=== PATIENT | female | born 1940 | race African-American/Black ===

== ENCOUNTER 2017-12-29 02:50 | Emergency (ER) | payer MEDICAID ==
[2017-12-29 03:14] LABS: ADD MAN DIFF? NO
[2017-12-29 03:17] LABS: BASO # 0.1 x10^3/uL (0.0-0.2); BASO % 1 % (0-3); EOS # 0.2 x10^3/uL (0.0-0.7); EOS % 3 % (0-3); HEMATOCRIT 36.6 % (36.0-47.0); HEMOGLOBIN 12.6 g/dL (12.0-15.5); LYMPH # 3.9 x10^3/uL (1.0-4.8); LYMPH % 44 % (24-48); MEAN CORPUSCULAR HEMOGLOBIN 33 pg (25-35); MEAN CORPUSCULAR HGB CONC 34 g/dL (31-37); MEAN CORPUSCULAR VOLUME 96 fL (79-100); MONO # 0.5 x10^3/uL (0.0-1.1); MONO % 5 % (0-9); NEUT # 4.1 x10^3uL (1.8-7.7); NEUT % 46 % (31-73); PLATELET COUNT 256 x10^3/uL (140-400); RED BLOOD COUNT 3.83 x10^6/uL (3.50-5.40); RED CELL DISTRIBUTION WIDTH 13.3 % (11.5-14.5); WHITE BLOOD COUNT 8.8 x10^3/uL (4.0-11.0)
[2017-12-29] MEDS: NITROGLYCERIN SUBLINGUAL 0.4 MG BOTTLE OF 25. SL (03:26)
[2017-12-29] MEDS: fentaNYL PF VIAL 100 MCG/2 ML VIAL IV ×2 (03:26→04:45)
[2017-12-29 03:31] LABS: ANION GAP 13 (6-14); BLOOD UREA NITROGEN 16 mg/dL (7-20); BUN/CREATININE RATIO 15 (6-20); CALCIUM 9.5 mg/dL (8.5-10.1); CARBON DIOXIDE 20 mmol/L (21-32); CHLORIDE 107 mmol/L (98-107); CREATININE 1.1 mg/dL (0.6-1.0); GFR 47.9; GLUCOSE 116 mg/dL (70-99); POTASSIUM 3.7 mmol/L (3.5-5.1); SODIUM 140 mmol/L (136-145)
[2017-12-29 03:36] LABS: ALBUMIN 3.7 g/dL (3.4-5.0); ALBUMIN/GLOBULIN RATIO 0.8 (1.0-1.7); ALK PHOS 116 U/L (46-116); ALT (SGPT) 42 U/L (14-59); AST (SGOT) 39 U/L (15-37); TOTAL BILIRUBIN 0.6 mg/dL (0.2-1.0); TOTAL PROTEIN 8.1 g/dL (6.4-8.2)
[2017-12-29 03:39] LABS: TROPONINI < 0.017 ng/mL (0.000-0.055)
[2017-12-29 03:42] LABS: NT-PRO BNP 383 pg/mL (0-449)
== END 2017-12-29 05:35 | disposition home or self-care (01) ==
LOC: ER 02:50
DX: R07.89 Other chest pain (principal); J44.9 Chronic obstructive pulmonary disease, unspecified; E78.00 Pure hypercholesterolemia, unspecified; I10 Essential (primary) hypertension; Z88.1 Allergy status to other antibiotic agents; Z88.5 Allergy status to narcotic agent
CPT/HCPCS: 36415; 71045; 80053; 83880; 84484; 85025; 93005; 96374; 96376; 99285-25; J3010

== ENCOUNTER 2018-06-17 19:25 | Emergency (ER) | payer MEDICARE ==
[~2018-06-17] VITALS: Ht 154.9 cm; Wt 64.4 kg
[~2018-06-17 19:25] MED LIST: HYDR-3164 PO; LEVO88TA2 PO; LIDO700A39 TD; LISI-130 PO; METO-239 PO; MUPI15CR TP; OXYC1TAB7 PO; PANT20TA2 PO; Pantoprazole PO
[2018-06-17 19:40] VITALS: BP 168/67
[2018-06-17] MEDS ORDERED: TRAM50TA PO (20:28)
[2018-06-17] MEDS: HYDROcodone/APAP 5/325MG 1 TAB TABLET PO ONE (20:30)
--- NOTE | 2018-06-17 21:16 | PHYS DOC ---
Past Medical History Past Medical History: COPD, High Cholesterol, Hypertension, Hepatitis, Other Additional Past Medical Histor: HEP C Past Surgical History: Hysterectomy Alcohol Use: Occasionally Drug Use: Marijuana Adult General Chief Complaint Chief Complaint: ABDOMINAL PAIN HPI HPI Patient is a 78 year old female with recent colostomy 2 months ago who presents with chronic abdominal pain around colostomy site. Patient states symptoms are unchanged, but her reason for presenting to the emergency department 2 days that she ran out of her ostomy bags, pain medication and some skin breakdown around her ostomy bag which she attributes to the cause of her pain. Patient denies vomiting, lightheadedness, change of ostomy bag output. Patient appointment with her general surgeon tomorrow but could not wait due her immediate needs and lack of supplies. [] Review of Systems Review of Systems ROS as per HPI [] All other systems were reviewed and found to be within normal limits, except as documented in this note. Current Medications Current Medications Current Medications Medications (Trade) Dose Ordered Sig/Saroj Start Time Stop Time Status Last Admin Dose Admin Acetaminophen/ Hydrocodone Bitart (Lortab 5/325) 1 tab 1X ONCE 06/17/18 20:30 06/17/18 20:31 DC 06/17/18 20:30 1 TAB Allergies Allergies Allergies Coded Allergies Type Severity Reaction Last Updated Verified ceftriaxone Allergy Intermediate SKIN RASH, HAS TOLERATED ZOSYN 06/07/18 Yes morphine Allergy Intermediate 05/20/18 Yes Physical Exam Physical Exam Constitutional: Well developed, well nourished, no acute distress, non-toxic appearance. [] HENT: Normocephalic, atraumatic, bilateral external ears normal, oropharynx moist, no oral exudates, nose normal. [] Eyes: PERRLA, EOMI, conjunctiva normal, no discharge. [] Neck: Normal range of motion, no tenderness, supple, no stridor. [] Cardiovascular:Heart rate regular rhythm, no murmur [] Lungs & Thorax: Bilateral breath sounds clear to auscultation [] Abdomen: Bowel sounds normal, soft, no tenderness, minimal superficial skin breakdown around ostomy site. No tenderness. [] Skin: Warm, dry. [] Back: No tenderness. [] Extremities: No tenderness. [] Neurologic: Alert and oriented X 3, normal motor function, normal sensory function, no focal deficits noted. [] Psychologic: Affect normal, judgement normal, mood normal. [] Current Patient Data Vital Signs Vital Signs Date Time Temp Pulse Resp B/P (MAP) Pulse Ox O2 Delivery O2 Flow Rate FiO2 06/17/18 20:30 15 100 06/17/18 19:40 98.2 81 168/67 (100) Room Air 98.2 EKG EKG [] Radiology/Procedures Radiology/Procedures [] Course & Med Decision Making Course & Med Decision Making Pertinent Labs and Imaging studies reviewed. (See chart for details) [Patient's pain addressed. Ostomy bag changed patient given supplies until she can follow-up with her general surgeon tomorrow. Will defer further evaluation and management to patient's provider.] Dragon Disclaimer Dragon Disclaimer This electronic medical record was generated, in whole or in part, using a voice recognition dictation system. Departure Departure Impression: Primary Impression: Chronic abdominal pain Additional Impression: Skin breakdown Disposition: HOME, SELF-CARE Condition: GOOD Patient Instructions: Abdominal Pain (Nonspecific) Additional Instructions: Please follow-up with Dr. Britt tomorrow as scheduled for evaluation of iliostomy site and chronic abdominal pain. Take temp tramadol as directed. Scripts Tramadol Hcl (TRAMADOL HCL) 50 Mg Tablet 50 MG PO Q6H PRN for PAIN for 3 Days, #15 TAB 0 Refills Prov: OSMIN YANCEY DO 06/17/18 Problem Qualifiers OSMIN YANCEY DO Jun 17, 2018 21:16
== END 2018-06-17 21:25 | disposition home or self-care (01) ==
LOC: ER 19:25
DX: T85.848A Pain due to other internal prosthetic devices, implants and grafts, initial encounter (principal); G89.28 Other chronic postprocedural pain; E78.00 Pure hypercholesterolemia, unspecified; I10 Essential (primary) hypertension; J44.9 Chronic obstructive pulmonary disease, unspecified; Z90.710 Acquired absence of both cervix and uterus; Z88.1 Allergy status to other antibiotic agents; Z88.5 Allergy status to narcotic agent; Y82.8 Other medical devices associated with adverse incidents; Y92.89 Other specified places as the place of occurrence of the external cause
CPT/HCPCS: 99283

== ENCOUNTER 2018-09-09 04:51 | Inpatient (IN) | payer MEDICARE ==
[~2018-09-09] VITALS: Ht 154.9 cm; Wt 61.3 kg
[~2018-09-09 04:51] MED LIST changes: +ASPI-612 PO; +LISI10TA2 PO; +TIZA4TAB PO; +TRAM50TA PO
[2018-09-09] MEDS ORDERED: ASPIRIN 325 MG TABLET PO ONE (05:30)
[2018-09-09] MEDS ORDERED: fentaNYL PF VIAL 100 MCG/2 ML VIAL IV ONE ×2 (05:30→07:00)
[2018-09-09] MEDS ORDERED: FAMOTIDINE 20 MG/2 ML VIAL IVP ONE (05:30)
[2018-09-09] MEDS ORDERED: ONDANSETRON PF 4 MG/2 ML VIAL. IV ONE (05:30)
--- NOTE | 2018-09-09 05:58 | PHYS DOC ---
Past Medical History Past Medical History: COPD, High Cholesterol, Hypertension, Hepatitis, Other Additional Past Medical Histor: HEP C (MICHELLE ESPINOZA DO) Past Surgical History: Hysterectomy, Other Additional Past Surgical Histo: colostomy (MICHELLE ESPINOZA DO) Alcohol Use: Occasionally Drug Use: None (MICHELLE ESPINOZA DO) Adult General Chief Complaint Chief Complaint: BREAST PAIN/INJURY HPI HPI 78-year-old female presents via EMS with report of bilateral breast pain and tenderness. Patient reports started yesterday. Reports some associated nausea and dizziness. Denies known trauma. Denies rash. Denies fever or chills. Denies leg swelling or calf tenderness. Per [facility] patient was recently admitted 2 weeks ago for similar which was thought to be secondary to muscular skeletal chest pain and associated pneumonia. Patient does report some dry cough. Denies leg swelling or calf tenderness. (MICHELLE ESPINOZA DO) Review of Systems Review of Systems Constitutional: Denies fever or chills [] Eyes: Denies change in visual acuity, redness, or eye pain [] HENT: Denies nasal congestion or sore throat [] Respiratory: Reports cough; denies shortness of breath [] Cardiovascular: Reports breast pain; denies palpitations GI: Denies abdominal pain; reports nausea : Denies dysuria or hematuria [] Musculoskeletal: Denies back pain or joint pain [] Integument: Denies rash or skin lesions [] Neurologic: Denies headache, focal weakness or sensory changes; reports dizziness Complete systems were reviewed and found to be within normal limits, except as documented in this note. (MICHELLE ESPINOZA DO) Current Medications Current Medications Current Medications Medications (Trade) Dose Ordered Sig/Saroj Start Time Stop Time Status Last Admin Dose Admin Albuterol Sulfate (Ventolin Neb Soln) 10 mg 1X ONCE 09/09/18 07:00 09/09/18 07:01 DC 09/09/18 07:00 10 MG Aspirin ([place] Aspirin) 325 mg 1X ONCE 09/09/18 05:30 09/09/18 05:31 DC 09/09/18 06:13 325 MG Calcium Gluconate (Calcium Gluconate) 1,000 mg 1X ONCE 09/09/18 07:00 09/09/18 07:01 DC Dextrose (Dextrose 50%-Water Syringe) 25 gm 1X ONCE 09/09/18 07:00 09/09/18 07:01 DC Famotidine (Pepcid Vial) 20 mg 1X ONCE 09/09/18 05:30 09/09/18 05:31 DC 09/09/18 06:12 20 MG Fentanyl Citrate (Fentanyl 2ml Vial) 25 mcg 1X ONCE 09/09/18 07:00 09/09/18 07:01 DC Insulin Human Regular (HumuLIN R VIAL) 10 unit 1X ONCE 09/09/18 07:00 09/09/18 07:01 DC Ondansetron HCl (Zofran) 4 mg 1X ONCE 09/09/18 05:30 09/09/18 05:31 DC 09/09/18 06:12 4 MG Sodium Polystyrene Sulfonate (Kayexalate) 30 gm 1X ONCE 09/09/18 07:00 09/09/18 07:01 DC Sodium Bicarbonate (Sodium Bicarb Adult 8.4% Syr) 50 meq 1X ONCE 09/09/18 07:00 09/09/18 07:01 DC Sodium Chloride 1,000 ml @ 1,000 mls/hr 1X ONCE 09/09/18 07:00 09/09/18 07:59 (URI MATTHEWS MD) Allergies Allergies Allergies Coded Allergies Type Severity Reaction Last Updated Verified ceftriaxone Allergy Intermediate SKIN RASH, HAS TOLERATED ZOSYN 06/07/18 Yes morphine Allergy Intermediate 08/25/18 Yes (URI MATTHEWS MD) Physical Exam Physical Exam Constitutional: Well developed, well nourished, no acute distress, non-toxic appearance. [] HENT: Normocephalic, atraumatic, oropharynx moist Eyes: Conjunctiva normal, no discharge. [] Neck: Normal range of motion, no tenderness, supple Cardiovascular: Heart rate regular rhythm, no murmur [] Lungs & Thorax: Bilateral breath sounds clear to auscultation [] Abdomen: Soft, no tenderness Skin: Warm, dry, no erythema, no rash, small dry areas noted to right breast below nipple Extremities: No tenderness, ROM intact, no edema. [] Neurologic: Alert and oriented X 3, normal motor function, normal sensory function, no focal deficits noted. [] Psychologic: Affect normal, judgement normal, mood normal. [] (ESPINOZA,MICHELLE Luciano DO) Current Patient Data Vital Signs Vital Signs Date Time Temp Pulse Resp B/P (MAP) Pulse Ox O2 Delivery O2 Flow Rate FiO2 09/09/18 06:27 103 148/82 (104) 96 Room Air 09/09/18 04:53 97.7 18 97.7 (URI MATTHEWS MD) Lab Values Laboratory Tests Test 09/09/18 06:00 09/09/18 06:35 White Blood Count 14.5 x10^3/uL (4.0-11.0) H Red Blood Count 4.28 x10^6/uL (3.50-5.40) Hemoglobin 12.6 g/dL (12.0-15.5) Hematocrit 39.9 % (36.0-47.0) Mean Corpuscular Volume 93 fL (79-100) Mean Corpuscular Hemoglobin 30 pg (25-35) Mean Corpuscular Hemoglobin Concent 32 g/dL (31-37) Red Cell Distribution Width 14.8 % (11.5-14.5) H Platelet Count 740 x10^3/uL (140-400) H Neutrophils (%) (Auto) 71 % (31-73) Lymphocytes (%) (Auto) 23 % (24-48) L Monocytes (%) (Auto) 4 % (0-9) Eosinophils (%) (Auto) 1 % (0-3) Basophils (%) (Auto) 1 % (0-3) Neutrophils # (Auto) 10.3 x10^3uL (1.8-7.7) H Lymphocytes # (Auto) 3.3 x10^3/uL (1.0-4.8) Monocytes # (Auto) 0.6 x10^3/uL (0.0-1.1) Eosinophils # (Auto) 0.1 x10^3/uL (0.0-0.7) Basophils # (Auto) 0.2 x10^3/uL (0.0-0.2) Prothrombin Time 14.1 SEC (11.7-14.0) H Prothrombin Time INR 1.1 (0.8-1.1) PTT 35 SEC (24-38) Sodium Level 137 mmol/L (136-145) Potassium Level 7.3 mmol/L (3.5-5.1) *H Chloride Level 102 mmol/L (98-107) Carbon Dioxide Level 15 mmol/L (21-32) L Anion Gap 20 (6-14) H Blood Urea Nitrogen 49 mg/dL (7-20) H Creatinine 5.4 mg/dL (0.6-1.0) H Estimated GFR (Cockcroft-Gault) 9.2 BUN/Creatinine Ratio 9 (6-20) Glucose Level 103 mg/dL (70-99) H Lactic Acid Level 1.3 mmol/L (0.4-2.0) Calcium Level 10.0 mg/dL (8.5-10.1) Magnesium Level 1.9 mg/dL (1.8-2.4) Total Bilirubin 0.6 mg/dL (0.2-1.0) Aspartate Amino Transferase (AST) 18 U/L (15-37) Alanine Aminotransferase (ALT) 18 U/L (14-59) Alkaline Phosphatase 155 U/L (46-116) H Creatine Kinase 28 U/L (26-192) Creatine Kinase MB (Mass) 1.1 ng/mL (0.0-3.6) Creatine Kinase MB Relative Index % (0-4) Troponin I Quantitative < 0.017 ng/mL (0.000-0.055) PF-Dws-R-Type Natriuretic Peptide 1327 pg/mL (0-449) H Total Protein 9.7 g/dL (6.4-8.2) H Albumin 4.3 g/dL (3.4-5.0) Albumin/Globulin Ratio 0.8 (1.0-1.7) L Lipase 599 U/L (73-393) H Urine Collection Type U cath Urine Color Irena Urine Clarity Clear Urine pH 5.0 Urine Specific [place] 1.020 Urine Protein 30 mg/dL (NEG-TRACE) Urine Glucose (UA) Negative mg/dL (NEG) Urine Ketones (Stick) Trace mg/dL (NEG) Urine Blood Negative (NEG) Urine Nitrite Negative (NEG) Urine Bilirubin Moderate (NEG) Urine Urobilinogen Dipstick 0.2 mg/dL (0.2 mg/dL) Urine Leukocyte Esterase Trace (NEG) Urine RBC 0 /HPF (0-2) Urine WBC 1-4 /HPF (0-4) Urine Bacteria Few /HPF (0-FEW) Laboratory Tests 09/09/18 06:00 Laboratory Tests 09/09/18 06:00 (URI MATTHEWS MD) EKG EKG @0524 Sinus tachycardia at 105bpm, NO ST elevation. (MICHELLE ESPINOZA DO) Radiology/Procedures Radiology/Procedures [] (MICHELLE ESPINOZA DO) Course & Med Decision Making Course & Med Decision Making Elderly patient presents via EMS with report of bilateral "breast pain" which has been ongoing for last day. Reports associated dizziness and nausea. Pain addressed. IVF hydration given. Labs pending. EKG stable. CXR pending. Patient with history of recent admission 2 weeks ago for similar which was similar to today's discomfort. Patient was thought to possibly have pneumonia and musculoskeletal chest pain. Sign out given to Dr. Matthews for further evaluation and final disposition. Discussed current findings and plan with patient, who acknowledges understanding and agreement. (MICHELLE ESPINOZA DO) Course & Med Decision Making @0705: Patient care transferred to [place] at 0600. Patient complaining of bilateral breast pain since yesterday. Patient had stable vital signs with resolving tachycardia. She has ileostomy in place. Labs showed potassium of 7.3 and creatinine of 5.4. In her recent admission her creatinine was 1.1. Patient had history of acute renal failure previously. EKG did not show abnormal RI or QRS intervals. Treatment for hyperkalemia was started with IV fluids, D50 and insulin, Kayexalate, bicarbonate and calcium. On-call hospitalist Dr. Campoverde accepted admission at 0503. (URI MATTHEWS MD) Dragon Disclaimer Dragon Disclaimer This electronic medical record was generated, in whole or in part, using a voice recognition dictation system. (MICHELLE ESPINOZA DO) Departure Departure Impression: Primary Impression: ARF (acute renal failure) Additional Impressions: Hyperkalemia Elevated lipase Acute chest wall pain Ileostomy in place Disposition: ADMITTED INPATIENT (at 0 655) Admitting Physician: Other ( accepted admission at 0703) (URI MATTHEWS MD) Condition: GUARDED Referrals: VINCE BLAIR DO (PCP) Critical Care Time Critical care time was 40 minutes exclusive of procedures. (URI MATTHEWS MD) Problem Qualifiers Primary Impression: ARF (acute renal failure) Acute renal failure type: unspecified Qualified Codes: N17.9 - Acute kidney failure, unspecified MICHELLE ESPINOZA DO Sep 09, 2018 05:58 URI MATTHEWS MD Sep 09, 2018 07:01
--- NOTE | 2018-09-09 06:05 | EKG ---
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
[2018-09-09 06:15] LABS: BASO # 0.2 x10^3/uL (0.0-0.2); BASO % 1 % (0-3); EOS # 0.1 x10^3/uL (0.0-0.7); EOS % 1 % (0-3); HEMATOCRIT 39.9 % (36.0-47.0); HEMOGLOBIN 12.6 g/dL (12.0-15.5); LYMPH # 3.3 x10^3/uL (1.0-4.8); LYMPH % 23 % (24-48); MEAN CORPUSCULAR HEMOGLOBIN 30 pg (25-35); MEAN CORPUSCULAR HGB CONC 32 g/dL (31-37); MEAN CORPUSCULAR VOLUME 93 fL (79-100); MONO # 0.6 x10^3/uL (0.0-1.1); MONO % 4 % (0-9); NEUT # 10.3 x10^3uL (1.8-7.7); NEUT % 71 % (31-73); PLATELET COUNT 740 x10^3/uL (140-400); RED BLOOD COUNT 4.28 x10^6/uL (3.50-5.40); RED CELL DISTRIBUTION WIDTH 14.8 % (11.5-14.5); WHITE BLOOD COUNT 14.5 x10^3/uL (4.0-11.0)
[2018-09-09 06:25] LABS: PROTHROMBIN TIME PATIENT 14.1 SEC (11.7-14.0)
--- NOTE | 2018-09-09 06:30 | RAD ---
Single view chest dated 09/09/2018. Comparison made to 08/26/2018. CLINICAL INDICATION: Chest pain. FINDINGS: Single upright view of the chest shows normal heart and mediastinal contours. Lungs are clear without focal consolidation. Vascular interstitium within normal limits. No pleural effusion or pneumothorax. IMPRESSION: No acute radiographic abnormality. Electronically signed by: Fito Villarreal MD (09/09/2018 6:27 AM) [id number]
[2018-09-09 06:34] LABS: ALBUMIN 4.3 g/dL (3.4-5.0); ALBUMIN/GLOBULIN RATIO 0.8 (1.0-1.7); CREATININE 5.4 mg/dL (0.6-1.0); GFR 9.2; MAGNESIUM 1.9 mg/dL (1.8-2.4); TOTAL BILIRUBIN 0.6 mg/dL (0.2-1.0); TOTAL PROTEIN 9.7 g/dL (6.4-8.2)
[2018-09-09 06:39] LABS: POTASSIUM 7.3 mmol/L (3.5-5.1)
[2018-09-09 06:42] LABS: CREATINE KINASE 28 U/L (26-192)
[2018-09-09 06:49] LABS: BILIRUBIN,URINE MODERATE (NEG); CLARITY,URINE CLEAR; COLOR,URINE AMBER; NITRITE,URINE NEGATIVE (NEG); PROTEIN,URINE 30 mg/dL (NEG-TRACE); UROBILINOGEN,URINE 0.2 mg/dL (0.2 mg/dL)
[2018-09-09 06:56] LABS: BACTERIA,URINE FEW /HPF (0-FEW); RBC,URINE 0 /HPF (0-2)
[2018-09-09] MEDS ORDERED: CALCIUM GLUCONATE 1,000 MG/10 ML VIAL. IVP ONE (07:00)
[2018-09-09] MEDS ORDERED: ALBUTEROL SULFATE 2.5 MG/3 ML NEBU. CONT NEB ONE (07:00)
[2018-09-09] MEDS ORDERED: SODIUM BICARB ADULT 8.4% 50 MEQ/50 ML DISP.SYRIN. IV ONE (07:00)
[2018-09-09] MEDS ORDERED: IV NORMAL SALINE 500ML BAG 500 ML IV ONE (07:00)
[2018-09-09] MEDS ORDERED: DEXTROSE 50% 25 GM / 50ML DISP.SYRIN. IV ONE (07:00)
[2018-09-09] MEDS ORDERED: SODIUM POLYSTYRENE SULFONATE 15 GM/60 ML ORAL.SUSP. PO ONE (07:00)
[2018-09-09] MEDS ORDERED: INSULIN REGULAR 100 UNIT/ML 3ML VIAL. IV ONE (07:00)
[2018-09-09] MEDS ORDERED: IV NORMAL SALINE 1000ML BAG 1,000 ML IV ONE (07:00)
--- NOTE | 2018-09-09 07:27 | PDOC1 ---
History and Physical Date of Admission Date of Admission DATE: 09/09/18 TIME: 07:25 Identification/Chief Complaint Chief Complaint Chest pain Source Source: Chart review, Patient History of Present Illness History of Present Illness Ms. Ng is a 78yo F w/ PMHx ?cirrhosis/Hep C, cecal volvulus s/p colostomy, hypothyroidism who p/w right-sided breast pain and is now having left-sided breast pain as well. Pain began last night and is constant, squeezing, only relieved by IV opioids in ED. Now has moved to include her left side as well. Has associated mild shortness of breath, palpation of her chest wall worsens the pain. She has also noted to be slightly tachycardic. She has intermittent pleuritic discomfort. She has not had any definite exertional chest pain. She does have chronic back pain, and now has associated abdominal pain, weakness, nausea, or vomiting. Denies numbness,. There are no alleviating or exacerbating factors to her symptoms. Has been having loose stool per ostomy since last night as well as decreased urine output and decreased appetite for the past 2 weeks. She had labs Cr. 5.4, BUN 65, K 7.3, platelets 454 05/20 s/p diverting ileostomy. Past Medical History Cardiovascular: HTN, Hyperlipidemia Pulmonary: COPD CENTRAL NERVOUS SYSTEM: Other GI: Other Heme/Onc: No pertinent hx Hepatobiliary: Hep A/B/C Psych: Anxiety Musculoskeletal: Osteoarthritis Infectious disease: No pertinent hx Renal/: Chronic renal insuff Endocrine: Hypothyroidism Past Surgical History Past Surgical History: Hysterectomy, Colectomy Family History Family History: Hypertension Social History ALCOHOL: occassional Drugs: Marijuana Current Problem List Problem List Problems Medical Problems: (1) Acute chest wall pain Status: Acute (2) Elevated lipase Status: Acute (3) Ileostomy in place Status: Acute Current Medications Current Medications Current Medications Aspirin ([place] Aspirin) 325 mg 1X ONCE PO Last administered on 09/09/18at 06:13 ; Start 09/09/18 at 05:30; Stop 09/09/18 at 05:31; Status DC Fentanyl Citrate (Fentanyl 2ml Vial) 25 mcg 1X ONCE IV Last administered on 09/09/18at 06:12; Start 09/09/18 at 05:30; Stop 09/09/18 at 05:31; Status DC Ondansetron HCl (Zofran) 4 mg 1X ONCE IV Last administered on 09/09/18at 06:12; Start 09/09/18 at 05:30; Stop 09/09/18 at 05:31; Status DC Famotidine (Pepcid Vial) 20 mg 1X ONCE IVP Last administered on 09/09/18at 06:12 ; Start 09/09/18 at 05:30; Stop 09/09/18 at 05:31; Status DC Sodium Chloride 500 ml @ 500 mls/hr 1X ONCE IV Last administered on 09/09/18at 06:28; Start 09/09/18 at 07:00; Stop 09/09/18 at 07:59 Albuterol Sulfate (Ventolin Neb Soln) 10 mg 1X ONCE CONT NEB Last administered on 09/09/18at 07:00; Start 09/09/18 at 07:00; Stop 09/09/18 at 07:01; Status DC Dextrose (Dextrose 50%-Water Syringe) 25 gm 1X ONCE IV Last administered on 09/09/18at 07:06; Start 09/09/18 at 07:00; Stop 09/09/18 at 07:01; Status DC Insulin Human Regular (HumuLIN R VIAL) 10 unit 1X ONCE IV Last administered on 09/09/18at 07:12; Start 09/09/18 at 07:00; Stop 09/09/18 at 07:01; Status DC Sodium Bicarbonate (Sodium Bicarb Adult 8.4% Syr) 50 meq 1X ONCE IV Last administered on 09/09/18at 07:06; Start 09/09/18 at 07:00; Stop 09/09/18 at 07:01; Status DC Calcium Gluconate (Calcium Gluconate) 1,000 mg 1X ONCE IVP Last administered on 09/09/18at 07:05; Start 09/09/18 at 07:00; Stop 09/09/18 at 07:01; Status DC Sodium Polystyrene Sulfonate (Kayexalate) 30 gm 1X ONCE PO ; Start 09/09/18 at 07:00; Stop 09/09/18 at 07:01; Status DC Sodium Chloride 1,000 ml @ 1,000 mls/hr 1X ONCE IV ; Start 09/09/18 at 07:00; Stop 09/09/18 at 07:59 Fentanyl Citrate (Fentanyl 2ml Vial) 25 mcg 1X ONCE IV Last administered on 09/09/18at 07:06; Start 09/09/18 at 07:00; Stop 09/09/18 at 07:01; Status DC Sodium Chloride 1,000 ml @ 150 mls/hr Q6H40M IV ; Start 09/09/18 at 07:11; Stop 09/10/18 at 07:10 Active Scripts Active Aspirin Ec (Aspirin) 81 Mg Tablet. 81 Mg PO DAILYWBKFT 30 Days Lisinopril 10 Mg Tablet 10 Mg PO BID 30 Days Tizanidine Hcl 4 Mg Tablet 4 Mg PO PRN Q8HRS PRN 10 Days Rayne 5-325 Tablet (Acetaminophen/Hydrocodone Bitart) 1 Each Tablet 1 Tab PO PRN Q6HRS 3 Days Lidocaine 1 Each Adh..patch 1 Patch TD DAILY MDD 1 Synthroid (Levothyroxine Sodium) 88 Mcg Tablet 88 Mcg PO DAILY06 MDD 1 Metoprolol Succinate ( Xl ) (Metoprolol Succinate) 25 Mg Tab.er.24h 25 Mg PO DAILY MDD 1 Reported Protonix (Pantoprazole Sodium) 20 Mg Tablet. 40 Mg PO DAILY Allergies Allergies: Coded Allergies: ceftriaxone (Verified Allergy, Intermediate, SKIN RASH, HAS TOLERATED ZOSYN, 06/07/18) morphine (Verified Allergy, Intermediate, 08/25/18) TOLERATES LORTAB AND DILAUDID ROS General: YES: Fatigue, Malaise, Appetite; No: Chills, Night Sweats, Other PSYCHOLOGICAL ROS: No: Anxiety, Behavioral Disorder, Concentration difficultie , Decreased libido, Depression, Disorientation, Hallucinations, Hostility, Irritablity, Memory difficulties, Mood Swings, Obsessive thoughts, Physical abuse, Sexual abuse, Sleep disturbances, Suicidal ideation, Other Eyes: No Blurry vision, No Decreased vision, No Double vision, No Dry eyes, No Excessive tearing, No Eye Pain, No Itchy Eyes, No Loss of vision, No Photophobia , No Scotomata, No Uses contacts, No Uses glasses, No Other HEENT: No: Heacaches, Visual Changes, Hearing change, Nasal congestion, Nasal discharge, Oral lesions, Sinus pain, Sore Throat, Epistaxis, Sneezing, Snoring, Tinnitus, Vertigo, Vocal changes, Other ALLERGY AND IMMUNOLOGY: No: Hives, Insect Bite Sensitivity, Itchy/Watery Eyes, Nasal Congestion, Post Nasal Drip, Seasonal Allergies, Other Hematological and Lymphatic: No: Bleeding Problems, Blood Clots, Blood Transfusions, Brusing, Night Sweats, Pallor, Swollen Lymph Nodes, Other ENDOCRINE: No: Breast Changes, Galactorrhea, Hair Pattern Changes, Hot Flashes , Malaise/lethargy, Mood Swings, Palpitations, Polydipsia/polyuria, Skin Changes , Temperature Intolerance, Unexpected Weight Changes, Other Breast: No New/Changing Breast Lumps, No Nipple changes, No Nipple discharge, No Other Respiratory: YES: Shortness of breath, Tachypnea; No: Cough, Hemoptysis, Orthopnea, Pleuritic Pain, SOB with excertion, Sputum Changes, Stridor, Wheezing, Other Cardiovascular: yes Chest Pain; No Palpitations, No Orthopnea, No Paroxysmal Noc. Dyspnea, No Edema, No Lt Headedness, No Other Gastrointestinal: Yes Nausea, Yes Abdominal Pain; No Vomiting, No Diarrhea, No Constipation, No Melena, No Hematochezia, No Other Genitourinary: No Dysuria, No Frequency, No Incontinence, No Hematuria, No Retention, No Discharge, No Urgency, No Pain, No Flank Pain, No Other, No , No , No , No , No , No , No Musculoskeletal: No Gait Disturbance, No Joint Pain, No Joint Stiffness, No Joint Swelling, No Muscle Pain, No Muscular Weakness, No Pain In:, No Swelling In:, No Other Neurological: No Behavorial Changes, No Bowel/Bladder ControlChng, No Confusion , No Dizziness, No Gait Disturbance, No Headaches, No Impaired Coord/balance, No Memory Loss, No Numbness/Tingling, No Seizures, No Speech Problems, No Tremors, No Visual Changes, No Weakness, No Other Skin: No Dry Skin, No Eczema, No Hair Changes, No Lumps, No Mole Changes, No Mottling, No Nail Changes, No Pruritus, No Rash, No Skin Lesion Changes, No Other, No Acne Physical Exam General: Alert, Oriented X3, Cooperative, mild distress HEENT: Atraumatic, PERRLA, EOMI, Mucous membr. moist/pink Lungs: Clear to auscultation, Normal air movement Heart: S1S2, RRR, no gallops, no murmurs Abdomen: Normal bowel sounds, Soft, Other (LLQ ostomy clean dry. Diffusely tender) Extremities: No clubbing, No cyanosis, No edema, Normal pulses, No tenderness/ swelling Skin: No rashes, No breakdown, No significant lesion Neuro: Normal speech, Strength at 5/5 X4 ext, Normal tone, Sensation intact, Cranial nerves 3-12 NL, Reflexes 2+ Psych/Mental Status: Mental status NL, Mood NL Vitals Vitals Vital Signs Date Time Temp Pulse Resp B/P (MAP) Pulse Ox O2 Delivery O2 Flow Rate FiO2 09/09/18 07:03 98 Room Air 09/09/18 06:27 103 148/82 (104) 09/09/18 04:53 97.7 18 97.7 Labs Labs Laboratory Tests Test 09/09/18 06:00 09/09/18 06:35 White Blood Count 14.5 x10^3/uL (4.0-11.0) Red Blood Count 4.28 x10^6/uL (3.50-5.40) Hemoglobin 12.6 g/dL (12.0-15.5) Hematocrit 39.9 % (36.0-47.0) Mean Corpuscular Volume 93 fL (79-100) Mean Corpuscular Hemoglobin 30 pg (25-35) Mean Corpuscular Hemoglobin Concent 32 g/dL (31-37) Red Cell Distribution Width 14.8 % (11.5-14.5) Platelet Count 740 x10^3/uL (140-400) Neutrophils (%) (Auto) 71 % (31-73) Lymphocytes (%) (Auto) 23 % (24-48) Monocytes (%) (Auto) 4 % (0-9) Eosinophils (%) (Auto) 1 % (0-3) Basophils (%) (Auto) 1 % (0-3) Neutrophils # (Auto) 10.3 x10^3uL (1.8-7.7) Lymphocytes # (Auto) 3.3 x10^3/uL (1.0-4.8) Monocytes # (Auto) 0.6 x10^3/uL (0.0-1.1) Eosinophils # (Auto) 0.1 x10^3/uL (0.0-0.7) Basophils # (Auto) 0.2 x10^3/uL (0.0-0.2) Prothrombin Time 14.1 SEC (11.7-14.0) Prothromb Time International Ratio 1.1 (0.8-1.1) Activated Partial Thromboplast Time 35 SEC (24-38) Sodium Level 137 mmol/L (136-145) Potassium Level 7.3 mmol/L (3.5-5.1) Chloride Level 102 mmol/L (98-107) Carbon Dioxide Level 15 mmol/L (21-32) Anion Gap 20 (6-14) Blood Urea Nitrogen 49 mg/dL (7-20) Creatinine 5.4 mg/dL (0.6-1.0) Estimated GFR (Cockcroft-Gault) 9.2 BUN/Creatinine Ratio 9 (6-20) Glucose Level 103 mg/dL (70-99) Lactic Acid Level 1.3 mmol/L (0.4-2.0) Calcium Level 10.0 mg/dL (8.5-10.1) Magnesium Level 1.9 mg/dL (1.8-2.4) Total Bilirubin 0.6 mg/dL (0.2-1.0) Aspartate Amino Transf (AST/SGOT) 18 U/L (15-37) Alanine Aminotransferase (ALT/SGPT) 18 U/L (14-59) Alkaline Phosphatase 155 U/L (46-116) Creatine Kinase 28 U/L (26-192) Creatine Kinase MB (Mass) 1.1 ng/mL (0.0-3.6) Creatine Kinase MB Relative Index % (0-4) Troponin I Quantitative < 0.017 ng/mL (0.000-0.055) SE-Ssi-Q-Type Natriuretic Peptide 1327 pg/mL (0-449) Total Protein 9.7 g/dL (6.4-8.2) Albumin 4.3 g/dL (3.4-5.0) Albumin/Globulin Ratio 0.8 (1.0-1.7) Lipase 599 U/L (73-393) Urine Collection Type U cath Urine Color Irena Urine Clarity Clear Urine pH 5.0 Urine Specific Rush 1.020 Urine Protein 30 mg/dL (NEG-TRACE) Urine Glucose (UA) Negative mg/dL (NEG) Urine Ketones (Stick) Trace mg/dL (NEG) Urine Blood Negative (NEG) Urine Nitrite Negative (NEG) Urine Bilirubin Moderate (NEG) Urine Urobilinogen Dipstick 0.2 mg/dL (0.2 mg/dL) Urine Leukocyte Esterase Trace (NEG) Urine RBC 0 /HPF (0-2) Urine WBC 1-4 /HPF (0-4) Urine Bacteria Few /HPF (0-FEW) Laboratory Tests Test 09/09/18 06:00 09/09/18 06:35 White Blood Count 14.5 x10^3/uL (4.0-11.0) Red Blood Count 4.28 x10^6/uL (3.50-5.40) Hemoglobin 12.6 g/dL (12.0-15.5) Hematocrit 39.9 % (36.0-47.0) Mean Corpuscular Volume 93 fL (79-100) Mean Corpuscular Hemoglobin 30 pg (25-35) Mean Corpuscular Hemoglobin Concent 32 g/dL (31-37) Red Cell Distribution Width 14.8 % (11.5-14.5) Platelet Count 740 x10^3/uL (140-400) Neutrophils (%) (Auto) 71 % (31-73) Lymphocytes (%) (Auto) 23 % (24-48) Monocytes (%) (Auto) 4 % (0-9) Eosinophils (%) (Auto) 1 % (0-3) Basophils (%) (Auto) 1 % (0-3) Neutrophils # (Auto) 10.3 x10^3uL (1.8-7.7) Lymphocytes # (Auto) 3.3 x10^3/uL (1.0-4.8) Monocytes # (Auto) 0.6 x10^3/uL (0.0-1.1) Eosinophils # (Auto) 0.1 x10^3/uL (0.0-0.7) Basophils # (Auto) 0.2 x10^3/uL (0.0-0.2) Prothrombin Time 14.1 SEC (11.7-14.0) Prothromb Time International Ratio 1.1 (0.8-1.1) Activated Partial Thromboplast Time 35 SEC (24-38) Sodium Level 137 mmol/L (136-145) Potassium Level 7.3 mmol/L (3.5-5.1) Chloride Level 102 mmol/L (98-107) Carbon Dioxide Level 15 mmol/L (21-32) Anion Gap 20 (6-14) Blood Urea Nitrogen 49 mg/dL (7-20) Creatinine 5.4 mg/dL (0.6-1.0) Estimated GFR (Cockcroft-Gault) 9.2 BUN/Creatinine Ratio 9 (6-20) Glucose Level 103 mg/dL (70-99) Lactic Acid Level 1.3 mmol/L (0.4-2.0) Calcium Level 10.0 mg/dL (8.5-10.1) Magnesium Level 1.9 mg/dL (1.8-2.4) Total Bilirubin 0.6 mg/dL (0.2-1.0) Aspartate Amino Transf (AST/SGOT) 18 U/L (15-37) Alanine Aminotransferase (ALT/SGPT) 18 U/L (14-59) Alkaline Phosphatase 155 U/L (46-116) Creatine Kinase 28 U/L (26-192) Creatine Kinase MB (Mass) 1.1 ng/mL (0.0-3.6) Creatine Kinase MB Relative Index % (0-4) Troponin I Quantitative < 0.017 ng/mL (0.000-0.055) CO-Evu-J-Type Natriuretic Peptide 1327 pg/mL (0-449) Total Protein 9.7 g/dL (6.4-8.2) Albumin 4.3 g/dL (3.4-5.0) Albumin/Globulin Ratio 0.8 (1.0-1.7) Lipase 599 U/L (73-393) Urine Collection Type U cath Urine Color Irena Urine Clarity Clear Urine pH 5.0 Urine Specific Rush 1.020 Urine Protein 30 mg/dL (NEG-TRACE) Urine Glucose (UA) Negative mg/dL (NEG) Urine Ketones (Stick) Trace mg/dL (NEG) Urine Blood Negative (NEG) Urine Nitrite Negative (NEG) Urine Bilirubin Moderate (NEG) Urine Urobilinogen Dipstick 0.2 mg/dL (0.2 mg/dL) Urine Leukocyte Esterase Trace (NEG) Urine RBC 0 /HPF (0-2) Urine WBC 1-4 /HPF (0-4) Urine Bacteria Few /HPF (0-FEW) Images Images CXR - No acute radiographic abnormality. VTE Prophylaxis Ordered VTE Prophylaxis Devices: Yes VTE Pharmacological Prophylaxi: Yes Assessment/Plan Assessment/Plan A/P: Right and left chest wall pain - will trend troponins, seen by cardiology for this 2 weeks ago. Most probably pleuritic in nature as it is worsened with deep breath Leukocytosis - uncertain source if there is an infection Anemia of chronic disease - stable Hepatitis C; outpatient GI f/u Tobacco abuse - discussed/encouraged cessation Hyperkalemia - given albuterol, insulin + dextrose, kayexelate. TIGRE - will consult nephrology, likely this is vasomotor, has not been taking PO well. IVF Hypertension - will manage meds, hold nephrotoxic meds Hypothyroidism - Synthroid Diarrhea - loose bowels. Will monitor, check stool culture, c. diff S/p colectomy with ileostomy - recovered fairly well, has been at home Metabolic acidosis - with gap, likely this is 2/2 TIGRE with an RTA. Will give IVF , bicarbonate Aortic atherosclerosis - noted on CT scan, likely has vascular disease elsewhere as well CAD; CT chest last week notable for coronary calcifications. FEN - Renal diet PPX - Heparin FULL CODE Inpatient for Chest Pain and new TIGRE, will be inpatient at least 2 midnights. SHENA HERNANDEZ MD Sep 09, 2018 07:27
[2018-09-09] MEDS ORDERED: IV NORMAL SALINE 1000ML BAG 1,000 ML IV SCH (08:54)
[2018-09-09 09:00] VITALS: BP 80/82
[2018-09-09] MEDS ORDERED: BISACODYL 10 MG SUPP.RECT. PR PRN (09:00)
[2018-09-09] MEDS: HYDROmorphone 2 MG/ML VIAL IV PRN ×2 (09:20→13:25)
[2018-09-09] MEDS: LIDOCAINE (700MG/PATCH) PATCH. TD SCH (09:25)
[2018-09-09] MEDS: LEVOTHYROXINE 88 MCG TABLET PO SCH (09:25)
[2018-09-09] MEDS: PANTOPRAZOLE 40 MG TABLET.DR. PO SCH (09:26)
[2018-09-09] MEDS: tiZANidine 4 MG TABLET. PO PRN (09:27)
[2018-09-09] MEDS: HEPARIN for SUB-Q USE 5,000 UNIT/ML VIAL. SQ SCH ×2 (09:31→20:49)
[2018-09-09] MEDS: IV NORMAL SALINE 1000ML BAG 1,000 ML IV SCH ×2 (09:33→13:51)
[2018-09-09] MEDS: METOPROLOL SUCC 24HR ER 25 MG TAB.ER.24H. PO SCH (10:00)
[2018-09-09] MEDS: DOCUSATE SODIUM 100 MG CAPSULE. PO SCH ×2 (10:00→20:49)
[2018-09-09] MEDS: ASPIRIN ENTERIC COATED 81 MG TABLET.DR. PO SCH (10:00)
--- NOTE | 2018-09-09 10:30 | PDOC2 ---
CONSULT Date of Consult Date of Consult DATE: 09/09/18 TIME: 10:12 History of Present Illness Reason for Visit: Pt is a 78yo F w/ PMHx ?cirrhosis/Hep C, cecal volvulus s/p colostomy, hypothyroidism who p/w right-sided breast pain and is now having left-sided breast pain as well. Pain began last night and is constant, squeezing, only relieved by IV opioids in ED. Now has moved to include her left side as well. Has associated mild shortness of breath, palpation of her chest wall worsens the pain. She has also noted to be slightly tachycardic. She has intermittent pleuritic discomfort. She has not had any definite exertional chest pain. She does have chronic back pain, and now has associated abdominal pain, weakness, nausea, or vomiting. Denies numbness,. There are no alleviating or exacerbating factors to her symptoms. Has been having loose stool per ostomy since last night as well as decreased urine output and decreased appetite for the past 2 weeks. She denies any F/C. She takes Advil prn Denies any PO Potassium She had labs Cr. 5.4, BUN 65, K 7.3, platelets 454 05/20 s/p diverting ileostomy. Past Medical History Cardiovascular: HTN, Hyperlipidemia Pulmonary: COPD CENTRAL NERVOUS SYSTEM: Other GI: Other Heme/Onc: No pertinent hx Hepatobiliary: Hep A/B/C Psych: Anxiety Musculoskeletal: Osteoarthritis Infectious disease: No pertinent hx Renal/: Chronic renal insuff Endocrine: Hypothyroidism Past Surgical History Past Surgical History: Hysterectomy, Colectomy Family History Family History: Hypertension Social History ALCOHOL: occassional Drugs: Marijuana Lives: Alone Current Problem List Problem List Problems Medical Problems: (1) Acute chest wall pain Status: Acute (2) Elevated lipase Status: Acute (3) Ileostomy in place Status: Acute Current Medications Current Medications Current Medications Aspirin ([place] Aspirin) 325 mg 1X ONCE PO Last administered on 09/09/18at 06:13 ; Start 09/09/18 at 05:30; Stop 09/09/18 at 05:31; Status DC Fentanyl Citrate (Fentanyl 2ml Vial) 25 mcg 1X ONCE IV Last administered on 09/09/18at 06:12; Start 09/09/18 at 05:30; Stop 09/09/18 at 05:31; Status DC Ondansetron HCl (Zofran) 4 mg 1X ONCE IV Last administered on 09/09/18 06:12; Start 09/09/18 at 05:30; Stop 09/09/18 at 05:31; Status DC Famotidine (Pepcid Vial) 20 mg 1X ONCE IVP Last administered on 09/09/18at 06:12 ; Start 09/09/18 at 05:30; Stop 09/09/18 at 05:31; Status DC Sodium Chloride 500 ml @ 500 mls/hr 1X ONCE IV Last administered on 09/09/18at 06:28; Start 09/09/18 at 07:00; Stop 09/09/18 at 07:59; Status DC Albuterol Sulfate (Ventolin Neb Soln) 10 mg 1X ONCE CONT NEB Last administered on 09/09/18at 07:00; Start 09/09/18 at 07:00; Stop 09/09/18 at 07:01; Status DC Dextrose (Dextrose 50%-Water Syringe) 25 gm 1X ONCE IV Last administered on 09/09/18at 07:06; Start 09/09/18 at 07:00; Stop 09/09/18 at 07:01; Status DC Insulin Human Regular (HumuLIN R VIAL) 10 unit 1X ONCE IV Last administered on 09/09/18at 07:12; Start 09/09/18 at 07:00; Stop 09/09/18 at 07:01; Status DC Sodium Bicarbonate (Sodium Bicarb Adult 8.4% Syr) 50 meq 1X ONCE IV Last administered on 09/09/18at 07:06; Start 09/09/18 at 07:00; Stop 09/09/18 at 07:01; Status DC Calcium Gluconate (Calcium Gluconate) 1,000 mg 1X ONCE IVP Last administered on 09/09/18at 07:05; Start 09/09/18 at 07:00; Stop 09/09/18 at 07:01; Status DC Sodium Polystyrene Sulfonate (Kayexalate) 30 gm 1X ONCE PO Last administered on 09/09/18at 08:14; Start 09/09/18 at 07:00; Stop 09/09/18 at 07:01; Status DC Sodium Chloride 1,000 ml @ 1,000 mls/hr 1X ONCE IV Last administered on at 08:14; Start 09/09/18 at 07:00; Stop 09/09/18 at 07:59; Status DC Fentanyl Citrate (Fentanyl 2ml Vial) 25 mcg 1X ONCE IV Last administered on 09/09/18at 07:06; Start 09/09/18 at 07:00; Stop 09/09/18 at 07:01; Status DC Sodium Chloride 1,000 ml @ 150 mls/hr Q6H40M IV Last administered on 09/09/18 09:33; Start 09/09/18 at 07:11; Stop 09/10/18 at 07:10 Aspirin (Ecotrin) 81 mg DAILYWBKFT PO ; Start 09/09/18 at 10:00 Acetaminophen/ Hydrocodone Bitart (Lortab 5/325) 1 tab PRN Q6HRS PRN PO PAIN; Start 09/09/18 at 09:00 Levothyroxine Sodium (Synthroid) 88 mcg DAILY06 PO Last administered on 09:25; Start 09/09/18 at 10:00 Metoprolol Succinate (Toprol Xl) 25 mg DAILY PO ; Start 09/09/18 at 10:00 Lidocaine (Lidoderm) 1 patch DAILY TD Last administered on 09/09/18 09:25; Start 09/09/18 at 10:00 Pantoprazole Sodium (Protonix) 40 mg DAILYAC PO Last administered on 09/09/18 09:26; Start 09/09/18 at 10:00 Tizanidine HCl (Zanaflex) 4 mg PRN Q8HRS PRN PO MUSCLE SPASMS Last administered on 09/09/18 09:27; Start 09/09/18 at 09:15 Sodium Chloride 1,000 ml @ 100 mls/hr Q10H IV Last administered on 09/09/18 09 :33; Start 09/09/18 at 08:54; Stop 09/09/18 at 18:53 Ondansetron HCl (Zofran) 4 mg PRN Q6HRS PRN IV NAUSEA/VOMITING; Start 09/09/18 at 09:00 Hydromorphone HCl (Dilaudid) 0.5 mg PRN Q3HRS PRN IV PAIN Last administered on 09/09/18at 09:20; Start 09/09/18 at 09:00 Acetaminophen (Tylenol) 650 mg PRN Q6HRS PRN PO Headaches, Temp > 101.5F; Start 09/09/18 at 09:00 Docusate Sodium (Colace) 100 mg BID PO ; Start 09/09/18 at 10:00 Bisacodyl (Dulcolax Supp) 10 mg PRN DAILY PRN NM CONSTIPATION; Start 09/09/18 at 09:00 Heparin Sodium (Porcine) (Heparin Sodium) 5,000 unit Q12HR SQ Last administered on 09/09/18at 09:31; Start 09/09/18 at 10:00 Nicotine (Nicoderm Cq 21mg) 1 patch DAILY TD ; Start 09/09/18 at 11:00 Active Scripts Active Aspirin Ec (Aspirin) 81 Mg Tablet. 81 Mg PO DAILYWBKFT 30 Days Lisinopril 10 Mg Tablet 10 Mg PO BID 30 Days Tizanidine Hcl 4 Mg Tablet 4 Mg PO PRN Q8HRS PRN 10 Days [place] 5-325 Tablet (Acetaminophen/Hydrocodone Bitart) 1 Each Tablet 1 Tab PO PRN Q6HRS 3 Days Lidocaine 1 Each Adh..patch 1 Patch TD DAILY MDD 1 Synthroid (Levothyroxine Sodium) 88 Mcg Tablet 88 Mcg PO DAILY06 MDD 1 Metoprolol Succinate ( Xl ) (Metoprolol Succinate) 25 Mg Tab.er.24h 25 Mg PO DAILY MDD 1 Reported Protonix (Pantoprazole Sodium) 20 Mg Tablet. 40 Mg PO DAILY Allergies Allergies: Coded Allergies: ceftriaxone (Verified Allergy, Intermediate, SKIN RASH, HAS TOLERATED ZOSYN, 06/07/18) morphine (Verified Allergy, Intermediate, 08/25/18) TOLERATES LORTAB AND DILAUDID ROS Review of System As per HPI Physical Exam Physical Exam General: NAD HEENT: OM dryish Neck Supple Lungs: CTA, Non labored Heart: S1S2, RRR, no gallops, no murmurs Abdomen: Normal bowel sounds, Soft, ostomy + Extremities: No edema, Skin: No rashes, Neuro: Grossly Normal No Lewis Vital Signs Vital Signs Date Time Temp Pulse Resp B/P (MAP) Pulse Ox O2 Delivery O2 Flow Rate FiO2 09/09/18 09:20 18 Room Air 09/09/18 09:00 97.8 71 80/82 (81) 96 97.8 Assessment & Plan TIGRE on CKD- rule out Obstructive etiology Strict I/O Renal US, repeat BMP Continue IVF If No improvement in renal function and persistent Hyperkalemia- may need HD Dw Pt , she is agreeable Hyperkalemia- Temporizing measures in ED No EKG changes reported Repeat BMP CKD stage 3- TIGRE in DeC with Cr peaked at 6 Recovered to Cr 1.3-1.5 Bilat chest wall pain Hypertension Diarrhea - S/p colectomy with ileostomy Hepatic lesion Dw Pt and Dr. Campoverde Labs Labs Laboratory Tests Test 09/09/18 06:00 09/09/18 06:35 White Blood Count 14.5 x10^3/uL (4.0-11.0) Red Blood Count 4.28 x10^6/uL (3.50-5.40) Hemoglobin 12.6 g/dL (12.0-15.5) Hematocrit 39.9 % (36.0-47.0) Mean Corpuscular Volume 93 fL (79-100) Mean Corpuscular Hemoglobin 30 pg (25-35) Mean Corpuscular Hemoglobin Concent 32 g/dL (31-37) Red Cell Distribution Width 14.8 % (11.5-14.5) Platelet Count 740 x10^3/uL (140-400) Neutrophils (%) (Auto) 71 % (31-73) Lymphocytes (%) (Auto) 23 % (24-48) Monocytes (%) (Auto) 4 % (0-9) Eosinophils (%) (Auto) 1 % (0-3) Basophils (%) (Auto) 1 % (0-3) Neutrophils # (Auto) 10.3 x10^3uL (1.8-7.7) Lymphocytes # (Auto) 3.3 x10^3/uL (1.0-4.8) Monocytes # (Auto) 0.6 x10^3/uL (0.0-1.1) Eosinophils # (Auto) 0.1 x10^3/uL (0.0-0.7) Basophils # (Auto) 0.2 x10^3/uL (0.0-0.2) Prothrombin Time 14.1 SEC (11.7-14.0) Prothromb Time International Ratio 1.1 (0.8-1.1) Activated Partial Thromboplast Time 35 SEC (24-38) Sodium Level 137 mmol/L (136-145) Potassium Level 7.3 mmol/L (3.5-5.1) Chloride Level 102 mmol/L (98-107) Carbon Dioxide Level 15 mmol/L (21-32) Anion Gap 20 (6-14) Blood Urea Nitrogen 49 mg/dL (7-20) Creatinine 5.4 mg/dL (0.6-1.0) Estimated GFR (Cockcroft-Gault) 9.2 BUN/Creatinine Ratio 9 (6-20) Glucose Level 103 mg/dL (70-99) Lactic Acid Level 1.3 mmol/L (0.4-2.0) Calcium Level 10.0 mg/dL (8.5-10.1) Magnesium Level 1.9 mg/dL (1.8-2.4) Total Bilirubin 0.6 mg/dL (0.2-1.0) Aspartate Amino Transf (AST/SGOT) 18 U/L (15-37) Alanine Aminotransferase (ALT/SGPT) 18 U/L (14-59) Alkaline Phosphatase 155 U/L (46-116) Creatine Kinase 28 U/L (26-192) Creatine Kinase MB (Mass) 1.1 ng/mL (0.0-3.6) Creatine Kinase MB Relative Index % (0-4) Troponin I Quantitative < 0.017 ng/mL (0.000-0.055) HK-Mmb-Z-Type Natriuretic Peptide 1327 pg/mL (0-449) Total Protein 9.7 g/dL (6.4-8.2) Albumin 4.3 g/dL (3.4-5.0) Albumin/Globulin Ratio 0.8 (1.0-1.7) Lipase 599 U/L (73-393) Urine Collection Type U cath Urine Color Irena Urine Clarity Clear Urine pH 5.0 Urine Specific [place] 1.020 Urine Protein 30 mg/dL (NEG-TRACE) Urine Glucose (UA) Negative mg/dL (NEG) Urine Ketones (Stick) Trace mg/dL (NEG) Urine Blood Negative (NEG) Urine Nitrite Negative (NEG) Urine Bilirubin Moderate (NEG) Urine Urobilinogen Dipstick 0.2 mg/dL (0.2 mg/dL) Urine Leukocyte Esterase Trace (NEG) Urine RBC 0 /HPF (0-2) Urine WBC 1-4 /HPF (0-4) Urine Bacteria Few /HPF (0-FEW) Laboratory Tests Test 09/09/18 06:00 09/09/18 06:35 White Blood Count 14.5 x10^3/uL (4.0-11.0) Red Blood Count 4.28 x10^6/uL (3.50-5.40) Hemoglobin 12.6 g/dL (12.0-15.5) Hematocrit 39.9 % (36.0-47.0) Mean Corpuscular Volume 93 fL (79-100) Mean Corpuscular Hemoglobin 30 pg (25-35) Mean Corpuscular Hemoglobin Concent 32 g/dL (31-37) Red Cell Distribution Width 14.8 % (11.5-14.5) Platelet Count 740 x10^3/uL (140-400) Neutrophils (%) (Auto) 71 % (31-73) Lymphocytes (%) (Auto) 23 % (24-48) Monocytes (%) (Auto) 4 % (0-9) Eosinophils (%) (Auto) 1 % (0-3) Basophils (%) (Auto) 1 % (0-3) Neutrophils # (Auto) 10.3 x10^3uL (1.8-7.7) Lymphocytes # (Auto) 3.3 x10^3/uL (1.0-4.8) Monocytes # (Auto) 0.6 x10^3/uL (0.0-1.1) Eosinophils # (Auto) 0.1 x10^3/uL (0.0-0.7) Basophils # (Auto) 0.2 x10^3/uL (0.0-0.2) Prothrombin Time 14.1 SEC (11.7-14.0) Prothromb Time International Ratio 1.1 (0.8-1.1) Activated Partial Thromboplast Time 35 SEC (24-38) Sodium Level 137 mmol/L (136-145) Potassium Level 7.3 mmol/L (3.5-5.1) Chloride Level 102 mmol/L (98-107) Carbon Dioxide Level 15 mmol/L (21-32) Anion Gap 20 (6-14) Blood Urea Nitrogen 49 mg/dL (7-20) Creatinine 5.4 mg/dL (0.6-1.0) Estimated GFR (Cockcroft-Gault) 9.2 BUN/Creatinine Ratio 9 (6-20) Glucose Level 103 mg/dL (70-99) Lactic Acid Level 1.3 mmol/L (0.4-2.0) Calcium Level 10.0 mg/dL (8.5-10.1) Magnesium Level 1.9 mg/dL (1.8-2.4) Total Bilirubin 0.6 mg/dL (0.2-1.0) Aspartate Amino Transf (AST/SGOT) 18 U/L (15-37) Alanine Aminotransferase (ALT/SGPT) 18 U/L (14-59) Alkaline Phosphatase 155 U/L (46-116) Creatine Kinase 28 U/L (26-192) Creatine Kinase MB (Mass) 1.1 ng/mL (0.0-3.6) Creatine Kinase MB Relative Index % (0-4) Troponin I Quantitative < 0.017 ng/mL (0.000-0.055) YM-Seu-H-Type Natriuretic Peptide 1327 pg/mL (0-449) Total Protein 9.7 g/dL (6.4-8.2) Albumin 4.3 g/dL (3.4-5.0) Albumin/Globulin Ratio 0.8 (1.0-1.7) Lipase 599 U/L (73-393) Urine Collection Type U cath Urine Color Irena Urine Clarity Clear Urine pH 5.0 Urine Specific [place] 1.020 Urine Protein 30 mg/dL (NEG-TRACE) Urine Glucose (UA) Negative mg/dL (NEG) Urine Ketones (Stick) Trace mg/dL (NEG) Urine Blood Negative (NEG) Urine Nitrite Negative (NEG) Urine Bilirubin Moderate (NEG) Urine Urobilinogen Dipstick 0.2 mg/dL (0.2 mg/dL) Urine Leukocyte Esterase Trace (NEG) Urine RBC 0 /HPF (0-2) Urine WBC 1-4 /HPF (0-4) Urine Bacteria Few /HPF (0-FEW) Review All relevant outside records, renal labs, imaging studies, telemetry/EKG's were reviewed. SHERRY ALAN MD Sep 09, 2018 10:30
[2018-09-09 11:05] VITALS: BP 126/61
[2018-09-09] MEDS: NICOTINE 21MG PATCH. TD SCH (11:22)
--- NOTE | 2018-09-09 11:51 | PDOC ---
Subjective: Subjective: Please see GI consult from 08/14/18 and following progress notes through 08/22/18. Back to ER w/ "breast pain" again that started yesterday while she was sitting. Worse with movement. Decreased appetite for a day or so before. No vomiting. Ostomy output has been stable - usually empties bag 5 times daily ( watery). Ostomy output improved last admission w/ Imodium - she didn't continue this at home. Stool studies negative at that time. Objective: Vital Signs: Vital Signs Date Time Temp Pulse Resp B/P (MAP) Pulse Ox O2 Delivery O2 Flow Rate FiO2 09/09/18 11:05 97.4 100 16 126/61 (82) 96 Room Air 97.4 Labs: Laboratory Tests Test 09/09/18 06:00 09/09/18 06:35 White Blood Count 14.5 x10^3/uL Red Blood Count 4.28 x10^6/uL Hemoglobin 12.6 g/dL Hematocrit 39.9 % Mean Corpuscular Volume 93 fL Mean Corpuscular Hemoglobin 30 pg Mean Corpuscular Hemoglobin Concent 32 g/dL Red Cell Distribution Width 14.8 % Platelet Count 740 x10^3/uL Neutrophils (%) (Auto) 71 % Lymphocytes (%) (Auto) 23 % Monocytes (%) (Auto) 4 % Eosinophils (%) (Auto) 1 % Basophils (%) (Auto) 1 % Neutrophils # (Auto) 10.3 x10^3uL Lymphocytes # (Auto) 3.3 x10^3/uL Monocytes # (Auto) 0.6 x10^3/uL Eosinophils # (Auto) 0.1 x10^3/uL Basophils # (Auto) 0.2 x10^3/uL Prothrombin Time 14.1 SEC Prothromb Time International Ratio 1.1 Activated Partial Thromboplast Time 35 SEC Sodium Level 137 mmol/L Potassium Level 7.3 mmol/L Chloride Level 102 mmol/L Carbon Dioxide Level 15 mmol/L Anion Gap 20 Blood Urea Nitrogen 49 mg/dL Creatinine 5.4 mg/dL Estimated GFR (Cockcroft-Gault) 9.2 BUN/Creatinine Ratio 9 Glucose Level 103 mg/dL Lactic Acid Level 1.3 mmol/L Calcium Level 10.0 mg/dL Magnesium Level 1.9 mg/dL Total Bilirubin 0.6 mg/dL Aspartate Amino Transf (AST/SGOT) 18 U/L Alanine Aminotransferase (ALT/SGPT) 18 U/L Alkaline Phosphatase 155 U/L Creatine Kinase 28 U/L Creatine Kinase MB (Mass) 1.1 ng/mL Creatine Kinase MB Relative Index % Troponin I Quantitative < 0.017 ng/mL OM-Jnz-L-Type Natriuretic Peptide 1327 pg/mL Total Protein 9.7 g/dL Albumin 4.3 g/dL Albumin/Globulin Ratio 0.8 Lipase 599 U/L Urine Collection Type U cath Urine Color Irena Urine Clarity Clear Urine pH 5.0 Urine Specific [place] 1.020 Urine Protein 30 mg/dL Urine Glucose (UA) Negative mg/dL Urine Ketones (Stick) Trace mg/dL Urine Blood Negative Urine Nitrite Negative Urine Bilirubin Moderate Urine Urobilinogen Dipstick 0.2 mg/dL Urine Leukocyte Esterase Trace Urine RBC 0 /HPF Urine WBC 1-4 /HPF Urine Bacteria Few /HPF Imaging: CXR IMPRESSION: No acute radiographic abnormality. 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 Resume Imodium. Will review additional recs w/ Dr. Monk. SHREE SAAVEDRA Sep 09, 2018 11:51
[2018-09-09 13:00] LABS: CALCIUM 9.7 mg/dL (8.5-10.1); CREATININE 5.2 mg/dL (0.6-1.0); GFR 9.6; POTASSIUM 4.8 mmol/L (3.5-5.1)
[2018-09-09] MEDS: LOPERAMIDE 2 MG CAPSULE PO PRN (13:24)
[2018-09-09] MEDS: ONDANSETRON PF 4 MG/2 ML VIAL. IV PRN (13:24)
[2018-09-09] MEDS: HYDROcodone/APAP 5/325MG 1 TAB TABLET PO PRN (13:28)
[2018-09-09 15:10] VITALS: BP 108/63
--- NOTE | 2018-09-09 16:26 | RAD ---
CLINICAL HISTORY: TIGRE/HYPERKALEMIA COMPARISON: CT 08/25/2018 TECHNIQUE: Ultrasound examination of the bilateral kidneys and urinary bladder was performed. FINDINGS: The right kidney measures 10.3 cm in bipolar length. The renal cortex is normal in thickness. Renal echogenicity is normal. There is no evidence for hydronephrosis, shadowing renal calculus. Right renal cystic lesion measures 1.4 cm. The left kidney measures 10.4 cm in bipolar length. The renal cortex is normal in thickness. Renal echogenicity is normal. There is no evidence for hydronephrosis, shadowing renal calculus. Left renal cysts, the largest of which measures 1.7 cm. Images of the partially filled urinary bladder are unremarkable. Post void residual measures 80 mL. IMPRESSION: 1. Renal cystic lesions bilaterally. 2. Grossly normal renal cortical echogenicity. 3. No hydronephrosis. 4. Postvoid bladder volume residual: 80 mL Electronically signed by: Vel Vergara MD (09/09/2018 4:23 PM) [facility]
[2018-09-09] MEDS: HYDROmorphone 2 MG/ML VIAL IVP PRN ×2 (16:49→20:48)
--- NOTE | 2018-09-09 17:05 | NUR ---
The patient, CESAR SANTOS I, 78 y/o, F admitted by SHENA HERNANDEZ MD, was given written information regarding hospital policies, unit procedures and contact persons. Valuables were checked and logged. Oriented to unit and schedules. C/O "breast and nipple pain".
[2018-09-09 19:00] VITALS: BP 139/62
[2018-09-09 23:00] VITALS: BP 111/55
[2018-09-10] MEDS: HYDROmorphone 2 MG/ML VIAL IVP PRN ×2 (00:56→05:43)
[2018-09-10 03:00] VITALS: BP 130/57
[2018-09-10] MEDS: LEVOTHYROXINE 88 MCG TABLET PO SCH (05:42)
[2018-09-10 06:16] LABS: BASO # 0.1 x10^3/uL (0.0-0.2); BASO % 1 % (0-3); EOS # 0.1 x10^3/uL (0.0-0.7); EOS % 1 % (0-3); HEMATOCRIT 35.5 % (36.0-47.0); HEMOGLOBIN 11.1 g/dL (12.0-15.5); LYMPH # 1.9 x10^3/uL (1.0-4.8); LYMPH % 11 % (24-48); MEAN CORPUSCULAR HEMOGLOBIN 30 pg (25-35); MEAN CORPUSCULAR HGB CONC 31 g/dL (31-37); MEAN CORPUSCULAR VOLUME 95 fL (79-100); MONO # 0.8 x10^3/uL (0.0-1.1); MONO % 5 % (0-9); NEUT # 14.3 x10^3uL (1.8-7.7); NEUT % 83 % (31-73); PLATELET COUNT 511 x10^3/uL (140-400); RED BLOOD COUNT 3.73 x10^6/uL (3.50-5.40); WHITE BLOOD COUNT 17.2 x10^3/uL (4.0-11.0)
[2018-09-10 06:41] LABS: ALBUMIN 3.4 g/dL (3.4-5.0); ALBUMIN/GLOBULIN RATIO 0.8 (1.0-1.7); CREATININE 5.8 mg/dL (0.6-1.0); GFR 8.5; PHOSPHORUS 7.2 mg/dL (2.6-4.7); TOTAL BILIRUBIN 0.6 mg/dL (0.2-1.0); TOTAL PROTEIN 7.8 g/dL (6.4-8.2)
[2018-09-10 07:00] VITALS: BP 180/70
[2018-09-10] MEDS: HYDROcodone/APAP 5/325MG 1 TAB TABLET PO PRN ×3 (07:29→20:43)
--- NOTE | 2018-09-10 07:45 | NUR ---
Nursing note: Pt c/o breast pain 10/10, sharp stabbing sensation in the breast tissue bilaterally. breasts are tender to light touch. Skin discoloration is present bilaterally at 6 o'clock. Will discuss with provider. Family contacted per pt request. Will continue to monitor.
[2018-09-10] MEDS: HEPARIN for SUB-Q USE 5,000 UNIT/ML VIAL. SQ SCH ×2 (09:00→20:44)
[2018-09-10] MEDS: DOCUSATE SODIUM 100 MG CAPSULE. PO SCH (09:00)
[2018-09-10] MEDS: NICOTINE 21MG PATCH. TD SCH (09:43)
[2018-09-10] MEDS: METOPROLOL SUCC 24HR ER 25 MG TAB.ER.24H. PO SCH (09:44)
[2018-09-10] MEDS: LIDOCAINE (700MG/PATCH) PATCH. TD SCH (09:44)
[2018-09-10] MEDS: LOPERAMIDE 2 MG CAPSULE PO PRN ×2 (09:44→14:12)
[2018-09-10] MEDS: PANTOPRAZOLE 40 MG TABLET.DR. PO SCH (09:44)
[2018-09-10] MEDS: ASPIRIN ENTERIC COATED 81 MG TABLET.DR. PO SCH (09:45)
[2018-09-10] MEDS: tiZANidine 4 MG TABLET. PO PRN (09:45)
--- NOTE | 2018-09-10 10:09 | NUR ---
SS following for discharge planning. SS reviewed pt chart. Pt is from home and is currently on room air. No discharge needs noted at this time. SS will continue to follow for pending discharge needs.
--- NOTE | 2018-09-10 11:08 | PDOC ---
Subjective: Subjective: Says ostomy output not better. Breast pain ongoing. Eating some. Objective: Objective: Per RN - ongoing watery ostomy output but less. To get temp HD cath today. Vital Signs: Vital Signs Date Time Temp Pulse Resp B/P (MAP) Pulse Ox O2 Delivery O2 Flow Rate FiO2 09/10/18 09:44 101 180/70 09/10/18 08:29 18 Nasal Cannula 2.0 09/10/18 07:29 96 09/10/18 07:00 98.1 98.1 Labs: Laboratory Tests Test 09/09/18 12:30 09/09/18 17:50 09/10/18 05:30 Sodium Level 139 mmol/L 143 mmol/L Potassium Level 4.8 mmol/L 6.0 mmol/L Chloride Level 105 mmol/L 108 mmol/L Carbon Dioxide Level 14 mmol/L 16 mmol/L Anion Gap 20 19 Blood Urea Nitrogen 50 mg/dL 49 mg/dL Creatinine 5.2 mg/dL 5.8 mg/dL Estimated GFR (Cockcroft-Gault) 9.6 8.5 Glucose Level 112 mg/dL 110 mg/dL Calcium Level 9.7 mg/dL 9.0 mg/dL Troponin I Quantitative < 0.017 ng/mL < 0.017 ng/mL White Blood Count 17.2 x10^3/uL Red Blood Count 3.73 x10^6/uL Hemoglobin 11.1 g/dL Hematocrit 35.5 % Mean Corpuscular Volume 95 fL Mean Corpuscular Hemoglobin 30 pg Mean Corpuscular Hemoglobin Concent 31 g/dL Red Cell Distribution Width 15.0 % Platelet Count 511 x10^3/uL Neutrophils (%) (Auto) 83 % Lymphocytes (%) (Auto) 11 % Monocytes (%) (Auto) 5 % Eosinophils (%) (Auto) 1 % Basophils (%) (Auto) 1 % Neutrophils # (Auto) 14.3 x10^3uL Lymphocytes # (Auto) 1.9 x10^3/uL Monocytes # (Auto) 0.8 x10^3/uL Eosinophils # (Auto) 0.1 x10^3/uL Basophils # (Auto) 0.1 x10^3/uL Platelet Estimate Pending BUN/Creatinine Ratio 8 Phosphorus Level 7.2 mg/dL Total Bilirubin 0.6 mg/dL Aspartate Amino Transf (AST/SGOT) 17 U/L Alanine Aminotransferase (ALT/SGPT) 15 U/L Alkaline Phosphatase 129 U/L Total Protein 7.8 g/dL Albumin 3.4 g/dL Albumin/Globulin Ratio 0.8 BLOOD CULTURE Preliminary NO GROWTH AFTER 1 DAY Imaging: Renal US IMPRESSION: 1. Renal cystic lesions bilaterally. 2. Grossly normal renal cortical echogenicity. 3. No hydronephrosis. 4. Postvoid bladder volume residual: 80 mL PE: GEN: NAD LUNGS: CTAB HEART: RRR ABD: RLQ ostomy, abd non-tender and soft NEURO/PSYCH: A & O 3, depressed A/P: TIGRE, HTN Dyspepsia - on PPI, recent EGD Increased ostomy output -- ?slightly better with Imodium. Consider adding Lomotil - will review w/ Dr. Monk. Will remove Dulcolax and Colace from med list as precaution. SHREE SAAVEDRA Sep 10, 2018 11:08
[2018-09-10 11:28] LABS: % BANDS 1 % (0-9); % LYMPHS 19 % (24-48); % MONOS 5 % (0-10); % SEGS 75 % (35-66)
[2018-09-10 11:29] LABS: PLT ESTIMATE INCREASED (ADEQUATE)
[2018-09-10 11:30] LABS: ANISOCYTOSIS SLIGHT
[2018-09-10 12:00] VITALS: BP 119/57
[2018-09-10] MEDS: SUCRALFATE 1 GM TABLET. PO SCH ×2 (12:01→16:30)
[2018-09-10] MEDS ORDERED: DIPHENOXYLATE/ATROPINE TABLET. PO PRN (12:30)
[2018-09-10] MEDS ORDERED: LIDOCAINE WITH 8.4% SOD BICARB 3 ML DISP.SYRIN. INJ ONE (14:30)
[2018-09-10 15:00] VITALS: BP 120/60
--- NOTE | 2018-09-10 15:37 | RAD ---
Procedure: Ultrasound and fluoroscopically guided placement of right internal jugular temporary dialysis catheter09/10/2018 3:33 PM Clinical Indication: Acute renal failure Discussion: The risks and benefits of the procedure were discussed the patient and/or their territory service representative. Informed consent was obtained. A timeout procedure was performed. All elements of maximal sterile barrier technique including the use of a cap, mask, sterile gown, sterile gloves, large sterile sheet, appropriate hand hygiene, and 2% chlorhexidine for cutaneous antisepsis (or acceptable alternative antiseptic per current guidelines) were followed for this procedure. The patient was prepped and draped in the usual sterile fashion. Ultrasound interrogation of the right neck revealed patency and compressibility of the right internal jugular vein. A 21-gauge micropuncture was then used to gain access to this vein under ultrasound guidance. A hard copy ultrasound image was recorded. A guidewire was advanced centrally. 5 Amharic sheath was placed. Over a wire following dilatation, a dual-lumen temporary dialysis catheter was advanced centrally. Catheter was found to flush and aspirate normally. Fluoroscopic evaluation demonstrates tip at the cavoatrial junction. Catheter secured in place and a sterile dressing was applied. No immediate complications were identified. Impression: Successful ultrasound and fluoroscopically guided placement of right internal temporary dialysis catheter
--- NOTE | 2018-09-10 15:58 | PDOC ---
SUBJECTIVE ROS C/o pain below her breast- Bilat, reports decrease uop, none since yesterday morning as per pt OBJECTIVE Vital Signs Vital Signs Date Time Temp Pulse Resp B/P (MAP) Pulse Ox O2 Delivery O2 Flow Rate FiO2 09/10/18 15:12 18 97 Nasal Cannula 2.0 09/10/18 15:00 97.9 100 120/60 (80) 97.9 I & 0 Intake and Output 09/10/18 06:59 Intake Total 660 ml Balance 660 ml Intake Oral 660 ml PHYSICAL EXAM Physical Exam General: NAD HEENT: OM dryish Neck Supple Lungs: CTA, Non labored Heart: S1S2, RRR, no gallops, no murmurs Abdomen: Normal bowel sounds, Soft, ostomy + Extremities: No edema, Skin: No rashes, pigmentation under the breast Neuro: Grossly Normal No Lewis DIAGNOSIS/ASSESSMENT Assessment & Plan TIGRE on CKD- Renal US no e/o Obstructive etiology , decreased UOP No improvement in renal function and persistent Hyperkalemia initiated HD, seen on HD tolerating well Continue as Ordered , 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 Odell COMMENT/RELEVANT DATA Meds Current Medications Medications (Trade) Dose Ordered Sig/Saroj Start Time Stop Time Status Last Admin Dose Admin Acetaminophen (Tylenol) 650 mg PRN Q6HRS PRN 09/09/18 09:00 Acetaminophen/ Hydrocodone Bitart (Lortab 5/325) 1 tab PRN Q6HRS PRN 09/09/18 09:00 09/10/18 14:12 1 TAB Albuterol Sulfate (Ventolin Neb Soln) 10 mg 1X ONCE 09/09/18 07:00 09/09/18 07:01 DC 09/09/18 07:00 10 MG Aspirin (Chilango Aspirin) 325 mg 1X ONCE 09/09/18 05:30 09/09/18 05:31 DC 09/09/18 06:13 325 MG Aspirin (Ecotrin) 81 mg DAILYWBKFT 09/09/18 10:00 09/10/18 09:45 81 MG Bisacodyl (Dulcolax Supp) 10 mg PRN DAILY PRN 09/09/18 09:00 09/10/18 11:05 DC Calcium Gluconate (Calcium Gluconate) 1,000 mg 1X ONCE 09/09/18 07:00 09/09/18 07:01 DC 09/09/18 07:05 1,000 MG Dextrose (Dextrose 50%-Water Syringe) 25 gm 1X ONCE 09/09/18 07:00 09/09/18 07:01 DC 09/09/18 07:06 25 GM Diphenoxylate HCl/ Atropine (Lomotil) 1 tab PRN BID PRN 09/10/18 12:30 Docusate Sodium (Colace) 100 mg BID 09/09/18 10:00 09/10/18 11:05 DC Famotidine (Pepcid Vial) 20 mg 1X ONCE 09/09/18 05:30 09/09/18 05:31 DC 09/09/18 06:12 20 MG Fentanyl Citrate (Fentanyl 2ml Vial) 25 mcg 1X ONCE 09/09/18 07:00 09/09/18 07:01 DC 09/09/18 07:06 25 MCG Heparin Sodium (Porcine) (Heparin Sodium) 5,000 unit Q12HR 09/09/18 10:00 09/09/18 09:31 5,000 UNIT Hydromorphone HCl (Dilaudid) 1 mg PRN Q4HRS PRN 09/09/18 14:30 09/10/18 07:51 DC 09/10/18 05:43 1 MG Insulin Human Regular (HumuLIN R VIAL) 10 unit 1X ONCE 09/09/18 07:00 09/09/18 07:01 DC 09/09/18 07:12 10 UNIT Levothyroxine Sodium (Synthroid) 88 mcg DAILY06 09/09/18 10:00 09/10/18 05:42 88 MCG Lidocaine (Lidoderm) 1 patch DAILY 09/09/18 10:00 09/10/18 09:44 1 PATCH Lidocaine/Sodium Bicarbonate (Buffered Lidocaine 1%) 3 ml 1X ONCE 09/10/18 14:30 09/10/18 14:31 DC 09/10/18 14:58 4 ML Loperamide HCl (Imodium) 2 mg PRN QID PRN 09/09/18 12:00 09/10/18 14:12 2 MG Metoprolol Succinate (Toprol Xl) 25 mg DAILY 09/09/18 10:00 09/10/18 09:44 25 MG Nicotine (Nicoderm Cq 21mg) 1 patch DAILY 09/09/18 11:00 09/10/18 09:43 1 PATCH Ondansetron HCl (Zofran) 4 mg PRN Q6HRS PRN 09/09/18 09:00 09/09/18 13:24 4 MG Pantoprazole Sodium (Protonix) 40 mg DAILYAC 09/09/18 10:00 09/10/18 09:44 40 MG Sodium Polystyrene Sulfonate (Kayexalate) 30 gm 1X ONCE 09/09/18 07:00 09/09/18 07:01 DC 09/09/18 08:14 30 GM Sodium Bicarbonate (Sodium Bicarb Adult 8.4% Syr) 50 meq 1X ONCE 09/09/18 07:00 09/09/18 07:01 DC 09/09/18 07:06 50 MEQ Sodium Chloride 1,000 ml @ 100 mls/hr Q10H 09/09/18 08:54 09/09/18 18:53 DC 09/09/18 09:33 100 MLS/HR Sucralfate (Carafate) 1 gm TIDAC 09/10/18 11:30 09/10/18 12:01 1 GM Tizanidine HCl (Zanaflex) 4 mg PRN Q8HRS PRN 09/09/18 09:15 09/10/18 09:45 4 MG Lab Laboratory Tests Test 09/09/18 17:50 09/10/18 05:30 Troponin I Quantitative < 0.017 ng/mL (0.000-0.055) < 0.017 ng/mL (0.000-0.055) White Blood Count 17.2 x10^3/uL (4.0-11.0) Red Blood Count 3.73 x10^6/uL (3.50-5.40) Hemoglobin 11.1 g/dL (12.0-15.5) Hematocrit 35.5 % (36.0-47.0) Mean Corpuscular Volume 95 fL (79-100) Mean Corpuscular Hemoglobin 30 pg (25-35) Mean Corpuscular Hemoglobin Concent 31 g/dL (31-37) Red Cell Distribution Width 15.0 % (11.5-14.5) Platelet Count 511 x10^3/uL (140-400) Neutrophils (%) (Auto) 83 % (31-73) Lymphocytes (%) (Auto) 11 % (24-48) Monocytes (%) (Auto) 5 % (0-9) Eosinophils (%) (Auto) 1 % (0-3) Basophils (%) (Auto) 1 % (0-3) Neutrophils # (Auto) 14.3 x10^3uL (1.8-7.7) Lymphocytes # (Auto) 1.9 x10^3/uL (1.0-4.8) Monocytes # (Auto) 0.8 x10^3/uL (0.0-1.1) Eosinophils # (Auto) 0.1 x10^3/uL (0.0-0.7) Basophils # (Auto) 0.1 x10^3/uL (0.0-0.2) Segmented Neutrophils % 75 % (35-66) Band Neutrophils % 1 % (0-9) Lymphocytes % 19 % (24-48) Monocytes % 5 % (0-10) Platelet Estimate Increased (ADEQUATE) Large Platelets Few Anisocytosis Slight Sodium Level 143 mmol/L (136-145) Potassium Level 6.0 mmol/L (3.5-5.1) Chloride Level 108 mmol/L (98-107) Carbon Dioxide Level 16 mmol/L (21-32) Anion Gap 19 (6-14) Blood Urea Nitrogen 49 mg/dL (7-20) Creatinine 5.8 mg/dL (0.6-1.0) Estimated GFR (Cockcroft-Gault) 8.5 BUN/Creatinine Ratio 8 (6-20) Glucose Level 110 mg/dL (70-99) Calcium Level 9.0 mg/dL (8.5-10.1) Phosphorus Level 7.2 mg/dL (2.6-4.7) Total Bilirubin 0.6 mg/dL (0.2-1.0) Aspartate Amino Transf (AST/SGOT) 17 U/L (15-37) Alanine Aminotransferase (ALT/SGPT) 15 U/L (14-59) Alkaline Phosphatase 129 U/L (46-116) Total Protein 7.8 g/dL (6.4-8.2) Albumin 3.4 g/dL (3.4-5.0) Albumin/Globulin Ratio 0.8 (1.0-1.7) Hepatitis B Surface Antigen Nonreactive (Nonreactive) Results All relevant outside records, renal labs, imaging studies, telemetry/EKG's were reviewed. Other Renal US The right kidney measures 10.3 cm in bipolar length. The renal cortex is normal in thickness. Renal echogenicity is normal. There is no evidence for hydronephrosis, shadowing renal calculus. Right renal cystic lesion measures 1.4 cm. The left kidney measures 10.4 cm in bipolar length. The renal cortex is normal in thickness. Renal echogenicity is normal. There is no evidence for hydronephrosis, shadowing renal calculus. Left renal cysts, the largest of which measures 1.7 cm. Images of the partially filled urinary bladder are unremarkable. Post void residual measures 80 mL. IMPRESSION: 1. Renal cystic lesions bilaterally. 2. Grossly normal renal cortical echogenicity. 3. No hydronephrosis. 4. Postvoid bladder volume residual: 80 mL SHERRY ALAN MD Sep 10, 2018 15:58
--- NOTE | 2018-09-10 17:02 | PDOC ---
PROGRESS NOTES Chief Complaint Chief Complaint Right and left chest wall pain - will trend troponins, seen by cardiology for this 2 weeks ago. Most probably pleuritic in nature as it is worsened with deep breath pain is reproducible which is reassuring. Leukocytosis - uncertain source if there is an infection Anemia of chronic disease - stable Hepatitis C; outpatient GI f/u Tobacco abuse - discussed/encouraged cessation Hyperkalemia - given albuterol, insulin + dextrose, kayexelate. TIGRE - will start dialysis as per publicity consultant. Hypertension - will manage meds, hold nephrotoxic meds Hypothyroidism - Synthroid Diarrhea - loose bowels. Will monitor, check stool culture, c. diff S/p colectomy with ileostomy - recovered fairly well, has been at home Metabolic acidosis - with gap, likely due to renal dysfunction Aortic atherosclerosis - noted on CT scan, likely has vascular disease elsewhere as well CAD; CT chest last week notable for coronary calcifications.\ Plan: HD temp catheter to be placedn and dialysis will bes started later in the day. symptomatic relief of symptoms. furhter recommendations based on clinical course. History of Present Illness History of Present Illness Patient with nausea and not feeling well overall patient is tearful during my encounter, she is compalinig of pain around her breast, with nursing staff examination of the breasts was unremarkable. no nippleretractions no evidence of peau d'orange or nipple discharge was evident, discussed with nephrology publicity consultant at bedside Vitals Vitals Vital Signs Date Time Temp Pulse Resp B/P (MAP) Pulse Ox O2 Delivery O2 Flow Rate FiO2 09/10/18 15:12 18 97 Nasal Cannula 2.0 09/10/18 15:00 97.9 100 120/60 (80) 97.9 Physical Exam General: Alert, Oriented X3, Cooperative, mild distress Lungs: Clear, Other Abdomen: Normal bowel sounds, Soft, Other (LLQ ostomy clean dry. Diffusely tender) Extremities: No clubbing, No cyanosis, No edema, Normal pulses, No tenderness/ swelling Skin: No rashes, No breakdown, No significant lesion Labs LABS Laboratory Tests Test 09/09/18 17:50 09/10/18 05:30 Troponin I Quantitative < 0.017 ng/mL (0.000-0.055) < 0.017 ng/mL (0.000-0.055) White Blood Count 17.2 x10^3/uL (4.0-11.0) Red Blood Count 3.73 x10^6/uL (3.50-5.40) Hemoglobin 11.1 g/dL (12.0-15.5) Hematocrit 35.5 % (36.0-47.0) Mean Corpuscular Volume 95 fL (79-100) Mean Corpuscular Hemoglobin 30 pg (25-35) Mean Corpuscular Hemoglobin Concent 31 g/dL (31-37) Red Cell Distribution Width 15.0 % (11.5-14.5) Platelet Count 511 x10^3/uL (140-400) Neutrophils (%) (Auto) 83 % (31-73) Lymphocytes (%) (Auto) 11 % (24-48) Monocytes (%) (Auto) 5 % (0-9) Eosinophils (%) (Auto) 1 % (0-3) Basophils (%) (Auto) 1 % (0-3) Neutrophils # (Auto) 14.3 x10^3uL (1.8-7.7) Lymphocytes # (Auto) 1.9 x10^3/uL (1.0-4.8) Monocytes # (Auto) 0.8 x10^3/uL (0.0-1.1) Eosinophils # (Auto) 0.1 x10^3/uL (0.0-0.7) Basophils # (Auto) 0.1 x10^3/uL (0.0-0.2) Segmented Neutrophils % 75 % (35-66) Band Neutrophils % 1 % (0-9) Lymphocytes % 19 % (24-48) Monocytes % 5 % (0-10) Platelet Estimate Increased (ADEQUATE) Large Platelets Few Anisocytosis Slight Sodium Level 143 mmol/L (136-145) Potassium Level 6.0 mmol/L (3.5-5.1) Chloride Level 108 mmol/L (98-107) Carbon Dioxide Level 16 mmol/L (21-32) Anion Gap 19 (6-14) Blood Urea Nitrogen 49 mg/dL (7-20) Creatinine 5.8 mg/dL (0.6-1.0) Estimated GFR (Cockcroft-Gault) 8.5 BUN/Creatinine Ratio 8 (6-20) Glucose Level 110 mg/dL (70-99) Calcium Level 9.0 mg/dL (8.5-10.1) Phosphorus Level 7.2 mg/dL (2.6-4.7) Total Bilirubin 0.6 mg/dL (0.2-1.0) Aspartate Amino Transf (AST/SGOT) 17 U/L (15-37) Alanine Aminotransferase (ALT/SGPT) 15 U/L (14-59) Alkaline Phosphatase 129 U/L (46-116) Total Protein 7.8 g/dL (6.4-8.2) Albumin 3.4 g/dL (3.4-5.0) Albumin/Globulin Ratio 0.8 (1.0-1.7) Hepatitis B Surface Antigen Nonreactive (Nonreactive) Assessment and Plan Assessmemt and Plan Problems Medical Problems: (1) Acute chest wall pain Status: Acute (2) Elevated lipase Status: Acute (3) Ileostomy in place Status: Acute Comment Review of Relevant I have reviewed the following items consuelo (where applicable) has been applied. Labs Laboratory Tests Test 09/09/18 06:00 09/09/18 06:35 09/09/18 12:30 09/09/18 17:50 White Blood Count 14.5 x10^3/uL (4.0-11.0) Red Blood Count 4.28 x10^6/uL (3.50-5.40) Hemoglobin 12.6 g/dL (12.0-15.5) Hematocrit 39.9 % (36.0-47.0) Mean Corpuscular Volume 93 fL (79-100) Mean Corpuscular Hemoglobin 30 pg (25-35) Mean Corpuscular Hemoglobin Concent 32 g/dL (31-37) Red Cell Distribution Width 14.8 % (11.5-14.5) Platelet Count 740 x10^3/uL (140-400) Neutrophils (%) (Auto) 71 % (31-73) Lymphocytes (%) (Auto) 23 % (24-48) Monocytes (%) (Auto) 4 % (0-9) Eosinophils (%) (Auto) 1 % (0-3) Basophils (%) (Auto) 1 % (0-3) Neutrophils # (Auto) 10.3 x10^3uL (1.8-7.7) Lymphocytes # (Auto) 3.3 x10^3/uL (1.0-4.8) Monocytes # (Auto) 0.6 x10^3/uL (0.0-1.1) Eosinophils # (Auto) 0.1 x10^3/uL (0.0-0.7) Basophils # (Auto) 0.2 x10^3/uL (0.0-0.2) Prothrombin Time 14.1 SEC (11.7-14.0) Prothromb Time International Ratio 1.1 (0.8-1.1) Activated Partial Thromboplast Time 35 SEC (24-38) Sodium Level 137 mmol/L (136-145) 139 mmol/L (136-145) Potassium Level 7.3 mmol/L (3.5-5.1) 4.8 mmol/L (3.5-5.1) Chloride Level 102 mmol/L (98-107) 105 mmol/L (98-107) Carbon Dioxide Level 15 mmol/L (21-32) 14 mmol/L (21-32) Anion Gap 20 (6-14) 20 (6-14) Blood Urea Nitrogen 49 mg/dL (7-20) 50 mg/dL (7-20) Creatinine 5.4 mg/dL (0.6-1.0) 5.2 mg/dL (0.6-1.0) Estimated GFR (Cockcroft-Gault) 9.2 9.6 BUN/Creatinine Ratio 9 (6-20) Glucose Level 103 mg/dL (70-99) 112 mg/dL (70-99) Lactic Acid Level 1.3 mmol/L (0.4-2.0) Calcium Level 10.0 mg/dL (8.5-10.1) 9.7 mg/dL (8.5-10.1) Magnesium Level 1.9 mg/dL (1.8-2.4) Total Bilirubin 0.6 mg/dL (0.2-1.0) Aspartate Amino Transf (AST/SGOT) 18 U/L (15-37) Alanine Aminotransferase (ALT/SGPT) 18 U/L (14-59) Alkaline Phosphatase 155 U/L (46-116) Creatine Kinase 28 U/L (26-192) Creatine Kinase MB (Mass) 1.1 ng/mL (0.0-3.6) Creatine Kinase MB Relative Index % (0-4) Troponin I Quantitative < 0.017 ng/mL (0.000-0.055) < 0.017 ng/mL (0.000-0.055) NM-Qrj-X-Type Natriuretic Peptide 1327 pg/mL (0-449) Total Protein 9.7 g/dL (6.4-8.2) Albumin 4.3 g/dL (3.4-5.0) Albumin/Globulin Ratio 0.8 (1.0-1.7) Lipase 599 U/L (73-393) Urine Collection Type U cath Urine Color Irena Urine Clarity Clear Urine pH 5.0 Urine Specific [place] 1.020 Urine Protein 30 mg/dL (NEG-TRACE) Urine Glucose (UA) Negative mg/dL (NEG) Urine Ketones (Stick) Trace mg/dL (NEG) Urine Blood Negative (NEG) Urine Nitrite Negative (NEG) Urine Bilirubin Moderate (NEG) Urine Urobilinogen Dipstick 0.2 mg/dL (0.2 mg/dL) Urine Leukocyte Esterase Trace (NEG) Urine RBC 0 /HPF (0-2) Urine WBC 1-4 /HPF (0-4) Urine Bacteria Few /HPF (0-FEW) Test 09/10/18 05:30 White Blood Count 17.2 x10^3/uL (4.0-11.0) Red Blood Count 3.73 x10^6/uL (3.50-5.40) Hemoglobin 11.1 g/dL (12.0-15.5) Hematocrit 35.5 % (36.0-47.0) Mean Corpuscular Volume 95 fL (79-100) Mean Corpuscular Hemoglobin 30 pg (25-35) Mean Corpuscular Hemoglobin Concent 31 g/dL (31-37) Red Cell Distribution Width 15.0 % (11.5-14.5) Platelet Count 511 x10^3/uL (140-400) Neutrophils (%) (Auto) 83 % (31-73) Lymphocytes (%) (Auto) 11 % (24-48) Monocytes (%) (Auto) 5 % (0-9) Eosinophils (%) (Auto) 1 % (0-3) Basophils (%) (Auto) 1 % (0-3) Neutrophils # (Auto) 14.3 x10^3uL (1.8-7.7) Lymphocytes # (Auto) 1.9 x10^3/uL (1.0-4.8) Monocytes # (Auto) 0.8 x10^3/uL (0.0-1.1) Eosinophils # (Auto) 0.1 x10^3/uL (0.0-0.7) Basophils # (Auto) 0.1 x10^3/uL (0.0-0.2) Segmented Neutrophils % 75 % (35-66) Band Neutrophils % 1 % (0-9) Lymphocytes % 19 % (24-48) Monocytes % 5 % (0-10) Platelet Estimate Increased (ADEQUATE) Large Platelets Few Anisocytosis Slight Sodium Level 143 mmol/L (136-145) Potassium Level 6.0 mmol/L (3.5-5.1) Chloride Level 108 mmol/L (98-107) Carbon Dioxide Level 16 mmol/L (21-32) Anion Gap 19 (6-14) Blood Urea Nitrogen 49 mg/dL (7-20) Creatinine 5.8 mg/dL (0.6-1.0) Estimated GFR (Cockcroft-Gault) 8.5 BUN/Creatinine Ratio 8 (6-20) Glucose Level 110 mg/dL (70-99) Calcium Level 9.0 mg/dL (8.5-10.1) Phosphorus Level 7.2 mg/dL (2.6-4.7) Total Bilirubin 0.6 mg/dL (0.2-1.0) Aspartate Amino Transf (AST/SGOT) 17 U/L (15-37) Alanine Aminotransferase (ALT/SGPT) 15 U/L (14-59) Alkaline Phosphatase 129 U/L (46-116) Troponin I Quantitative < 0.017 ng/mL (0.000-0.055) Total Protein 7.8 g/dL (6.4-8.2) Albumin 3.4 g/dL (3.4-5.0) Albumin/Globulin Ratio 0.8 (1.0-1.7) Hepatitis B Surface Antigen Nonreactive (Nonreactive) Laboratory Tests Test 09/09/18 17:50 09/10/18 05:30 Troponin I Quantitative < 0.017 ng/mL (0.000-0.055) < 0.017 ng/mL (0.000-0.055) White Blood Count 17.2 x10^3/uL (4.0-11.0) Red Blood Count 3.73 x10^6/uL (3.50-5.40) Hemoglobin 11.1 g/dL (12.0-15.5) Hematocrit 35.5 % (36.0-47.0) Mean Corpuscular Volume 95 fL (79-100) Mean Corpuscular Hemoglobin 30 pg (25-35) Mean Corpuscular Hemoglobin Concent 31 g/dL (31-37) Red Cell Distribution Width 15.0 % (11.5-14.5) Platelet Count 511 x10^3/uL (140-400) Neutrophils (%) (Auto) 83 % (31-73) Lymphocytes (%) (Auto) 11 % (24-48) Monocytes (%) (Auto) 5 % (0-9) Eosinophils (%) (Auto) 1 % (0-3) Basophils (%) (Auto) 1 % (0-3) Neutrophils # (Auto) 14.3 x10^3uL (1.8-7.7) Lymphocytes # (Auto) 1.9 x10^3/uL (1.0-4.8) Monocytes # (Auto) 0.8 x10^3/uL (0.0-1.1) Eosinophils # (Auto) 0.1 x10^3/uL (0.0-0.7) Basophils # (Auto) 0.1 x10^3/uL (0.0-0.2) Segmented Neutrophils % 75 % (35-66) Band Neutrophils % 1 % (0-9) Lymphocytes % 19 % (24-48) Monocytes % 5 % (0-10) Platelet Estimate Increased (ADEQUATE) Large Platelets Few Anisocytosis Slight Sodium Level 143 mmol/L (136-145) Potassium Level 6.0 mmol/L (3.5-5.1) Chloride Level 108 mmol/L (98-107) Carbon Dioxide Level 16 mmol/L (21-32) Anion Gap 19 (6-14) Blood Urea Nitrogen 49 mg/dL (7-20) Creatinine 5.8 mg/dL (0.6-1.0) Estimated GFR (Cockcroft-Gault) 8.5 BUN/Creatinine Ratio 8 (6-20) Glucose Level 110 mg/dL (70-99) Calcium Level 9.0 mg/dL (8.5-10.1) Phosphorus Level 7.2 mg/dL (2.6-4.7) Total Bilirubin 0.6 mg/dL (0.2-1.0) Aspartate Amino Transf (AST/SGOT) 17 U/L (15-37) Alanine Aminotransferase (ALT/SGPT) 15 U/L (14-59) Alkaline Phosphatase 129 U/L (46-116) Total Protein 7.8 g/dL (6.4-8.2) Albumin 3.4 g/dL (3.4-5.0) Albumin/Globulin Ratio 0.8 (1.0-1.7) Hepatitis B Surface Antigen Nonreactive (Nonreactive) Microbiology 09/09/18 Blood Culture - Preliminary, Resulted NO GROWTH AFTER 1 DAY Medications Current Medications Aspirin (Chilango Aspirin) 325 mg 1X ONCE PO Last administered on 09/09/18at 06:13 ; Start 09/09/18 at 05:30; Stop 09/09/18 at 05:31; Status DC Fentanyl Citrate (Fentanyl 2ml Vial) 25 mcg 1X ONCE IV Last administered on 09/09/18at 06:12; Start 09/09/18 at 05:30; Stop 09/09/18 at 05:31; Status DC Ondansetron HCl (Zofran) 4 mg 1X ONCE IV Last administered on 09/09/18at 06:12; Start 09/09/18 at 05:30; Stop 09/09/18 at 05:31; Status DC Famotidine (Pepcid Vial) 20 mg 1X ONCE IVP Last administered on 09/09/18at 06:12 ; Start 09/09/18 at 05:30; Stop 09/09/18 at 05:31; Status DC Sodium Chloride 500 ml @ 500 mls/hr 1X ONCE IV Last administered on 09/09/18at 06:28; Start 09/09/18 at 07:00; Stop 09/09/18 at 07:59; Status DC Albuterol Sulfate (Ventolin Neb Soln) 10 mg 1X ONCE CONT NEB Last administered on 09/09/18at 07:00; Start 09/09/18 at 07:00; Stop 09/09/18 at 07:01; Status DC Dextrose (Dextrose 50%-Water Syringe) 25 gm 1X ONCE IV Last administered on 07:06; Start 09/09/18 at 07:00; Stop 09/09/18 at 07:01; Status DC Insulin Human Regular (HumuLIN R VIAL) 10 unit 1X ONCE IV Last administered on 09/09/18 07:12; Start 09/09/18 at 07:00; Stop 09/09/18 at 07:01; Status DC Sodium Bicarbonate (Sodium Bicarb Adult 8.4% Syr) 50 meq 1X ONCE IV Last administered on 09/09/18 07:06; Start 09/09/18 at 07:00; Stop 09/09/18 at 07:01; Status DC Calcium Gluconate (Calcium Gluconate) 1,000 mg 1X ONCE IVP Last administered on 09/09/18 07:05; Start 09/09/18 at 07:00; Stop 09/09/18 at 07:01; Status DC Sodium Polystyrene Sulfonate (Kayexalate) 30 gm 1X ONCE PO Last administered on 09/09/18 08:14; Start 09/09/18 at 07:00; Stop 09/09/18 at 07:01; Status DC Sodium Chloride 1,000 ml @ 1,000 mls/hr 1X ONCE IV Last administered on 08:14; Start 09/09/18 at 07:00; Stop 09/09/18 at 07:59; Status DC Fentanyl Citrate (Fentanyl 2ml Vial) 25 mcg 1X ONCE IV Last administered on 07:06; Start 09/09/18 at 07:00; Stop 09/09/18 at 07:01; Status DC Sodium Chloride 1,000 ml @ 150 mls/hr Q6H40M IV Last administered on 09/09/18 09:33; Start 09/09/18 at 07:11; Stop 09/09/18 at 16:21; Status DC Aspirin (Ecotrin) 81 mg DAILYWBKFT PO Last administered on 09/10/18 09:45; Start 09/09/18 at 10:00 Acetaminophen/ Hydrocodone Bitart (Lortab 5/325) 1 tab PRN Q6HRS PRN PO PAIN Last administered on 09/10/18 14:12; Start 09/09/18 at 09:00 Levothyroxine Sodium (Synthroid) 88 mcg DAILY06 PO Last administered on 05:42; Start 09/09/18 at 10:00 Metoprolol Succinate (Toprol Xl) 25 mg DAILY PO Last administered on 09/10/18 09:44; Start 09/09/18 at 10:00 Lidocaine (Lidoderm) 1 patch DAILY TD Last administered on 09/10/18 09:44; Start 09/09/18 at 10:00 Pantoprazole Sodium (Protonix) 40 mg DAILYAC PO Last administered on 09/10/18 09:44; Start 09/09/18 at 10:00 Tizanidine HCl (Zanaflex) 4 mg PRN Q8HRS PRN PO MUSCLE SPASMS Last administered on 09/10/18 09:45; Start 09/09/18 at 09:15 Sodium Chloride 1,000 ml @ 100 mls/hr Q10H IV Last administered on 09/09/18 09 :33; Start 09/09/18 at 08:54; Stop 09/09/18 at 18:53; Status DC Ondansetron HCl (Zofran) 4 mg PRN Q6HRS PRN IV NAUSEA/VOMITING Last administered on 09/09/18 13:24; Start 09/09/18 at 09:00 Hydromorphone HCl (Dilaudid) 0.5 mg PRN Q3HRS PRN IV PAIN Last administered on 09/09/18 13:25; Start 09/09/18 at 09:00; Stop 09/09/18 at 16:23; Status DC Acetaminophen (Tylenol) 650 mg PRN Q6HRS PRN PO Headaches, Temp > 101.5F; Start 09/09/18 at 09:00 Docusate Sodium (Colace) 100 mg BID PO ; Start 09/09/18 at 10:00; Stop 09/10/18 at 11:05; Status DC Bisacodyl (Dulcolax Supp) 10 mg PRN DAILY PRN DE CONSTIPATION; Start 09/09/18 at 09:00; Stop 09/10/18 at 11:05; Status DC Heparin Sodium (Porcine) (Heparin Sodium) 5,000 unit Q12HR SQ Last administered on 09/09/18 09:31; Start 09/09/18 at 10:00 Nicotine (Nicoderm Cq 21mg) 1 patch DAILY TD Last administered on 09/10/18 09: 43; Start 09/09/18 at 11:00 Loperamide HCl (Imodium) 2 mg PRN QID PRN PO DIARRHEA Last administered on 14:12; Start 09/09/18 at 12:00 Hydromorphone HCl (Dilaudid) 1 mg PRN Q4HRS PRN IVP PAIN Last administered on 05:43; Start 09/09/18 at 14:30; Stop 09/10/18 at 07:51; Status DC Sucralfate (Carafate) 1 gm TIDAC PO Last administered on 09/10/18 12:01; Start 09/10/18 at 11:30 Diphenoxylate HCl/ Atropine (Lomotil) 1 tab PRN BID PRN PO DIARRHEA 2ND CHOICE ; Start 09/10/18 at 12:30 Lidocaine/Sodium Bicarbonate (Buffered Lidocaine 1%) 3 ml 1X ONCE INJ Last administered on 09/10/18at 14:58; Start 09/10/18 at 14:30; Stop 09/10/18 at 14:31; Status DC Active Scripts Active Aspirin Ec (Aspirin) 81 Mg Tablet. 81 Mg PO DAILYWBKFT 30 Days Lisinopril 10 Mg Tablet 10 Mg PO BID 30 Days Tizanidine Hcl 4 Mg Tablet 4 Mg PO PRN Q8HRS PRN 10 Days [place] 5-325 Tablet (Acetaminophen/Hydrocodone Bitart) 1 Each Tablet 1 Tab PO PRN Q6HRS 3 Days Lidocaine 1 Each Adh..patch 1 Patch TD DAILY MDD 1 Synthroid (Levothyroxine Sodium) 88 Mcg Tablet 88 Mcg PO DAILY06 MDD 1 Metoprolol Succinate ( Xl ) (Metoprolol Succinate) 25 Mg Tab.er.24h 25 Mg PO DAILY MDD 1 Reported Protonix (Pantoprazole Sodium) 20 Mg Tablet. 40 Mg PO DAILY Vitals/I & O Vital Sign - Last 24 Hours 09/09/18 09/09/18 09/09/18 09/09/18 17:19 19:00 19:58 20:48 Temp 97.9 97.9 Pulse 102 Resp 18 16 B/P (MAP) 139/62 (87) Pulse Ox 98 94 O2 Delivery Room Air Room Air Room Air 09/09/18 09/10/18 09/10/18 09/10/18 23:00 00:56 03:00 05:43 Temp 97.9 97.6 97.9 97.6 Pulse 90 97 Resp 16 16 B/P (MAP) 111/55 (73) 130/57 (81) Pulse Ox 100 100 98 98 O2 Delivery Room Air Room Air Room Air Room Air 09/10/18 09/10/18 09/10/18 09/10/18 06:13 07:00 07:29 08:00 Temp 98.1 98.1 Pulse 101 Resp 18 22 B/P (MAP) 180/70 (106) Pulse Ox 98 97 96 O2 Delivery Room Air Room Air Room Air Nasal Cannula O2 Flow Rate 2.0 09/10/18 09/10/18 09/10/18 09/10/18 09:44 12:00 14:12 15:00 Temp 97.9 97.9 97.9 97.9 Pulse 101 102 100 Resp 18 18 18 B/P (MAP) 180/70 119/57 (77) 120/60 (80) Pulse Ox 97 97 97 O2 Delivery Nasal Cannula Nasal Cannula Room Air O2 Flow Rate 2.0 2.0 09/10/18 15:12 Resp 18 Pulse Ox 97 O2 Delivery Nasal Cannula O2 Flow Rate 2.0 Intake and Output 09/09/18 09/09/18 09/10/18 15:00 23:00 07:00 Intake Total 180 ml 300 ml 180 ml Balance 180 ml 300 ml 180 ml ORION MULLIGAN MD Sep 10, 2018 17:02
[2018-09-10 19:00] VITALS: BP 111/55
[2018-09-10 22:42] VITALS: BP 122/68
[2018-09-11] VITALS (24 sets, daily range): BP systolic 50–220; BP diastolic 31–98
[2018-09-11 04:17] LABS: BASO % 0 % (0-3); EOS # 0.1 x10^3/uL (0.0-0.7); EOS % 1 % (0-3); HEMATOCRIT 32.9 % (36.0-47.0); HEMOGLOBIN 10.6 g/dL (12.0-15.5); LYMPH # 2.8 x10^3/uL (1.0-4.8); LYMPH % 21 % (24-48); MEAN CORPUSCULAR HEMOGLOBIN 29 pg (25-35); MEAN CORPUSCULAR HGB CONC 32 g/dL (31-37); MEAN CORPUSCULAR VOLUME 92 fL (79-100); MONO # 0.9 x10^3/uL (0.0-1.1); MONO % 7 % (0-9); NEUT # 9.8 x10^3uL (1.8-7.7); NEUT % 72 % (31-73); PLATELET COUNT 427 x10^3/uL (140-400); RED BLOOD COUNT 3.59 x10^6/uL (3.50-5.40); RED CELL DISTRIBUTION WIDTH 15.1 % (11.5-14.5); WHITE BLOOD COUNT 13.7 x10^3/uL (4.0-11.0)
[2018-09-11 04:29] LABS: ALBUMIN 3.1 g/dL (3.4-5.0); ALBUMIN/GLOBULIN RATIO 0.6 (1.0-1.7); CALCIUM 8.9 mg/dL (8.5-10.1); CREATININE 4.1 mg/dL (0.6-1.0); GFR 12.7; PHOSPHORUS 4.9 mg/dL (2.6-4.7); POTASSIUM 3.7 mmol/L (3.5-5.1); TOTAL BILIRUBIN 0.7 mg/dL (0.2-1.0); TOTAL PROTEIN 8.1 g/dL (6.4-8.2)
[2018-09-11] MEDS: LEVOTHYROXINE 88 MCG TABLET PO SCH (05:34)
[2018-09-11] MEDS: HYDROcodone/APAP 5/325MG 1 TAB TABLET PO PRN ×2 (05:34→12:06)
[2018-09-11] MEDS ORDERED: IV NORMAL SALINE 1000ML BAG 1,000 ML IV PRN ×2 (07:05)
[2018-09-11] MEDS ORDERED: DIALYSIS PATIENT. MC PRN ×2 (07:15)
[2018-09-11] MEDS: HEPARIN for SUB-Q USE 5,000 UNIT/ML VIAL. SQ SCH ×2 (09:00→21:22)
[2018-09-11] MEDS: NICOTINE 21MG PATCH. TD SCH (11:59)
[2018-09-11] MEDS: LIDOCAINE (700MG/PATCH) PATCH. TD SCH (12:00)
--- NOTE | 2018-09-11 12:00 | PDOC ---
Subjective: Subjective: "Pouring out of me." Breast pain. Not hungry. Went to HD. Objective: Objective: Reviewed w/ RN - two incidents yesterday w/ leakage around ostomy. Has not received Lomotil. Got Imodium yesterday but not today. Vital Signs: Vital Signs Date Time Temp Pulse Resp B/P (MAP) Pulse Ox O2 Delivery O2 Flow Rate FiO2 09/11/18 11:00 97.8 76 16 119/98 (105) 100 Nasal Cannula 2.0 97.8 Labs: Laboratory Tests Test 09/11/18 03:15 White Blood Count 13.7 x10^3/uL Red Blood Count 3.59 x10^6/uL Hemoglobin 10.6 g/dL Hematocrit 32.9 % Mean Corpuscular Volume 92 fL Mean Corpuscular Hemoglobin 29 pg Mean Corpuscular Hemoglobin Concent 32 g/dL Red Cell Distribution Width 15.1 % Platelet Count 427 x10^3/uL Neutrophils (%) (Auto) 72 % Lymphocytes (%) (Auto) 21 % Monocytes (%) (Auto) 7 % Eosinophils (%) (Auto) 1 % Basophils (%) (Auto) 0 % Neutrophils # (Auto) 9.8 x10^3uL Lymphocytes # (Auto) 2.8 x10^3/uL Monocytes # (Auto) 0.9 x10^3/uL Eosinophils # (Auto) 0.1 x10^3/uL Basophils # (Auto) 0.0 x10^3/uL Sodium Level 141 mmol/L Potassium Level 3.7 mmol/L Chloride Level 99 mmol/L Carbon Dioxide Level 30 mmol/L Anion Gap 12 Blood Urea Nitrogen 18 mg/dL Creatinine 4.1 mg/dL Estimated GFR (Cockcroft-Gault) 12.7 BUN/Creatinine Ratio 4 Glucose Level 91 mg/dL Calcium Level 8.9 mg/dL Phosphorus Level 4.9 mg/dL Total Bilirubin 0.7 mg/dL Aspartate Amino Transf (AST/SGOT) 36 U/L Alanine Aminotransferase (ALT/SGPT) 21 U/L Alkaline Phosphatase 130 U/L Total Protein 8.1 g/dL Albumin 3.1 g/dL Albumin/Globulin Ratio 0.6 PE: GEN: NAD LUNGS: CTAB HEART: RRR ABD: RLQ ostomy w/ watery stool NEURO/PSYCH: A & O 3, depressed A/P: TIGRE/CKD - on HD now Anorexia/dyspepsia Increased ostomy output -- D/w RN - please try Lomotil as ordered yesterday. SHREE SAAVEDRA Sep 11, 2018 12:00
[2018-09-11] MEDS: tiZANidine 4 MG TABLET. PO PRN (12:01)
[2018-09-11] MEDS: SUCRALFATE 1 GM TABLET. PO SCH ×3 (12:01→16:50)
[2018-09-11] MEDS: PANTOPRAZOLE 40 MG TABLET.DR. PO SCH (12:01)
[2018-09-11] MEDS: ASPIRIN ENTERIC COATED 81 MG TABLET.DR. PO SCH (12:02)
[2018-09-11] MEDS: METOPROLOL SUCC 24HR ER 25 MG TAB.ER.24H. PO SCH (12:02)
[2018-09-11] MEDS ORDERED: HYDROmorphone 2 MG/ML VIAL IVP PRN (12:15)
[2018-09-11] MEDS: DIPHENOXYLATE/ATROPINE TABLET. PO SCH ×3 (12:28→21:23)
--- NOTE | 2018-09-11 13:45 | EKG ---
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
--- NOTE | 2018-09-11 13:50 | NUR ---
Rapid Response called at 1330. Patient became diaphoretic, weak, dizzy when going to B[facility]. Upon arriving in room, patient's SBP 50. IVF started, patient placed in reverse-trendelenberg position/legs elevated, EKG done. No breathing treatment needed. Patient transferred to ICU and immediately started on Levophed. Dr. Quevedo, patient's family notified. Cat RN gave report to Ashanti AMBROSE.
[2018-09-11] MEDS ORDERED: NOREPINEPHRIN 8MG/250ML PREMIX 250 ML IV PRN (14:00)
--- NOTE | 2018-09-11 14:01 | PDOC ---
SUBJECTIVE ROS Pt seen on Hd, tolerating well without complaints OBJECTIVE Vital Signs Vital Signs Date Time Temp Pulse Resp B/P (MAP) Pulse Ox O2 Delivery O2 Flow Rate FiO2 09/11/18 12:06 22 Room Air 09/11/18 12:02 76 119/98 09/11/18 11:00 97.8 100 2.0 97.8 I & 0 Intake and Output 09/11/18 07:00 Intake Total 1015 ml Output Total 900 ml Balance 115 ml Intake Oral 1015 ml Output Stool Total 900 ml PHYSICAL EXAM Physical Exam General: NAD HEENT: OM moist Neck Supple Lungs: CTA, Non labored Heart: S1S2, RRR, no gallops, no murmurs Abdomen: Normal bowel sounds, Soft, ostomy + Extremities: No edema, Skin: No rashes, pigmentation under the breast Neuro: Grossly Normal No Lewis DIAGNOSIS/ASSESSMENT Assessment & Plan TIGRE on CKD- Renal US no e/o Obstructive etiology , decreased UOP No improvement in renal function and persistent Hyperkalemia initiated HD 09/10, 2 nd treatment today seen on HD tolerating well,Continue as Ordered , Dw anaesthesiologist Access- temp catheter Hyperkalemia-K Normal CKD stage 3- TIGRE in DeC with Cr peaked at 6 Recovered to Cr 1.3-1.5 Bilat chest wall pain Hypertension Diarrhea - S/p colectomy with ileostomy Hepatic lesion COMMENT/RELEVANT DATA Meds Current Medications Medications (Trade) Dose Ordered Sig/Saroj Start Time Stop Time Status Last Admin Dose Admin Acetaminophen (Tylenol) 650 mg PRN Q6HRS PRN 09/09/18 09:00 Acetaminophen/ Hydrocodone Bitart (Lortab 5/325) 1 tab PRN Q6HRS PRN 09/09/18 09:00 09/11/18 12:06 1 TAB Albuterol Sulfate (Ventolin Neb Soln) 10 mg 1X ONCE 09/09/18 07:00 09/09/18 07:01 DC 09/09/18 07:00 10 MG Aspirin ([place] Aspirin) 325 mg 1X ONCE 09/09/18 05:30 09/09/18 05:31 DC 09/09/18 06:13 325 MG Aspirin (Ecotrin) 81 mg [id number] 09/09/18 10:00 09/11/18 12:02 81 MG Bisacodyl (Dulcolax Supp) 10 mg PRN DAILY PRN 09/09/18 09:00 09/10/18 11:05 DC Calcium Gluconate (Calcium Gluconate) 1,000 mg 1X ONCE 09/09/18 07:00 09/09/18 07:01 DC 09/09/18 07:05 1,000 MG Dextrose (Dextrose 50%-Water Syringe) 25 gm 1X ONCE 09/09/18 07:00 09/09/18 07:01 DC 09/09/18 07:06 25 GM Diphenoxylate HCl/ Atropine (Lomotil) 1 tab TID 09/11/18 12:30 Docusate Sodium (Colace) 100 mg BID 09/09/18 10:00 09/10/18 11:05 DC Famotidine (Pepcid Vial) 20 mg 1X ONCE 09/09/18 05:30 09/09/18 05:31 DC 09/09/18 06:12 20 MG Fentanyl Citrate (Fentanyl 2ml Vial) 25 mcg 1X ONCE 09/09/18 07:00 09/09/18 07:01 DC 09/09/18 07:06 25 MCG Heparin Sodium (Porcine) (Heparin Sodium) 5,000 unit Q12HR 09/09/18 10:00 09/10/18 20:44 5,000 UNIT Hydromorphone HCl (Dilaudid) 1 mg PRN Q4HRS PRN 09/11/18 12:15 Info (PHARMACY MONITORING -- do not chart) 1 each PRN DAILY PRN 09/11/18 07:15 UNV Insulin Human Regular (HumuLIN R VIAL) 10 unit 1X ONCE 09/09/18 07:00 09/09/18 07:01 DC 09/09/18 07:12 10 UNIT Levothyroxine Sodium (Synthroid) 88 mcg DAILY06 09/09/18 10:00 09/11/18 05:34 88 MCG Lidocaine (Lidoderm) 1 patch DAILY 09/09/18 10:00 09/11/18 12:00 1 PATCH Lidocaine/Sodium Bicarbonate (Buffered Lidocaine 1%) 3 ml 1X ONCE 09/10/18 14:30 09/10/18 14:31 DC 09/10/18 14:58 4 ML Loperamide HCl (Imodium) 2 mg PRN QID PRN 09/09/18 12:00 09/10/18 14:12 2 MG Metoprolol Succinate (Toprol Xl) 25 mg DAILY 09/09/18 10:00 09/11/18 12:02 25 MG Nicotine (Nicoderm Cq 21mg) 1 patch DAILY 09/09/18 11:00 09/11/18 11:59 1 PATCH Norepinephrine Bitartrate 250 ml @ 1.875 mls/ hr CONT PRN 09/11/18 14:00 Ondansetron HCl (Zofran) 4 mg PRN Q6HRS PRN 09/09/18 09:00 09/09/18 13:24 4 MG Pantoprazole Sodium (Protonix) 40 mg DAILYAC 09/09/18 10:00 09/11/18 12:01 40 MG Sodium Polystyrene Sulfonate (Kayexalate) 30 gm 1X ONCE 09/09/18 07:00 09/09/18 07:01 DC 09/09/18 08:14 30 GM Sodium Bicarbonate (Sodium Bicarb Adult 8.4% Syr) 50 meq 1X ONCE 09/09/18 07:00 09/09/18 07:01 DC 09/09/18 07:06 50 MEQ Sodium Chloride 1,000 ml @ 400 mls/hr Q2H30M PRN 09/11/18 07:05 09/11/18 19:04 Sucralfate (Carafate) 1 gm TIDAC 09/10/18 11:30 09/11/18 12:06 1 GM Tizanidine HCl (Zanaflex) 4 mg PRN Q8HRS PRN 09/09/18 09:15 09/11/18 12:01 4 MG Lab Laboratory Tests Test 09/11/18 03:15 09/11/18 13:26 White Blood Count 13.7 x10^3/uL (4.0-11.0) Red Blood Count 3.59 x10^6/uL (3.50-5.40) Hemoglobin 10.6 g/dL (12.0-15.5) Hematocrit 32.9 % (36.0-47.0) Mean Corpuscular Volume 92 fL (79-100) Mean Corpuscular Hemoglobin 29 pg (25-35) Mean Corpuscular Hemoglobin Concent 32 g/dL (31-37) Red Cell Distribution Width 15.1 % (11.5-14.5) Platelet Count 427 x10^3/uL (140-400) Neutrophils (%) (Auto) 72 % (31-73) Lymphocytes (%) (Auto) 21 % (24-48) Monocytes (%) (Auto) 7 % (0-9) Eosinophils (%) (Auto) 1 % (0-3) Basophils (%) (Auto) 0 % (0-3) Neutrophils # (Auto) 9.8 x10^3uL (1.8-7.7) Lymphocytes # (Auto) 2.8 x10^3/uL (1.0-4.8) Monocytes # (Auto) 0.9 x10^3/uL (0.0-1.1) Eosinophils # (Auto) 0.1 x10^3/uL (0.0-0.7) Basophils # (Auto) 0.0 x10^3/uL (0.0-0.2) Sodium Level 141 mmol/L (136-145) Potassium Level 3.7 mmol/L (3.5-5.1) Chloride Level 99 mmol/L (98-107) Carbon Dioxide Level 30 mmol/L (21-32) Anion Gap 12 (6-14) Blood Urea Nitrogen 18 mg/dL (7-20) Creatinine 4.1 mg/dL (0.6-1.0) Estimated GFR (Cockcroft-Gault) 12.7 BUN/Creatinine Ratio 4 (6-20) Glucose Level 91 mg/dL (70-99) Calcium Level 8.9 mg/dL (8.5-10.1) Phosphorus Level 4.9 mg/dL (2.6-4.7) Total Bilirubin 0.7 mg/dL (0.2-1.0) Aspartate Amino Transf (AST/SGOT) 36 U/L (15-37) Alanine Aminotransferase (ALT/SGPT) 21 U/L (14-59) Alkaline Phosphatase 130 U/L (46-116) Total Protein 8.1 g/dL (6.4-8.2) Albumin 3.1 g/dL (3.4-5.0) Albumin/Globulin Ratio 0.6 (1.0-1.7) Glucose (Fingerstick) 129 mg/dL (70-99) Results All relevant outside records, renal labs, imaging studies, telemetry/EKG's were reviewed. SHERRY ALAN MD Sep 11, 2018 14:01
--- NOTE | 2018-09-11 14:28 | NUR ---
Around 1320 Rapid Response called on patient due to BP 48/23. Manager Monitoring was covering for patients primary nurse while she was on lunch. Patient had returned from dialysis and requested to use the [facility]. PACKAGING MANAGER reported to communications writer that she felt dizzy, upon first assessment of patient BP 62/37 P 90 and fast BS 129. Page sent out to MD overhead, communications writer returned to patients room upon reassessment BP dropped and diaphoretic then Rapid Response was called. Patient moved to ICU to room 115. Primary nurse to call report to ICU. Manager Monitoring spoke with patients grand daughter Suri to update on patient condition.
[2018-09-11] MEDS ORDERED: ALBUMIN HUMAN 25% 100 ML IV ONE (14:30)
--- NOTE | 2018-09-11 14:33 | NUR ---
Pt transferred to ICU room #115 post rapid response for hypotension. Report called to ICU nurse Ashanti. Pt belongings sent with pt. Family called by staff nurse on floor. Provider notified.
--- NOTE | 2018-09-11 17:19 | NUR ---
Patient transferred 1405, report received from HALIE Robins. Patient started on Levophed for hypotension, BP 61/31, titrating to keep SBP>90. Bladder scanned patient at [address] Quevedo, 160ml in bladder. Patient is resting comfortably with family at bedside.
[2018-09-11] MEDS: IV NORMAL SALINE 500ML BAG 500 ML IV PRN ×2 (17:58→18:53)
--- NOTE | 2018-09-11 19:00 | PDOC ---
PROGRESS NOTES Chief Complaint Chief Complaint Right and left chest wall pain - Most probably pleuritic in nature as it is worsened with deep breath pain is reproducible which is reassuring. Leukocytosis - uncertain source if there is an infection UC and BC are negative to date Anemia of chronic disease - stable Hepatitis C; outpatient GI f/u Tobacco abuse - discussed/encouraged cessation Hyperkalemia -currently resolved after dialysis TIGRE - continue dialysis as per organizational research consultant. Hypertension - will manage meds, hold nephrotoxic meds Hypothyroidism - Synthroid Diarrhea - loose bowels. Will monitor, check stool culture, c. diff S/p colectomy with ileostomy - recovered fairly well Metabolic acidosis - with gap, likely due to renal dysfunction Aortic atherosclerosis - noted on CT scan, likely has vascular disease elsewhere as well CAD; CT chest last week notable for coronary calcifications. Chronic narcotic use Major depression vs stress reaction to acute illness. Patient very tearful during my encounter during the day. Reassurance has been provided, pain has been addressed as well Insomnia Patient presented hypotension during dialysis session which prompted her to be moved to the ICU for closer monitoring, second visit done in the afternoon. Discussed with nursing staff at bedside. Plan: dialysis as per organizational research consultant will give albumin for hypotension pain management with dilaudid will start Remeron for insomnia and hopefully will help with mood as well further recommendations based on clinical course. History of Present Illness History of Present Illness Patient with nausea and not feeling well overall patient is tearful during my encounter, she is compalinig of pain around her breast, with nursing staff examination of the breasts was unremarkable. no nippleretractions no evidence of peau d'orange or nipple discharge was evident, discussed with nephrology organizational research consultant at bedside Vitals Vitals Vital Signs Date Time Temp Pulse Resp B/P (MAP) Pulse Ox O2 Delivery O2 Flow Rate FiO2 09/11/18 18:50 70 77/42 (54) 09/11/18 17:50 18 98 Room Air 09/11/18 14:05 97.5 97.5 09/11/18 11:00 2.0 Physical Exam General: Alert, Oriented X3, Cooperative, mild distress Lungs: Clear, Other Abdomen: Normal bowel sounds, Soft, Other (LLQ ostomy clean dry. Diffusely tender) Extremities: No clubbing, No cyanosis, No edema, Normal pulses, No tenderness/ swelling Skin: No rashes, No breakdown, No significant lesion Labs LABS Laboratory Tests Test 09/11/18 03:15 09/11/18 13:26 White Blood Count 13.7 x10^3/uL (4.0-11.0) Red Blood Count 3.59 x10^6/uL (3.50-5.40) Hemoglobin 10.6 g/dL (12.0-15.5) Hematocrit 32.9 % (36.0-47.0) Mean Corpuscular Volume 92 fL (79-100) Mean Corpuscular Hemoglobin 29 pg (25-35) Mean Corpuscular Hemoglobin Concent 32 g/dL (31-37) Red Cell Distribution Width 15.1 % (11.5-14.5) Platelet Count 427 x10^3/uL (140-400) Neutrophils (%) (Auto) 72 % (31-73) Lymphocytes (%) (Auto) 21 % (24-48) Monocytes (%) (Auto) 7 % (0-9) Eosinophils (%) (Auto) 1 % (0-3) Basophils (%) (Auto) 0 % (0-3) Neutrophils # (Auto) 9.8 x10^3uL (1.8-7.7) Lymphocytes # (Auto) 2.8 x10^3/uL (1.0-4.8) Monocytes # (Auto) 0.9 x10^3/uL (0.0-1.1) Eosinophils # (Auto) 0.1 x10^3/uL (0.0-0.7) Basophils # (Auto) 0.0 x10^3/uL (0.0-0.2) Sodium Level 141 mmol/L (136-145) Potassium Level 3.7 mmol/L (3.5-5.1) Chloride Level 99 mmol/L (98-107) Carbon Dioxide Level 30 mmol/L (21-32) Anion Gap 12 (6-14) Blood Urea Nitrogen 18 mg/dL (7-20) Creatinine 4.1 mg/dL (0.6-1.0) Estimated GFR (Cockcroft-Gault) 12.7 BUN/Creatinine Ratio 4 (6-20) Glucose Level 91 mg/dL (70-99) Calcium Level 8.9 mg/dL (8.5-10.1) Phosphorus Level 4.9 mg/dL (2.6-4.7) Total Bilirubin 0.7 mg/dL (0.2-1.0) Aspartate Amino Transf (AST/SGOT) 36 U/L (15-37) Alanine Aminotransferase (ALT/SGPT) 21 U/L (14-59) Alkaline Phosphatase 130 U/L (46-116) Total Protein 8.1 g/dL (6.4-8.2) Albumin 3.1 g/dL (3.4-5.0) Albumin/Globulin Ratio 0.6 (1.0-1.7) Glucose (Fingerstick) 129 mg/dL (70-99) Assessment and Plan Assessmemt and Plan Problems Medical Problems: (1) Acute chest wall pain Status: Acute (2) Elevated lipase Status: Acute (3) Ileostomy in place Status: Acute Comment Review of Relevant I have reviewed the following items consuelo (where applicable) has been applied. Labs Laboratory Tests Test 09/10/18 05:30 09/11/18 03:15 09/11/18 13:26 White Blood Count 17.2 x10^3/uL (4.0-11.0) 13.7 x10^3/uL (4.0-11.0) Red Blood Count 3.73 x10^6/uL (3.50-5.40) 3.59 x10^6/uL (3.50-5.40) Hemoglobin 11.1 g/dL (12.0-15.5) 10.6 g/dL (12.0-15.5) Hematocrit 35.5 % (36.0-47.0) 32.9 % (36.0-47.0) Mean Corpuscular Volume 95 fL (79-100) 92 fL (79-100) Mean Corpuscular Hemoglobin 30 pg (25-35) 29 pg (25-35) Mean Corpuscular Hemoglobin Concent 31 g/dL (31-37) 32 g/dL (31-37) Red Cell Distribution Width 15.0 % (11.5-14.5) 15.1 % (11.5-14.5) Platelet Count 511 x10^3/uL (140-400) 427 x10^3/uL (140-400) Neutrophils (%) (Auto) 83 % (31-73) 72 % (31-73) Lymphocytes (%) (Auto) 11 % (24-48) 21 % (24-48) Monocytes (%) (Auto) 5 % (0-9) 7 % (0-9) Eosinophils (%) (Auto) 1 % (0-3) 1 % (0-3) Basophils (%) (Auto) 1 % (0-3) 0 % (0-3) Neutrophils # (Auto) 14.3 x10^3uL (1.8-7.7) 9.8 x10^3uL (1.8-7.7) Lymphocytes # (Auto) 1.9 x10^3/uL (1.0-4.8) 2.8 x10^3/uL (1.0-4.8) Monocytes # (Auto) 0.8 x10^3/uL (0.0-1.1) 0.9 x10^3/uL (0.0-1.1) Eosinophils # (Auto) 0.1 x10^3/uL (0.0-0.7) 0.1 x10^3/uL (0.0-0.7) Basophils # (Auto) 0.1 x10^3/uL (0.0-0.2) 0.0 x10^3/uL (0.0-0.2) Segmented Neutrophils % 75 % (35-66) Band Neutrophils % 1 % (0-9) Lymphocytes % 19 % (24-48) Monocytes % 5 % (0-10) Platelet Estimate Increased (ADEQUATE) Large Platelets Few Anisocytosis Slight Sodium Level 143 mmol/L (136-145) 141 mmol/L (136-145) Potassium Level 6.0 mmol/L (3.5-5.1) 3.7 mmol/L (3.5-5.1) Chloride Level 108 mmol/L (98-107) 99 mmol/L (98-107) Carbon Dioxide Level 16 mmol/L (21-32) 30 mmol/L (21-32) Anion Gap 19 (6-14) 12 (6-14) Blood Urea Nitrogen 49 mg/dL (7-20) 18 mg/dL (7-20) Creatinine 5.8 mg/dL (0.6-1.0) 4.1 mg/dL (0.6-1.0) Estimated GFR (Cockcroft-Gault) 8.5 12.7 BUN/Creatinine Ratio 8 (6-20) 4 (6-20) Glucose Level 110 mg/dL (70-99) 91 mg/dL (70-99) Calcium Level 9.0 mg/dL (8.5-10.1) 8.9 mg/dL (8.5-10.1) Phosphorus Level 7.2 mg/dL (2.6-4.7) 4.9 mg/dL (2.6-4.7) Total Bilirubin 0.6 mg/dL (0.2-1.0) 0.7 mg/dL (0.2-1.0) Aspartate Amino Transf (AST/SGOT) 17 U/L (15-37) 36 U/L (15-37) Alanine Aminotransferase (ALT/SGPT) 15 U/L (14-59) 21 U/L (14-59) Alkaline Phosphatase 129 U/L (46-116) 130 U/L (46-116) Troponin I Quantitative < 0.017 ng/mL (0.000-0.055) Total Protein 7.8 g/dL (6.4-8.2) 8.1 g/dL (6.4-8.2) Albumin 3.4 g/dL (3.4-5.0) 3.1 g/dL (3.4-5.0) Albumin/Globulin Ratio 0.8 (1.0-1.7) 0.6 (1.0-1.7) Hepatitis B Surface Antigen Nonreactive (Nonreactive) Glucose (Fingerstick) 129 mg/dL (70-99) Laboratory Tests Test 09/11/18 03:15 09/11/18 13:26 White Blood Count 13.7 x10^3/uL (4.0-11.0) Red Blood Count 3.59 x10^6/uL (3.50-5.40) Hemoglobin 10.6 g/dL (12.0-15.5) Hematocrit 32.9 % (36.0-47.0) Mean Corpuscular Volume 92 fL (79-100) Mean Corpuscular Hemoglobin 29 pg (25-35) Mean Corpuscular Hemoglobin Concent 32 g/dL (31-37) Red Cell Distribution Width 15.1 % (11.5-14.5) Platelet Count 427 x10^3/uL (140-400) Neutrophils (%) (Auto) 72 % (31-73) Lymphocytes (%) (Auto) 21 % (24-48) Monocytes (%) (Auto) 7 % (0-9) Eosinophils (%) (Auto) 1 % (0-3) Basophils (%) (Auto) 0 % (0-3) Neutrophils # (Auto) 9.8 x10^3uL (1.8-7.7) Lymphocytes # (Auto) 2.8 x10^3/uL (1.0-4.8) Monocytes # (Auto) 0.9 x10^3/uL (0.0-1.1) Eosinophils # (Auto) 0.1 x10^3/uL (0.0-0.7) Basophils # (Auto) 0.0 x10^3/uL (0.0-0.2) Sodium Level 141 mmol/L (136-145) Potassium Level 3.7 mmol/L (3.5-5.1) Chloride Level 99 mmol/L (98-107) Carbon Dioxide Level 30 mmol/L (21-32) Anion Gap 12 (6-14) Blood Urea Nitrogen 18 mg/dL (7-20) Creatinine 4.1 mg/dL (0.6-1.0) Estimated GFR (Cockcroft-Gault) 12.7 BUN/Creatinine Ratio 4 (6-20) Glucose Level 91 mg/dL (70-99) Calcium Level 8.9 mg/dL (8.5-10.1) Phosphorus Level 4.9 mg/dL (2.6-4.7) Total Bilirubin 0.7 mg/dL (0.2-1.0) Aspartate Amino Transf (AST/SGOT) 36 U/L (15-37) Alanine Aminotransferase (ALT/SGPT) 21 U/L (14-59) Alkaline Phosphatase 130 U/L (46-116) Total Protein 8.1 g/dL (6.4-8.2) Albumin 3.1 g/dL (3.4-5.0) Albumin/Globulin Ratio 0.6 (1.0-1.7) Glucose (Fingerstick) 129 mg/dL (70-99) Microbiology 09/09/18 Blood Culture - Preliminary, Resulted NO GROWTH AFTER 2 DAYS 3/5/19 Urine Culture - Final, Complete 09/09/18 Urine Culture Result 1 (MARCY) - Final, Complete Medications Current Medications Aspirin (Chilango Aspirin) 325 mg 1X ONCE PO Last administered on 09/09/18 06:13 ; Start 09/09/18 at 05:30; Stop 09/09/18 at 05:31; Status DC Fentanyl Citrate (Fentanyl 2ml Vial) 25 mcg 1X ONCE IV Last administered on 09/09/18at 06:12; Start 09/09/18 at 05:30; Stop 09/09/18 at 05:31; Status DC Ondansetron HCl (Zofran) 4 mg 1X ONCE IV Last administered on 09/09/18at 06:12; Start 09/09/18 at 05:30; Stop 09/09/18 at 05:31; Status DC Famotidine (Pepcid Vial) 20 mg 1X ONCE IVP Last administered on 09/09/18at 06:12 ; Start 09/09/18 at 05:30; Stop 09/09/18 at 05:31; Status DC Sodium Chloride 500 ml @ 500 mls/hr 1X ONCE IV Last administered on 09/09/18at 06:28; Start 09/09/18 at 07:00; Stop 09/09/18 at 07:59; Status DC Albuterol Sulfate (Ventolin Neb Soln) 10 mg 1X ONCE CONT NEB Last administered on 09/09/18at 07:00; Start 09/09/18 at 07:00; Stop 09/09/18 at 07:01; Status DC Dextrose (Dextrose 50%-Water Syringe) 25 gm 1X ONCE IV Last administered on 09/09/18at 07:06; Start 09/09/18 at 07:00; Stop 09/09/18 at 07:01; Status DC Insulin Human Regular (HumuLIN R VIAL) 10 unit 1X ONCE IV Last administered on 09/09/18at 07:12; Start 09/09/18 at 07:00; Stop 09/09/18 at 07:01; Status DC Sodium Bicarbonate (Sodium Bicarb Adult 8.4% Syr) 50 meq 1X ONCE IV Last administered on 09/09/18at 07:06; Start 09/09/18 at 07:00; Stop 09/09/18 at 07:01; Status DC Calcium Gluconate (Calcium Gluconate) 1,000 mg 1X ONCE IVP Last administered on 09/09/18 07:05; Start 09/09/18 at 07:00; Stop 09/09/18 at 07:01; Status DC Sodium Polystyrene Sulfonate (Kayexalate) 30 gm 1X ONCE PO Last administered on 09/09/18 08:14; Start 09/09/18 at 07:00; Stop 09/09/18 at 07:01; Status DC Sodium Chloride 1,000 ml @ 1,000 mls/hr 1X ONCE IV Last administered on 08:14; Start 09/09/18 at 07:00; Stop 09/09/18 at 07:59; Status DC Fentanyl Citrate (Fentanyl 2ml Vial) 25 mcg 1X ONCE IV Last administered on 07:06; Start 09/09/18 at 07:00; Stop 09/09/18 at 07:01; Status DC Sodium Chloride 1,000 ml @ 150 mls/hr Q6H40M IV Last administered on 09/09/18 09:33; Start 09/09/18 at 07:11; Stop 09/09/18 at 16:21; Status DC Aspirin (Ecotrin) 81 mg DAILYWBKFT PO Last administered on 09/11/18 12:02; Start 09/09/18 at 10:00 Acetaminophen/ Hydrocodone Bitart (Lortab 5/325) 1 tab PRN Q6HRS PRN PO PAIN Last administered on 09/11/18 12:06; Start 09/09/18 at 09:00 Levothyroxine Sodium (Synthroid) 88 mcg DAILY06 PO Last administered on 05:34; Start 09/09/18 at 10:00 Metoprolol Succinate (Toprol Xl) 25 mg DAILY PO Last administered on 09/11/18 12:02; Start 09/09/18 at 10:00 Lidocaine (Lidoderm) 1 patch DAILY TD Last administered on 09/11/18 12:00; Start 09/09/18 at 10:00 Pantoprazole Sodium (Protonix) 40 mg DAILYAC PO Last administered on 09/11/18 12:01; Start 09/09/18 at 10:00 Tizanidine HCl (Zanaflex) 4 mg PRN Q8HRS PRN PO MUSCLE SPASMS Last administered on 09/11/18 12:01; Start 09/09/18 at 09:15 Sodium Chloride 1,000 ml @ 100 mls/hr Q10H IV Last administered on 09/09/18 09 :33; Start 09/09/18 at 08:54; Stop 09/09/18 at 18:53; Status DC Ondansetron HCl (Zofran) 4 mg PRN Q6HRS PRN IV NAUSEA/VOMITING Last administered on 09/09/18 13:24; Start 09/09/18 at 09:00 Hydromorphone HCl (Dilaudid) 0.5 mg PRN Q3HRS PRN IV PAIN Last administered on 09/09/18 13:25; Start 09/09/18 at 09:00; Stop 09/09/18 at 16:23; Status DC Acetaminophen (Tylenol) 650 mg PRN Q6HRS PRN PO Headaches, Temp > 101.5F; Start 09/09/18 at 09:00 Docusate Sodium (Colace) 100 mg BID PO ; Start 09/09/18 at 10:00; Stop 09/10/18 at 11:05; Status DC Bisacodyl (Dulcolax Supp) 10 mg PRN DAILY PRN OR CONSTIPATION; Start 09/09/18 at 09:00; Stop 09/10/18 at 11:05; Status DC Heparin Sodium (Porcine) (Heparin Sodium) 5,000 unit Q12HR SQ Last administered on 09/10/18 20:44; Start 09/09/18 at 10:00 Nicotine (Nicoderm Cq 21mg) 1 patch DAILY TD Last administered on 09/11/18 11: 59; Start 09/09/18 at 11:00 Loperamide HCl (Imodium) 2 mg PRN QID PRN PO DIARRHEA Last administered on 14:12; Start 09/09/18 at 12:00 Hydromorphone HCl (Dilaudid) 1 mg PRN Q4HRS PRN IVP PAIN Last administered on 05:43; Start 09/09/18 at 14:30; Stop 09/10/18 at 07:51; Status DC Sucralfate (Carafate) 1 gm TIDAC PO Last administered on 09/11/18at 16:50; Start 09/10/18 at 11:30 Diphenoxylate HCl/ Atropine (Lomotil) 1 tab PRN BID PRN PO DIARRHEA 2ND CHOICE Last administered on 09/11/18at 12:01; Start 09/10/18 at 12:30; Stop 09/11/18 at 12: 20; Status DC Lidocaine/Sodium Bicarbonate (Buffered Lidocaine 1%) 3 ml 1X ONCE INJ Last administered on 09/10/18at 14:58; Start 09/10/18 at 14:30; Stop 09/10/18 at 14:31; Status DC Sodium Chloride 1,000 ml @ 1,000 mls/hr Q1H PRN IV hypotension; Start 09/11/18 at 07:05; Stop 09/11/18 at 13:04; Status DC Sodium Chloride 1,000 ml @ 400 mls/hr Q2H30M PRN IV PATENCY; Start 09/11/18 at 07:05; Stop 09/11/18 at 19:04 Info (PHARMACY MONITORING -- do not chart) 1 each PRN DAILY PRN MC SEE COMMENTS ; Start 09/11/18 at 07:15 Info (PHARMACY MONITORING -- do not chart) 1 each PRN DAILY PRN MC SEE COMMENTS ; Start 09/11/18 at 07:15; Status UNV Hydromorphone HCl (Dilaudid) 1 mg PRN Q4HRS PRN IVP SEVERE PAIN; Start 09/11/18 at 12:15 Diphenoxylate HCl/ Atropine (Lomotil) 1 tab TID PO ; Start 09/11/18 at 12:30 Norepinephrine Bitartrate 250 ml @ 1.875 mls/ hr CONT PRN IV SEE I/O RECORD Last administered on 09/11/18at 14:41; Start 09/11/18 at 14:00 Mirtazapine (Remeron) 7.5 mg QHS PO ; Start 09/11/18 at 21:00 Albumin Human 100 ml @ 100 mls/hr 1X ONCE IV Last administered on 09/11/18at 14 :39; Start 09/11/18 at 14:30; Stop 09/11/18 at 15:29; Status DC Sodium Chloride 500 ml @ 500 mls/hr PRN Q1HR PRN IV ELEVATED BP, SEE COMMENTS Last administered on 09/11/18at 18:53; Start 09/11/18 at 16:45 Active Scripts Active Aspirin Ec (Aspirin) 81 Mg Tablet. 81 Mg PO DAILYWBKFT 30 Days Lisinopril 10 Mg Tablet 10 Mg PO BID 30 Days Tizanidine Hcl 4 Mg Tablet 4 Mg PO PRN Q8HRS PRN 10 Days Jolo 5-325 Tablet (Acetaminophen/Hydrocodone Bitart) 1 Each Tablet 1 Tab PO PRN Q6HRS 3 Days Lidocaine 1 Each Adh..patch 1 Patch TD DAILY MDD 1 Synthroid (Levothyroxine Sodium) 88 Mcg Tablet 88 Mcg PO DAILY06 MDD 1 Metoprolol Succinate ( Xl ) (Metoprolol Succinate) 25 Mg Tab.er.24h 25 Mg PO DAILY MDD 1 Reported Protonix (Pantoprazole Sodium) 20 Mg Tablet. 40 Mg PO DAILY Vitals/I & O Vital Sign - Last 24 Hours 09/10/18 09/10/18 09/10/18 09/10/18 19:00 20:00 20:43 22:42 Temp 98.3 98.7 98.3 98.7 Pulse 104 95 Resp 17 18 16 B/P (MAP) 111/55 (73) 122/68 (86) Pulse Ox 100 100 O2 Delivery Nasal Cannula Nasal Cannula Nasal Cannula Nasal Cannula O2 Flow Rate 2.0 2.0 2.0 09/11/18 09/11/18 09/11/18 09/11/18 02:56 05:34 08:00 11:00 Temp 98.4 97.8 98.4 97.8 Pulse 89 76 Resp 18 16 B/P (MAP) 119/54 (75) 119/98 (105) Pulse Ox 100 100 O2 Delivery Nasal Cannula Nasal Cannula Room Air Nasal Cannula O2 Flow Rate 2.0 2.0 09/11/18 09/11/18 09/11/18 09/11/18 12:02 12:06 14:05 14:20 Temp 97.5 97.5 Pulse 76 70 68 Resp 22 18 B/P (MAP) 119/98 50/31 (37) 63/37 (46) Pulse Ox 98 O2 Delivery Room Air Room Air 09/11/18 09/11/18 09/11/18 09/11/18 14:35 14:50 15:00 15:10 Pulse 66 68 68 48 B/P (MAP) 64/33 (43) 57/35 (42) 52/36 (41) 189/78 (115) 09/11/18 09/11/18 09/11/18 09/11/18 15:20 15:35 15:50 16:05 Pulse 50 56 64 72 Resp 19 B/P (MAP) 220/76 (124) 189/88 (121) 156/69 (98) 134/49 (77) Pulse Ox 99 O2 Delivery Room Air 09/11/18 09/11/18 09/11/18 09/11/18 16:20 16:50 17:05 17:35 Pulse 72 68 75 74 Resp 14 B/P (MAP) 117/55 (75) 124/55 (78) 100/53 (69) 109/57 (74) Pulse Ox 98 O2 Delivery Room Air 09/11/18 09/11/18 09/11/18 09/11/18 17:50 18:20 18:35 18:50 Pulse 74 71 69 70 Resp 18 B/P (MAP) 96/47 (63) 77/37 (50) 71/40 (50) 77/42 (54) Pulse Ox 98 O2 Delivery Room Air Intake and Output 09/10/18 09/10/18 09/11/18 14:59 22:59 06:59 Intake Total 600 ml 415 ml Output Total 800 ml 100 ml Balance -200 ml -100 ml 415 ml Nutrition Consultation Dietary Evaluation: Recommendations by RD: Increase Calorie Intake, Protein supplementation Comments: nepro tid Expected Outcomes/Goals: to meet > 50% est nutr needs via po intake Interpretation of weight loss: >1-2% in 1 week Malnutrition Findings: Body Fat Depletion (Non Severe: Mild Depletion Weight Status: Appropriate ORION MULLIGAN MD Sep 11, 2018 19:00
[2018-09-11] MEDS: MIRTAZAPINE 7.5 MG TABLET. PO SCH (21:34)
[2018-09-11] MEDS ORDERED: NITROGLYCERIN OINT 1 GM PACKET. TP ONE (22:15)
[2018-09-12] VITALS (17 sets, daily range): BP systolic 98–149; BP diastolic 44–72
[2018-09-12] MEDS: HYDROcodone/APAP 5/325MG 1 TAB TABLET PO PRN ×2 (03:32→13:17)
[2018-09-12] MEDS ORDERED: IV NORMAL SALINE 1000ML BAG 1,000 ML IV SCH (06:30)
[2018-09-12] MEDS: LEVOTHYROXINE 88 MCG TABLET PO SCH (06:39)
--- NOTE | 2018-09-12 08:03 | NUR ---
Pt transferred to [facility] level of care and is now in ICU. WIll require new orders to resume therapy treatment. Please write PT/OT eval and treat orders once pt medically stable. Addendum: 09/12/18 at 0803 by NITIN VIEYRA PT Amended: Links added.
[2018-09-12 08:52] LABS: BASO # 0.1 x10^3/uL (0.0-0.2); BASO % 1 % (0-3); EOS # 0.2 x10^3/uL (0.0-0.7); EOS % 2 % (0-3); HEMATOCRIT 33.2 % (36.0-47.0); HEMOGLOBIN 10.5 g/dL (12.0-15.5); LYMPH % 28 % (24-48); MEAN CORPUSCULAR HEMOGLOBIN 30 pg (25-35); MEAN CORPUSCULAR HGB CONC 32 g/dL (31-37); MEAN CORPUSCULAR VOLUME 93 fL (79-100); MONO # 1.1 x10^3/uL (0.0-1.1); MONO % 10 % (0-9); NEUT # 6.4 x10^3uL (1.8-7.7); NEUT % 60 % (31-73); PLATELET COUNT 351 x10^3/uL (140-400); RED BLOOD COUNT 3.57 x10^6/uL (3.50-5.40); WHITE BLOOD COUNT 10.7 x10^3/uL (4.0-11.0)
[2018-09-12] MEDS: METOPROLOL SUCC 24HR ER 25 MG TAB.ER.24H. PO SCH (09:00)
[2018-09-12] MEDS: DIPHENOXYLATE/ATROPINE TABLET. PO SCH ×3 (09:00→20:52)
--- NOTE | 2018-09-12 09:56 | PDOC ---
SUBJECTIVE ROS Transferred to ICU yesterday due to Hypotension- rapid response States feeling well, sitting up in chair, not much uop as per Pt and RN OBJECTIVE Vital Signs Vital Signs Date Time Temp Pulse Resp B/P (MAP) Pulse Ox O2 Delivery O2 Flow Rate FiO2 09/12/18 08:15 85 15 148/72 (97) 99 Room Air 09/12/18 07:00 98.6 98.6 09/11/18 11:00 2.0 I & 0 Intake and Output 09/12/18 07:00 Intake Total 1562 ml Output Total 1200 ml Balance 362 ml Intake Oral 250 ml IV Total 1312 ml Output Stool Total 1200 ml PHYSICAL EXAM Physical Exam General: NAD HEENT: OM moist Neck Supple Lungs: CTA, Non labored Heart: S1S2, RRR, no gallops, no murmurs Abdomen: Normal bowel sounds, Soft, ostomy + Extremities: No edema, Skin: No rashes, pigmentation under the breast Neuro: Grossly Normal No Lewis DIAGNOSIS/ASSESSMENT Assessment & Plan TIGRE on CKD- Renal US no e/o Obstructive etiology initiated HD 09/10, 2 nd treatment 09/11 Hold off today if labs stable, anticipate will HD permanently UOP not adequate, Bladder scan unremarkable yesterday Access- temp catheter Hyperkalemia- No labs done this am, ordered CKD stage 3- TIGRE in DeC with Cr peaked at 6 Recovered to Cr 1.3-1.5 Bilat chest wall pain Hypertension- Hypotension yesterday after Metoprolol No significant UF on HD Required pressor and albumin Diarrhea - S/p colectomy with ileostomy Hepatic lesion Dw A/P Pt and RN at bedside COMMENT/RELEVANT DATA Meds Current Medications Medications (Trade) Dose Ordered Sig/Saroj Start Time Stop Time Status Last Admin Dose Admin Acetaminophen (Tylenol) 650 mg PRN Q6HRS PRN 09/09/18 09:00 Acetaminophen/ Hydrocodone Bitart (Lortab 5/325) 1 tab PRN Q6HRS PRN 09/09/18 09:00 09/12/18 03:32 1 TAB Albumin Human 100 ml @ 100 mls/hr 1X ONCE 09/11/18 14:30 09/11/18 15:29 DC 09/11/18 14:39 100 MLS/HR Albuterol Sulfate (Ventolin Neb Soln) 10 mg 1X ONCE 09/09/18 07:00 09/09/18 07:01 DC 09/09/18 07:00 10 MG Aspirin (Chilango Aspirin) 325 mg 1X ONCE 09/09/18 05:30 09/09/18 05:31 DC 09/09/18 06:13 325 MG Aspirin (Ecotrin) 81 mg DAILYWBKFT 09/09/18 10:00 09/11/18 12:02 81 MG Bisacodyl (Dulcolax Supp) 10 mg PRN DAILY PRN 09/09/18 09:00 09/10/18 11:05 DC Calcium Gluconate (Calcium Gluconate) 1,000 mg 1X ONCE 09/09/18 07:00 09/09/18 07:01 DC 09/09/18 07:05 1,000 MG Dextrose (Dextrose 50%-Water Syringe) 25 gm 1X ONCE 09/09/18 07:00 09/09/18 07:01 DC 09/09/18 07:06 25 GM Diphenoxylate HCl/ Atropine (Lomotil) 1 tab TID 09/11/18 12:30 09/11/18 21:23 1 TAB Docusate Sodium (Colace) 100 mg BID 09/09/18 10:00 09/10/18 11:05 DC Famotidine (Pepcid Vial) 20 mg 1X ONCE 09/09/18 05:30 09/09/18 05:31 DC 09/09/18 06:12 20 MG Fentanyl Citrate (Fentanyl 2ml Vial) 25 mcg 1X ONCE 09/09/18 07:00 09/09/18 07:01 DC 09/09/18 07:06 25 MCG Heparin Sodium (Porcine) (Heparin Sodium) 5,000 unit Q12HR 09/09/18 10:00 09/11/18 21:22 5,000 UNIT Hydromorphone HCl (Dilaudid) 1 mg PRN Q4HRS PRN 09/11/18 12:15 Info (PHARMACY MONITORING -- do not chart) 1 each PRN DAILY PRN 09/11/18 07:15 UNV Insulin Human Regular (HumuLIN R VIAL) 10 unit 1X ONCE 09/09/18 07:00 09/09/18 07:01 DC 09/09/18 07:12 10 UNIT Levothyroxine Sodium (Synthroid) 88 mcg DAILY06 09/09/18 10:00 09/12/18 06:39 88 MCG Lidocaine (Lidoderm) 1 patch DAILY 09/09/18 10:00 09/11/18 12:00 1 PATCH Lidocaine/Sodium Bicarbonate (Buffered Lidocaine 1%) 3 ml 1X ONCE 09/10/18 14:30 09/10/18 14:31 DC 09/10/18 14:58 4 ML Loperamide HCl (Imodium) 2 mg PRN QID PRN 09/09/18 12:00 09/10/18 14:12 2 MG Metoprolol Succinate (Toprol Xl) 25 mg DAILY 09/09/18 10:00 09/11/18 12:02 25 MG Mirtazapine (Remeron) 7.5 mg QHS 09/11/18 21:00 09/11/18 21:34 7.5 MG Nicotine (Nicoderm Cq 21mg) 1 patch DAILY 09/09/18 11:00 09/11/18 11:59 1 PATCH Nitroglycerin (Nitro-Bid Oint) 1 inch 1X ONCE 09/11/18 22:15 09/11/18 22:16 DC 09/11/18 22:27 1 INCH Norepinephrine Bitartrate 250 ml @ 1.875 mls/ hr CONT PRN 09/11/18 14:00 09/11/18 14:41 9.375 MLS/HR Ondansetron HCl (Zofran) 4 mg PRN Q6HRS PRN 09/09/18 09:00 09/09/18 13:24 4 MG Pantoprazole Sodium (Protonix) 40 mg DAILYAC 09/09/18 10:00 09/11/18 12:01 40 MG Sodium Polystyrene Sulfonate (Kayexalate) 30 gm 1X ONCE 09/09/18 07:00 09/09/18 07:01 DC 09/09/18 08:14 30 GM Sodium Bicarbonate (Sodium Bicarb Adult 8.4% Syr) 50 meq 1X ONCE 09/09/18 07:00 09/09/18 07:01 DC 09/09/18 07:06 50 MEQ Sodium Chloride 1,000 ml @ 100 mls/hr Q10H 09/12/18 06:30 09/12/18 06:37 DC Sucralfate (Carafate) 1 gm TIDAC 09/10/18 11:30 09/11/18 16:50 1 GM Tizanidine HCl (Zanaflex) 4 mg PRN Q8HRS PRN 09/09/18 09:15 09/11/18 12:01 4 MG Lab Laboratory Tests Test 09/11/18 13:26 09/11/18 14:25 09/12/18 08:35 Glucose (Fingerstick) 129 mg/dL (70-99) Nasal Screen MRSA (PCR) Negative (Negative) White Blood Count 10.7 x10^3/uL (4.0-11.0) Red Blood Count 3.57 x10^6/uL (3.50-5.40) Hemoglobin 10.5 g/dL (12.0-15.5) Hematocrit 33.2 % (36.0-47.0) Mean Corpuscular Volume 93 fL (79-100) Mean Corpuscular Hemoglobin 30 pg (25-35) Mean Corpuscular Hemoglobin Concent 32 g/dL (31-37) Red Cell Distribution Width 15.0 % (11.5-14.5) Platelet Count 351 x10^3/uL (140-400) Neutrophils (%) (Auto) 60 % (31-73) Lymphocytes (%) (Auto) 28 % (24-48) Monocytes (%) (Auto) 10 % (0-9) Eosinophils (%) (Auto) 2 % (0-3) Basophils (%) (Auto) 1 % (0-3) Neutrophils # (Auto) 6.4 x10^3uL (1.8-7.7) Lymphocytes # (Auto) 3.0 x10^3/uL (1.0-4.8) Monocytes # (Auto) 1.1 x10^3/uL (0.0-1.1) Eosinophils # (Auto) 0.2 x10^3/uL (0.0-0.7) Basophils # (Auto) 0.1 x10^3/uL (0.0-0.2) Results All relevant outside records, renal labs, imaging studies, telemetry/EKG's were reviewed. SHERRY ALAN MD Sep 12, 2018 09:56
[2018-09-12] MEDS: ASPIRIN ENTERIC COATED 81 MG TABLET.DR. PO SCH (10:01)
[2018-09-12] MEDS: PANTOPRAZOLE 40 MG TABLET.DR. PO SCH (10:03)
[2018-09-12] MEDS: SUCRALFATE 1 GM TABLET. PO SCH ×3 (10:04→16:00)
[2018-09-12] MEDS: LIDOCAINE (700MG/PATCH) PATCH. TD SCH (10:07)
[2018-09-12] MEDS: HEPARIN for SUB-Q USE 5,000 UNIT/ML VIAL. SQ SCH ×2 (10:07→20:51)
--- NOTE | 2018-09-12 10:07 | NUR ---
SS following up with discharge planning. PT recommended penitentiary unit at discharge. SS met with pt to discuss penitentiary unit. Pt agreeable to go to penitentiary unit and reported that she wanted a facility close to her home at [address]. Pt agreeable to referral to [facility]. SS phoned and faxed referral to [facility], ; fax [phone]. Pt requested that SS notify her granddaughter, Suri Ng, . SS attempted to reach pt's granddaughter and received message that voicemail box was full. SS notified pt and pt's RN.
[2018-09-12] MEDS: NICOTINE 21MG PATCH. TD SCH (10:09)
--- NOTE | 2018-09-12 10:54 | PDOC ---
Subjective: Subjective: Says she's doing better. Objective: Objective: Transferred to ICU yesterday after hypotension/rapid response. Reviewed w/ RN - had some watery ostomy output w/ leakage overnight, but ?also passed hard stool so Lomotil held this morning. Vital Signs: Vital Signs Date Time Temp Pulse Resp B/P (MAP) Pulse Ox O2 Delivery O2 Flow Rate FiO2 09/12/18 10:00 112 19 108/62 (77) 99 Room Air 09/12/18 07:00 98.6 98.6 09/11/18 11:00 2.0 Labs: Laboratory Tests Test 09/11/18 13:26 09/11/18 14:25 09/12/18 08:35 Glucose (Fingerstick) 129 mg/dL Nasal Screen MRSA (PCR) Negative White Blood Count 10.7 x10^3/uL Red Blood Count 3.57 x10^6/uL Hemoglobin 10.5 g/dL Hematocrit 33.2 % Mean Corpuscular Volume 93 fL Mean Corpuscular Hemoglobin 30 pg Mean Corpuscular Hemoglobin Concent 32 g/dL Red Cell Distribution Width 15.0 % Platelet Count 351 x10^3/uL Neutrophils (%) (Auto) 60 % Lymphocytes (%) (Auto) 28 % Monocytes (%) (Auto) 10 % Eosinophils (%) (Auto) 2 % Basophils (%) (Auto) 1 % Neutrophils # (Auto) 6.4 x10^3uL Lymphocytes # (Auto) 3.0 x10^3/uL Monocytes # (Auto) 1.1 x10^3/uL Eosinophils # (Auto) 0.2 x10^3/uL Basophils # (Auto) 0.1 x10^3/uL PE: GEN: NAD, up to chair - has eaten about half of breakfast tray - looks better today LUNGS: CTAB HEART: tachycardic ABD: ostomy w/ liquid stool NEURO/PSYCH: A & O 3 A/P: Hypotension, CKD Anorexia - better Increased ostomy output - better -- RN monitoring ostomy output and adjusting Lomotil as needed. SHREE SAAVEDRA Sep 12, 2018 10:53
--- NOTE | 2018-09-12 11:06 | NUR ---
Patient being transferred to room 504. Report given to HALIE Alan. Transport called and patient stable and ready.
[2018-09-12 11:19] LABS: ALBUMIN 3.7 g/dL (3.4-5.0); ALBUMIN/GLOBULIN RATIO 0.9 (1.0-1.7); CALCIUM 9.4 mg/dL (8.5-10.1); CREATININE 3.7 mg/dL (0.6-1.0); GFR 14.3; PHOSPHORUS 4.7 mg/dL (2.6-4.7); POTASSIUM 4.5 mmol/L (3.5-5.1); TOTAL BILIRUBIN 0.6 mg/dL (0.2-1.0); TOTAL PROTEIN 7.9 g/dL (6.4-8.2)
--- NOTE | 2018-09-12 11:28 | PDOC ---
PROGRESS NOTES Chief Complaint Chief Complaint Right and left chest wall pain - Most probably pleuritic in nature as it is worsened with deep breath pain is reproducible which is reassuring. Leukocytosis - uncertain source if there is an infection UC and BC are negative to date Anemia of chronic disease - stable Hepatitis C; outpatient GI f/u Tobacco abuse - discussed/encouraged cessation Hyperkalemia -currently resolved after dialysis TIGRE - continue dialysis as per financial consultant. Hypertension - will manage meds, hold nephrotoxic meds Hypothyroidism - Synthroid Diarrhea - loose bowels. Will monitor, check stool culture, c. diff S/p colectomy with ileostomy - recovered fairly well Metabolic acidosis - with gap, likely due to renal dysfunction Aortic atherosclerosis - noted on CT scan, likely has vascular disease elsewhere as well CAD; CT chest last week notable for coronary calcifications. Chronic narcotic use Major depression vs stress reaction to acute illness. Patient very tearful during my encounter during the day. Reassurance has been provided, pain has been addressed as well Insomnia History of Present Illness History of Present Illness Ms. Ng was seen and examined in the ICU. She is resting comfortably in her chair. Patient was transferred to the ICU due to hypotension, was put on levophed. Patient has been off levophed since last night. Discussed case with nurse. Patient has no new complaints today, okay to transfer to the floor. Vitals Vitals Vital Signs Date Time Temp Pulse Resp B/P (MAP) Pulse Ox O2 Delivery O2 Flow Rate FiO2 09/12/18 10:00 112 19 108/62 (77) 99 Room Air 09/12/18 07:00 98.6 98.6 09/11/18 11:00 2.0 Physical Exam General: Alert, Oriented X3, Cooperative, No acute distress Heart: Regular rate, No murmurs Lungs: Clear Abdomen: Normal bowel sounds, Soft, No tenderness, Other (LLQ ostomy clean dry) Extremities: No clubbing, No cyanosis, No edema, Normal pulses, No tenderness/ swelling Skin: No rashes, No breakdown, No significant lesion Labs LABS Laboratory Tests Test 09/11/18 13:26 09/11/18 14:25 09/12/18 08:35 Glucose (Fingerstick) 129 mg/dL (70-99) Nasal Screen MRSA (PCR) Negative (Negative) White Blood Count 10.7 x10^3/uL (4.0-11.0) Red Blood Count 3.57 x10^6/uL (3.50-5.40) Hemoglobin 10.5 g/dL (12.0-15.5) Hematocrit 33.2 % (36.0-47.0) Mean Corpuscular Volume 93 fL (79-100) Mean Corpuscular Hemoglobin 30 pg (25-35) Mean Corpuscular Hemoglobin Concent 32 g/dL (31-37) Red Cell Distribution Width 15.0 % (11.5-14.5) Platelet Count 351 x10^3/uL (140-400) Neutrophils (%) (Auto) 60 % (31-73) Lymphocytes (%) (Auto) 28 % (24-48) Monocytes (%) (Auto) 10 % (0-9) Eosinophils (%) (Auto) 2 % (0-3) Basophils (%) (Auto) 1 % (0-3) Neutrophils # (Auto) 6.4 x10^3uL (1.8-7.7) Lymphocytes # (Auto) 3.0 x10^3/uL (1.0-4.8) Monocytes # (Auto) 1.1 x10^3/uL (0.0-1.1) Eosinophils # (Auto) 0.2 x10^3/uL (0.0-0.7) Basophils # (Auto) 0.1 x10^3/uL (0.0-0.2) Review of Systems Review of Systems Denies abdominal pain Denies chest pain Denies shortness of breath Assessment and Plan Assessmemt and Plan Problems Medical Problems: (1) Acute chest wall pain Status: Acute (2) Elevated lipase Status: Acute (3) Ileostomy in place Status: Acute Assessment: Right and left chest wall pain - Most probably pleuritic in nature as it is worsened with deep breath pain is reproducible which is reassuring. Leukocytosis - uncertain source if there is an infection UC and BC are negative to date Anemia of chronic disease - stable Hepatitis C; outpatient GI f/u Tobacco abuse - discussed/encouraged cessation Hyperkalemia -currently resolved after dialysis TIGRE - continue dialysis as per financial consultant. Hypertension - will manage meds, hold nephrotoxic meds Hypothyroidism - Synthroid Diarrhea - loose bowels. Will monitor, check stool culture, c. diff S/p colectomy with ileostomy - recovered fairly well Metabolic acidosis - with gap, likely due to renal dysfunction Aortic atherosclerosis - noted on CT scan, likely has vascular disease elsewhere as well CAD; CT chest last week notable for coronary calcifications. Chronic narcotic use Major depression vs stress reaction to acute illness. Patient very tearful during my encounter during the day. Reassurance has been provided, pain has been addressed as well Insomnia Plan: Plan to transition to the floor Hope to discharge to SNU tomorrow if stable Continue HD Monitor vitals and labs Consulted PT/OT Ostomy care and monitoring Appreciate subspecialty input Comment Review of Relevant I have reviewed the following items consuelo (where applicable) has been applied. Labs Laboratory Tests Test 09/11/18 03:15 09/11/18 13:26 09/11/18 14:25 09/12/18 08:35 White Blood Count 13.7 x10^3/uL (4.0-11.0) 10.7 x10^3/uL (4.0-11.0) Red Blood Count 3.59 x10^6/uL (3.50-5.40) 3.57 x10^6/uL (3.50-5.40) Hemoglobin 10.6 g/dL (12.0-15.5) 10.5 g/dL (12.0-15.5) Hematocrit 32.9 % (36.0-47.0) 33.2 % (36.0-47.0) Mean Corpuscular Volume 92 fL (79-100) 93 fL (79-100) Mean Corpuscular Hemoglobin 29 pg (25-35) 30 pg (25-35) Mean Corpuscular Hemoglobin Concent 32 g/dL (31-37) 32 g/dL (31-37) Red Cell Distribution Width 15.1 % (11.5-14.5) 15.0 % (11.5-14.5) Platelet Count 427 x10^3/uL (140-400) 351 x10^3/uL (140-400) Neutrophils (%) (Auto) 72 % (31-73) 60 % (31-73) Lymphocytes (%) (Auto) 21 % (24-48) 28 % (24-48) Monocytes (%) (Auto) 7 % (0-9) 10 % (0-9) Eosinophils (%) (Auto) 1 % (0-3) 2 % (0-3) Basophils (%) (Auto) 0 % (0-3) 1 % (0-3) Neutrophils # (Auto) 9.8 x10^3uL (1.8-7.7) 6.4 x10^3uL (1.8-7.7) Lymphocytes # (Auto) 2.8 x10^3/uL (1.0-4.8) 3.0 x10^3/uL (1.0-4.8) Monocytes # (Auto) 0.9 x10^3/uL (0.0-1.1) 1.1 x10^3/uL (0.0-1.1) Eosinophils # (Auto) 0.1 x10^3/uL (0.0-0.7) 0.2 x10^3/uL (0.0-0.7) Basophils # (Auto) 0.0 x10^3/uL (0.0-0.2) 0.1 x10^3/uL (0.0-0.2) Sodium Level 141 mmol/L (136-145) Potassium Level 3.7 mmol/L (3.5-5.1) Chloride Level 99 mmol/L (98-107) Carbon Dioxide Level 30 mmol/L (21-32) Anion Gap 12 (6-14) Blood Urea Nitrogen 18 mg/dL (7-20) Creatinine 4.1 mg/dL (0.6-1.0) Estimated GFR (Cockcroft-Gault) 12.7 BUN/Creatinine Ratio 4 (6-20) Glucose Level 91 mg/dL (70-99) Calcium Level 8.9 mg/dL (8.5-10.1) Phosphorus Level 4.9 mg/dL (2.6-4.7) Total Bilirubin 0.7 mg/dL (0.2-1.0) Aspartate Amino Transf (AST/SGOT) 36 U/L (15-37) Alanine Aminotransferase (ALT/SGPT) 21 U/L (14-59) Alkaline Phosphatase 130 U/L (46-116) Total Protein 8.1 g/dL (6.4-8.2) Albumin 3.1 g/dL (3.4-5.0) Albumin/Globulin Ratio 0.6 (1.0-1.7) Glucose (Fingerstick) 129 mg/dL (70-99) Nasal Screen MRSA (PCR) Negative (Negative) Laboratory Tests Test 09/11/18 13:26 09/11/18 14:25 09/12/18 08:35 Glucose (Fingerstick) 129 mg/dL (70-99) Nasal Screen MRSA (PCR) Negative (Negative) White Blood Count 10.7 x10^3/uL (4.0-11.0) Red Blood Count 3.57 x10^6/uL (3.50-5.40) Hemoglobin 10.5 g/dL (12.0-15.5) Hematocrit 33.2 % (36.0-47.0) Mean Corpuscular Volume 93 fL (79-100) Mean Corpuscular Hemoglobin 30 pg (25-35) Mean Corpuscular Hemoglobin Concent 32 g/dL (31-37) Red Cell Distribution Width 15.0 % (11.5-14.5) Platelet Count 351 x10^3/uL (140-400) Neutrophils (%) (Auto) 60 % (31-73) Lymphocytes (%) (Auto) 28 % (24-48) Monocytes (%) (Auto) 10 % (0-9) Eosinophils (%) (Auto) 2 % (0-3) Basophils (%) (Auto) 1 % (0-3) Neutrophils # (Auto) 6.4 x10^3uL (1.8-7.7) Lymphocytes # (Auto) 3.0 x10^3/uL (1.0-4.8) Monocytes # (Auto) 1.1 x10^3/uL (0.0-1.1) Eosinophils # (Auto) 0.2 x10^3/uL (0.0-0.7) Basophils # (Auto) 0.1 x10^3/uL (0.0-0.2) Microbiology 09/09/18 Blood Culture - Preliminary, Resulted NO GROWTH AFTER 3 DAYS 09/09/18 Urine Culture - Final, Complete 09/09/18 Urine Culture Result 1 (MARCY) - Final, Complete Medications Current Medications Aspirin ([place] Aspirin) 325 mg 1X ONCE PO Last administered on 09/09/18at 06:13 ; Start 09/09/18 at 05:30; Stop 09/09/18 at 05:31; Status DC Fentanyl Citrate (Fentanyl 2ml Vial) 25 mcg 1X ONCE IV Last administered on 06:12; Start 09/09/18 at 05:30; Stop 09/09/18 at 05:31; Status DC Ondansetron HCl (Zofran) 4 mg 1X ONCE IV Last administered on 09/09/18at 06:12; Start 09/09/18 at 05:30; Stop 09/09/18 at 05:31; Status DC Famotidine (Pepcid Vial) 20 mg 1X ONCE IVP Last administered on 09/09/18 06:12 ; Start 09/09/18 at 05:30; Stop 09/09/18 at 05:31; Status DC Sodium Chloride 500 ml @ 500 mls/hr 1X ONCE IV Last administered on 09/09/18at 06:28; Start 09/09/18 at 07:00; Stop 09/09/18 at 07:59; Status DC Albuterol Sulfate (Ventolin Neb Soln) 10 mg 1X ONCE CONT NEB Last administered on 09/09/18at 07:00; Start 09/09/18 at 07:00; Stop 09/09/18 at 07:01; Status DC Dextrose (Dextrose 50%-Water Syringe) 25 gm 1X ONCE IV Last administered on 07:06; Start 09/09/18 at 07:00; Stop 09/09/18 at 07:01; Status DC Insulin Human Regular (HumuLIN R VIAL) 10 unit 1X ONCE IV Last administered on 09/09/18 07:12; Start 09/09/18 at 07:00; Stop 09/09/18 at 07:01; Status DC Sodium Bicarbonate (Sodium Bicarb Adult 8.4% Syr) 50 meq 1X ONCE IV Last administered on 09/09/18at 07:06; Start 09/09/18 at 07:00; Stop 09/09/18 at 07:01; Status DC Calcium Gluconate (Calcium Gluconate) 1,000 mg 1X ONCE IVP Last administered on 09/09/18at 07:05; Start 09/09/18 at 07:00; Stop 09/09/18 at 07:01; Status DC Sodium Polystyrene Sulfonate (Kayexalate) 30 gm 1X ONCE PO Last administered on 3/5/19at 08:14; Start 09/09/18 at 07:00; Stop 09/09/18 at 07:01; Status DC Sodium Chloride 1,000 ml @ 1,000 mls/hr 1X ONCE IV Last administered on 08:14; Start 09/09/18 at 07:00; Stop 09/09/18 at 07:59; Status DC Fentanyl Citrate (Fentanyl 2ml Vial) 25 mcg 1X ONCE IV Last administered on 07:06; Start 09/09/18 at 07:00; Stop 09/09/18 at 07:01; Status DC Sodium Chloride 1,000 ml @ 150 mls/hr Q6H40M IV Last administered on 09/09/18 09:33; Start 09/09/18 at 07:11; Stop 09/09/18 at 16:21; Status DC Aspirin (Ecotrin) 81 mg DAILYWBKFT PO Last administered on 09/12/18 10:01; Start 09/09/18 at 10:00 Acetaminophen/ Hydrocodone Bitart (Lortab 5/325) 1 tab PRN Q6HRS PRN PO PAIN Last administered on 09/12/18 03:32; Start 09/09/18 at 09:00 Levothyroxine Sodium (Synthroid) 88 mcg DAILY06 PO Last administered on 06:39; Start 09/09/18 at 10:00 Metoprolol Succinate (Toprol Xl) 25 mg DAILY PO Last administered on 09/11/18 12:02; Start 09/09/18 at 10:00 Lidocaine (Lidoderm) 1 patch DAILY TD Last administered on 09/12/18 10:07; Start 09/09/18 at 10:00 Pantoprazole Sodium (Protonix) 40 mg DAILYAC PO Last administered on 09/12/18 10:03; Start 09/09/18 at 10:00 Tizanidine HCl (Zanaflex) 4 mg PRN Q8HRS PRN PO MUSCLE SPASMS Last administered on 09/11/18 12:01; Start 09/09/18 at 09:15 Sodium Chloride 1,000 ml @ 100 mls/hr Q10H IV Last administered on 09/09/18 09 :33; Start 09/09/18 at 08:54; Stop 09/09/18 at 18:53; Status DC Ondansetron HCl (Zofran) 4 mg PRN Q6HRS PRN IV NAUSEA/VOMITING Last administered on 09/09/18 13:24; Start 09/09/18 at 09:00 Hydromorphone HCl (Dilaudid) 0.5 mg PRN Q3HRS PRN IV PAIN Last administered on 09/09/18 13:25; Start 09/09/18 at 09:00; Stop 09/09/18 at 16:23; Status DC Acetaminophen (Tylenol) 650 mg PRN Q6HRS PRN PO Headaches, Temp > 101.5F; Start 09/09/18 at 09:00 Docusate Sodium (Colace) 100 mg BID PO ; Start 09/09/18 at 10:00; Stop 09/10/18 at 11:05; Status DC Bisacodyl (Dulcolax Supp) 10 mg PRN DAILY PRN VT CONSTIPATION; Start 09/09/18 at 09:00; Stop 09/10/18 at 11:05; Status DC Heparin Sodium (Porcine) (Heparin Sodium) 5,000 unit Q12HR SQ Last administered on 09/12/18 10:07; Start 09/09/18 at 10:00 Nicotine (Nicoderm Cq 21mg) 1 patch DAILY TD Last administered on 09/12/18 10: 09; Start 09/09/18 at 11:00 Loperamide HCl (Imodium) 2 mg PRN QID PRN PO DIARRHEA Last administered on 14:12; Start 09/09/18 at 12:00 Hydromorphone HCl (Dilaudid) 1 mg PRN Q4HRS PRN IVP PAIN Last administered on 05:43; Start 09/09/18 at 14:30; Stop 09/10/18 at 07:51; Status DC Sucralfate (Carafate) 1 gm TIDAC PO Last administered on 09/12/18 10:04; Start 09/10/18 at 11:30 Diphenoxylate HCl/ Atropine (Lomotil) 1 tab PRN BID PRN PO DIARRHEA 2ND CHOICE Last administered on 09/11/18 12:01; Start 09/10/18 at 12:30; Stop 09/11/18 at 12: 20; Status DC Lidocaine/Sodium Bicarbonate (Buffered Lidocaine 1%) 3 ml 1X ONCE INJ Last administered on 09/10/18at 14:58; Start 09/10/18 at 14:30; Stop 09/10/18 at 14:31; Status DC Sodium Chloride 1,000 ml @ 1,000 mls/hr Q1H PRN IV hypotension; Start 09/11/18 at 07:05; Stop 09/11/18 at 13:04; Status DC Sodium Chloride 1,000 ml @ 400 mls/hr Q2H30M PRN IV PATENCY; Start 09/11/18 at 07:05; Stop 09/11/18 at 19:04; Status DC Info (PHARMACY MONITORING -- do not chart) 1 each PRN DAILY PRN MC SEE COMMENTS ; Start 09/11/18 at 07:15 Info (PHARMACY MONITORING -- do not chart) 1 each PRN DAILY PRN MC SEE COMMENTS ; Start 09/11/18 at 07:15; Status UNV Hydromorphone HCl (Dilaudid) 1 mg PRN Q4HRS PRN IVP SEVERE PAIN; Start 09/11/18 at 12:15 Diphenoxylate HCl/ Atropine (Lomotil) 1 tab TID PO Last administered on at 21:23; Start 09/11/18 at 12:30 Norepinephrine Bitartrate 250 ml @ 1.875 mls/ hr CONT PRN IV SEE I/O RECORD Last administered on 09/11/18at 14:41; Start 09/11/18 at 14:00 Mirtazapine (Remeron) 7.5 mg QHS PO Last administered on 09/11/18at 21:34; Start 09/11/18 at 21:00 Albumin Human 100 ml @ 100 mls/hr 1X ONCE IV Last administered on 09/11/18at 14 :39; Start 09/11/18 at 14:30; Stop 09/11/18 at 15:29; Status DC Sodium Chloride 500 ml @ 500 mls/hr PRN Q1HR PRN IV ELEVATED BP, SEE COMMENTS Last administered on 09/11/18at 18:53; Start 09/11/18 at 16:45 Nitroglycerin (Nitro-Bid Oint) 1 inch 1X ONCE TP Last administered on at 22:27; Start 09/11/18 at 22:15; Stop 09/11/18 at 22:16; Status DC Sodium Chloride 1,000 ml @ 100 mls/hr Q10H IV ; Start 09/12/18 at 06:30; Stop at 06:37; Status DC Active Scripts Active Aspirin Ec (Aspirin) 81 Mg Tablet. 81 Mg PO DAILYWBKFT 30 Days Lisinopril 10 Mg Tablet 10 Mg PO BID 30 Days Tizanidine Hcl 4 Mg Tablet 4 Mg PO PRN Q8HRS PRN 10 Days [place] 5-325 Tablet (Acetaminophen/Hydrocodone Bitart) 1 Each Tablet 1 Tab PO PRN Q6HRS 3 Days Lidocaine 1 Each Adh..patch 1 Patch TD DAILY MDD 1 Synthroid (Levothyroxine Sodium) 88 Mcg Tablet 88 Mcg PO DAILY06 MDD 1 Metoprolol Succinate ( Xl ) (Metoprolol Succinate) 25 Mg Tab.er.24h 25 Mg PO DAILY MDD 1 Reported Protonix (Pantoprazole Sodium) 20 Mg Tablet. 40 Mg PO DAILY Vitals/I & O Vital Sign - Last 24 Hours 09/11/18 09/11/18 09/11/18 09/11/18 12:02 12:06 14:05 14:20 Temp 97.5 97.5 Pulse 76 70 68 Resp 22 18 B/P (MAP) 119/98 50/31 (37) 63/37 (46) Pulse Ox 98 O2 Delivery Room Air Room Air 09/11/18 09/11/18 09/11/18 09/11/18 14:35 14:50 15:00 15:10 Pulse 66 68 68 48 B/P (MAP) 64/33 (43) 57/35 (42) 52/36 (41) 189/78 (115) 09/11/18 09/11/18 09/11/18 09/11/18 15:20 15:35 15:50 16:05 Pulse 50 56 64 72 Resp 19 B/P (MAP) 220/76 (124) 189/88 (121) 156/69 (98) 134/49 (77) Pulse Ox 99 O2 Delivery Room Air 09/11/18 09/11/18 09/11/18 09/11/18 16:20 16:50 17:05 17:35 Pulse 72 68 75 74 Resp 14 B/P (MAP) 117/55 (75) 124/55 (78) 100/53 (69) 109/57 (74) Pulse Ox 98 O2 Delivery Room Air 09/11/18 09/11/18 09/11/18 09/11/18 17:50 18:20 18:35 18:50 Pulse 74 71 69 70 Resp 18 B/P (MAP) 96/47 (63) 77/37 (50) 71/40 (50) 77/42 (54) Pulse Ox 98 O2 Delivery Room Air 09/11/18 09/11/18 09/11/18 09/11/18 20:00 20:00 21:00 22:00 Temp 98.3 98.3 Pulse 64 64 60 Resp 17 19 17 B/P (MAP) 99/45 (63) 102/44 (63) 148/56 (86) Pulse Ox 99 99 99 O2 Delivery Room Air Room Air Room Air Room Air 09/11/18 09/11/18 09/12/18 09/12/18 22:27 23:00 00:00 01:00 Temp 98.5 98.5 Pulse 88 76 75 70 Resp 19 B/P (MAP) 170/62 138/54 (82) 136/57 (83) 136/57 (83) Pulse Ox 98 100 98 O2 Delivery Room Air Room Air Room Air 09/12/18 09/12/18 09/12/18 09/12/18 02:00 03:00 03:32 04:00 Temp 98.6 98.6 Pulse 75 85 84 Resp 17 16 B/P (MAP) 117/56 (76) 137/59 (85) 131/66 (87) Pulse Ox 99 97 100 97 O2 Delivery Room Air Room Air Room Air Room Air 09/12/18 09/12/18 09/12/18 09/12/18 04:32 05:00 06:00 07:00 Temp 98.6 98.6 Pulse 83 87 91 Resp 17 B/P (MAP) 137/61 (86) 140/59 (86) 140/63 (88) Pulse Ox 98 97 98 90 O2 Delivery Room Air Room Air Room Air Room Air 09/12/18 09/12/18 09/12/18 09/12/18 08:00 08:15 09:00 09:00 Pulse 85 112 90 Resp 15 19 B/P (MAP) 148/72 (97) 108/62 149/59 (89) Pulse Ox 99 99 O2 Delivery Room Air Room Air Room Air 09/12/18 10:00 Pulse 112 Resp 19 B/P (MAP) 108/62 (77) Pulse Ox 99 O2 Delivery Room Air Intake and Output 09/11/18 09/11/18 09/12/18 15:00 23:00 07:00 Intake Total 937 ml 625 ml Output Total 200 ml 750 ml 250 ml Balance -200 ml 187 ml 375 ml Nutrition Consultation Dietary Evaluation: Recommendations by RD: Increase Calorie Intake, Protein supplementation Comments: nepro tid Expected Outcomes/Goals: to meet > 50% est nutr needs via po intake Interpretation of weight loss: >1-2% in 1 week Malnutrition Findings: Body Fat Depletion (Non Severe: Mild Depletion Weight Status: Appropriate BENNY LUQUE III DO Sep 12, 2018 11:28
--- NOTE | 2018-09-12 14:10 | NUR ---
SW following. Pt has been accepted at [facility]. Facility will have a bed available upon dc. Will continue to follow.
[2018-09-12] MEDS: ACETAMINOPHEN 325 MG TABLET. PO PRN ×2 (15:37→21:35)
[2018-09-12] MEDS: tiZANidine 4 MG TABLET. PO PRN (15:37)
--- NOTE | 2018-09-12 15:39 | NUR ---
1400 Mone held d/t report from ICU nurse of formed stool the night before.
[2018-09-12] MEDS ORDERED: IV NORMAL SALINE 500ML BAG 500 ML IV ONE ×2 (16:45→17:15)
[2018-09-12] MEDS ORDERED: ALBUMIN HUMAN 25% 100 ML IV ONE (17:15)
--- NOTE | 2018-09-12 17:56 | EKG ---
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
[2018-09-12] MEDS ORDERED: HYDROcodone/APAP 5/325MG 1 TAB TABLET PO ONE (18:30)
--- NOTE | 2018-09-12 18:40 | NUR ---
Patient had complaints of feeling dizzy. VS taken 70/35 HR 78 O2 97% on RA BS 128. Page sent to MD Jones new orders received. Patient received PRN tizanidine one hour before feeling dizzy. Rapid Response was called on patient pervious day for same symptoms, new orders received to D/C tizanidine and add to allergy list. New orders for IV NS bolus 500cc and 250cc and 25% albumin 1X. Patients VS stabilized to 80/40's, MD Jones notified. Patient since then had complaints of chest pain radiating to left back. MD Jones notified new orders for consult for MD Danny. MD Danny notified new orders for STAT 12 lead EKG and STAT cardiac enzymes. EKG called into MD Jones, NNO. Critical trop called into MD Yaa at [phone]. Daughter at bedside notified and updated on patients condition.
[2018-09-12] MEDS: MIRTAZAPINE 7.5 MG TABLET. PO SCH (20:48)
--- NOTE | 2018-09-12 21:37 | NUR ---
Patient requested to have BP checked states she is having numbness in her hands and fingers and that has happened before when BP is going up or down. BP 103/45. Patient states she is still having pain in her breast bilaterally, tylenol given continue to monitor.
[2018-09-13] VITALS (7 sets, daily range): BP systolic 110–157; BP diastolic 50–96
[2018-09-13] MEDS: ATORVASTATIN CALCIUM 40 MG TABLET. PO SCH ×2 (00:07→20:58)
[2018-09-13 05:56] LABS: BASO # 0.1 x10^3/uL (0.0-0.2); BASO % 1 % (0-3); EOS # 0.3 x10^3/uL (0.0-0.7); EOS % 3 % (0-3); HEMATOCRIT 30.9 % (36.0-47.0); HEMOGLOBIN 9.9 g/dL (12.0-15.5); LYMPH % 37 % (24-48); MEAN CORPUSCULAR HEMOGLOBIN 30 pg (25-35); MEAN CORPUSCULAR HGB CONC 32 g/dL (31-37); MEAN CORPUSCULAR VOLUME 94 fL (79-100); MONO # 0.7 x10^3/uL (0.0-1.1); MONO % 8 % (0-9); NEUT # 4.2 x10^3uL (1.8-7.7); NEUT % 51 % (31-73); PLATELET COUNT 278 x10^3/uL (140-400); RED CELL DISTRIBUTION WIDTH 14.5 % (11.5-14.5); WHITE BLOOD COUNT 8.2 x10^3/uL (4.0-11.0)
[2018-09-13 06:13] LABS: ALBUMIN 3.8 g/dL (3.4-5.0); CALCIUM 9.3 mg/dL (8.5-10.1); CREATININE 4.2 mg/dL (0.6-1.0); GFR 12.3; PHOSPHORUS 3.7 mg/dL (2.6-4.7); POTASSIUM 3.9 mmol/L (3.5-5.1); TOTAL BILIRUBIN 0.5 mg/dL (0.2-1.0); TOTAL PROTEIN 7.7 g/dL (6.4-8.2)
[2018-09-13] MEDS ORDERED: IV NORMAL SALINE 1000ML BAG 1,000 ML IV PRN ×2 (07:10)
[2018-09-13] MEDS ORDERED: DIALYSIS PATIENT. MC PRN ×2 (07:15)
[2018-09-13] MEDS: PANTOPRAZOLE 40 MG TABLET.DR. PO SCH (07:30)
[2018-09-13] MEDS: SUCRALFATE 1 GM TABLET. PO SCH ×3 (07:30→16:00)
--- NOTE | 2018-09-13 08:51 | PDOC ---
PROGRESS NOTES Chief Complaint Chief Complaint Right and left chest wall pain - Most probably pleuritic in nature as it is worsened with deep breath pain is reproducible which is reassuring. Leukocytosis - uncertain source if there is an infection UC and BC are negative to date Anemia of chronic disease - stable Hepatitis C; outpatient GI f/u Tobacco abuse - discussed/encouraged cessation Hyperkalemia -currently resolved after dialysis TIGRE - continue dialysis as per makeup sales consultant. Hypertension - will manage meds, hold nephrotoxic meds Hypothyroidism - Synthroid Diarrhea - loose bowels. Will monitor, check stool culture, c. diff S/p colectomy with ileostomy - recovered fairly well Metabolic acidosis - with gap, likely due to renal dysfunction Aortic atherosclerosis - noted on CT scan, likely has vascular disease elsewhere as well CAD; CT chest last week notable for coronary calcifications. Chronic narcotic use Major depression vs stress reaction to acute illness. Patient very tearful during my encounter during the day. Reassurance has been provided, pain has been addressed as well Insomnia History of Present Illness History of Present Illness Ms. Ng was admitted for hyperkalemia, TIGRE, now likely on dialysis permanently. She is resting comfortably in her chair. Patient was transferred to the ICU due to hypotension, was put on levophed. Patient has been off levophed since last night. Transferred to floor. HD cath placed per IR yesterday. C/o headache today Plan: She will need dialysis placement prior to d/c SNF on d/c Tramadol, tylenol for headache Vitals Vitals Vital Signs Date Time Temp Pulse Resp B/P (MAP) Pulse Ox O2 Delivery O2 Flow Rate FiO2 09/13/18 07:52 Room Air 09/13/18 07:00 98.7 71 16 147/54 (85) 99 98.7 Physical Exam General: Alert, Oriented X3, Cooperative, No acute distress Heart: Regular rate, No murmurs Lungs: Clear Abdomen: Normal bowel sounds, Soft, No tenderness, Other (LLQ ostomy clean dry) Extremities: No clubbing, No cyanosis, No edema, Normal pulses, No tenderness/ swelling Skin: No rashes, No breakdown, No significant lesion Labs LABS Laboratory Tests Test 09/12/18 16:26 09/12/18 18:10 09/13/18 04:30 Glucose (Fingerstick) 128 mg/dL (70-99) Creatine Kinase 25 U/L (26-192) Troponin I Quantitative 0.226 ng/mL (0.000-0.055) White Blood Count 8.2 x10^3/uL (4.0-11.0) Red Blood Count 3.30 x10^6/uL (3.50-5.40) Hemoglobin 9.9 g/dL (12.0-15.5) Hematocrit 30.9 % (36.0-47.0) Mean Corpuscular Volume 94 fL (79-100) Mean Corpuscular Hemoglobin 30 pg (25-35) Mean Corpuscular Hemoglobin Concent 32 g/dL (31-37) Red Cell Distribution Width 14.5 % (11.5-14.5) Platelet Count 278 x10^3/uL (140-400) Neutrophils (%) (Auto) 51 % (31-73) Lymphocytes (%) (Auto) 37 % (24-48) Monocytes (%) (Auto) 8 % (0-9) Eosinophils (%) (Auto) 3 % (0-3) Basophils (%) (Auto) 1 % (0-3) Neutrophils # (Auto) 4.2 x10^3uL (1.8-7.7) Lymphocytes # (Auto) 3.0 x10^3/uL (1.0-4.8) Monocytes # (Auto) 0.7 x10^3/uL (0.0-1.1) Eosinophils # (Auto) 0.3 x10^3/uL (0.0-0.7) Basophils # (Auto) 0.1 x10^3/uL (0.0-0.2) Sodium Level 137 mmol/L (136-145) Potassium Level 3.9 mmol/L (3.5-5.1) Chloride Level 103 mmol/L (98-107) Carbon Dioxide Level 20 mmol/L (21-32) Anion Gap 14 (6-14) Blood Urea Nitrogen 30 mg/dL (7-20) Creatinine 4.2 mg/dL (0.6-1.0) Estimated GFR (Cockcroft-Gault) 12.3 BUN/Creatinine Ratio 7 (6-20) Glucose Level 86 mg/dL (70-99) Calcium Level 9.3 mg/dL (8.5-10.1) Phosphorus Level 3.7 mg/dL (2.6-4.7) Total Bilirubin 0.5 mg/dL (0.2-1.0) Aspartate Amino Transf (AST/SGOT) 17 U/L (15-37) Alanine Aminotransferase (ALT/SGPT) 13 U/L (14-59) Alkaline Phosphatase 93 U/L (46-116) Total Protein 7.7 g/dL (6.4-8.2) Albumin 3.8 g/dL (3.4-5.0) Albumin/Globulin Ratio 1.0 (1.0-1.7) Assessment and Plan Assessmemt and Plan Problems Medical Problems: (1) Acute chest wall pain Status: Acute (2) Elevated lipase Status: Acute (3) Ileostomy in place Status: Acute Comment Review of Relevant I have reviewed the following items consuelo (where applicable) has been applied. Labs Laboratory Tests Test 09/11/18 13:26 09/11/18 14:25 09/12/18 08:35 09/12/18 16:26 Glucose (Fingerstick) 129 mg/dL (70-99) 128 mg/dL (70-99) Nasal Screen MRSA (PCR) Negative (Negative) White Blood Count 10.7 x10^3/uL (4.0-11.0) Red Blood Count 3.57 x10^6/uL (3.50-5.40) Hemoglobin 10.5 g/dL (12.0-15.5) Hematocrit 33.2 % (36.0-47.0) Mean Corpuscular Volume 93 fL (79-100) Mean Corpuscular Hemoglobin 30 pg (25-35) Mean Corpuscular Hemoglobin Concent 32 g/dL (31-37) Red Cell Distribution Width 15.0 % (11.5-14.5) Platelet Count 351 x10^3/uL (140-400) Neutrophils (%) (Auto) 60 % (31-73) Lymphocytes (%) (Auto) 28 % (24-48) Monocytes (%) (Auto) 10 % (0-9) Eosinophils (%) (Auto) 2 % (0-3) Basophils (%) (Auto) 1 % (0-3) Neutrophils # (Auto) 6.4 x10^3uL (1.8-7.7) Lymphocytes # (Auto) 3.0 x10^3/uL (1.0-4.8) Monocytes # (Auto) 1.1 x10^3/uL (0.0-1.1) Eosinophils # (Auto) 0.2 x10^3/uL (0.0-0.7) Basophils # (Auto) 0.1 x10^3/uL (0.0-0.2) Sodium Level 140 mmol/L (136-145) Potassium Level 4.5 mmol/L (3.5-5.1) Chloride Level 103 mmol/L (98-107) Carbon Dioxide Level 23 mmol/L (21-32) Anion Gap 14 (6-14) Blood Urea Nitrogen 19 mg/dL (7-20) Creatinine 3.7 mg/dL (0.6-1.0) Estimated GFR (Cockcroft-Gault) 14.3 BUN/Creatinine Ratio 5 (6-20) Glucose Level 81 mg/dL (70-99) Calcium Level 9.4 mg/dL (8.5-10.1) Phosphorus Level 4.7 mg/dL (2.6-4.7) Total Bilirubin 0.6 mg/dL (0.2-1.0) Aspartate Amino Transf (AST/SGOT) 21 U/L (15-37) Alanine Aminotransferase (ALT/SGPT) 17 U/L (14-59) Alkaline Phosphatase 113 U/L (46-116) Total Protein 7.9 g/dL (6.4-8.2) Albumin 3.7 g/dL (3.4-5.0) Albumin/Globulin Ratio 0.9 (1.0-1.7) Hepatitis B Core Total Antibody Negative (Negative) Test 09/12/18 18:10 09/13/18 04:30 Creatine Kinase 25 U/L (26-192) Troponin I Quantitative 0.226 ng/mL (0.000-0.055) White Blood Count 8.2 x10^3/uL (4.0-11.0) Red Blood Count 3.30 x10^6/uL (3.50-5.40) Hemoglobin 9.9 g/dL (12.0-15.5) Hematocrit 30.9 % (36.0-47.0) Mean Corpuscular Volume 94 fL (79-100) Mean Corpuscular Hemoglobin 30 pg (25-35) Mean Corpuscular Hemoglobin Concent 32 g/dL (31-37) Red Cell Distribution Width 14.5 % (11.5-14.5) Platelet Count 278 x10^3/uL (140-400) Neutrophils (%) (Auto) 51 % (31-73) Lymphocytes (%) (Auto) 37 % (24-48) Monocytes (%) (Auto) 8 % (0-9) Eosinophils (%) (Auto) 3 % (0-3) Basophils (%) (Auto) 1 % (0-3) Neutrophils # (Auto) 4.2 x10^3uL (1.8-7.7) Lymphocytes # (Auto) 3.0 x10^3/uL (1.0-4.8) Monocytes # (Auto) 0.7 x10^3/uL (0.0-1.1) Eosinophils # (Auto) 0.3 x10^3/uL (0.0-0.7) Basophils # (Auto) 0.1 x10^3/uL (0.0-0.2) Sodium Level 137 mmol/L (136-145) Potassium Level 3.9 mmol/L (3.5-5.1) Chloride Level 103 mmol/L (98-107) Carbon Dioxide Level 20 mmol/L (21-32) Anion Gap 14 (6-14) Blood Urea Nitrogen 30 mg/dL (7-20) Creatinine 4.2 mg/dL (0.6-1.0) Estimated GFR (Cockcroft-Gault) 12.3 BUN/Creatinine Ratio 7 (6-20) Glucose Level 86 mg/dL (70-99) Calcium Level 9.3 mg/dL (8.5-10.1) Phosphorus Level 3.7 mg/dL (2.6-4.7) Total Bilirubin 0.5 mg/dL (0.2-1.0) Aspartate Amino Transf (AST/SGOT) 17 U/L (15-37) Alanine Aminotransferase (ALT/SGPT) 13 U/L (14-59) Alkaline Phosphatase 93 U/L (46-116) Total Protein 7.7 g/dL (6.4-8.2) Albumin 3.8 g/dL (3.4-5.0) Albumin/Globulin Ratio 1.0 (1.0-1.7) Laboratory Tests Test 3/8/19 16:26 09/12/18 18:10 09/13/18 04:30 Glucose (Fingerstick) 128 mg/dL (70-99) Creatine Kinase 25 U/L (26-192) Troponin I Quantitative 0.226 ng/mL (0.000-0.055) White Blood Count 8.2 x10^3/uL (4.0-11.0) Red Blood Count 3.30 x10^6/uL (3.50-5.40) Hemoglobin 9.9 g/dL (12.0-15.5) Hematocrit 30.9 % (36.0-47.0) Mean Corpuscular Volume 94 fL (79-100) Mean Corpuscular Hemoglobin 30 pg (25-35) Mean Corpuscular Hemoglobin Concent 32 g/dL (31-37) Red Cell Distribution Width 14.5 % (11.5-14.5) Platelet Count 278 x10^3/uL (140-400) Neutrophils (%) (Auto) 51 % (31-73) Lymphocytes (%) (Auto) 37 % (24-48) Monocytes (%) (Auto) 8 % (0-9) Eosinophils (%) (Auto) 3 % (0-3) Basophils (%) (Auto) 1 % (0-3) Neutrophils # (Auto) 4.2 x10^3uL (1.8-7.7) Lymphocytes # (Auto) 3.0 x10^3/uL (1.0-4.8) Monocytes # (Auto) 0.7 x10^3/uL (0.0-1.1) Eosinophils # (Auto) 0.3 x10^3/uL (0.0-0.7) Basophils # (Auto) 0.1 x10^3/uL (0.0-0.2) Sodium Level 137 mmol/L (136-145) Potassium Level 3.9 mmol/L (3.5-5.1) Chloride Level 103 mmol/L (98-107) Carbon Dioxide Level 20 mmol/L (21-32) Anion Gap 14 (6-14) Blood Urea Nitrogen 30 mg/dL (7-20) Creatinine 4.2 mg/dL (0.6-1.0) Estimated GFR (Cockcroft-Gault) 12.3 BUN/Creatinine Ratio 7 (6-20) Glucose Level 86 mg/dL (70-99) Calcium Level 9.3 mg/dL (8.5-10.1) Phosphorus Level 3.7 mg/dL (2.6-4.7) Total Bilirubin 0.5 mg/dL (0.2-1.0) Aspartate Amino Transf (AST/SGOT) 17 U/L (15-37) Alanine Aminotransferase (ALT/SGPT) 13 U/L (14-59) Alkaline Phosphatase 93 U/L (46-116) Total Protein 7.7 g/dL (6.4-8.2) Albumin 3.8 g/dL (3.4-5.0) Albumin/Globulin Ratio 1.0 (1.0-1.7) Microbiology 09/09/18 Blood Culture - Preliminary, Resulted NO GROWTH AFTER 4 DAYS 09/09/18 Urine Culture - Final, Complete 09/09/18 Urine Culture Result 1 (MARCY) - Final, Complete Medications Current Medications Aspirin ([place] Aspirin) 325 mg 1X ONCE PO Last administered on 09/09/18at 06:13 ; Start 09/09/18 at 05:30; Stop 09/09/18 at 05:31; Status DC Fentanyl Citrate (Fentanyl 2ml Vial) 25 mcg 1X ONCE IV Last administered on 09/09/18at 06:12; Start 09/09/18 at 05:30; Stop 09/09/18 at 05:31; Status DC Ondansetron HCl (Zofran) 4 mg 1X ONCE IV Last administered on 09/09/18at 06:12; Start 09/09/18 at 05:30; Stop 09/09/18 at 05:31; Status DC Famotidine (Pepcid Vial) 20 mg 1X ONCE IVP Last administered on 09/09/18at 06:12 ; Start 09/09/18 at 05:30; Stop 09/09/18 at 05:31; Status DC Sodium Chloride 500 ml @ 500 mls/hr 1X ONCE IV Last administered on 09/09/18at 06:28; Start 09/09/18 at 07:00; Stop 09/09/18 at 07:59; Status DC Albuterol Sulfate (Ventolin Neb Soln) 10 mg 1X ONCE CONT NEB Last administered on 09/09/18at 07:00; Start 09/09/18 at 07:00; Stop 09/09/18 at 07:01; Status DC Dextrose (Dextrose 50%-Water Syringe) 25 gm 1X ONCE IV Last administered on 09/09/18at 07:06; Start 09/09/18 at 07:00; Stop 09/09/18 at 07:01; Status DC Insulin Human Regular (HumuLIN R VIAL) 10 unit 1X ONCE IV Last administered on 09/09/18at 07:12; Start 09/09/18 at 07:00; Stop 09/09/18 at 07:01; Status DC Sodium Bicarbonate (Sodium Bicarb Adult 8.4% Syr) 50 meq 1X ONCE IV Last administered on 09/09/18at 07:06; Start 09/09/18 at 07:00; Stop 09/09/18 at 07:01; Status DC Calcium Gluconate (Calcium Gluconate) 1,000 mg 1X ONCE IVP Last administered on 09/09/18at 07:05; Start 09/09/18 at 07:00; Stop 09/09/18 at 07:01; Status DC Sodium Polystyrene Sulfonate (Kayexalate) 30 gm 1X ONCE PO Last administered on 09/09/18 08:14; Start 09/09/18 at 07:00; Stop 09/09/18 at 07:01; Status DC Sodium Chloride 1,000 ml @ 1,000 mls/hr 1X ONCE IV Last administered on at 08:14; Start 09/09/18 at 07:00; Stop 09/09/18 at 07:59; Status DC Fentanyl Citrate (Fentanyl 2ml Vial) 25 mcg 1X ONCE IV Last administered on 07:06; Start 09/09/18 at 07:00; Stop 09/09/18 at 07:01; Status DC Sodium Chloride 1,000 ml @ 150 mls/hr Q6H40M IV Last administered on 09/09/18at 09:33; Start 09/09/18 at 07:11; Stop 09/09/18 at 16:21; Status DC Aspirin (Ecotrin) 81 mg DAILYWBKFT PO Last administered on 09/12/18at 10:01; Start 09/09/18 at 10:00 Acetaminophen/ Hydrocodone Bitart (Lortab 5/325) 1 tab PRN Q6HRS PRN PO PAIN Last administered on 09/12/18 13:17; Start 09/09/18 at 09:00 Levothyroxine Sodium (Synthroid) 88 mcg DAILY06 PO Last administered on 06:39; Start 09/09/18 at 10:00 Metoprolol Succinate (Toprol Xl) 25 mg DAILY PO Last administered on 09/11/18 12:02; Start 09/09/18 at 10:00 Lidocaine (Lidoderm) 1 patch DAILY TD Last administered on 09/12/18 10:07; Start 09/09/18 at 10:00 Pantoprazole Sodium (Protonix) 40 mg DAILYAC PO Last administered on 09/12/18 10:03; Start 09/09/18 at 10:00 Tizanidine HCl (Zanaflex) 4 mg PRN Q8HRS PRN PO MUSCLE SPASMS Last administered on 09/12/18 15:37; Start 09/09/18 at 09:15; Stop 09/12/18 at 16:30; Status DC Sodium Chloride 1,000 ml @ 100 mls/hr Q10H IV Last administered on 09/09/18 09 :33; Start 09/09/18 at 08:54; Stop 09/09/18 at 18:53; Status DC Ondansetron HCl (Zofran) 4 mg PRN Q6HRS PRN IV NAUSEA/VOMITING Last administered on 09/09/18 13:24; Start 09/09/18 at 09:00 Hydromorphone HCl (Dilaudid) 0.5 mg PRN Q3HRS PRN IV PAIN Last administered on 09/09/18 13:25; Start 09/09/18 at 09:00; Stop 09/09/18 at 16:23; Status DC Acetaminophen (Tylenol) 650 mg PRN Q6HRS PRN PO Headaches, Temp > 101.5F Last administered on 09/12/18 21:35; Start 09/09/18 at 09:00 Docusate Sodium (Colace) 100 mg BID PO ; Start 09/09/18 at 10:00; Stop 09/10/18 at 11:05; Status DC Bisacodyl (Dulcolax Supp) 10 mg PRN DAILY PRN CO CONSTIPATION; Start 09/09/18 at 09:00; Stop 09/10/18 at 11:05; Status DC Heparin Sodium (Porcine) (Heparin Sodium) 5,000 unit Q12HR SQ Last administered on 09/12/18at 20:51; Start 09/09/18 at 10:00 Nicotine (Nicoderm Cq 21mg) 1 patch DAILY TD Last administered on 09/12/18 10: 09; Start 09/09/18 at 11:00 Loperamide HCl (Imodium) 2 mg PRN QID PRN PO DIARRHEA Last administered on 14:12; Start 09/09/18 at 12:00 Hydromorphone HCl (Dilaudid) 1 mg PRN Q4HRS PRN IVP PAIN Last administered on 05:43; Start 09/09/18 at 14:30; Stop 09/10/18 at 07:51; Status DC Sucralfate (Carafate) 1 gm TIDAC PO Last administered on 09/12/18 12:28; Start 09/10/18 at 11:30 Diphenoxylate HCl/ Atropine (Lomotil) 1 tab PRN BID PRN PO DIARRHEA 2ND CHOICE Last administered on 09/11/18 12:01; Start 09/10/18 at 12:30; Stop 09/11/18 at 12: 20; Status DC Lidocaine/Sodium Bicarbonate (Buffered Lidocaine 1%) 3 ml 1X ONCE INJ Last administered on 09/10/18 14:58; Start 09/10/18 at 14:30; Stop 09/10/18 at 14:31; Status DC Sodium Chloride 1,000 ml @ 1,000 mls/hr Q1H PRN IV hypotension; Start 09/11/18 at 07:05; Stop 09/11/18 at 13:04; Status DC Sodium Chloride 1,000 ml @ 400 mls/hr Q2H30M PRN IV PATENCY; Start 09/11/18 at 07:05; Stop 09/11/18 at 19:04; Status DC Info (PHARMACY MONITORING -- do not chart) 1 each PRN DAILY PRN MC SEE COMMENTS ; Start 09/11/18 at 07:15; Stop 09/13/18 at 07:24; Status DC Info (PHARMACY MONITORING -- do not chart) 1 each PRN DAILY PRN MC SEE COMMENTS ; Start 09/11/18 at 07:15; Status UNV Hydromorphone HCl (Dilaudid) 1 mg PRN Q4HRS PRN IVP SEVERE PAIN; Start 09/11/18 at 12:15; Stop 09/12/18 at 18:18; Status DC Diphenoxylate HCl/ Atropine (Lomotil) 1 tab TID PO Last administered on 20:52; Start 09/11/18 at 12:30 Norepinephrine Bitartrate 250 ml @ 1.875 mls/ hr CONT PRN IV SEE I/O RECORD Last administered on 09/11/18 14:41; Start 09/11/18 at 14:00; Stop 09/12/18 at 13: 53; Status DC Mirtazapine (Remeron) 7.5 mg QHS PO Last administered on 09/12/18 20:48; Start 09/11/18 at 21:00 Albumin Human 100 ml @ 100 mls/hr 1X ONCE IV Last administered on 09/11/18 14 :39; Start 09/11/18 at 14:30; Stop 09/11/18 at 15:29; Status DC Sodium Chloride 500 ml @ 500 mls/hr PRN Q1HR PRN IV ELEVATED BP, SEE COMMENTS Last administered on 09/11/18 18:53; Start 09/11/18 at 16:45 Nitroglycerin (Nitro-Bid Oint) 1 inch 1X ONCE TP Last administered on 22:27; Start 09/11/18 at 22:15; Stop 09/11/18 at 22:16; Status DC Sodium Chloride 1,000 ml @ 100 mls/hr Q10H IV ; Start 09/12/18 at 06:30; Stop at 06:37; Status DC Sodium Chloride 500 ml @ 500 mls/hr 1X ONCE IV Last administered on 09/12/18at 16:45; Start 09/12/18 at 16:45; Stop 09/12/18 at 17:44; Status DC Sodium Chloride 500 ml @ 500 mls/hr 1X ONCE IV Last administered on 09/12/18 17:15; Start 09/12/18 at 17:15; Stop 09/12/18 at 18:14; Status DC Albumin Human 100 ml @ 100 mls/hr 1X ONCE IV Last administered on 09/12/18at 17 :22; Start 09/12/18 at 17:15; Stop 09/12/18 at 18:14; Status DC Acetaminophen/ Hydrocodone Bitart (Lortab 5/325) 1 tab 1X ONCE PO Last administered on 09/12/18at 18:23; Start 09/12/18 at 18:30; Stop 09/12/18 at 18:31; Status DC Atorvastatin Calcium (Lipitor) 40 mg QHS PO Last administered on 09/13/18at 00:07 ; Start 09/12/18 at 23:45 Sodium Chloride 1,000 ml @ 1,000 mls/hr Q1H PRN IV hypotension; Start 09/13/18 at 07:10; Stop 09/13/18 at 13:09 Sodium Chloride 1,000 ml @ 400 mls/hr Q2H30M PRN IV PATENCY; Start 09/13/18 at 07:10; Stop 09/13/18 at 19:09 Info (PHARMACY MONITORING -- do not chart) 1 each PRN DAILY PRN MC SEE COMMENTS ; Start 09/13/18 at 07:15; Status UNV Info (PHARMACY MONITORING -- do not chart) 1 each PRN DAILY PRN MC SEE COMMENTS ; Start 09/13/18 at 07:15 Active Scripts Active Aspirin Ec (Aspirin) 81 Mg Tablet.dr 81 Mg PO DAILYWBKFT 30 Days Lisinopril 10 Mg Tablet 10 Mg PO BID 30 Days Tizanidine Hcl 4 Mg Tablet 4 Mg PO PRN Q8HRS PRN 10 Days [place] 5-325 Tablet (Acetaminophen/Hydrocodone Bitart) 1 Each Tablet 1 Tab PO PRN Q6HRS 3 Days Lidocaine 1 Each Adh..patch 1 Patch TD DAILY MDD 1 Synthroid (Levothyroxine Sodium) 88 Mcg Tablet 88 Mcg PO DAILY06 MDD 1 Metoprolol Succinate ( Xl ) (Metoprolol Succinate) 25 Mg Tab.er.24h 25 Mg PO DAILY MDD 1 Reported Protonix (Pantoprazole Sodium) 20 Mg Tablet. 40 Mg PO DAILY Vitals/I & O Vital Sign - Last 24 Hours 09/12/18 09/12/18 09/12/18 09/12/18 09:00 09:00 10:00 11:00 Temp 98.4 98.4 Pulse 112 90 112 110 Resp 19 19 19 B/P (MAP) 108/62 149/59 (89) 108/62 (77) 109/56 (73) Pulse Ox 99 99 98 O2 Delivery Room Air Room Air Room Air 09/12/18 09/12/18 09/12/18 09/12/18 13:00 13:17 14:17 15:00 Temp 97.7 98.3 97.7 98.3 Pulse 106 91 Resp 18 14 14 18 B/P (MAP) 146/61 (89) 145/61 (89) Pulse Ox 100 98 O2 Delivery Room Air Room Air Room Air 09/12/18 09/12/18 09/12/18 09/12/18 18:23 19:00 19:37 21:23 Temp 97.8 97.8 Pulse 72 Resp 14 18 20 B/P (MAP) 98/44 (62) Pulse Ox 100 O2 Delivery Room Air Room Air Room Air 09/12/18 09/13/18 09/13/18 09/13/18 23:00 03:00 05:05 07:00 Temp 97.9 97.9 98.7 97.9 97.9 98.7 Pulse 75 71 103 71 Resp 18 18 16 B/P (MAP) 114/54 (74) 110/50 (70) 128/81 (97) 147/54 (85) Pulse Ox 98 99 99 O2 Delivery Room Air Room Air Room Air 09/13/18 07:52 O2 Delivery Room Air Intake and Output 09/12/18 09/12/18 09/13/18 14:59 22:59 06:59 Intake Total 240 ml 850 ml 600 ml Balance 240 ml 850 ml 600 ml Nutrition Consultation Dietary Evaluation: Recommendations by RD: Increase Calorie Intake, Protein supplementation Comments: nepro tid Expected Outcomes/Goals: to meet > 50% est nutr needs via po intake Interpretation of weight loss: >1-2% in 1 week Malnutrition Findings: Body Fat Depletion (Non Severe: Mild Depletion Weight Status: Appropriate SHENA HERNANDEZ MD Sep 13, 2018 08:51
--- NOTE | 2018-09-13 08:59 | PDOC ---
SUBJECTIVE ROS Back on floor, seen on HD, no concerns voiced by Pt OBJECTIVE Vital Signs Vital Signs Date Time Temp Pulse Resp B/P (MAP) Pulse Ox O2 Delivery O2 Flow Rate FiO2 09/13/18 07:52 Room Air 09/13/18 07:00 98.7 71 16 147/54 (85) 99 98.7 I & 0 Intake and Output 09/13/18 07:00 Intake Total 1690 ml Balance 1690 ml Intake Oral 840 ml IV Total 850 ml PHYSICAL EXAM Physical Exam General: NAD HEENT: OM moist Neck Supple Lungs: CTA, Non labored Heart: S1S2, RRR, no gallops, no murmurs Abdomen: Normal bowel sounds, Soft, ostomy + Extremities: No edema, Skin: No rashes, pigmentation under the breast Neuro: Grossly Normal No Lewis DIAGNOSIS/ASSESSMENT Assessment & Plan TIGRE on CKD- appears to be be ESRD , No obvious renal recovery Renal US no e/o Obstructive etiology initiated HD 09/10, Seen on HD , tolerating well, continue as ordered, Dw [employer] Access- Currently has temp catheter Will need Perma cath for HD on Saturday and SW Consult for OP chair time Hyperkalemia- Normal K CKD stage 3- TIGRE in DeC with Cr peaked at 6 Recovered to Cr 1.3-1.5 Bilat chest wall pain Hypertension- Was transferred to ICU for Low BP Stable currently Diarrhea - S/p colectomy with ileostomy Hepatic lesion Dw A/P Pt and RN at bedside COMMENT/RELEVANT DATA Meds Current Medications Medications (Trade) Dose Ordered Sig/Saroj Start Time Stop Time Status Last Admin Dose Admin Acetaminophen (Tylenol) 650 mg PRN Q6HRS PRN 09/09/18 09:00 09/12/18 21:35 650 MG Acetaminophen/ Hydrocodone Bitart (Lortab 5/325) 1 tab 1X ONCE 09/12/18 18:30 09/12/18 18:31 DC 09/12/18 18:23 1 TAB Albumin Human 100 ml @ 100 mls/hr 1X ONCE 09/12/18 17:15 09/12/18 18:14 DC 09/12/18 17:22 100 MLS/HR Albuterol Sulfate (Ventolin Neb Soln) 10 mg 1X ONCE 09/09/18 07:00 09/09/18 07:01 DC 09/09/18 07:00 10 MG Aspirin (Chilango Aspirin) 325 mg 1X ONCE 09/09/18 05:30 09/09/18 05:31 DC 09/09/18 06:13 325 MG Aspirin (Ecotrin) 81 mg DAILYWBKFT 09/09/18 10:00 09/12/18 10:01 81 MG Atorvastatin Calcium (Lipitor) 40 mg QHS 09/12/18 23:45 09/13/18 00:07 40 MG Bisacodyl (Dulcolax Supp) 10 mg PRN DAILY PRN 09/09/18 09:00 09/10/18 11:05 DC Calcium Gluconate (Calcium Gluconate) 1,000 mg 1X ONCE 09/09/18 07:00 09/09/18 07:01 DC 09/09/18 07:05 1,000 MG Dextrose (Dextrose 50%-Water Syringe) 25 gm 1X ONCE 09/09/18 07:00 09/09/18 07:01 DC 09/09/18 07:06 25 GM Diphenoxylate HCl/ Atropine (Lomotil) 1 tab TID 09/11/18 12:30 09/12/18 20:52 1 TAB Docusate Sodium (Colace) 100 mg BID 09/09/18 10:00 09/10/18 11:05 DC Famotidine (Pepcid Vial) 20 mg 1X ONCE 09/09/18 05:30 09/09/18 05:31 DC 09/09/18 06:12 20 MG Fentanyl Citrate (Fentanyl 2ml Vial) 25 mcg 1X ONCE 09/09/18 07:00 09/09/18 07:01 DC 09/09/18 07:06 25 MCG Heparin Sodium (Porcine) (Heparin Sodium) 5,000 unit Q12HR 09/09/18 10:00 09/12/18 20:51 5,000 UNIT Hydromorphone HCl (Dilaudid) 1 mg PRN Q4HRS PRN 09/11/18 12:15 09/12/18 18:18 DC Info (PHARMACY MONITORING -- do not chart) 1 each PRN DAILY PRN 09/13/18 07:15 Insulin Human Regular (HumuLIN R VIAL) 10 unit 1X ONCE 09/09/18 07:00 09/09/18 07:01 DC 09/09/18 07:12 10 UNIT Levothyroxine Sodium (Synthroid) 88 mcg DAILY06 09/09/18 10:00 09/12/18 06:39 88 MCG Lidocaine (Lidoderm) 1 patch DAILY 09/09/18 10:00 09/12/18 10:07 1 PATCH Lidocaine/Sodium Bicarbonate (Buffered Lidocaine 1%) 3 ml 1X ONCE 09/10/18 14:30 09/10/18 14:31 DC 09/10/18 14:58 4 ML Loperamide HCl (Imodium) 2 mg PRN QID PRN 09/09/18 12:00 09/10/18 14:12 2 MG Metoprolol Succinate (Toprol Xl) 25 mg DAILY 09/09/18 10:00 09/11/18 12:02 25 MG Mirtazapine (Remeron) 7.5 mg QHS 09/11/18 21:00 09/12/18 20:48 7.5 MG Nicotine (Nicoderm Cq 21mg) 1 patch DAILY 09/09/18 11:00 09/12/18 10:09 1 PATCH Nitroglycerin (Nitro-Bid Oint) 1 inch 1X ONCE 09/11/18 22:15 09/11/18 22:16 DC 09/11/18 22:27 1 INCH Norepinephrine Bitartrate 250 ml @ 1.875 mls/ hr CONT PRN 09/11/18 14:00 09/12/18 13:53 DC 09/11/18 14:41 9.375 MLS/HR Ondansetron HCl (Zofran) 4 mg PRN Q6HRS PRN 09/09/18 09:00 09/09/18 13:24 4 MG Pantoprazole Sodium (Protonix) 40 mg DAILYAC 09/09/18 10:00 09/12/18 10:03 40 MG Sodium Polystyrene Sulfonate (Kayexalate) 30 gm 1X ONCE 09/09/18 07:00 09/09/18 07:01 DC 09/09/18 08:14 30 GM Sodium Bicarbonate (Sodium Bicarb Adult 8.4% Syr) 50 meq 1X ONCE 09/09/18 07:00 09/09/18 07:01 DC 09/09/18 07:06 50 MEQ Sodium Chloride 1,000 ml @ 400 mls/hr Q2H30M PRN 09/13/18 07:10 09/13/18 19:09 Sucralfate (Carafate) 1 gm TIDAC 09/10/18 11:30 09/12/18 12:28 1 GM Tizanidine HCl (Zanaflex) 4 mg PRN Q8HRS PRN 09/09/18 09:15 09/12/18 16:30 DC 09/12/18 15:37 4 MG Lab Laboratory Tests Test 09/12/18 16:26 09/12/18 18:10 09/13/18 04:30 Glucose (Fingerstick) 128 mg/dL (70-99) Creatine Kinase 25 U/L (26-192) Troponin I Quantitative 0.226 ng/mL (0.000-0.055) White Blood Count 8.2 x10^3/uL (4.0-11.0) Red Blood Count 3.30 x10^6/uL (3.50-5.40) Hemoglobin 9.9 g/dL (12.0-15.5) Hematocrit 30.9 % (36.0-47.0) Mean Corpuscular Volume 94 fL (79-100) Mean Corpuscular Hemoglobin 30 pg (25-35) Mean Corpuscular Hemoglobin Concent 32 g/dL (31-37) Red Cell Distribution Width 14.5 % (11.5-14.5) Platelet Count 278 x10^3/uL (140-400) Neutrophils (%) (Auto) 51 % (31-73) Lymphocytes (%) (Auto) 37 % (24-48) Monocytes (%) (Auto) 8 % (0-9) Eosinophils (%) (Auto) 3 % (0-3) Basophils (%) (Auto) 1 % (0-3) Neutrophils # (Auto) 4.2 x10^3uL (1.8-7.7) Lymphocytes # (Auto) 3.0 x10^3/uL (1.0-4.8) Monocytes # (Auto) 0.7 x10^3/uL (0.0-1.1) Eosinophils # (Auto) 0.3 x10^3/uL (0.0-0.7) Basophils # (Auto) 0.1 x10^3/uL (0.0-0.2) Sodium Level 137 mmol/L (136-145) Potassium Level 3.9 mmol/L (3.5-5.1) Chloride Level 103 mmol/L (98-107) Carbon Dioxide Level 20 mmol/L (21-32) Anion Gap 14 (6-14) Blood Urea Nitrogen 30 mg/dL (7-20) Creatinine 4.2 mg/dL (0.6-1.0) Estimated GFR (Cockcroft-Gault) 12.3 BUN/Creatinine Ratio 7 (6-20) Glucose Level 86 mg/dL (70-99) Calcium Level 9.3 mg/dL (8.5-10.1) Phosphorus Level 3.7 mg/dL (2.6-4.7) Total Bilirubin 0.5 mg/dL (0.2-1.0) Aspartate Amino Transf (AST/SGOT) 17 U/L (15-37) Alanine Aminotransferase (ALT/SGPT) 13 U/L (14-59) Alkaline Phosphatase 93 U/L (46-116) Total Protein 7.7 g/dL (6.4-8.2) Albumin 3.8 g/dL (3.4-5.0) Albumin/Globulin Ratio 1.0 (1.0-1.7) Results All relevant outside records, renal labs, imaging studies, telemetry/EKG's were reviewed. SHERRY ALAN MD Sep 13, 2018 08:59
[2018-09-13] MEDS: DIPHENOXYLATE/ATROPINE TABLET. PO SCH ×3 (09:00→20:58)
[2018-09-13] MEDS: NICOTINE 21MG PATCH. TD SCH (11:09)
[2018-09-13] MEDS: HYDROcodone/APAP 5/325MG 1 TAB TABLET PO PRN ×2 (11:10→17:36)
[2018-09-13] MEDS: LEVOTHYROXINE 88 MCG TABLET PO SCH (11:10)
[2018-09-13] MEDS: LIDOCAINE (700MG/PATCH) PATCH. TD SCH (11:10)
[2018-09-13] MEDS: HEPARIN for SUB-Q USE 5,000 UNIT/ML VIAL. SQ SCH ×2 (11:15→21:07)
[2018-09-13] MEDS: ASPIRIN ENTERIC COATED 81 MG TABLET.DR. PO SCH (11:49)
[2018-09-13] MEDS: METOPROLOL SUCC 24HR ER 25 MG TAB.ER.24H. PO SCH (11:49)
[2018-09-13] MEDS: ACETAMINOPHEN 325 MG TABLET. PO PRN (12:42)
--- NOTE | 2018-09-13 12:45 | NUR ---
BINTA following pt. SW notified pt needs OP HD. SW phoned and faxed referral to [facility]. Pt admission and acceptance pending. Discussed with Pt, RN and Physician. Will continue to follow.
--- NOTE | 2018-09-13 14:04 | PDOC ---
CARDIOLOGY PROGRESS NOTE SUBJECTIVE: CARDIOLOGY FOLLOW UP NOTE: Please refer to cardiology consult note written less than 30 days prior. Asked to evaluate patient due to recurrent chest pain. Chest pain is across her entire chest. No alleviating factors. Not exacerbated with activity. Constant sharp pain. Previously felt to be pleuritic. Now on HD and troponin elevated on initial check yesterday. No dyspnea, palpitations. EKG unremarkable. OBJECTIVE: Vital SIgns: Vital Signs Date Time Temp Pulse Resp B/P (MAP) Pulse Ox O2 Delivery O2 Flow Rate FiO2 09/13/18 12:10 Room Air 09/13/18 11:49 95 154/66 09/13/18 11:00 97.8 18 99 97.8 Objective: Elderly frail female in no acute distress. Normal heart tones. No murmurs No edema. Normal lung sounds anterior. Pain with palpation of the chest wall. CURRENT MEDICATIONS: Atorvastatin 40mg daily ASA 81mg daily Toprol XL 25mg daily DIAGNOSTIC TESTING: No new testing. ASSESSMENT: 1. Elevated troponin and atypical chest pain in the setting of HD 2. HTN PLAN: 1. Given her risk factors will plan to rule out occult ischemia with a stress MPI on saturday. Repeat troponin today. Thanks. Will f/u after stress testing. URIEL CONNORS MD Sep 13, 2018 14:04
[2018-09-13] MEDS: traMADol 50 MG TABLET PO PRN (16:00)
[2018-09-13] MEDS ORDERED: busPIRone 5 MG TABLET. PO PRN (17:30)
[2018-09-13] MEDS: MIRTAZAPINE 7.5 MG TABLET. PO SCH (20:58)
[2018-09-14] MEDS: HYDROcodone/APAP 5/325MG 1 TAB TABLET PO PRN ×3 (00:33→16:39)
[2018-09-14 04:18] VITALS: BP 146/77
[2018-09-14] MEDS: LEVOTHYROXINE 88 MCG TABLET PO SCH (05:31)
[2018-09-14] MEDS: SUCRALFATE 1 GM TABLET. PO SCH ×3 (05:31→16:39)
[2018-09-14] MEDS: PANTOPRAZOLE 40 MG TABLET.DR. PO SCH (05:31)
[2018-09-14 06:13] LABS: ALBUMIN 3.7 g/dL (3.4-5.0); CALCIUM 9.3 mg/dL (8.5-10.1); CREATININE 2.8 mg/dL (0.6-1.0); GFR 19.7; PHOSPHORUS 2.6 mg/dL (2.6-4.7); POTASSIUM 3.8 mmol/L (3.5-5.1)
[2018-09-14 07:00] VITALS: BP 147/68
--- NOTE | 2018-09-14 07:54 | PDOC ---
PROGRESS NOTES Chief Complaint Chief Complaint Right and left chest wall pain - Most probably pleuritic in nature as it is worsened with deep breath pain is reproducible which is reassuring. Leukocytosis - uncertain source if there is an infection UC and BC are negative to date Anemia of chronic disease - stable Hepatitis C; outpatient GI f/u Tobacco abuse - discussed/encouraged cessation Hyperkalemia -currently resolved after dialysis TIGRE - continue dialysis as per building consultant. Hypertension - will manage meds, hold nephrotoxic meds Hypothyroidism - Synthroid Diarrhea - loose bowels. Will monitor, check stool culture, c. diff S/p colectomy with ileostomy - recovered fairly well Metabolic acidosis - with gap, likely due to renal dysfunction Aortic atherosclerosis - noted on CT scan, likely has vascular disease elsewhere as well CAD; CT chest last week notable for coronary calcifications. Chronic narcotic use Major depression vs stress reaction to acute illness. Patient very tearful during my encounter during the day. Reassurance has been provided, pain has been addressed as well Insomnia History of Present Illness History of Present Illness Ms. Ng was admitted for hyperkalemia, TIGRE, now likely on dialysis permanently. She is resting comfortably in her chair. Patient was transferred to the ICU due to hypotension, was put on levophed. Patient has been off levophed since last night. Transferred to floor. 09/13: HD cath placed per IR yesterday. C/o headache today, asking for fentanyl and dilaudid for this headache, advised tylenol is more appropriate Feeling headache is worse today. She is overall feeling a little short of breath , no CP, no BM recently. Has some nausea too Plan: She will need dialysis placement prior to d/c Compazine for nausea and headache Cardiac Myocardial Perfusion Imaging Stress Testing 09/15/18 prior to d/c to SNF SNF on d/c Tramadol, tylenol for headache in addition to compazine Vitals Vitals Vital Signs Date Time Temp Pulse Resp B/P (MAP) Pulse Ox O2 Delivery O2 Flow Rate FiO2 09/14/18 04:18 98.3 99 20 146/77 (100) 97 Room Air 98.3 09/14/18 00:33 2.0 Physical Exam General: Alert, Oriented X3, Cooperative, No acute distress Heart: Regular rate, No murmurs Lungs: Clear Abdomen: Normal bowel sounds, Soft, No tenderness, Other (LLQ ostomy clean dry) Extremities: No clubbing, No cyanosis, No edema, Normal pulses, No tenderness/ swelling Skin: No rashes, No breakdown, No significant lesion Labs LABS Laboratory Tests Test 09/13/18 14:50 09/14/18 05:00 Troponin I Quantitative 0.118 ng/mL (0.000-0.055) Sodium Level 140 mmol/L (136-145) Potassium Level 3.8 mmol/L (3.5-5.1) Chloride Level 101 mmol/L (98-107) Carbon Dioxide Level 27 mmol/L (21-32) Anion Gap 12 (6-14) Blood Urea Nitrogen 17 mg/dL (7-20) Creatinine 2.8 mg/dL (0.6-1.0) Estimated GFR (Cockcroft-Gault) 19.7 Glucose Level 88 mg/dL (70-99) Calcium Level 9.3 mg/dL (8.5-10.1) Phosphorus Level 2.6 mg/dL (2.6-4.7) Albumin 3.7 g/dL (3.4-5.0) Assessment and Plan Assessmemt and Plan Problems Medical Problems: (1) Acute chest wall pain Status: Acute (2) Elevated lipase Status: Acute (3) Ileostomy in place Status: Acute Comment Review of Relevant I have reviewed the following items consuelo (where applicable) has been applied. Labs Laboratory Tests Test 09/12/18 08:35 09/12/18 16:26 09/12/18 18:10 09/13/18 04:30 White Blood Count 10.7 x10^3/uL (4.0-11.0) 8.2 x10^3/uL (4.0-11.0) Red Blood Count 3.57 x10^6/uL (3.50-5.40) 3.30 x10^6/uL (3.50-5.40) Hemoglobin 10.5 g/dL (12.0-15.5) 9.9 g/dL (12.0-15.5) Hematocrit 33.2 % (36.0-47.0) 30.9 % (36.0-47.0) Mean Corpuscular Volume 93 fL (79-100) 94 fL (79-100) Mean Corpuscular Hemoglobin 30 pg (25-35) 30 pg (25-35) Mean Corpuscular Hemoglobin Concent 32 g/dL (31-37) 32 g/dL (31-37) Red Cell Distribution Width 15.0 % (11.5-14.5) 14.5 % (11.5-14.5) Platelet Count 351 x10^3/uL (140-400) 278 x10^3/uL (140-400) Neutrophils (%) (Auto) 60 % (31-73) 51 % (31-73) Lymphocytes (%) (Auto) 28 % (24-48) 37 % (24-48) Monocytes (%) (Auto) 10 % (0-9) 8 % (0-9) Eosinophils (%) (Auto) 2 % (0-3) 3 % (0-3) Basophils (%) (Auto) 1 % (0-3) 1 % (0-3) Neutrophils # (Auto) 6.4 x10^3uL (1.8-7.7) 4.2 x10^3uL (1.8-7.7) Lymphocytes # (Auto) 3.0 x10^3/uL (1.0-4.8) 3.0 x10^3/uL (1.0-4.8) Monocytes # (Auto) 1.1 x10^3/uL (0.0-1.1) 0.7 x10^3/uL (0.0-1.1) Eosinophils # (Auto) 0.2 x10^3/uL (0.0-0.7) 0.3 x10^3/uL (0.0-0.7) Basophils # (Auto) 0.1 x10^3/uL (0.0-0.2) 0.1 x10^3/uL (0.0-0.2) Sodium Level 140 mmol/L (136-145) 137 mmol/L (136-145) Potassium Level 4.5 mmol/L (3.5-5.1) 3.9 mmol/L (3.5-5.1) Chloride Level 103 mmol/L (98-107) 103 mmol/L (98-107) Carbon Dioxide Level 23 mmol/L (21-32) 20 mmol/L (21-32) Anion Gap 14 (6-14) 14 (6-14) Blood Urea Nitrogen 19 mg/dL (7-20) 30 mg/dL (7-20) Creatinine 3.7 mg/dL (0.6-1.0) 4.2 mg/dL (0.6-1.0) Estimated GFR (Cockcroft-Gault) 14.3 12.3 BUN/Creatinine Ratio 5 (6-20) 7 (6-20) Glucose Level 81 mg/dL (70-99) 86 mg/dL (70-99) Calcium Level 9.4 mg/dL (8.5-10.1) 9.3 mg/dL (8.5-10.1) Phosphorus Level 4.7 mg/dL (2.6-4.7) 3.7 mg/dL (2.6-4.7) Total Bilirubin 0.6 mg/dL (0.2-1.0) 0.5 mg/dL (0.2-1.0) Aspartate Amino Transf (AST/SGOT) 21 U/L (15-37) 17 U/L (15-37) Alanine Aminotransferase (ALT/SGPT) 17 U/L (14-59) 13 U/L (14-59) Alkaline Phosphatase 113 U/L (46-116) 93 U/L (46-116) Total Protein 7.9 g/dL (6.4-8.2) 7.7 g/dL (6.4-8.2) Albumin 3.7 g/dL (3.4-5.0) 3.8 g/dL (3.4-5.0) Albumin/Globulin Ratio 0.9 (1.0-1.7) 1.0 (1.0-1.7) Hepatitis B Core Total Antibody Negative (Negative) Glucose (Fingerstick) 128 mg/dL (70-99) Creatine Kinase 25 U/L (26-192) Troponin I Quantitative 0.226 ng/mL (0.000-0.055) Test 09/13/18 14:50 09/14/18 05:00 Troponin I Quantitative 0.118 ng/mL (0.000-0.055) Sodium Level 140 mmol/L (136-145) Potassium Level 3.8 mmol/L (3.5-5.1) Chloride Level 101 mmol/L (98-107) Carbon Dioxide Level 27 mmol/L (21-32) Anion Gap 12 (6-14) Blood Urea Nitrogen 17 mg/dL (7-20) Creatinine 2.8 mg/dL (0.6-1.0) Estimated GFR (Cockcroft-Gault) 19.7 Glucose Level 88 mg/dL (70-99) Calcium Level 9.3 mg/dL (8.5-10.1) Phosphorus Level 2.6 mg/dL (2.6-4.7) Albumin 3.7 g/dL (3.4-5.0) Laboratory Tests Test 09/13/18 14:50 09/14/18 05:00 Troponin I Quantitative 0.118 ng/mL (0.000-0.055) Sodium Level 140 mmol/L (136-145) Potassium Level 3.8 mmol/L (3.5-5.1) Chloride Level 101 mmol/L (98-107) Carbon Dioxide Level 27 mmol/L (21-32) Anion Gap 12 (6-14) Blood Urea Nitrogen 17 mg/dL (7-20) Creatinine 2.8 mg/dL (0.6-1.0) Estimated GFR (Cockcroft-Gault) 19.7 Glucose Level 88 mg/dL (70-99) Calcium Level 9.3 mg/dL (8.5-10.1) Phosphorus Level 2.6 mg/dL (2.6-4.7) Albumin 3.7 g/dL (3.4-5.0) Microbiology 09/09/18 Blood Culture - Final, Complete NO GROWTH AFTER 5 DAYS 09/09/18 Urine Culture - Final, Complete 09/09/18 Urine Culture Result 1 (MARCY) - Final, Complete Medications Current Medications Aspirin (Chilango Aspirin) 325 mg 1X ONCE PO Last administered on 09/09/18at 06:13 ; Start 09/09/18 at 05:30; Stop 09/09/18 at 05:31; Status DC Fentanyl Citrate (Fentanyl 2ml Vial) 25 mcg 1X ONCE IV Last administered on 09/09/18at 06:12; Start 09/09/18 at 05:30; Stop 09/09/18 at 05:31; Status DC Ondansetron HCl (Zofran) 4 mg 1X ONCE IV Last administered on 09/09/18at 06:12; Start 09/09/18 at 05:30; Stop 09/09/18 at 05:31; Status DC Famotidine (Pepcid Vial) 20 mg 1X ONCE IVP Last administered on 09/09/18at 06:12 ; Start 09/09/18 at 05:30; Stop 09/09/18 at 05:31; Status DC Sodium Chloride 500 ml @ 500 mls/hr 1X ONCE IV Last administered on 09/09/18at 06:28; Start 09/09/18 at 07:00; Stop 09/09/18 at 07:59; Status DC Albuterol Sulfate (Ventolin Neb Soln) 10 mg 1X ONCE CONT NEB Last administered on 09/09/18at 07:00; Start 09/09/18 at 07:00; Stop 09/09/18 at 07:01; Status DC Dextrose (Dextrose 50%-Water Syringe) 25 gm 1X ONCE IV Last administered on 09/09/18at 07:06; Start 09/09/18 at 07:00; Stop 09/09/18 at 07:01; Status DC Insulin Human Regular (HumuLIN R VIAL) 10 unit 1X ONCE IV Last administered on 09/09/18at 07:12; Start 09/09/18 at 07:00; Stop 09/09/18 at 07:01; Status DC Sodium Bicarbonate (Sodium Bicarb Adult 8.4% Syr) 50 meq 1X ONCE IV Last administered on 09/09/18at 07:06; Start 09/09/18 at 07:00; Stop 09/09/18 at 07:01; Status DC Calcium Gluconate (Calcium Gluconate) 1,000 mg 1X ONCE IVP Last administered on 09/09/18at 07:05; Start 09/09/18 at 07:00; Stop 09/09/18 at 07:01; Status DC Sodium Polystyrene Sulfonate (Kayexalate) 30 gm 1X ONCE PO Last administered on 09/09/18at 08:14; Start 09/09/18 at 07:00; Stop 09/09/18 at 07:01; Status DC Sodium Chloride 1,000 ml @ 1,000 mls/hr 1X ONCE IV Last administered on at 08:14; Start 09/09/18 at 07:00; Stop 09/09/18 at 07:59; Status DC Fentanyl Citrate (Fentanyl 2ml Vial) 25 mcg 1X ONCE IV Last administered on 07:06; Start 09/09/18 at 07:00; Stop 09/09/18 at 07:01; Status DC Sodium Chloride 1,000 ml @ 150 mls/hr Q6H40M IV Last administered on 09/09/18 09:33; Start 09/09/18 at 07:11; Stop 09/09/18 at 16:21; Status DC Aspirin (Ecotrin) 81 mg DAILYWBKFT PO Last administered on 09/13/18 11:49; Start 09/09/18 at 10:00 Acetaminophen/ Hydrocodone Bitart (Lortab 5/325) 1 tab PRN Q6HRS PRN PO SEVERE PAIN Last administered on 09/14/18 00:33; Start 09/09/18 at 09:00 Levothyroxine Sodium (Synthroid) 88 mcg DAILY06 PO Last administered on 05:31; Start 09/09/18 at 10:00 Metoprolol Succinate (Toprol Xl) 25 mg DAILY PO Last administered on 09/13/18 11:49; Start 09/09/18 at 10:00 Lidocaine (Lidoderm) 1 patch DAILY TD Last administered on 09/13/18 11:10; Start 09/09/18 at 10:00 Pantoprazole Sodium (Protonix) 40 mg DAILYAC PO Last administered on 09/14/18 05:31; Start 09/09/18 at 10:00 Tizanidine HCl (Zanaflex) 4 mg PRN Q8HRS PRN PO MUSCLE SPASMS Last administered on 09/12/18 15:37; Start 09/09/18 at 09:15; Stop 09/12/18 at 16:30; Status DC Sodium Chloride 1,000 ml @ 100 mls/hr Q10H IV Last administered on 09/09/18 09 :33; Start 09/09/18 at 08:54; Stop 09/09/18 at 18:53; Status DC Ondansetron HCl (Zofran) 4 mg PRN Q6HRS PRN IV NAUSEA/VOMITING Last administered on 09/09/18 13:24; Start 09/09/18 at 09:00 Hydromorphone HCl (Dilaudid) 0.5 mg PRN Q3HRS PRN IV PAIN Last administered on 09/09/18 13:25; Start 09/09/18 at 09:00; Stop 09/09/18 at 16:23; Status DC Acetaminophen (Tylenol) 650 mg PRN Q6HRS PRN PO Headaches, Temp > 101.5F Last administered on 09/13/18 12:42; Start 09/09/18 at 09:00 Docusate Sodium (Colace) 100 mg BID PO ; Start 09/09/18 at 10:00; Stop 09/10/18 at 11:05; Status DC Bisacodyl (Dulcolax Supp) 10 mg PRN DAILY PRN AR CONSTIPATION; Start 09/09/18 at 09:00; Stop 09/10/18 at 11:05; Status DC Heparin Sodium (Porcine) (Heparin Sodium) 5,000 unit Q12HR SQ Last administered on 09/13/18 21:07; Start 09/09/18 at 10:00 Nicotine (Nicoderm Cq 21mg) 1 patch DAILY TD Last administered on 09/13/18 11: 09; Start 09/09/18 at 11:00 Loperamide HCl (Imodium) 2 mg PRN QID PRN PO DIARRHEA Last administered on 14:12; Start 09/09/18 at 12:00 Hydromorphone HCl (Dilaudid) 1 mg PRN Q4HRS PRN IVP PAIN Last administered on 05:43; Start 09/09/18 at 14:30; Stop 09/10/18 at 07:51; Status DC Sucralfate (Carafate) 1 gm TIDAC PO Last administered on 09/14/18 05:31; Start 09/10/18 at 11:30 Diphenoxylate HCl/ Atropine (Lomotil) 1 tab PRN BID PRN PO DIARRHEA 2ND CHOICE Last administered on 09/11/18 12:01; Start 09/10/18 at 12:30; Stop 09/11/18 at 12: 20; Status DC Lidocaine/Sodium Bicarbonate (Buffered Lidocaine 1%) 3 ml 1X ONCE INJ Last administered on 09/10/18 14:58; Start 09/10/18 at 14:30; Stop 09/10/18 at 14:31; Status DC Sodium Chloride 1,000 ml @ 1,000 mls/hr Q1H PRN IV hypotension; Start 09/11/18 at 07:05; Stop 09/11/18 at 13:04; Status DC Sodium Chloride 1,000 ml @ 400 mls/hr Q2H30M PRN IV PATENCY; Start 09/11/18 at 07:05; Stop 09/11/18 at 19:04; Status DC Info (PHARMACY MONITORING -- do not chart) 1 each PRN DAILY PRN MC SEE COMMENTS ; Start 09/11/18 at 07:15; Stop 09/13/18 at 07:24; Status DC Info (PHARMACY MONITORING -- do not chart) 1 each PRN DAILY PRN MC SEE COMMENTS ; Start 09/11/18 at 07:15; Status UNV Hydromorphone HCl (Dilaudid) 1 mg PRN Q4HRS PRN IVP SEVERE PAIN; Start 09/11/18 at 12:15; Stop 09/12/18 at 18:18; Status DC Diphenoxylate HCl/ Atropine (Lomotil) 1 tab TID PO Last administered on at 20:58; Start 09/11/18 at 12:30 Norepinephrine Bitartrate 250 ml @ 1.875 mls/ hr CONT PRN IV SEE I/O RECORD Last administered on 09/11/18at 14:41; Start 09/11/18 at 14:00; Stop 09/12/18 at 13: 53; Status DC Mirtazapine (Remeron) 7.5 mg QHS PO Last administered on 09/13/18at 20:58; Start 09/11/18 at 21:00 Albumin Human 100 ml @ 100 mls/hr 1X ONCE IV Last administered on 09/11/18at 14 :39; Start 09/11/18 at 14:30; Stop 09/11/18 at 15:29; Status DC Sodium Chloride 500 ml @ 500 mls/hr PRN Q1HR PRN IV ELEVATED BP, SEE COMMENTS Last administered on 09/11/18at 18:53; Start 09/11/18 at 16:45 Nitroglycerin (Nitro-Bid Oint) 1 inch 1X ONCE TP Last administered on at 22:27; Start 09/11/18 at 22:15; Stop 09/11/18 at 22:16; Status DC Sodium Chloride 1,000 ml @ 100 mls/hr Q10H IV ; Start 09/12/18 at 06:30; Stop at 06:37; Status DC Sodium Chloride 500 ml @ 500 mls/hr 1X ONCE IV Last administered on 09/12/18at 16:45; Start 09/12/18 at 16:45; Stop 09/12/18 at 17:44; Status DC Sodium Chloride 500 ml @ 500 mls/hr 1X ONCE IV Last administered on 09/12/18at 17:15; Start 09/12/18 at 17:15; Stop 09/12/18 at 18:14; Status DC Albumin Human 100 ml @ 100 mls/hr 1X ONCE IV Last administered on 09/12/18at 17 :22; Start 09/12/18 at 17:15; Stop 09/12/18 at 18:14; Status DC Acetaminophen/ Hydrocodone Bitart (Lortab 5/325) 1 tab 1X ONCE PO Last administered on 09/12/18at 18:23; Start 09/12/18 at 18:30; Stop 09/12/18 at 18:31; Status DC Atorvastatin Calcium (Lipitor) 40 mg QHS PO Last administered on 09/13/18at 20:58 ; Start 09/12/18 at 23:45 Sodium Chloride 1,000 ml @ 1,000 mls/hr Q1H PRN IV hypotension; Start 09/13/18 at 07:10; Stop 09/13/18 at 13:09; Status DC Sodium Chloride 1,000 ml @ 400 mls/hr Q2H30M PRN IV PATENCY; Start 09/13/18 at 07:10; Stop 09/13/18 at 19:09; Status DC Info (PHARMACY MONITORING -- do not chart) 1 each PRN DAILY PRN MC SEE COMMENTS ; Start 09/13/18 at 07:15; Status UNV Info (PHARMACY MONITORING -- do not chart) 1 each PRN DAILY PRN MC SEE COMMENTS ; Start 09/13/18 at 07:15 Tramadol HCl (Ultram) 50 mg PRN Q6HRS PRN PO MILD TO MODERATE PAIN Last administered on 09/13/18at 16:00; Start 09/13/18 at 12:45 Buspirone HCl (Buspar) 5 mg PRN TID PRN PO ANXIETY Last administered on at 17:34; Start 09/13/18 at 17:30 Active Scripts Active Aspirin Ec (Aspirin) 81 Mg Tablet. 81 Mg PO DAILYWBKFT 30 Days Lisinopril 10 Mg Tablet 10 Mg PO BID 30 Days Tizanidine Hcl 4 Mg Tablet 4 Mg PO PRN Q8HRS PRN 10 Days [place] 5-325 Tablet (Acetaminophen/Hydrocodone Bitart) 1 Each Tablet 1 Tab PO PRN Q6HRS 3 Days Lidocaine 1 Each Adh..patch 1 Patch TD DAILY MDD 1 Synthroid (Levothyroxine Sodium) 88 Mcg Tablet 88 Mcg PO DAILY06 MDD 1 Metoprolol Succinate ( Xl ) (Metoprolol Succinate) 25 Mg Tab.er.24h 25 Mg PO DAILY MDD 1 Reported Protonix (Pantoprazole Sodium) 20 Mg Tablet. 40 Mg PO DAILY Vitals/I & O Vital Sign - Last 24 Hours 09/13/18 09/13/18 09/13/18 09/13/18 11:00 11:10 11:49 15:00 Temp 97.8 98.2 97.8 98.2 Pulse 95 95 92 Resp 18 16 B/P (MAP) 154/66 (95) 154/66 143/59 (87) Pulse Ox 99 98 O2 Delivery Room Air Room Air Room Air 09/13/18 09/13/18 09/13/18 09/13/18 16:00 17:00 17:36 18:36 Resp 18 O2 Delivery Room Air Room Air Room Air Room Air 09/13/18 09/13/18 09/13/18 09/14/18 19:00 20:00 23:00 00:33 Temp 97.9 98.8 97.9 98.8 Pulse 90 95 Resp 20 20 18 B/P (MAP) 157/59 (91) 136/96 (109) Pulse Ox 98 96 96 O2 Delivery Room Air Room Air Room Air Room Air O2 Flow Rate 2.0 09/14/18 04:18 Temp 98.3 98.3 Pulse 99 Resp 20 B/P (MAP) 146/77 (100) Pulse Ox 97 O2 Delivery Room Air Intake and Output 09/13/18 09/13/18 09/14/18 14:59 22:59 06:59 Intake Total 200 ml 240 ml Output Total 300 ml 400 ml Balance -100 ml 240 ml -400 ml Nutrition Consultation Dietary Evaluation: Recommendations by RD: Increase Calorie Intake, Protein supplementation Comments: nepro tid Expected Outcomes/Goals: to meet > 50% est nutr needs via po intake Interpretation of weight loss: >1-2% in 1 week Malnutrition Findings: Body Fat Depletion (Non Severe: Mild Depletion Weight Status: Appropriate SHENA HERNANDEZ MD Sep 14, 2018 07:54
[2018-09-14] MEDS: METOPROLOL SUCC 24HR ER 25 MG TAB.ER.24H. PO SCH (08:20)
[2018-09-14] MEDS: NICOTINE 21MG PATCH. TD SCH (08:21)
[2018-09-14] MEDS: LIDOCAINE (700MG/PATCH) PATCH. TD SCH (08:21)
[2018-09-14] MEDS: ASPIRIN ENTERIC COATED 81 MG TABLET.DR. PO SCH (08:21)
[2018-09-14] MEDS: DIPHENOXYLATE/ATROPINE TABLET. PO SCH ×3 (08:21→20:36)
[2018-09-14] MEDS: HEPARIN for SUB-Q USE 5,000 UNIT/ML VIAL. SQ SCH ×2 (08:35→20:43)
[2018-09-14] MEDS: PROCHLORPERAZINE 10 MG/2 ML VIAL. IV PRN ×2 (10:44→18:18)
[2018-09-14 11:00] VITALS: BP 153/59
[2018-09-14] MEDS: traMADol 50 MG TABLET PO PRN (11:06)
--- NOTE | 2018-09-14 11:40 | PDOC ---
SUBJECTIVE ROS Stable , reports uop improved OBJECTIVE Vital Signs Vital Signs Date Time Temp Pulse Resp B/P (MAP) Pulse Ox O2 Delivery O2 Flow Rate FiO2 09/14/18 11:06 Room Air 09/14/18 08:20 90 147/68 09/14/18 07:00 98.5 16 94 98.5 09/14/18 00:33 2.0 I & 0 Intake and Output 09/14/18 06:59 Intake Total 440 ml Output Total 700 ml Balance -260 ml Intake Oral 440 ml Output Urine Total 200 ml Stool Total 100 ml Urine/Stool Mix 400 ml PHYSICAL EXAM Physical Exam General: NAD HEENT: OM moist Neck Supple Lungs: CTA, Non labored Heart: S1S2, RRR, no gallops, no murmurs Abdomen: Normal bowel sounds, Soft, ostomy + Extremities: No edema, Skin: No rashes, pigmentation under the breast Neuro: Grossly Normal No Lewis DIAGNOSIS/ASSESSMENT Assessment & Plan TIGRE on CKD- Renal US no e/o Obstructive etiology initiated HD 09/10, last on 09/13 (TTS schedule currently) If no renal recovery ,Perma cath for HD and SW Consult for OP chair time Access- Currently has temp catheter Hyperkalemia- Normal K CKD stage 3- TIGRE in DeC with Cr peaked at 6 Recovered to Cr 1.3-1.5 Bilat chest wall pain Hypertension- Was transferred to ICU for Low BP Stable currently Diarrhea - S/p colectomy with ileostomy Hepatic lesion Dw A/P Pt and RN at bedside COMMENT/RELEVANT DATA Meds Current Medications Medications (Trade) Dose Ordered Sig/Saroj Start Time Stop Time Status Last Admin Dose Admin Acetaminophen (Tylenol) 650 mg PRN Q6HRS PRN 09/09/18 09:00 09/13/18 12:42 650 MG Acetaminophen/ Hydrocodone Bitart (Lortab 5/325) 1 tab 1X ONCE 09/12/18 18:30 09/12/18 18:31 DC 09/12/18 18:23 1 TAB Albumin Human 100 ml @ 100 mls/hr 1X ONCE 09/12/18 17:15 09/12/18 18:14 DC 09/12/18 17:22 100 MLS/HR Albuterol Sulfate (Ventolin Neb Soln) 10 mg 1X ONCE 09/09/18 07:00 09/09/18 07:01 DC 09/09/18 07:00 10 MG Aspirin ([place] Aspirin) 325 mg 1X ONCE 09/09/18 05:30 09/09/18 05:31 DC 09/09/18 06:13 325 MG Aspirin (Ecotrin) 81 mg [id number] 09/09/18 10:00 09/14/18 08:21 81 MG Atorvastatin Calcium (Lipitor) 40 mg QHS 09/12/18 23:45 09/13/18 20:58 40 MG Bisacodyl (Dulcolax Supp) 10 mg PRN DAILY PRN 09/09/18 09:00 09/10/18 11:05 DC Buspirone HCl (Buspar) 5 mg PRN TID PRN 09/13/18 17:30 09/13/18 17:34 5 MG Calcium Gluconate (Calcium Gluconate) 1,000 mg 1X ONCE 09/09/18 07:00 09/09/18 07:01 DC 09/09/18 07:05 1,000 MG Dextrose (Dextrose 50%-Water Syringe) 25 gm 1X ONCE 09/09/18 07:00 09/09/18 07:01 DC 09/09/18 07:06 25 GM Diphenoxylate HCl/ Atropine (Lomotil) 1 tab TID 09/11/18 12:30 09/14/18 08:21 1 TAB Docusate Sodium (Colace) 100 mg BID 09/09/18 10:00 09/10/18 11:05 DC Famotidine (Pepcid Vial) 20 mg 1X ONCE 09/09/18 05:30 09/09/18 05:31 DC 09/09/18 06:12 20 MG Fentanyl Citrate (Fentanyl 2ml Vial) 25 mcg 1X ONCE 09/09/18 07:00 09/09/18 07:01 DC 09/09/18 07:06 25 MCG Heparin Sodium (Porcine) (Heparin Sodium) 5,000 unit Q12HR 09/09/18 10:00 09/14/18 08:35 5,000 UNIT Hydromorphone HCl (Dilaudid) 1 mg PRN Q4HRS PRN 09/11/18 12:15 09/12/18 18:18 DC Info (PHARMACY MONITORING -- do not chart) 1 each PRN DAILY PRN 09/13/18 07:15 Insulin Human Regular (HumuLIN R VIAL) 10 unit 1X ONCE 09/09/18 07:00 09/09/18 07:01 DC 09/09/18 07:12 10 UNIT Levothyroxine Sodium (Synthroid) 88 mcg DAILY06 09/09/18 10:00 09/14/18 05:31 88 MCG Lidocaine (Lidoderm) 1 patch DAILY 09/09/18 10:00 09/14/18 08:21 1 PATCH Lidocaine/Sodium Bicarbonate (Buffered Lidocaine 1%) 3 ml 1X ONCE 09/10/18 14:30 09/10/18 14:31 DC 09/10/18 14:58 4 ML Loperamide HCl (Imodium) 2 mg PRN QID PRN 09/09/18 12:00 09/10/18 14:12 2 MG Metoprolol Succinate (Toprol Xl) 25 mg DAILY 09/09/18 10:00 09/14/18 08:20 25 MG Mirtazapine (Remeron) 7.5 mg QHS 09/11/18 21:00 09/13/18 20:58 7.5 MG Nicotine (Nicoderm Cq 21mg) 1 patch DAILY 09/09/18 11:00 09/14/18 08:21 1 PATCH Nitroglycerin (Nitro-Bid Oint) 1 inch 1X ONCE 09/11/18 22:15 09/11/18 22:16 DC 09/11/18 22:27 1 INCH Norepinephrine Bitartrate 250 ml @ 1.875 mls/ hr CONT PRN 09/11/18 14:00 09/12/18 13:53 DC 09/11/18 14:41 9.375 MLS/HR Ondansetron HCl (Zofran) 4 mg PRN Q6HRS PRN 09/09/18 09:00 09/09/18 13:24 4 MG Pantoprazole Sodium (Protonix) 40 mg DAILYAC 09/09/18 10:00 09/14/18 05:31 40 MG Prochlorperazine Edisylate (Compazine) 5 mg PRN Q6HRS PRN 09/14/18 10:30 09/14/18 10:44 5 MG Sodium Polystyrene Sulfonate (Kayexalate) 30 gm 1X ONCE 09/09/18 07:00 09/09/18 07:01 DC 09/09/18 08:14 30 GM Sodium Bicarbonate (Sodium Bicarb Adult 8.4% Syr) 50 meq 1X ONCE 09/09/18 07:00 09/09/18 07:01 DC 09/09/18 07:06 50 MEQ Sodium Chloride 1,000 ml @ 400 mls/hr Q2H30M PRN 09/13/18 07:10 09/13/18 19:09 DC Sucralfate (Carafate) 1 gm TIDAC 09/10/18 11:30 09/14/18 11:06 1 GM Tizanidine HCl (Zanaflex) 4 mg PRN Q8HRS PRN 09/09/18 09:15 09/12/18 16:30 DC 09/12/18 15:37 4 MG Tramadol HCl (Ultram) 50 mg PRN Q6HRS PRN 09/13/18 12:45 09/14/18 11:06 50 MG Lab Laboratory Tests Test 09/13/18 14:50 09/14/18 05:00 Troponin I Quantitative 0.118 ng/mL (0.000-0.055) Sodium Level 140 mmol/L (136-145) Potassium Level 3.8 mmol/L (3.5-5.1) Chloride Level 101 mmol/L (98-107) Carbon Dioxide Level 27 mmol/L (21-32) Anion Gap 12 (6-14) Blood Urea Nitrogen 17 mg/dL (7-20) Creatinine 2.8 mg/dL (0.6-1.0) Estimated GFR (Cockcroft-Gault) 19.7 Glucose Level 88 mg/dL (70-99) Calcium Level 9.3 mg/dL (8.5-10.1) Phosphorus Level 2.6 mg/dL (2.6-4.7) Albumin 3.7 g/dL (3.4-5.0) Results All relevant outside records, renal labs, imaging studies, telemetry/EKG's were reviewed. SHERRY ALAN MD Sep 14, 2018 11:40
[2018-09-14 15:00] VITALS: BP 125/63
--- NOTE | 2018-09-14 16:47 | PDOC ---
GI PROGRESS NOTES Date Date/Time DATE: 09/14/18 TIME: 16:45 Subjective Subjective mild nausea but eating better. N further ostomy leak reported. had dialysis yesterday Objective Vitals Vital Signs Date Time Temp Pulse Resp B/P (MAP) Pulse Ox O2 Delivery O2 Flow Rate FiO2 09/14/18 16:39 Room Air 09/14/18 15:00 98.2 87 16 125/63 (83) 95 Room Air 98.2 09/14/18 12:06 Room Air 09/14/18 11:06 Room Air 09/14/18 11:00 97.7 82 16 153/59 (90) 97 97.7 09/14/18 09:21 Room Air 09/14/18 08:21 Room Air 09/14/18 08:20 90 147/68 09/14/18 08:00 Room Air 09/14/18 07:00 98.5 90 16 147/68 (94) 94 Room Air 98.5 09/14/18 04:18 98.3 99 20 146/77 (100) 97 Room Air 98.3 09/14/18 00:33 18 96 Room Air 2.0 09/13/18 23:00 98.8 95 20 136/96 (109) 96 Room Air 98.8 09/13/18 20:00 Room Air 09/13/18 19:00 97.9 90 20 157/59 (91) 98 Room Air 97.9 09/13/18 17:36 Room Air Labs Labs Laboratory Tests Test 09/14/18 05:00 Sodium Level 140 mmol/L (136-145) Potassium Level 3.8 mmol/L (3.5-5.1) Chloride Level 101 mmol/L (98-107) Carbon Dioxide Level 27 mmol/L (21-32) Anion Gap 12 (6-14) Blood Urea Nitrogen 17 mg/dL (7-20) Creatinine 2.8 mg/dL (0.6-1.0) Estimated GFR (Cockcroft-Gault) 19.7 Glucose Level 88 mg/dL (70-99) Calcium Level 9.3 mg/dL (8.5-10.1) Phosphorus Level 2.6 mg/dL (2.6-4.7) Albumin 3.7 g/dL (3.4-5.0) Physical Exam Physical Exam alert chest - clear abd- soft non tender ostomy in right abd Assessment Assessment Nausea- improved Dehydration and ARF- slowly improving High ostomy output- seems to be improving as well Plan- continue present treatment and monitor response CHEVY LEHMAN MD Sep 14, 2018 16:47
[2018-09-14 19:00] VITALS: BP 132/64
[2018-09-14] MEDS: MIRTAZAPINE 7.5 MG TABLET. PO SCH (20:36)
[2018-09-14] MEDS: ATORVASTATIN CALCIUM 40 MG TABLET. PO SCH (20:36)
[2018-09-14 23:00] VITALS: BP 152/70
[2018-09-15 03:00] VITALS: BP 157/68
[2018-09-15] MEDS: HYDROcodone/APAP 5/325MG 1 TAB TABLET PO PRN ×3 (04:19→22:20)
[2018-09-15] MEDS: LEVOTHYROXINE 88 MCG TABLET PO SCH (06:00)
[2018-09-15 06:43] LABS: ALBUMIN 3.5 g/dL (3.4-5.0); CALCIUM 9.5 mg/dL (8.5-10.1); CREATININE 2.9 mg/dL (0.6-1.0); GFR 18.9; PHOSPHORUS 2.7 mg/dL (2.6-4.7)
[2018-09-15 07:00] VITALS: BP 155/73
[2018-09-15] MEDS: SUCRALFATE 1 GM TABLET. PO SCH ×3 (07:30→15:50)
[2018-09-15] MEDS: PANTOPRAZOLE 40 MG TABLET.DR. PO SCH (07:30)
[2018-09-15] MEDS ORDERED: REGADENOSON 0.4 MG/5 ML DISP.SYRIN. IV ONE (08:00)
[2018-09-15] MEDS: DIPHENOXYLATE/ATROPINE TABLET. PO SCH ×2 (09:00→13:22)
--- NOTE | 2018-09-15 09:29 | PDOC ---
Subjective: Subjective: Says appetite is better and ostomy output has slowed. Objective: Objective: Reviewed w/ RN - to have MPI today. Vital Signs: Vital Signs Date Time Temp Pulse Resp B/P (MAP) Pulse Ox O2 Delivery O2 Flow Rate FiO2 09/15/18 08:00 Room Air 09/15/18 07:00 98.4 94 16 155/73 (100) 97 98.4 09/15/18 04:19 2.0 Labs: Laboratory Tests Test 09/15/18 04:30 Sodium Level 139 mmol/L Potassium Level 4.0 mmol/L Chloride Level 100 mmol/L Carbon Dioxide Level 25 mmol/L Anion Gap 14 Blood Urea Nitrogen 26 mg/dL Creatinine 2.9 mg/dL Estimated GFR (Cockcroft-Gault) 18.9 Glucose Level 96 mg/dL Calcium Level 9.5 mg/dL Phosphorus Level 2.7 mg/dL Albumin 3.5 g/dL BLOOD CULTURE Final NO GROWTH AFTER 5 DAYS PE: GEN: NAD LUNGS: CTAB HEART: RRR ABD: RLQ ostomy - minimal brown liquid with some soft stool at stoma NEURO/PSYCH: A & O 3 A/P: Atypical chest pain, HTN, elevated troponin CKD on HD Increased ostomy output - slowing -- Will back off on scheduled Lomotil - can adjust as needed. SHREE SAAVEDRA Sep 15, 2018 09:29
[2018-09-15] MEDS ORDERED: DIPHENOXYLATE/ATROPINE TABLET. PO PRN (09:30)
[2018-09-15 11:00] VITALS: BP 153/84
--- NOTE | 2018-09-15 11:45 | NUR ---
SW following pt. Spoke with Paty at [facility] intake and clinicals are sent to [facility] for possible T, Th, and Sat schedule at 0600. Pt chair time pending. Discussed with Liat at [facility]. Will continue to follow. Addendum: 09/15/18 at 1157 by XAVIER JUDD Pt also will need Permanent Cath placement before dc. RN notified.
--- NOTE | 2018-09-15 13:00 | PDOC ---
PROGRESS NOTES Chief Complaint Chief Complaint NEw HD ESRD GEn weakness - needsSNU Right and left chest wall pain - Most probably pleuritic in nature as it is worsened with deep breath pain is reproducible which is reassuring. Leukocytosis - uncertain source if there is an infection UC and BC are negative to date Anemia of chronic disease - stable Hepatitis C; outpatient GI f/u Tobacco abuse - discussed/encouraged cessation Hyperkalemia -currently resolved after dialysis TIGRE - continue dialysis as per sourcing consultant. Hypertension - will manage meds, hold nephrotoxic meds Hypothyroidism - Synthroid Diarrhea - loose bowels. Will monitor, check stool culture, c. diff S/p colectomy with ileostomy - recovered fairly well Metabolic acidosis - with gap, likely due to renal dysfunction Aortic atherosclerosis - noted on CT scan, likely has vascular disease elsewhere as well CAD; CT chest last week notable for coronary calcifications. Chronic narcotic use Major depression vs stress reaction to acute illness. Patient very tearful during my encounter during the day. Reassurance has been provided, pain has been addressed as well Insomnia History of Present Illness History of Present Illness She has no complaints to me She is now a new dialysis She initially was hesitant to go to SNU but after discussion she is agreeable She lives alone at home but with family nearby She has temporary dialysis catheter of the right subclavian We will need a tunneled dialysis catheter prior to discharge-social work on case along with renal Plan: Hopefully DC tomorrow to SNU with outpatient HD set up Will need tunneled dialysis catheter prior-we'll defer to renal EARLIER ENTRY by colleague: Ms. Ng was admitted for hyperkalemia, TIGRE, now likely on dialysis permanently. She is resting comfortably in her chair. Patient was transferred to the ICU due to hypotension, was put on levophed. Patient has been off levophed since last night. Transferred to floor. 09/13: HD cath placed per IR yesterday. C/o headache today, asking for fentanyl and dilaudid for this headache, advised tylenol is more appropriate Feeling headache is worse today. She is overall feeling a little short of breath , no CP, no BM recently. Has some nausea too Plan: She will need dialysis placement prior to d/c Compazine for nausea and headache Cardiac Myocardial Perfusion Imaging Stress Testing 09/15/18 prior to d/c to SNF SNF on d/c Tramadol, tylenol for headache in addition to compazine Vitals Vitals Vital Signs Date Time Temp Pulse Resp B/P (MAP) Pulse Ox O2 Delivery O2 Flow Rate FiO2 09/15/18 11:00 98.1 130 18 153/84 (107) 97 Room Air 98.1 09/15/18 04:19 2.0 Physical Exam General: Alert, Oriented X3, Cooperative, No acute distress Heart: Regular rate, No murmurs Lungs: Clear Abdomen: Normal bowel sounds, Soft, No tenderness, Other (LLQ ostomy clean dry) Extremities: No clubbing, No cyanosis, No edema, Normal pulses, No tenderness/ swelling Skin: No rashes, No breakdown, No significant lesion Labs LABS Laboratory Tests Test 09/15/18 04:30 Sodium Level 139 mmol/L (136-145) Potassium Level 4.0 mmol/L (3.5-5.1) Chloride Level 100 mmol/L (98-107) Carbon Dioxide Level 25 mmol/L (21-32) Anion Gap 14 (6-14) Blood Urea Nitrogen 26 mg/dL (7-20) Creatinine 2.9 mg/dL (0.6-1.0) Estimated GFR (Cockcroft-Gault) 18.9 Glucose Level 96 mg/dL (70-99) Calcium Level 9.5 mg/dL (8.5-10.1) Phosphorus Level 2.7 mg/dL (2.6-4.7) Albumin 3.5 g/dL (3.4-5.0) Review of Systems Review of Systems A 14 point ROS was completed with the following noted as positive: Other systems reviewed and negative. \CONSTITUTIONAL: No fever or chills EYES: No recent changes SKIN: No rash or itching CARDIOVASCULAR: No chest pain, syncope, palpitations, or edema RESPIRATORY: No SOB or cough GASTROINTESTINAL: No nausea, vomiting or abdominal pain NEUROLOGICAL: No headaches or weakness ENDOCRINE: No cold or heat intolerance GENITOURINARY: No urgency or frequency of urination MUSCULOSKELETAL: No back pain or joint pain LYMPHATICS: No enlarged lymph nodes PSYCHIATRIC: No anxiety or depression Assessment and Plan Assessmemt and Plan Problems Medical Problems: (1) Acute chest wall pain Status: Acute (2) Elevated lipase Status: Acute (3) Ileostomy in place Status: Acute Comment Review of Relevant I have reviewed the following items consuelo (where applicable) has been applied. Labs Laboratory Tests Test 09/13/18 14:50 09/14/18 05:00 09/15/18 04:30 Troponin I Quantitative 0.118 ng/mL (0.000-0.055) Sodium Level 140 mmol/L (136-145) 139 mmol/L (136-145) Potassium Level 3.8 mmol/L (3.5-5.1) 4.0 mmol/L (3.5-5.1) Chloride Level 101 mmol/L (98-107) 100 mmol/L (98-107) Carbon Dioxide Level 27 mmol/L (21-32) 25 mmol/L (21-32) Anion Gap 12 (6-14) 14 (6-14) Blood Urea Nitrogen 17 mg/dL (7-20) 26 mg/dL (7-20) Creatinine 2.8 mg/dL (0.6-1.0) 2.9 mg/dL (0.6-1.0) Estimated GFR (Cockcroft-Gault) 19.7 18.9 Glucose Level 88 mg/dL (70-99) 96 mg/dL (70-99) Calcium Level 9.3 mg/dL (8.5-10.1) 9.5 mg/dL (8.5-10.1) Phosphorus Level 2.6 mg/dL (2.6-4.7) 2.7 mg/dL (2.6-4.7) Albumin 3.7 g/dL (3.4-5.0) 3.5 g/dL (3.4-5.0) Laboratory Tests Test 09/15/18 04:30 Sodium Level 139 mmol/L (136-145) Potassium Level 4.0 mmol/L (3.5-5.1) Chloride Level 100 mmol/L (98-107) Carbon Dioxide Level 25 mmol/L (21-32) Anion Gap 14 (6-14) Blood Urea Nitrogen 26 mg/dL (7-20) Creatinine 2.9 mg/dL (0.6-1.0) Estimated GFR (Cockcroft-Gault) 18.9 Glucose Level 96 mg/dL (70-99) Calcium Level 9.5 mg/dL (8.5-10.1) Phosphorus Level 2.7 mg/dL (2.6-4.7) Albumin 3.5 g/dL (3.4-5.0) Microbiology 09/09/18 Blood Culture - Final, Complete NO GROWTH AFTER 5 DAYS 09/09/18 Urine Culture - Final, Complete 09/09/18 Urine Culture Result 1 (MARCY) - Final, Complete Medications Current Medications Aspirin ([place] Aspirin) 325 mg 1X ONCE PO Last administered on 09/09/18 06:13 ; Start 09/09/18 at 05:30; Stop 09/09/18 at 05:31; Status DC Fentanyl Citrate (Fentanyl 2ml Vial) 25 mcg 1X ONCE IV Last administered on 09/09/18at 06:12; Start 09/09/18 at 05:30; Stop 09/09/18 at 05:31; Status DC Ondansetron HCl (Zofran) 4 mg 1X ONCE IV Last administered on 09/09/18 06:12; Start 09/09/18 at 05:30; Stop 09/09/18 at 05:31; Status DC Famotidine (Pepcid Vial) 20 mg 1X ONCE IVP Last administered on 09/09/18at 06:12 ; Start 09/09/18 at 05:30; Stop 09/09/18 at 05:31; Status DC Sodium Chloride 500 ml @ 500 mls/hr 1X ONCE IV Last administered on 09/09/18at 06:28; Start 09/09/18 at 07:00; Stop 09/09/18 at 07:59; Status DC Albuterol Sulfate (Ventolin Neb Soln) 10 mg 1X ONCE CONT NEB Last administered on 09/09/18at 07:00; Start 09/09/18 at 07:00; Stop 09/09/18 at 07:01; Status DC Dextrose (Dextrose 50%-Water Syringe) 25 gm 1X ONCE IV Last administered on 07:06; Start 09/09/18 at 07:00; Stop 09/09/18 at 07:01; Status DC Insulin Human Regular (HumuLIN R VIAL) 10 unit 1X ONCE IV Last administered on 09/09/18 07:12; Start 09/09/18 at 07:00; Stop 09/09/18 at 07:01; Status DC Sodium Bicarbonate (Sodium Bicarb Adult 8.4% Syr) 50 meq 1X ONCE IV Last administered on 09/09/18at 07:06; Start 09/09/18 at 07:00; Stop 09/09/18 at 07:01; Status DC Calcium Gluconate (Calcium Gluconate) 1,000 mg 1X ONCE IVP Last administered on 09/09/18 07:05; Start 09/09/18 at 07:00; Stop 09/09/18 at 07:01; Status DC Sodium Polystyrene Sulfonate (Kayexalate) 30 gm 1X ONCE PO Last administered on 09/09/18 08:14; Start 09/09/18 at 07:00; Stop 09/09/18 at 07:01; Status DC Sodium Chloride 1,000 ml @ 1,000 mls/hr 1X ONCE IV Last administered on 08:14; Start 09/09/18 at 07:00; Stop 09/09/18 at 07:59; Status DC Fentanyl Citrate (Fentanyl 2ml Vial) 25 mcg 1X ONCE IV Last administered on 07:06; Start 09/09/18 at 07:00; Stop 09/09/18 at 07:01; Status DC Sodium Chloride 1,000 ml @ 150 mls/hr Q6H40M IV Last administered on 09/09/18 09:33; Start 09/09/18 at 07:11; Stop 09/09/18 at 16:21; Status DC Aspirin (Ecotrin) 81 mg DAILYWBKFT PO Last administered on 09/14/18 08:21; Start 09/09/18 at 10:00 Acetaminophen/ Hydrocodone Bitart (Lortab 5/325) 1 tab PRN Q6HRS PRN PO SEVERE PAIN Last administered on 09/15/18 04:19; Start 09/09/18 at 09:00 Levothyroxine Sodium (Synthroid) 88 mcg DAILY06 PO Last administered on 05:31; Start 09/09/18 at 10:00 Metoprolol Succinate (Toprol Xl) 25 mg DAILY PO Last administered on 09/14/18 08:20; Start 09/09/18 at 10:00 Lidocaine (Lidoderm) 1 patch DAILY TD Last administered on 09/14/18 08:21; Start 09/09/18 at 10:00 Pantoprazole Sodium (Protonix) 40 mg DAILYAC PO Last administered on 3/10/19at 05:31; Start 09/09/18 at 10:00 Tizanidine HCl (Zanaflex) 4 mg PRN Q8HRS PRN PO MUSCLE SPASMS Last administered on 09/12/18 15:37; Start 09/09/18 at 09:15; Stop 09/12/18 at 16:30; Status DC Sodium Chloride 1,000 ml @ 100 mls/hr Q10H IV Last administered on 09/09/18 09 :33; Start 09/09/18 at 08:54; Stop 09/09/18 at 18:53; Status DC Ondansetron HCl (Zofran) 4 mg PRN Q6HRS PRN IV NAUSEA/VOMITING Last administered on 09/09/18 13:24; Start 09/09/18 at 09:00 Hydromorphone HCl (Dilaudid) 0.5 mg PRN Q3HRS PRN IV PAIN Last administered on 09/09/18 13:25; Start 09/09/18 at 09:00; Stop 09/09/18 at 16:23; Status DC Acetaminophen (Tylenol) 650 mg PRN Q6HRS PRN PO Headaches, Temp > 101.5F Last administered on 09/13/18 12:42; Start 09/09/18 at 09:00 Docusate Sodium (Colace) 100 mg BID PO ; Start 09/09/18 at 10:00; Stop 09/10/18 at 11:05; Status DC Bisacodyl (Dulcolax Supp) 10 mg PRN DAILY PRN CO CONSTIPATION; Start 09/09/18 at 09:00; Stop 09/10/18 at 11:05; Status DC Heparin Sodium (Porcine) (Heparin Sodium) 5,000 unit Q12HR SQ Last administered on 09/14/18 20:43; Start 09/09/18 at 10:00 Nicotine (Nicoderm Cq 21mg) 1 patch DAILY TD Last administered on 09/14/18 08: 21; Start 09/09/18 at 11:00 Loperamide HCl (Imodium) 2 mg PRN QID PRN PO DIARRHEA 1ST CHOICE Last administered on 09/10/18 14:12; Start 09/09/18 at 12:00 Hydromorphone HCl (Dilaudid) 1 mg PRN Q4HRS PRN IVP PAIN Last administered on 05:43; Start 09/09/18 at 14:30; Stop 09/10/18 at 07:51; Status DC Sucralfate (Carafate) 1 gm TIDAC PO Last administered on 09/14/18at 16:39; Start 09/10/18 at 11:30 Diphenoxylate HCl/ Atropine (Lomotil) 1 tab PRN BID PRN PO DIARRHEA 2ND CHOICE Last administered on 09/11/18 12:01; Start 09/10/18 at 12:30; Stop 09/11/18 at 12: 20; Status DC Lidocaine/Sodium Bicarbonate (Buffered Lidocaine 1%) 3 ml 1X ONCE INJ Last administered on 09/10/18 14:58; Start 09/10/18 at 14:30; Stop 09/10/18 at 14:31; Status DC Sodium Chloride 1,000 ml @ 1,000 mls/hr Q1H PRN IV hypotension; Start 09/11/18 at 07:05; Stop 09/11/18 at 13:04; Status DC Sodium Chloride 1,000 ml @ 400 mls/hr Q2H30M PRN IV PATENCY; Start 09/11/18 at 07:05; Stop 09/11/18 at 19:04; Status DC Info (PHARMACY MONITORING -- do not chart) 1 each PRN DAILY PRN MC SEE COMMENTS ; Start 09/11/18 at 07:15; Stop 09/13/18 at 07:24; Status DC Info (PHARMACY MONITORING -- do not chart) 1 each PRN DAILY PRN MC SEE COMMENTS ; Start 09/11/18 at 07:15; Status UNV Hydromorphone HCl (Dilaudid) 1 mg PRN Q4HRS PRN IVP SEVERE PAIN; Start 09/11/18 at 12:15; Stop 09/12/18 at 18:18; Status DC Diphenoxylate HCl/ Atropine (Lomotil) 1 tab TID PO Last administered on at 20:36; Start 09/11/18 at 12:30; Stop 09/15/18 at 09:30; Status DC Norepinephrine Bitartrate 250 ml @ 1.875 mls/ hr CONT PRN IV SEE I/O RECORD Last administered on 3/7/19at 14:41; Start 09/11/18 at 14:00; Stop 09/12/18 at 13: 53; Status DC Mirtazapine (Remeron) 7.5 mg QHS PO Last administered on 09/14/18 20:36; Start 09/11/18 at 21:00 Albumin Human 100 ml @ 100 mls/hr 1X ONCE IV Last administered on 09/11/18 14 :39; Start 09/11/18 at 14:30; Stop 09/11/18 at 15:29; Status DC Sodium Chloride 500 ml @ 500 mls/hr PRN Q1HR PRN IV ELEVATED BP, SEE COMMENTS Last administered on 09/11/18 18:53; Start 09/11/18 at 16:45 Nitroglycerin (Nitro-Bid Oint) 1 inch 1X ONCE TP Last administered on 22:27; Start 09/11/18 at 22:15; Stop 09/11/18 at 22:16; Status DC Sodium Chloride 1,000 ml @ 100 mls/hr Q10H IV ; Start 09/12/18 at 06:30; Stop at 06:37; Status DC Sodium Chloride 500 ml @ 500 mls/hr 1X ONCE IV Last administered on 09/12/18 16:45; Start 09/12/18 at 16:45; Stop 09/12/18 at 17:44; Status DC Sodium Chloride 500 ml @ 500 mls/hr 1X ONCE IV Last administered on 09/12/18 17:15; Start 09/12/18 at 17:15; Stop 09/12/18 at 18:14; Status DC Albumin Human 100 ml @ 100 mls/hr 1X ONCE IV Last administered on 09/12/18 17 :22; Start 09/12/18 at 17:15; Stop 09/12/18 at 18:14; Status DC Acetaminophen/ Hydrocodone Bitart (Lortab 5/325) 1 tab 1X ONCE PO Last administered on 09/12/18 18:23; Start 09/12/18 at 18:30; Stop 09/12/18 at 18:31; Status DC Atorvastatin Calcium (Lipitor) 40 mg QHS PO Last administered on 09/14/18 20: 36; Start 09/12/18 at 23:45 Sodium Chloride 1,000 ml @ 1,000 mls/hr Q1H PRN IV hypotension; Start 09/13/18 at 07:10; Stop 09/13/18 at 13:09; Status DC Sodium Chloride 1,000 ml @ 400 mls/hr Q2H30M PRN IV PATENCY; Start 09/13/18 at 07:10; Stop 09/13/18 at 19:09; Status DC Info (PHARMACY MONITORING -- do not chart) 1 each PRN DAILY PRN MC SEE COMMENTS ; Start 09/13/18 at 07:15; Status UNV Info (PHARMACY MONITORING -- do not chart) 1 each PRN DAILY PRN MC SEE COMMENTS ; Start 09/13/18 at 07:15 Tramadol HCl (Ultram) 50 mg PRN Q6HRS PRN PO MILD TO MODERATE PAIN Last administered on 09/14/18at 11:06; Start 09/13/18 at 12:45 Buspirone HCl (Buspar) 5 mg PRN TID PRN PO ANXIETY Last administered on at 17:34; Start 09/13/18 at 17:30 Prochlorperazine Edisylate (Compazine) 5 mg PRN Q6HRS PRN IV Headache/Nausea Last administered on 09/14/18at 18:18; Start 09/14/18 at 10:30 Regadenoson (Lexiscan) 0.4 mg 1X ONCE IV Last administered on 09/15/18at 10:12 ; Start 09/15/18 at 08:00; Stop 09/15/18 at 08:01; Status DC Diphenoxylate HCl/ Atropine (Lomotil) 1 tab DAILY PO ; Start 09/15/18 at 10:30 Diphenoxylate HCl/ Atropine (Lomotil) 1 tab PRN BID PRN PO DIARRHEA 2ND CHOICE ; Start 09/15/18 at 09:30 Active Scripts Active Aspirin Ec (Aspirin) 81 Mg Tablet.dr 81 Mg PO DAILYWBKFT 30 Days Lisinopril 10 Mg Tablet 10 Mg PO BID 30 Days Tizanidine Hcl 4 Mg Tablet 4 Mg PO PRN Q8HRS PRN 10 Days [place] 5-325 Tablet (Acetaminophen/Hydrocodone Bitart) 1 Each Tablet 1 Tab PO PRN Q6HRS 3 Days Lidocaine 1 Each Adh..patch 1 Patch TD DAILY MDD 1 Synthroid (Levothyroxine Sodium) 88 Mcg Tablet 88 Mcg PO DAILY06 MDD 1 Metoprolol Succinate ( Xl ) (Metoprolol Succinate) 25 Mg Tab.er.24h 25 Mg PO DAILY MDD 1 Reported Protonix (Pantoprazole Sodium) 20 Mg Tablet.dr 40 Mg PO DAILY Vitals/I & O Vital Sign - Last 24 Hours 09/14/18 09/14/18 09/14/18 09/14/18 15:00 16:39 19:00 20:00 Temp 98.2 98.0 98.2 98.0 Pulse 87 89 Resp 16 20 B/P (MAP) 125/63 (83) 132/64 (86) Pulse Ox 95 92 O2 Delivery Room Air Room Air Room Air Room Air 09/14/18 09/15/18 09/15/18 09/15/18 23:00 03:00 04:19 05:19 Temp 98.8 98.1 98.8 98.1 Pulse 98 99 Resp 20 20 20 B/P (MAP) 152/70 (97) 157/68 (97) Pulse Ox 95 97 97 O2 Delivery Room Air Room Air Room Air Room Air O2 Flow Rate 2.0 09/15/18 09/15/18 09/15/18 07:00 08:00 11:00 Temp 98.4 98.1 98.4 98.1 Pulse 94 130 Resp 16 18 B/P (MAP) 155/73 (100) 153/84 (107) Pulse Ox 97 97 O2 Delivery Room Air Room Air Room Air Intake and Output 09/14/18 09/14/18 09/15/18 15:00 23:00 07:00 Intake Total 240 ml Output Total 400 ml 200 ml Balance -160 ml -200 ml Nutrition Consultation Dietary Evaluation: Recommendations by RD: Increase Calorie Intake, Protein supplementation Comments: nepro tid Expected Outcomes/Goals: to meet > 50% est nutr needs via po intake Interpretation of weight loss: >1-2% in 1 week Malnutrition Findings: Body Fat Depletion (Non Severe: Mild Depletion Weight Status: Appropriate GERDA DE LEÓN MD Sep 15, 2018 13:00
--- NOTE | 2018-09-15 13:07 | RAD ---
MR#: [id number] Date of Study: 09/15/2018 Ordering Physician: URIEL DELGADO, Referring Physician: IVAN ZAMORA Tech: AYDIN Boss APPROVED REPORT Test Type: Pharmacological Stress Nurse/Tech: Mattie Haas RN Test Indications: elevated troponin, chest pain Cardiac History: Hypertension,COPD, smoker, dialysis,stroke Medications: See Electronic Medical Record Medical History: See Electronic Medical Record Resting ECG: SR Resting Heart Rate: 92 bpm Resting Blood Pressure: 167/74mmHg Pretest Chest Pain: Atypical angina Nurse/Tech Notes S1,S2 and lungs are diminished in the bases. Consent: The procedure was explained to the patient in lay terms. Informed consent was witnessed. Morro eout was entered into [employer]. History and Stress Test performed by AYDIN Boss Pharm. Details Pharmacologic stress testing was performed using 0.4mg per 5ml of regadenoson given intravenously ove r 7-10 seconds. Stress Symptoms Chest discomfort POST EXERCISE Reason for Termination: Infusion complete Target HR: Yes Max HR: 134 bpm Max Blood Pressure: 177/81mmHg Blood Pressure response to exercise: Normal blood pressure response during stress. Heart Rate response to exercise: Abnormal Chest Pain: Yes. Patient stated she had chest discomfort throughout test. Arrhythmia: Yes. PVC's ST Change: Yes. non-specific INTERPRETATION Stress EKG Conclusion: No evidence of stress induced EKG changes. Imaging Protocol IMAGE PROTOCOL: Rest Tc-99m/stress Tc-99m 1 day Rest: Stress: Viability: Radiopharm.Tc99m [id number] Sestamibi Dose10.5mCi 33mCi Duration 16min. 13min. Img Date 09/15/2018 09/15/2018 Inj-Img [id number]. 60min. Rest Admin Site:IV - Right AntecubitalAdministrator:AYDIN Boss Stress Admin Site: IV - Right AntecubitalAdministrator: IVAN ByersTCB, ARRT (R)(N) STRESS DATA End Diast. Vol.41.0mlLVEDV index BSA25.0ml End Syst. Vol.15.0mlLVESV index BSA9.0ml Myocardial Mass86.0gEject. Oehjmhul14.0% Stress Scores Regional WT3.00Summed WT36.00 Regional WM2.00Summed WM24.00 The rest and stress images show normal perfusion, normal contraction and thickening. LV Perf. Quant 17 Seg. SSS0.00 17 Seg. SRS3.00 17 Seg. SDS0.00 Stress Defect Extent (% LAD)0.00Rest Defect Extent (% LAD)0.00Rev. Defect Extent (% LAD)0.00 Stress Defect Extent (% LCX) 0.00Rest Defect Extent (% LCX)7.50Rev. Defect Extent (% LCX)0.00 Stress Defect Extent (% RCA)0.00Rest Defect Extent (% RCA)0.00Rev. Defect Extent (% RCA)0.00 Stress Defect Extent (% GENARO)0.00Rest Defect Extent (% GENARO)1.30Rev. Defect Extent (% GENARO)0.00 Other Information Quality:Good Risk Assessment: Low Risk Conclusion 1. No evidence of stress induced EKG changes. 2. Normal perfusion at stress/rest 3. Normal EF at > 60% 4. Low risk study Signed by : Uriel Delgado, Electronically Approved : 09/15/2018 13:06:40
[2018-09-15] MEDS: ASPIRIN ENTERIC COATED 81 MG TABLET.DR. PO SCH (13:22)
[2018-09-15] MEDS: traMADol 50 MG TABLET PO PRN ×2 (13:22→20:14)
[2018-09-15] MEDS: NICOTINE 21MG PATCH. TD SCH (13:23)
[2018-09-15] MEDS: METOPROLOL SUCC 24HR ER 25 MG TAB.ER.24H. PO SCH (13:23)
[2018-09-15] MEDS: LIDOCAINE (700MG/PATCH) PATCH. TD SCH (13:23)
[2018-09-15] MEDS: HEPARIN for SUB-Q USE 5,000 UNIT/ML VIAL. SQ SCH ×2 (13:30→20:19)
[2018-09-15 15:00] VITALS: BP 143/78
--- NOTE | 2018-09-15 15:36 | PDOC ---
Renal-Progress Notes Subjective Notes Notes NONE History of Present Illness Hx of present illness STABLE Vitals Vitals Vital Signs Date Time Temp Pulse Resp B/P (MAP) Pulse Ox O2 Delivery O2 Flow Rate FiO2 09/15/18 13:23 130 153/84 09/15/18 13:22 Room Air 09/15/18 11:00 98.1 18 97 98.1 09/15/18 04:19 2.0 Weight Weight [ ] I.O. Intake and Output Intake and Output 09/15/18 06:59 Intake Total 240 ml Output Total 600 ml Balance -360 ml Intake Oral 240 ml Output Urine Total 0 ml Stool Total 600 ml # Voids 1 Labs Labs Laboratory Tests Test 09/15/18 04:30 Sodium Level 139 mmol/L (136-145) Potassium Level 4.0 mmol/L (3.5-5.1) Chloride Level 100 mmol/L (98-107) Carbon Dioxide Level 25 mmol/L (21-32) Anion Gap 14 (6-14) Blood Urea Nitrogen 26 mg/dL (7-20) Creatinine 2.9 mg/dL (0.6-1.0) Estimated GFR (Cockcroft-Gault) 18.9 Glucose Level 96 mg/dL (70-99) Calcium Level 9.5 mg/dL (8.5-10.1) Phosphorus Level 2.7 mg/dL (2.6-4.7) Albumin 3.5 g/dL (3.4-5.0) Micro Micro Microbiology 09/09/18 Blood Culture - Final, Complete NO GROWTH AFTER 5 DAYS 09/09/18 Urine Culture - Final, Complete 09/09/18 Urine Culture Result 1 (MARCY) - Final, Complete Review of Systems Constitutional: yes: alert, oriented Ears/Nose/Throat: Yes: no symptom reported Eyes: Yes: no symptom reported Pulmonary: Yes no symptom reported Cardiovascular: Yes no symptom reported Gastrointestional: Yes: no symptom reported Genitourinary: Yes: no symptom reported Musculoskeletal: Yes: no symptom reported Skin: Yes no symptom reported Psychiatric/Neurological: Yes: no symptom reported Endocrine: Yes: unexplained weight gain Physical Exam Skin: warm Respiratory: bilateral CTA Heart: S1S2 Abdomen: soft, bowel sounds present Genitourinary: bladder flat Extremities: pulses present Neurology: alert Musculoskeletal: Osteoarthritis Assessment Assessment IMP TIGRE-NOT ENOUGH CLEARANCE-HD STARTED ON 09/10 CKD STAGE 3-BASELINE CR OF 1.6 HYPERKALEMIA-RESOLVED DIARRHEA - OSTOMY PLAN HD TOMORROW WILL HAVE IR PLACE TUNNELED HD CATHETER IN ANTICIPATION OF NEEDING OP HD FOR A BIT EXPECT SHE WILL RECOVER FROM TIGRE IN TIME SW SETTING UP OP HD SNU SOON MICHEAL PALACIOS MD Sep 15, 2018 15:36
[2018-09-15] MEDS: PROCHLORPERAZINE 10 MG/2 ML VIAL. IV PRN (15:57)
--- NOTE | 2018-09-15 16:17 | PDOC ---
PROGRESS NOTES Subjective Subjective Patient seen and examined The patient is feeling better today. Objective Objective Vital Signs Date Time Temp Pulse Resp B/P (MAP) Pulse Ox O2 Delivery O2 Flow Rate FiO2 09/15/18 15:50 Room Air 09/15/18 15:00 98.1 126 20 143/78 (99) 98 98.1 09/15/18 04:19 2.0 Intake and Output 09/15/18 07:00 Intake Total 240 ml Output Total 600 ml Balance -360 ml Intake Oral 240 ml Output Urine Total 0 ml Stool Total 600 ml # Voids 1 Physical Exam Abdomen: Normal bowel sounds Heart: Regular rate General: mild distress Lungs: Other (slightly decreased breath sounds) Assessment Assessment Problems Medical Problems: (1) Acute chest wall pain Status: Acute (2) Elevated lipase Status: Acute (3) Ileostomy in place Status: Acute 1. Elevated troponin and atypical chest pain in the setting of HD. Doing better today. Continue present medications. MPI testing pending. 2. HTN. Improved control. Will adjust medications as needed. Comment Review of Relevant I have reviewed the following items consuelo (where applicable) has been applied. Labs Laboratory Tests Test 09/14/18 05:00 09/15/18 04:30 Sodium Level 140 mmol/L (136-145) 139 mmol/L (136-145) Potassium Level 3.8 mmol/L (3.5-5.1) 4.0 mmol/L (3.5-5.1) Chloride Level 101 mmol/L (98-107) 100 mmol/L (98-107) Carbon Dioxide Level 27 mmol/L (21-32) 25 mmol/L (21-32) Anion Gap 12 (6-14) 14 (6-14) Blood Urea Nitrogen 17 mg/dL (7-20) 26 mg/dL (7-20) Creatinine 2.8 mg/dL (0.6-1.0) 2.9 mg/dL (0.6-1.0) Estimated GFR (Cockcroft-Gault) 19.7 18.9 Glucose Level 88 mg/dL (70-99) 96 mg/dL (70-99) Calcium Level 9.3 mg/dL (8.5-10.1) 9.5 mg/dL (8.5-10.1) Phosphorus Level 2.6 mg/dL (2.6-4.7) 2.7 mg/dL (2.6-4.7) Albumin 3.7 g/dL (3.4-5.0) 3.5 g/dL (3.4-5.0) Laboratory Tests Test 09/15/18 04:30 Sodium Level 139 mmol/L (136-145) Potassium Level 4.0 mmol/L (3.5-5.1) Chloride Level 100 mmol/L (98-107) Carbon Dioxide Level 25 mmol/L (21-32) Anion Gap 14 (6-14) Blood Urea Nitrogen 26 mg/dL (7-20) Creatinine 2.9 mg/dL (0.6-1.0) Estimated GFR (Cockcroft-Gault) 18.9 Glucose Level 96 mg/dL (70-99) Calcium Level 9.5 mg/dL (8.5-10.1) Phosphorus Level 2.7 mg/dL (2.6-4.7) Albumin 3.5 g/dL (3.4-5.0) Microbiology 09/09/18 Blood Culture - Final, Complete NO GROWTH AFTER 5 DAYS 09/09/18 Urine Culture - Final, Complete 09/09/18 Urine Culture Result 1 (MARCY) - Final, Complete Medications Current Medications Aspirin ([place] Aspirin) 325 mg 1X ONCE PO Last administered on 09/09/18at 06:13 ; Start 09/09/18 at 05:30; Stop 09/09/18 at 05:31; Status DC Fentanyl Citrate (Fentanyl 2ml Vial) 25 mcg 1X ONCE IV Last administered on 09/09/18at 06:12; Start 09/09/18 at 05:30; Stop 09/09/18 at 05:31; Status DC Ondansetron HCl (Zofran) 4 mg 1X ONCE IV Last administered on 09/09/18at 06:12; Start 09/09/18 at 05:30; Stop 09/09/18 at 05:31; Status DC Famotidine (Pepcid Vial) 20 mg 1X ONCE IVP Last administered on 09/09/18at 06:12 ; Start 09/09/18 at 05:30; Stop 09/09/18 at 05:31; Status DC Sodium Chloride 500 ml @ 500 mls/hr 1X ONCE IV Last administered on 09/09/18at 06:28; Start 09/09/18 at 07:00; Stop 09/09/18 at 07:59; Status DC Albuterol Sulfate (Ventolin Neb Soln) 10 mg 1X ONCE CONT NEB Last administered on 09/09/18at 07:00; Start 09/09/18 at 07:00; Stop 09/09/18 at 07:01; Status DC Dextrose (Dextrose 50%-Water Syringe) 25 gm 1X ONCE IV Last administered on 09/09/18at 07:06; Start 09/09/18 at 07:00; Stop 09/09/18 at 07:01; Status DC Insulin Human Regular (HumuLIN R VIAL) 10 unit 1X ONCE IV Last administered on 09/09/18at 07:12; Start 09/09/18 at 07:00; Stop 09/09/18 at 07:01; Status DC Sodium Bicarbonate (Sodium Bicarb Adult 8.4% Syr) 50 meq 1X ONCE IV Last administered on 09/09/18at 07:06; Start 09/09/18 at 07:00; Stop 09/09/18 at 07:01; Status DC Calcium Gluconate (Calcium Gluconate) 1,000 mg 1X ONCE IVP Last administered on 09/09/18at 07:05; Start 09/09/18 at 07:00; Stop 09/09/18 at 07:01; Status DC Sodium Polystyrene Sulfonate (Kayexalate) 30 gm 1X ONCE PO Last administered on 09/09/18at 08:14; Start 09/09/18 at 07:00; Stop 09/09/18 at 07:01; Status DC Sodium Chloride 1,000 ml @ 1,000 mls/hr 1X ONCE IV Last administered on at 08:14; Start 09/09/18 at 07:00; Stop 09/09/18 at 07:59; Status DC Fentanyl Citrate (Fentanyl 2ml Vial) 25 mcg 1X ONCE IV Last administered on 09/09/18at 07:06; Start 09/09/18 at 07:00; Stop 09/09/18 at 07:01; Status DC Sodium Chloride 1,000 ml @ 150 mls/hr Q6H40M IV Last administered on 09/09/18at 09:33; Start 09/09/18 at 07:11; Stop 09/09/18 at 16:21; Status DC Aspirin (Ecotrin) 81 mg DAILYWBKFT PO Last administered on 09/15/18 13:22; Start 09/09/18 at 10:00 Acetaminophen/ Hydrocodone Bitart (Lortab 5/325) 1 tab PRN Q6HRS PRN PO SEVERE PAIN Last administered on 09/15/18 15:50; Start 09/09/18 at 09:00 Levothyroxine Sodium (Synthroid) 88 mcg DAILY06 PO Last administered on 05:31; Start 09/09/18 at 10:00 Metoprolol Succinate (Toprol Xl) 25 mg DAILY PO Last administered on 09/15/18 13:23; Start 09/09/18 at 10:00 Lidocaine (Lidoderm) 1 patch DAILY TD Last administered on 09/15/18 13:23; Start 09/09/18 at 10:00 Pantoprazole Sodium (Protonix) 40 mg DAILYAC PO Last administered on 09/14/18 05:31; Start 09/09/18 at 10:00 Tizanidine HCl (Zanaflex) 4 mg PRN Q8HRS PRN PO MUSCLE SPASMS Last administered on 09/12/18 15:37; Start 09/09/18 at 09:15; Stop 09/12/18 at 16:30; Status DC Sodium Chloride 1,000 ml @ 100 mls/hr Q10H IV Last administered on 09/09/18 09 :33; Start 09/09/18 at 08:54; Stop 09/09/18 at 18:53; Status DC Ondansetron HCl (Zofran) 4 mg PRN Q6HRS PRN IV NAUSEA/VOMITING Last administered on 09/09/18 13:24; Start 09/09/18 at 09:00 Hydromorphone HCl (Dilaudid) 0.5 mg PRN Q3HRS PRN IV PAIN Last administered on 09/09/18 13:25; Start 09/09/18 at 09:00; Stop 09/09/18 at 16:23; Status DC Acetaminophen (Tylenol) 650 mg PRN Q6HRS PRN PO Headaches, Temp > 101.5F Last administered on 09/13/18 12:42; Start 09/09/18 at 09:00 Docusate Sodium (Colace) 100 mg BID PO ; Start 09/09/18 at 10:00; Stop 09/10/18 at 11:05; Status DC Bisacodyl (Dulcolax Supp) 10 mg PRN DAILY PRN GA CONSTIPATION; Start 09/09/18 at 09:00; Stop 09/10/18 at 11:05; Status DC Heparin Sodium (Porcine) (Heparin Sodium) 5,000 unit Q12HR SQ Last administered on 09/15/18 13:30; Start 09/09/18 at 10:00 Nicotine (Nicoderm Cq 21mg) 1 patch DAILY TD Last administered on 09/15/18 13: 23; Start 09/09/18 at 11:00 Loperamide HCl (Imodium) 2 mg PRN QID PRN PO DIARRHEA 1ST CHOICE Last administered on 09/10/18 14:12; Start 09/09/18 at 12:00 Hydromorphone HCl (Dilaudid) 1 mg PRN Q4HRS PRN IVP PAIN Last administered on 05:43; Start 09/09/18 at 14:30; Stop 09/10/18 at 07:51; Status DC Sucralfate (Carafate) 1 gm TIDAC PO Last administered on 09/15/18 15:50; Start 09/10/18 at 11:30 Diphenoxylate HCl/ Atropine (Lomotil) 1 tab PRN BID PRN PO DIARRHEA 2ND CHOICE Last administered on 09/11/18 12:01; Start 09/10/18 at 12:30; Stop 09/11/18 at 12: 20; Status DC Lidocaine/Sodium Bicarbonate (Buffered Lidocaine 1%) 3 ml 1X ONCE INJ Last administered on 09/10/18at 14:58; Start 09/10/18 at 14:30; Stop 09/10/18 at 14:31; Status DC Sodium Chloride 1,000 ml @ 1,000 mls/hr Q1H PRN IV hypotension; Start 09/11/18 at 07:05; Stop 09/11/18 at 13:04; Status DC Sodium Chloride 1,000 ml @ 400 mls/hr Q2H30M PRN IV PATENCY; Start 09/11/18 at 07:05; Stop 09/11/18 at 19:04; Status DC Info (PHARMACY MONITORING -- do not chart) 1 each PRN DAILY PRN MC SEE COMMENTS ; Start 09/11/18 at 07:15; Stop 09/13/18 at 07:24; Status DC Info (PHARMACY MONITORING -- do not chart) 1 each PRN DAILY PRN MC SEE COMMENTS ; Start 09/11/18 at 07:15; Status UNV Hydromorphone HCl (Dilaudid) 1 mg PRN Q4HRS PRN IVP SEVERE PAIN; Start 09/11/18 at 12:15; Stop 09/12/18 at 18:18; Status DC Diphenoxylate HCl/ Atropine (Lomotil) 1 tab TID PO Last administered on at 20:36; Start 09/11/18 at 12:30; Stop 09/15/18 at 09:30; Status DC Norepinephrine Bitartrate 250 ml @ 1.875 mls/ hr CONT PRN IV SEE I/O RECORD Last administered on 09/11/18at 14:41; Start 09/11/18 at 14:00; Stop 09/12/18 at 13: 53; Status DC Mirtazapine (Remeron) 7.5 mg QHS PO Last administered on 09/14/18at 20:36; Start 09/11/18 at 21:00 Albumin Human 100 ml @ 100 mls/hr 1X ONCE IV Last administered on 09/11/18at 14 :39; Start 09/11/18 at 14:30; Stop 09/11/18 at 15:29; Status DC Sodium Chloride 500 ml @ 500 mls/hr PRN Q1HR PRN IV ELEVATED BP, SEE COMMENTS Last administered on 09/11/18at 18:53; Start 09/11/18 at 16:45 Nitroglycerin (Nitro-Bid Oint) 1 inch 1X ONCE TP Last administered on at 22:27; Start 09/11/18 at 22:15; Stop 09/11/18 at 22:16; Status DC Sodium Chloride 1,000 ml @ 100 mls/hr Q10H IV ; Start 09/12/18 at 06:30; Stop at 06:37; Status DC Sodium Chloride 500 ml @ 500 mls/hr 1X ONCE IV Last administered on 09/12/18at 16:45; Start 09/12/18 at 16:45; Stop 09/12/18 at 17:44; Status DC Sodium Chloride 500 ml @ 500 mls/hr 1X ONCE IV Last administered on 09/12/18at 17:15; Start 09/12/18 at 17:15; Stop 09/12/18 at 18:14; Status DC Albumin Human 100 ml @ 100 mls/hr 1X ONCE IV Last administered on 09/12/18at 17 :22; Start 09/12/18 at 17:15; Stop 09/12/18 at 18:14; Status DC Acetaminophen/ Hydrocodone Bitart (Lortab 5/325) 1 tab 1X ONCE PO Last administered on 09/12/18 18:23; Start 09/12/18 at 18:30; Stop 09/12/18 at 18:31; Status DC Atorvastatin Calcium (Lipitor) 40 mg QHS PO Last administered on 09/14/18at 20: 36; Start 09/12/18 at 23:45 Sodium Chloride 1,000 ml @ 1,000 mls/hr Q1H PRN IV hypotension; Start 09/13/18 at 07:10; Stop 09/13/18 at 13:09; Status DC Sodium Chloride 1,000 ml @ 400 mls/hr Q2H30M PRN IV PATENCY; Start 09/13/18 at 07:10; Stop 09/13/18 at 19:09; Status DC Info (PHARMACY MONITORING -- do not chart) 1 each PRN DAILY PRN MC SEE COMMENTS ; Start 09/13/18 at 07:15; Status UNV Info (PHARMACY MONITORING -- do not chart) 1 each PRN DAILY PRN MC SEE COMMENTS ; Start 09/13/18 at 07:15 Tramadol HCl (Ultram) 50 mg PRN Q6HRS PRN PO MILD TO MODERATE PAIN Last administered on 09/15/18at 13:22; Start 09/13/18 at 12:45 Buspirone HCl (Buspar) 5 mg PRN TID PRN PO ANXIETY Last administered on at 17:34; Start 09/13/18 at 17:30 Prochlorperazine Edisylate (Compazine) 5 mg PRN Q6HRS PRN IV Headache/Nausea Last administered on 09/15/18at 15:57; Start 09/14/18 at 10:30 Regadenoson (Lexiscan) 0.4 mg 1X ONCE IV Last administered on 09/15/18at 10:12 ; Start 09/15/18 at 08:00; Stop 09/15/18 at 08:01; Status DC Diphenoxylate HCl/ Atropine (Lomotil) 1 tab DAILY PO Last administered on at 13:22; Start 09/15/18 at 10:30 Diphenoxylate HCl/ Atropine (Lomotil) 1 tab PRN BID PRN PO DIARRHEA 2ND CHOICE ; Start 09/15/18 at 09:30 Active Scripts Active Aspirin Ec (Aspirin) 81 Mg Tablet. 81 Mg PO DAILYWBKFT 30 Days Lisinopril 10 Mg Tablet 10 Mg PO BID 30 Days Tizanidine Hcl 4 Mg Tablet 4 Mg PO PRN Q8HRS PRN 10 Days [place] 5-325 Tablet (Acetaminophen/Hydrocodone Bitart) 1 Each Tablet 1 Tab PO PRN Q6HRS 3 Days Lidocaine 1 Each Adh..patch 1 Patch TD DAILY MDD 1 Synthroid (Levothyroxine Sodium) 88 Mcg Tablet 88 Mcg PO DAILY06 MDD 1 Metoprolol Succinate ( Xl ) (Metoprolol Succinate) 25 Mg Tab.er.24h 25 Mg PO DAILY MDD 1 Reported Protonix (Pantoprazole Sodium) 20 Mg Tablet. 40 Mg PO DAILY Vitals/I & O Vital Sign - Last 24 Hours 09/14/18 09/14/18 09/14/18 09/14/18 16:39 19:00 20:00 23:00 Temp 98.0 98.8 98.0 98.8 Pulse 89 98 Resp 20 20 B/P (MAP) 132/64 (86) 152/70 (97) Pulse Ox 92 95 O2 Delivery Room Air Room Air Room Air Room Air 09/15/18 09/15/18 09/15/18 09/15/18 03:00 04:19 05:19 07:00 Temp 98.1 98.4 98.1 98.4 Pulse 99 94 Resp 20 20 16 B/P (MAP) 157/68 (97) 155/73 (100) Pulse Ox 97 97 97 O2 Delivery Room Air Room Air Room Air Room Air O2 Flow Rate 2.0 09/15/18 09/15/18 09/15/18 09/15/18 08:00 11:00 13:22 13:23 Temp 98.1 98.1 Pulse 130 130 Resp 18 B/P (MAP) 153/84 (107) 153/84 Pulse Ox 97 O2 Delivery Room Air Room Air Room Air 09/15/18 09/15/18 09/15/18 14:22 15:00 15:50 Temp 98.1 98.1 Pulse 126 Resp 20 B/P (MAP) 143/78 (99) Pulse Ox 98 O2 Delivery Room Air Room Air Room Air Intake and Output 09/14/18 09/14/18 09/15/18 15:00 23:00 07:00 Intake Total 240 ml Output Total 400 ml 200 ml Balance -160 ml -200 ml Nutrition Consultation Dietary Evaluation: Recommendations by RD: Increase Calorie Intake, Protein supplementation Comments: nepro tid Expected Outcomes/Goals: to meet > 50% est nutr needs via po intake Interpretation of weight loss: >1-2% in 1 week Malnutrition Findings: Body Fat Depletion (Non Severe: Mild Depletion Weight Status: Appropriate LANCE CANTOR MD Sep 15, 2018 16:17
[2018-09-15 19:00] VITALS: BP 156/77
[2018-09-15] MEDS: ATORVASTATIN CALCIUM 40 MG TABLET. PO SCH (20:15)
[2018-09-15] MEDS: MIRTAZAPINE 7.5 MG TABLET. PO SCH (20:15)
[2018-09-15] MEDS: ONDANSETRON PF 4 MG/2 ML VIAL. IV PRN (22:19)
[2018-09-15 23:00] VITALS: BP 141/83
[2018-09-16] VITALS (7 sets, daily range): BP systolic 112–168; BP diastolic 59–79
[2018-09-16 03:08] LABS: HEMATOCRIT 32.8 % (36.0-47.0); HEMOGLOBIN 10.3 g/dL (12.0-15.5); RED BLOOD COUNT 3.54 x10^6/uL (3.50-5.40); RED CELL DISTRIBUTION WIDTH 14.9 % (11.5-14.5); WHITE BLOOD COUNT 11.9 x10^3/uL (4.0-11.0)
[2018-09-16 03:28] LABS: ALBUMIN 3.5 g/dL (3.4-5.0); CALCIUM 9.6 mg/dL (8.5-10.1); CREATININE 3.1 mg/dL (0.6-1.0); GFR 17.5; PHOSPHORUS 2.9 mg/dL (2.6-4.7); POTASSIUM 4.5 mmol/L (3.5-5.1)
[2018-09-16] MEDS: HYDROcodone/APAP 5/325MG 1 TAB TABLET PO PRN (06:06)
[2018-09-16] MEDS: LEVOTHYROXINE 88 MCG TABLET PO SCH (06:07)
[2018-09-16] MEDS: SUCRALFATE 1 GM TABLET. PO SCH ×2 (07:30→16:43)
[2018-09-16] MEDS: PANTOPRAZOLE 40 MG TABLET.DR. PO SCH (07:30)
[2018-09-16] MEDS: ASPIRIN ENTERIC COATED 81 MG TABLET.DR. PO SCH (08:00)
[2018-09-16] MEDS: HEPARIN for SUB-Q USE 5,000 UNIT/ML VIAL. SQ SCH ×2 (08:04→21:00)
[2018-09-16] MEDS: LIDOCAINE (700MG/PATCH) PATCH. TD SCH (08:07)
[2018-09-16] MEDS: NICOTINE 21MG PATCH. TD SCH (08:08)
[2018-09-16] MEDS: DIPHENOXYLATE/ATROPINE TABLET. PO SCH (08:09)
[2018-09-16] MEDS: METOPROLOL SUCC 24HR ER 25 MG TAB.ER.24H. PO SCH (08:09)
[2018-09-16] MEDS ORDERED: ATOR40TA59 PO (08:45)
[2018-09-16] MEDS ORDERED: MIRT7.5T8 PO (08:45)
[2018-09-16] MEDS ORDERED: SUCR1TAB35 PO (08:45)
[2018-09-16] MEDS ORDERED: BUSP5TAB PO (08:45)
[2018-09-16] MEDS ORDERED: VIT1TABL57 PO (08:45)
--- NOTE | 2018-09-16 08:46 | SNU/HH DC ---
DISCHARGE ORDERS DISCHARGE INFORMATION: DISCHARGE DATE: Sep 16, 2018 FINAL DIAGNOSIS Problems Medical Problems: (1) Acute chest wall pain Status: Acute (2) Elevated lipase Status: Acute (3) Ileostomy in place Status: Acute CONDITION ON DISCHARGE: Stable CODE STATUS: Code Status: Full FDC: SNF STAY <30 DAYS: Yes HOSPICE: HOSPICE: No HOSPICE EVAL & TREAT: No LTAC: ADMIT TO LTAC: No POST DISCHARGE ORDERS: ACTIVITY ORDERS: Resume previous activity, Activity as tolerated WEIGHT BEARING STATUS: As tolerated DIET AFTER DISCHARGE: Renal CHECKS AFTER DISCHARGE: CHECKS AFTER DISCHARGE: Check blood press - daily TREATMENT/EQUIPMENT ORDERS: ADAPTIVE EQUIPMENT NEEDED: None, Walker Physical Therapy For: Evalulation/Treatment Occupational Therapy For: Evaluation/Treatment Speech Language Pathology For: Evaluation/Treatment DISCHARGE MEDICATIONS: Home Meds Active Scripts Vit B Cmplx 3/Fa/Vit C/Biotin (NEPHRO-MICHELLE RX TABLET) 1 Each Tablet, 1 EACH PO DAILY for esrd for 30 Days, #30 TAB Prov:GERDA DE LEÓN MD 09/16/18 Sucralfate (CARAFATE) 1 Gm Tablet, 1 GM PO TIDAC for gi MDD 1, #60 TAB Prov:GERDA DE LEÓN MD 09/16/18 Buspirone Hcl (BUSPIRONE HCL) 5 Mg Tablet, 5 MG PO PRN TID PRN for ANXIETY MDD 1 , #30 TAB Prov:GERDA DE LEÓN MD 09/16/18 Mirtazapine (MIRTAZAPINE) 7.5 Mg Tablet, 7.5 MG PO QHS for anciety MDD 1, #30 TAB Prov:GERDA DE LEÓN MD 09/16/18 Atorvastatin Calcium (ATORVASTATIN CALCIUM) 40 Mg Tablet, 40 MG PO QHS for dylipids MDD 1, #60 TAB Prov:GERDA DE LEÓN MD 09/16/18 Aspirin (ASPIRIN EC) 81 Mg Tablet.dr, 81 MG PO DAILYWBKFT for antiplatelet for 30 Days, #30 TAB.SR Prov:ORION MULLIGAN MD 08/27/18 Lisinopril (LISINOPRIL) 10 Mg Tablet, 10 MG PO BID for HTN for 30 Days, #60 TAB Prov:ORION MULLIGAN MD 08/27/18 Tizanidine Hcl (TIZANIDINE HCL) 4 Mg Tablet, 4 MG PO PRN Q8HRS PRN for MUSCLE SPASMS for 10 Days, #30 TAB Prov:ORION MULLIGAN MD 08/27/18 Hydrocodone/Apap 5-325 (NORCO 5-325 TABLET) 1 Each Tablet, 1 TAB PO PRN Q6HRS for pain for 3 Days, #12 TAB 0 Refills Prov:ORION MULLIGAN MD 08/27/18 Lidocaine (Lidocaine) 1 Each Adh..patch, 1 PATCH TD DAILY for back pain MDD 1, # 14 PATCH Prov:GIANLUCA LONG MD 08/23/18 Levothyroxine Sodium (SYNTHROID) 88 Mcg Tablet, 88 MCG PO DAILY06 for hypothy MDD 1, #60 TAB Prov:GERDA DE LEÓN MD 06/04/18 Metoprolol Succinate (METOPROLOL SUCCINATE ( XL )) 25 Mg Tab.er.24h, 25 MG PO DAILY for htn MDD 1, #30 TAB.SR Prov:GERDA DE LEÓN MD 06/04/18 Reported Medications Pantoprazole Sodium (PROTONIX) 20 Mg Tablet.dr, 40 MG PO DAILY for PPI, TAB 05/20/18 GERDA DE LEÓN MD Sep 16, 2018 08:46
--- NOTE | 2018-09-16 09:02 | NUR ---
BINTA following pt. Pt has confirmed chair time at [facility] on MWF at 1500. Pt's first schedule will be tomorrow and need to be at clinic at 1430. BINTA provided OP HD to [facility] and faxed orders. Pt will get a permanent cath this morning. Pt will transport to [facility] via facility arranged w/c barrie between [id number]. Pt aware of plan and agreeable. Packet on chart. Discussed with RN. Addendum: 09/16/18 at 1141 by XAVIER JUDD BINTA provided pt with copy of OP HD schedule. BINTA left a voice mail to pt's granddaughterSuri, phone: [phone] about dc plan. Pt's choice and rights forms verbally consented by pt and copies on chart. Addendum: 09/16/18 at 1438 by XAVIER JUDD Transport time changed to 1700.
--- NOTE | 2018-09-16 09:43 | PDOC ---
Subjective: Subjective: Feeling much better, ostomy output improved, appetite better. Objective: Vital Signs: Vital Signs Date Time Temp Pulse Resp B/P (MAP) Pulse Ox O2 Delivery O2 Flow Rate FiO2 09/16/18 08:09 79 140/76 09/16/18 07:06 18 96 Room Air 09/16/18 07:00 98.4 98.4 09/15/18 22:20 2.0 Labs: Laboratory Tests Test 09/16/18 02:30 White Blood Count 11.9 x10^3/uL Red Blood Count 3.54 x10^6/uL Hemoglobin 10.3 g/dL Hematocrit 32.8 % Mean Corpuscular Volume 93 fL Mean Corpuscular Hemoglobin 29 pg Mean Corpuscular Hemoglobin Concent 31 g/dL Red Cell Distribution Width 14.9 % Platelet Count 298 x10^3/uL Sodium Level 136 mmol/L Potassium Level 4.5 mmol/L Chloride Level 100 mmol/L Carbon Dioxide Level 26 mmol/L Anion Gap 10 Blood Urea Nitrogen 33 mg/dL Creatinine 3.1 mg/dL Estimated GFR (Cockcroft-Gault) 17.5 Glucose Level 114 mg/dL Calcium Level 9.6 mg/dL Phosphorus Level 2.9 mg/dL Albumin 3.5 g/dL Imaging: MPI 09/15/18 Conclusion 1. No evidence of stress induced EKG changes. 2. Normal perfusion at stress/rest 3. Normal EF at > 60% 4. Low risk study PE: GEN: NAD LUNGS: CTAB HEART: RRR ABD: non-tender, RLQ ostomy NEURO/PSYCH: A & O 3 A/P: Atypical chest pain - resolved Leukocytosis, anemia (stable) CKD on HD Increased ostomy output - improved -- Improved from GI perspective. When discharged, would send w/ PPI and Lomotil and/or Imodium - education provided several times re: adjusting anti-diarrhea meds as needed. SHREE SAAVEDRA Sep 16, 2018 09:43
[2018-09-16] MEDS ORDERED: DIALYSIS PATIENT. MC PRN ×2 (11:00)
[2018-09-16] MEDS ORDERED: IV NORMAL SALINE 1000ML BAG 1,000 ML IV PRN ×2 (11:00)
[2018-09-16] MEDS ORDERED: 0.9 % SODIUM CHLORIDE 10 ML DISP.SYRIN. IV PRN ×2 (11:00)
[2018-09-16] MEDS ORDERED: ALBUMIN HUMAN 25% 200 ML IV PRN (11:00)
--- NOTE | 2018-09-16 11:19 | PDOC ---
Renal-Progress Notes Subjective Notes Notes NONE History of Present Illness Hx of present illness STABLE Vitals Vitals Vital Signs Date Time Temp Pulse Resp B/P (MAP) Pulse Ox O2 Delivery O2 Flow Rate FiO2 09/16/18 08:09 79 140/76 09/16/18 08:00 Room Air 09/16/18 07:06 18 96 09/16/18 07:00 98.4 98.4 09/15/18 22:20 2.0 Weight Weight [ ] I.O. Intake and Output Intake and Output 09/16/18 07:00 Intake Total 400 ml Output Total 200 ml Balance 200 ml Intake Oral 400 ml Stool Total 200 ml # Voids 1 Labs Labs Laboratory Tests Test 09/16/18 02:30 White Blood Count 11.9 x10^3/uL (4.0-11.0) Red Blood Count 3.54 x10^6/uL (3.50-5.40) Hemoglobin 10.3 g/dL (12.0-15.5) Hematocrit 32.8 % (36.0-47.0) Mean Corpuscular Volume 93 fL (79-100) Mean Corpuscular Hemoglobin 29 pg (25-35) Mean Corpuscular Hemoglobin Concent 31 g/dL (31-37) Red Cell Distribution Width 14.9 % (11.5-14.5) Platelet Count 298 x10^3/uL (140-400) Sodium Level 136 mmol/L (136-145) Potassium Level 4.5 mmol/L (3.5-5.1) Chloride Level 100 mmol/L (98-107) Carbon Dioxide Level 26 mmol/L (21-32) Anion Gap 10 (6-14) Blood Urea Nitrogen 33 mg/dL (7-20) Creatinine 3.1 mg/dL (0.6-1.0) Estimated GFR (Cockcroft-Gault) 17.5 Glucose Level 114 mg/dL (70-99) Calcium Level 9.6 mg/dL (8.5-10.1) Phosphorus Level 2.9 mg/dL (2.6-4.7) Albumin 3.5 g/dL (3.4-5.0) Micro Micro Microbiology 09/09/18 Blood Culture - Final, Complete NO GROWTH AFTER 5 DAYS 09/09/18 Urine Culture - Final, Complete 3/5/19 Urine Culture Result 1 (MARCY) - Final, Complete Review of Systems Constitutional: yes: alert, oriented Ears/Nose/Throat: Yes: no symptom reported Eyes: Yes: no symptom reported Pulmonary: Yes no symptom reported Cardiovascular: Yes no symptom reported Gastrointestional: Yes: no symptom reported Genitourinary: Yes: no symptom reported Musculoskeletal: Yes: no symptom reported Skin: Yes no symptom reported Psychiatric/Neurological: Yes: no symptom reported Endocrine: Yes: unexplained weight gain Physical Exam Skin: warm Respiratory: bilateral CTA Heart: S1S2 Abdomen: soft, bowel sounds present Genitourinary: bladder flat Extremities: pulses present Neurology: alert Musculoskeletal: Osteoarthritis Assessment Assessment IMP TIGRE-NOT ENOUGH CLEARANCE-HD STARTED ON 3/6 CKD STAGE 3-BASELINE CR OF 1.6 HYPERKALEMIA-RESOLVED DIARRHEA - OSTOMY PLAN HD TODAY UF TO DW TUNNELED HD CATHETER TODAY EXPECT SHE WILL RECOVER FROM TIGRE IN TIME OP HD HAS BEEN SET UP SNU D/C MICHEAL WEST MD Sep 16, 2018 11:19
--- NOTE | 2018-09-16 12:33 | PDOC3 ---
Discharge Summary Visit Information Date of Admission: Sep 09, 2018 Date of Discharge: Sep 16, 2018 Admitting Diagnosis Comment: NEw HD ESRD GEn weakness - needsSNU Right and left chest wall pain - Most probably pleuritic in nature as it is worsened with deep breath pain is reproducible which is reassuring. Leukocytosis - uncertain source if there is an infection UC and BC are negative to date Anemia of chronic disease - stable Hepatitis C; outpatient GI f/u Tobacco abuse - discussed/encouraged cessation Hyperkalemia -currently resolved after dialysis TIGRE - continue dialysis as per performance consultant. Hypertension - will manage meds, hold nephrotoxic meds Hypothyroidism - Synthroid Diarrhea - loose bowels. Will monitor, check stool culture, c. diff S/p colectomy with ileostomy - recovered fairly well Metabolic acidosis - with gap, likely due to renal dysfunction Aortic atherosclerosis - noted on CT scan, likely has vascular disease elsewhere as well CAD; CT chest last week notable for coronary calcifications. Chronic narcotic use Major depression vs stress reaction to acute illness. Patient very tearful during my encounter during the day. Reassurance has been provided, pain has been addressed as well Insomnia Final Diagnosis Problems Medical Problems: (1) Acute chest wall pain Status: Acute (2) Elevated lipase Status: Acute (3) Ileostomy in place Status: Acute Brief Hospital Course Allergies Allergies Coded Allergies Type Severity Reaction Last Updated Verified ceftriaxone Allergy Intermediate SKIN RASH, HAS TOLERATED ZOSYN 06/07/18 Yes morphine Allergy Intermediate 08/25/18 Yes tizanidine Adverse Reaction Severe dizzy 09/12/18 Yes Vital Signs Vital Signs Date Time Temp Pulse Resp B/P (MAP) Pulse Ox O2 Delivery O2 Flow Rate FiO2 09/16/18 08:09 79 140/76 09/16/18 08:00 Room Air 09/16/18 07:06 18 96 09/16/18 07:00 98.4 98.4 09/15/18 22:20 2.0 Lab Results Laboratory Tests Test 09/15/18 04:30 09/16/18 02:30 Sodium Level 139 mmol/L (136-145) 136 mmol/L (136-145) Potassium Level 4.0 mmol/L (3.5-5.1) 4.5 mmol/L (3.5-5.1) Chloride Level 100 mmol/L (98-107) 100 mmol/L (98-107) Carbon Dioxide Level 25 mmol/L (21-32) 26 mmol/L (21-32) Anion Gap 14 (6-14) 10 (6-14) Blood Urea Nitrogen 26 mg/dL (7-20) 33 mg/dL (7-20) Creatinine 2.9 mg/dL (0.6-1.0) 3.1 mg/dL (0.6-1.0) Estimated GFR (Cockcroft-Gault) 18.9 17.5 Glucose Level 96 mg/dL (70-99) 114 mg/dL (70-99) Calcium Level 9.5 mg/dL (8.5-10.1) 9.6 mg/dL (8.5-10.1) Phosphorus Level 2.7 mg/dL (2.6-4.7) 2.9 mg/dL (2.6-4.7) Albumin 3.5 g/dL (3.4-5.0) 3.5 g/dL (3.4-5.0) White Blood Count 11.9 x10^3/uL (4.0-11.0) Red Blood Count 3.54 x10^6/uL (3.50-5.40) Hemoglobin 10.3 g/dL (12.0-15.5) Hematocrit 32.8 % (36.0-47.0) Mean Corpuscular Volume 93 fL (79-100) Mean Corpuscular Hemoglobin 29 pg (25-35) Mean Corpuscular Hemoglobin Concent 31 g/dL (31-37) Red Cell Distribution Width 14.9 % (11.5-14.5) Platelet Count 298 x10^3/uL (140-400) Laboratory Tests Test 09/16/18 02:30 White Blood Count 11.9 x10^3/uL (4.0-11.0) Red Blood Count 3.54 x10^6/uL (3.50-5.40) Hemoglobin 10.3 g/dL (12.0-15.5) Hematocrit 32.8 % (36.0-47.0) Mean Corpuscular Volume 93 fL (79-100) Mean Corpuscular Hemoglobin 29 pg (25-35) Mean Corpuscular Hemoglobin Concent 31 g/dL (31-37) Red Cell Distribution Width 14.9 % (11.5-14.5) Platelet Count 298 x10^3/uL (140-400) Sodium Level 136 mmol/L (136-145) Potassium Level 4.5 mmol/L (3.5-5.1) Chloride Level 100 mmol/L (98-107) Carbon Dioxide Level 26 mmol/L (21-32) Anion Gap 10 (6-14) Blood Urea Nitrogen 33 mg/dL (7-20) Creatinine 3.1 mg/dL (0.6-1.0) Estimated GFR (Cockcroft-Gault) 17.5 Glucose Level 114 mg/dL (70-99) Calcium Level 9.6 mg/dL (8.5-10.1) Phosphorus Level 2.9 mg/dL (2.6-4.7) Albumin 3.5 g/dL (3.4-5.0) Brief Hospital Course Ms. Ng is a 78 old [place] female with the following comorbidities (pls see refer to the diagnosis above), admitted by a colleague on the September for chest pain. Turned out to be pleuritic etc. please review the other notes. She eventually course needed to be new ESRD new dialysis. She needs SNU. Previous to this, she was functioning in ADLs and IADLs. I gather she will not need SNU for a long time. Renal also think she might need only dialysis temporarily In any case we are accepting [place] outpatient dialysis and tunneled HD tO be done today prior to [place] discharge Consults performed multiple including renal Procedures performed tunneled catheter, new dialysis ESRD Discharge Information Condition at Discharge: Improved, Stable Disposition/Orders: Other (snu) Scheduled Aspirin (Aspirin Ec) 81 Mg Tablet., 81 MG PO [id number] for antiplatelet for 30 Days, #30 Prescribed by: ORION MULLIGAN MD on 08/27/18 1217 Last Action: Continued on 09/09/18 0901 by SHENA HERNANDEZ MD Atorvastatin Calcium (Atorvastatin Calcium) 40 Mg Tablet, 40 MG PO QHS for dylipids MDD 1, #60 Prescribed by: GERDA DE LEÓN on 09/16/18 0845 Hydrocodone/Apap 5-325 (Nenzel 5-325 Tablet) 1 Each Tablet, 1 TAB PO PRN Q6HRS for pain for 3 Days, #12 Ref 0 Prescribed by: ORION MULLIGAN MD on 08/27/187 Last Action: Continued on 09/09/18900 by SHENA HERNANDEZ MD Levothyroxine Sodium (Synthroid) 88 Mcg Tablet, 88 MCG PO DAILY06 for hypothy MDD 1, #60 Prescribed by: GERDA DE LEÓN on 06/04/18 1042 Last Action: Continued on 09/09/18900 by SHENA HERNANDEZ MD Lidocaine (Lidocaine) 1 Each Adh..patch, 1 PATCH TD DAILY for back pain MDD 1, # 14 Prescribed by: GIANLUCA LONG on 08/23/18 1106 Last Action: Converted on 09/09/18900 by SHENA HERNANDEZ MD Lisinopril (Lisinopril) 10 Mg Tablet, 10 MG PO BID for HTN for 30 Days, #60 Prescribed by: ORION MULLIGAN MD on 08/27/181216 Last Action: HELD on 09/09/18 09 by SHENA HERNANDEZ MD Metoprolol Succinate (Metoprolol Succinate ( Xl )) 25 Mg Tab.er.24h, 25 MG PO DAILY for htn MDD 1, #30 Prescribed by: GERDA DE LEÓN on 06/04/18 1042 Last Action: Continued on 09/09/18900 by SHENA HERNANDEZ MD Mirtazapine (Mirtazapine) 7.5 Mg Tablet, 7.5 MG PO QHS for anciety MDD 1, #30 Prescribed by: GERDA DE LEÓN on 09/16/18 0845 Pantoprazole Sodium (Protonix) 20 Mg Tablet.dr, 40 MG PO DAILY for PPI, ( Reported) Entered as Reported by: ANCELMO FRASER on 05/20/18 1525 Last Action: Converted on 09/09/18900 by SHENA HERNANDEZ MD Sucralfate (Carafate) 1 Gm Tablet, 1 GM PO TIDAC for gi MDD 1, #60 Prescribed by: GERDA DE LEÓN on 09/16/18 0845 Vit B Cmplx 3/Fa/Vit C/Biotin (Nephro-Cheli Rx Tablet) 1 Each Tablet, 1 EACH PO DAILY for esrd for 30 Days, #30 Prescribed by: GERDA DE LEÓN on 09/16/18 0845 Scheduled PRN Buspirone Hcl (Buspirone Hcl) 5 Mg Tablet, 5 MG PO PRN TID PRN for ANXIETY MDD 1 , #30 Prescribed by: GERDA DE LEÓN on 09/16/18 0845 Tizanidine Hcl (Tizanidine Hcl) 4 Mg Tablet, 4 MG PO PRN Q8HRS PRN for MUSCLE SPASMS for 10 Days, #30 Prescribed by: ORION MULLIGAN MD on 08/27/18 1217 Last Action: Converted on 09/09/18 0901 by MD GENET ZAMORA CHERRIE Y MD Sep 16, 2018 12:33
[2018-09-16] MEDS ORDERED: VANCOMYCIN 1GM IVPB FOR OMNI 250 ML ONE (14:29)
[2018-09-16] MEDS ORDERED: MIDAZOLAM HCL/PF 2 MG/2 ML VIAL. ONE (14:29)
[2018-09-16] MEDS ORDERED: LIDOCAINE 1%/EPI 1:100,000 20 ML VIAL. ONE (14:30)
[2018-09-16] MEDS ORDERED: fentaNYL PF VIAL 100 MCG/2 ML VIAL ONE (14:30)
[2018-09-16] MEDS ORDERED: HEPARIN for IV BOLUS 10,000 UNIT/10 ML VIAL. ONE (14:31)
[2018-09-16] MEDS ORDERED: MIDAZOLAM HCL/PF 2 MG/2 ML VIAL. IV ONE (14:45)
[2018-09-16] MEDS ORDERED: VANCOMYCIN 1GM IVPB FOR OMNI 250 ML IV ONE (14:45)
[2018-09-16] MEDS ORDERED: HEPARIN for IV BOLUS 10,000 UNIT/10 ML VIAL. INT CAT ONE (14:45)
[2018-09-16] MEDS ORDERED: LIDOCAINE 1%/EPI 1:100,000 20 ML VIAL. IJ ONE (14:45)
[2018-09-16] MEDS ORDERED: fentaNYL PF VIAL 100 MCG/2 ML VIAL IV ONE (14:45)
--- NOTE | 2018-09-16 16:21 | NUR ---
SW following. IR is not able to place permanent cath today. Transportation to [place] cancelled. Discussed with RN.
[2018-09-16] MEDS: traMADol 50 MG TABLET PO PRN (19:31)
[2018-09-16] MEDS: PROCHLORPERAZINE 10 MG/2 ML VIAL. IV PRN (19:45)
[2018-09-16] MEDS: MIRTAZAPINE 7.5 MG TABLET. PO SCH (20:54)
[2018-09-16] MEDS: ATORVASTATIN CALCIUM 40 MG TABLET. PO SCH (20:56)
--- NOTE | 2018-09-16 21:02 | NUR ---
Heparin dose was held for procedure tomorrow
[2018-09-17 03:00] VITALS: BP 162/68
[2018-09-17] MEDS: PANTOPRAZOLE 40 MG TABLET.DR. PO SCH (06:28)
[2018-09-17] MEDS: LEVOTHYROXINE 88 MCG TABLET PO SCH (06:28)
[2018-09-17 07:00] VITALS: BP 135/68
[2018-09-17] MEDS: SUCRALFATE 1 GM TABLET. PO SCH (07:30)
[2018-09-17 07:47] LABS: ALBUMIN 3.4 g/dL (3.4-5.0); CALCIUM 9.5 mg/dL (8.5-10.1); CREATININE 2.4 mg/dL (0.6-1.0); GFR 23.5; PHOSPHORUS 2.6 mg/dL (2.6-4.7); POTASSIUM 4.3 mmol/L (3.5-5.1)
[2018-09-17] MEDS: NICOTINE 21MG PATCH. TD SCH (07:51)
[2018-09-17] MEDS: ASPIRIN ENTERIC COATED 81 MG TABLET.DR. PO SCH (07:51)
[2018-09-17] MEDS: HEPARIN for SUB-Q USE 5,000 UNIT/ML VIAL. SQ SCH (07:51)
[2018-09-17] MEDS ORDERED: HEPARIN for IV BOLUS 10,000 UNIT/10 ML VIAL. ONE ×2 (08:16→09:30)
[2018-09-17] MEDS ORDERED: LIDOCAINE 1%/EPI 1:100,000 20 ML VIAL. ONE (08:16)
[2018-09-17] MEDS ORDERED: VANCOMYCIN 1GM IVPB FOR OMNI 250 ML ONE (08:51)
[2018-09-17] MEDS ORDERED: MIDAZOLAM HCL/PF 2 MG/2 ML VIAL. ONE (08:52)
[2018-09-17] MEDS ORDERED: fentaNYL PF VIAL 100 MCG/2 ML VIAL ONE (08:52)
[2018-09-17] MEDS: LIDOCAINE (700MG/PATCH) PATCH. TD SCH (09:00)
[2018-09-17] MEDS ORDERED: VANCOMYCIN 1GM IVPB FOR OMNI 250 ML IV ONE (09:15)
[2018-09-17] MEDS ORDERED: LIDOCAINE 1%/EPI 1:100,000 20 ML VIAL. IJ ONE (09:15)
[2018-09-17] MEDS ORDERED: MIDAZOLAM HCL/PF 2 MG/2 ML VIAL. IV ONE (09:15)
[2018-09-17] MEDS ORDERED: fentaNYL PF VIAL 100 MCG/2 ML VIAL IV ONE (09:15)
--- NOTE | 2018-09-17 09:30 | PDOC ---
MODERATE SEDATION ASSESSMENT RISKS/ALTERNATIVES Risks/Alternatives Risks and alternatives of this type of sedation and procedure discussed with: RISK/ALTERNATIVES: Patient H & P ON CHART H & P H & P on chart and reviewed for co-morbid conditions and appropriate labs. H&P ON CHART: Yes STATUS PREG STATUS ASSESSED: Yes MEDS/ALLERGIES REVIEWED Meds/Allergies Reviewed Medications and Allergies including time and route of recently administered narcotics and sedatives. MEDS/ALLERGIES REVIEWED: Yes ASA RATING ASA RATING: II AIRWAY ASSESSMENT Airway Assessment Airway patency, oral function limitations, presence of caps, crowns, dentures, partials, and ability to extend neck assessed. AIRWAY ASSESSMENT: Yes MALLAMPATI SCORE MALLAMPATI SCORE: II PRE-SEDATION ASSESSMENT PRE-SEDATION ASSESSMENT: Yes LUIGI WIN MD Sep 17, 2018 09:30
--- NOTE | 2018-09-17 09:31 | PDOC ---
BRIEF OPERATIVE NOTE Pre-Op Diagnosis CRF Post-Op Diagnosis same Procedure Performed Temp to tunnelled HD catheter exchange Surgeon Everton Anesthesia Type: Conscious Sedation Findings 19cm Palindrome with excellent manual flows Complications No immediate LUIGI WIN MD Sep 17, 2018 09:31
--- NOTE | 2018-09-17 09:35 | NUR ---
Patient to IR for non-tunneled HD catheter exchange for tunneled HD catheter. Patient tolerated well with no complications. PIV in right wrist not working properly, taken out and dressing placed. Vancomycin and sedation given through HD catheter per Dr. Toscano. Report called to HALIE Vann on .
[2018-09-17] MEDS: DIPHENOXYLATE/ATROPINE TABLET. PO SCH (10:03)
[2018-09-17] MEDS: LOPERAMIDE 2 MG CAPSULE PO PRN (10:03)
[2018-09-17] MEDS: METOPROLOL SUCC 24HR ER 25 MG TAB.ER.24H. PO SCH (10:04)
--- NOTE | 2018-09-17 10:22 | NUR ---
BINTA following pt. Pt will transport to [place] at 1400 via facility w/c van. BINTA spoke with Margi at [facility] and notified them pt will be there on Saturday. Discharge Summary faxed to Clinic. Pt and RN notified of plan.
--- NOTE | 2018-09-17 10:49 | PDOC ---
Subjective: Subjective: Ostomy output and appetite improved. Objective: Vital Signs: Vital Signs Date Time Temp Pulse Resp B/P (MAP) Pulse Ox O2 Delivery O2 Flow Rate FiO2 09/17/18 10:04 90 135/68 09/17/18 09:15 12 100 Nasal Cannula 2.0 09/17/18 07:00 98.6 98.6 Labs: Laboratory Tests Test 09/17/18 06:10 Sodium Level 139 mmol/L Potassium Level 4.3 mmol/L Chloride Level 100 mmol/L Carbon Dioxide Level 32 mmol/L Anion Gap 7 Blood Urea Nitrogen 18 mg/dL Creatinine 2.4 mg/dL Estimated GFR (Cockcroft-Gault) 23.5 Glucose Level 90 mg/dL Calcium Level 9.5 mg/dL Phosphorus Level 2.6 mg/dL Albumin 3.4 g/dL PE: GEN: NAD LUNGS: CTAB HEART: RRR ABD: non-tender, RLQ ostomy NEURO/PSYCH: A & O 3 A/P: Increased ostomy output - improved -- DC planned for today - send w/ PPI and Lomotil and/or Imodium. SHREE SAAVEDRA Sep 17, 2018 10:49
[2018-09-17 11:00] VITALS: BP 113/68
--- NOTE | 2018-09-17 11:19 | PDOC ---
Renal-Progress Notes Subjective Notes Notes NONE History of Present Illness Hx of present illness STABLE Vitals Vitals Vital Signs Date Time Temp Pulse Resp B/P (MAP) Pulse Ox O2 Delivery O2 Flow Rate FiO2 09/17/18 10:04 90 135/68 09/17/18 09:15 12 100 Nasal Cannula 2.0 09/17/18 07:00 98.6 98.6 Weight Weight [ ] I.O. Intake and Output Intake and Output 09/17/18 07:00 Intake Total 440 ml Output Total 500 ml Balance -60 ml Intake Oral 440 ml Stool Total 500 ml # Voids 2 Labs Labs Laboratory Tests Test 09/17/18 06:10 Sodium Level 139 mmol/L (136-145) Potassium Level 4.3 mmol/L (3.5-5.1) Chloride Level 100 mmol/L (98-107) Carbon Dioxide Level 32 mmol/L (21-32) Anion Gap 7 (6-14) Blood Urea Nitrogen 18 mg/dL (7-20) Creatinine 2.4 mg/dL (0.6-1.0) Estimated GFR (Cockcroft-Gault) 23.5 Glucose Level 90 mg/dL (70-99) Calcium Level 9.5 mg/dL (8.5-10.1) Phosphorus Level 2.6 mg/dL (2.6-4.7) Albumin 3.4 g/dL (3.4-5.0) Micro Micro Microbiology 09/09/18 Blood Culture - Final, Complete NO GROWTH AFTER 5 DAYS 09/09/18 Urine Culture - Final, Complete 09/09/18 Urine Culture Result 1 (MARCY) - Final, Complete Review of Systems Constitutional: yes: alert, oriented Ears/Nose/Throat: Yes: no symptom reported Eyes: Yes: no symptom reported Pulmonary: Yes no symptom reported Cardiovascular: Yes no symptom reported Gastrointestional: Yes: no symptom reported Genitourinary: Yes: no symptom reported Musculoskeletal: Yes: no symptom reported Skin: Yes no symptom reported Psychiatric/Neurological: Yes: no symptom reported Endocrine: Yes: unexplained weight gain Physical Exam Skin: warm Respiratory: bilateral CTA Heart: S1S2 Abdomen: soft, bowel sounds present Genitourinary: bladder flat Extremities: pulses present Neurology: alert Musculoskeletal: Osteoarthritis Assessment Assessment IMP TIGRE-NOT ENOUGH CLEARANCE STILL-HD STARTED ON 09/10 CKD STAGE 3-BASELINE CR OF 1.6 HYPERKALEMIA-RESOLVED DIARRHEA - OSTOMY S/P TUNNELED HD CATHETER PLAN HD NEXT OP ON SATURDAY EXPECT SHE WILL RECOVER FROM TIGRE IN TIME OP HD HAS BEEN SET UP SNU D/C MICHEAL WEST MD Sep 17, 2018 11:19
--- NOTE | 2018-09-17 11:43 | NUR ---
Spoke with HALIE Ghosh at [facility]. She stated that she could not take report at this time was to busy. Gave name and call back number for report for her to call me.
[2018-09-17] MEDS: HYDROcodone/APAP 5/325MG 1 TAB TABLET PO PRN (11:58)
--- NOTE | 2018-09-17 13:46 | PDOC ---
Provider Note Provider Note She did not DC yesterday for nonmedical reasons She now has a tunneled dialysis catheter She will go to [facility] today Meds listed been done yesterday No change Discharge summary done yesterday 09/16/18, no change GERDA DE LEÓN MD Sep 17, 2018 13:46
--- NOTE | 2018-09-17 14:55 | RAD ---
Procedure: Exchange of a temporary for tunneled hemodialysis catheter Clinical Indication: 78-year-old female requiring long-term hemodialysis Sedation: Conscious sedation was administered for 30 minutes. The patient was monitored by a qualified independent observer throughout the time of sedation. Please refer to the medical record for exact doses of medications utilized to achieve moderate sedation. Antibiotics: Elements antibiotic Fluoro Time: 0.4 minutes. Images: 1 Contrast: None Sterility: All elements of maximal sterile barrier technique including the use of a cap, mask, sterile gown, sterile gloves, large sterile sheet, appropriate hand hygiene, and 2% chlorhexidine for cutaneous antisepsis (or acceptable alternative antiseptic per current guidelines) were followed for this procedure. If ultrasound guidance was utilized, sterile ultrasound techniques were followed including use of a sterile probe cover. Consent: The procedure was explained in its entirety to the patient or the patients designated airport representative by a member of the treatment team, including a discussion of the risks, benefits and commonly accepted alternatives to the procedure, as well as the expected consequences of no therapy whatsoever. Discussion of the risks included, but was not limited to, those that are most frequent and those that are rare but possibly severe or life-threatening, as well as the possibility of unforeseen complications. Technique and Findings: Following informed consent, the patient was prepped and draped in usual sterile fashion. 1% lidocaine was used to achieve local anesthesia over the right anterior chest wall. A small dermatotomy was made. A 23 severe palindrome dialysis catheter was then tunneled subcutaneously towards the right neck dermatotomy at the site of the existing temporary catheter. The temporary catheter was then removed over wire and a large caliber peel-away sheath was placed. This was used to deploy the new catheter under fluoroscopic guidance such that the distal tip resided in the distal right atrium. Manual flow rates were assessed and found to be poor however. Multiple manipulations were unsuccessful improving these flow rates. Consequently, this catheter was exchanged over wire for a 19 cm palindrome tunneled hemodialysis catheter which was positioned under fluoroscopic guidance within the proximal right atrium. Manual flow is were assessed and found to be excellent. This catheter was flushed with saline, packed with heparin, capped, and sutured to the skin. Dermabond was used to close the right neck dermatotomy. Complications: No immediate Impression: 1. Fluoroscopic guided exchange of a temporary for tunneled hemodialysis catheter with excellent manual flow rates as described.
--- NOTE | 2018-09-17 14:58 | NUR ---
Discharge Note: CESAR SANTOS [address] [place] Discharge instructions and discharge home medications reviewed with Patient and a copy given. All questions have been answered and understanding verbalized. The following instructions and handouts were given: ESRD Discontinued lines and drains: Peripheral IV intact. Patient discharged to Assisted Facility with Self via , transport by [facility]
[2018-09-24] MEDS ORDERED: TEMA7.5C2 PO (10:52)
[2018-09-24] MEDS ORDERED: DIPH1TAB5 PO (10:52)
[2018-09-24] MEDS ORDERED: HYDR-3164 PO (10:52)
[2018-09-24] MEDS ORDERED: DARBEPOETIN ALFA IN POLYSORBAT SQ (10:52)
== END 2018-09-17 15:13 | DRG 673 ==
LOC: ER 04:51 → 5 NORTH 06:54 → 1 WEST ICU 09-11 14:57 → 5 NORTH 09-12 11:32
PROVIDERS: ADMIT Internal Medicine; ATTEND Internal Medicine
PROC: 02HV33Z Insertion of Infusion Device into Superior Vena Cava, Percutaneous Approach (ICD-10-PCS; principal; 2018-09-10)
PROC: B548ZZA Ultrasonography of Superior Vena Cava, Guidance (ICD-10-PCS; 2018-09-10)
PROC: B5181ZA Fluoroscopy of Superior Vena Cava using Low Osmolar Contrast, Guidance (ICD-10-PCS; 2018-09-10)
PROC: 5A1D70Z Performance of Urinary Filtration, Intermittent, Less than 6 Hours Per Day (ICD-10-PCS; 2018-09-10)
PROC: 5A1D70Z Performance of Urinary Filtration, Intermittent, Less than 6 Hours Per Day (ICD-10-PCS; 2018-09-11)
PROC: 5A1D70Z Performance of Urinary Filtration, Intermittent, Less than 6 Hours Per Day (ICD-10-PCS; 2018-09-13)
PROC: 5A1D70Z Performance of Urinary Filtration, Intermittent, Less than 6 Hours Per Day (ICD-10-PCS; 2018-09-16)
PROC: 0JH63XZ Insertion of Tunneled Vascular Access Device into Chest Subcutaneous Tissue and Fascia, Percutaneous Approach (ICD-10-PCS; 2018-09-17)
PROC: 02H633Z Insertion of Infusion Device into Right Atrium, Percutaneous Approach (ICD-10-PCS; 2018-09-17)
PROC: 02PAX3Z Removal of Infusion Device from Heart, External Approach (ICD-10-PCS; 2018-09-17)
PROC: B2141ZZ Fluoroscopy of Right Heart using Low Osmolar Contrast (ICD-10-PCS; 2018-09-17)
DX: N17.9 Acute kidney failure, unspecified (principal); R65.11 Systemic inflammatory response syndrome (SIRS) of non-infectious origin with acute organ dysfunction; E87.2 Acidosis; I12.0 Hypertensive chronic kidney disease with stage 5 chronic kidney disease or end stage renal disease; N18.6 End stage renal disease; N64.4 Mastodynia; B19.20 Unspecified viral hepatitis C without hepatic coma; E87.5 Hyperkalemia; E86.0 Dehydration; D63.8 Anemia in other chronic diseases classified elsewhere; D72.829 Elevated white blood cell count, unspecified; G89.29 Other chronic pain; I25.10 Atherosclerotic heart disease of native coronary artery without angina pectoris; K21.9 Gastro-esophageal reflux disease without esophagitis; J44.9 Chronic obstructive pulmonary disease, unspecified; E78.00 Pure hypercholesterolemia, unspecified; E78.5 Hyperlipidemia, unspecified; I95.3 Hypotension of hemodialysis; G47.00 Insomnia, unspecified; F41.9 Anxiety disorder, unspecified; M19.90 Unspecified osteoarthritis, unspecified site; E03.9 Hypothyroidism, unspecified; I70.0 Atherosclerosis of aorta; Z99.2 Dependence on renal dialysis; Z90.710 Acquired absence of both cervix and uterus; Z93.3 Colostomy status; Z93.2 Ileostomy status; Z90.49 Acquired absence of other specified parts of digestive tract; Z79.890 Hormone replacement therapy; Z79.899 Other long term (current) drug therapy; Z82.49 Family history of ischemic heart disease and other diseases of the circulatory system; Z87.11 Personal history of peptic ulcer disease
CPT/HCPCS: 36415; 36556; 36581; 71045; 76770; 76937; 77001; 78452; 80048; 80053; 80069; 81001; 82550; 82553; 82962; 83605; 83690; 83735; 83880; 84100; 84484; 85007; 85025; 85027; 85610; 85730; 86704; 87040; 87086; 87340; 87641; 93005; 93017; 94640; 96374; 96375; 96376; 99152; 99153; A4215; A9500; C1750; C1769; C1892; J0610; J0780; J1170; J1644; J1815; J2250; J2405; J2785; J3010; J3370; J3490; J7030; J7040; J7042; J7613; P9046; 97116; 97530; 99285-25

== ENCOUNTER 2018-09-20 18:30 | Inpatient (IN) | payer MEDICARE ==
[~2018-09-20] VITALS: Ht 154.9 cm; Wt 67.8 kg
[~2018-09-20 18:30] MED LIST changes: +ATOR40TA59 PO; +BUSP5TAB PO; +MIRT7.5T8 PO; +SUCR1TAB35 PO; +VIT1TABL57 PO
--- NOTE | 2018-09-20 18:41 | PHYS DOC ---
Past Medical History Past Medical History: COPD, High Cholesterol, Hypertension, Hepatitis, Renal Failure, Other Additional Past Medical Histor: HEP C Past Surgical History: Hysterectomy, Other Additional Past Surgical Histo: colostomy, right chest dialysis catheter Alcohol Use: Occasionally Drug Use: None Adult General HPI HPI Patient is a 78 year old female who presents with generalized weakness. It started this morning. Patient denies any fever. Denies any cough. She is a Saturday, Saturday, Saturday dialysis patient and had dialysis performed yesterday. EMS found that her blood pressure was low, in the 50s to 60s systolic , so they started an IV and gave IV fluids. They also note that their temperature reading is a tympanic thermometer was 101. Patient denies any specific pains and no focality to the weakness.[] Review of Systems Review of Systems Constitutional: Denies fever or chills [] Eyes: Denies change in visual acuity, redness, or eye pain [] HENT: Denies nasal congestion or sore throat [] Respiratory: Denies cough or shortness of breath [] Cardiovascular: No chest pain or palpitations[] GI: Denies abdominal pain, nausea, vomiting, bloody stools or diarrhea [] : Denies dysuria or hematuria [] Musculoskeletal: Denies back pain or joint pain [] Integument: Denies rash or skin lesions [] Neurologic: Denies headache, focal weakness or sensory changes [] Endocrine: Denies polyuria or polydipsia [] All other systems were reviewed and found to be within normal limits, except as documented in this note. Current Medications Current Medications Current Medications Medications (Trade) Dose Ordered Sig/Saroj Start Time Stop Time Status Last Admin Dose Admin Acetaminophen (Tylenol) 500 mg 1X ONCE 09/20/18 21:15 09/20/18 21:22 DC Levofloxacin (Levaquin) 500 mg 1X ONCE 09/20/18 21:15 09/20/18 21:22 DC Sodium Chloride 500 ml @ 500 mls/hr 1X ONCE 09/20/18 18:45 09/20/18 19:44 DC 09/20/18 19:18 500 MLS/HR Allergies Allergies Allergies Coded Allergies Type Severity Reaction Last Updated Verified ceftriaxone Allergy Intermediate SKIN RASH, HAS TOLERATED ZOSYN 06/07/18 Yes morphine Allergy Intermediate 08/25/18 Yes tizanidine Adverse Reaction Severe dizzy 09/12/18 Yes Physical Exam Physical Exam Constitutional: Well developed, well nourished, no acute distress, non-toxic appearance. [] HENT: Normocephalic, atraumatic, bilateral external ears normal, oropharynx moist, no oral exudates, nose normal. [] Eyes: PERRLA, EOMI, conjunctiva normal, no discharge. [] Neck: Normal range of motion, no tenderness, supple, no stridor. [] Cardiovascular:Heart rate regular rhythm, no murmur [] Lungs & Thorax: Bilateral breath sounds clear to auscultation [] Abdomen: Bowel sounds normal, soft, no tenderness, no masses, no pulsatile masses. [] Skin: Warm, dry, no erythema, no rash. [] Back: No tenderness, no CVA tenderness. [] Extremities: No tenderness, no cyanosis, no clubbing, ROM intact, no edema. [] Neurologic: Alert and oriented X 3, normal motor function, normal sensory function, no focal deficits noted. [] Psychologic: Affect normal, judgement normal, mood normal. [] Current Patient Data Vital Signs Vital Signs Date Time Temp Pulse Resp B/P (MAP) Pulse Ox O2 Delivery O2 Flow Rate FiO2 09/20/18 18:30 98.5 81 18 152/96 (114) 100 Room Air 98.5 Lab Values Laboratory Tests Test 09/20/18 19:10 09/20/18 20:25 09/20/18 20:29 White Blood Count 10.7 x10^3/uL (4.0-11.0) Red Blood Count 2.83 x10^6/uL (3.50-5.40) L Hemoglobin 8.5 g/dL (12.0-15.5) L Hematocrit 26.3 % (36.0-47.0) L Mean Corpuscular Volume 93 fL (79-100) Mean Corpuscular Hemoglobin 30 pg (25-35) Mean Corpuscular Hemoglobin Concent 32 g/dL (31-37) Red Cell Distribution Width 15.1 % (11.5-14.5) H Platelet Count 203 x10^3/uL (140-400) Neutrophils (%) (Auto) 68 % (31-73) Lymphocytes (%) (Auto) 24 % (24-48) Monocytes (%) (Auto) 5 % (0-9) Eosinophils (%) (Auto) 3 % (0-3) Basophils (%) (Auto) 1 % (0-3) Neutrophils # (Auto) 7.2 x10^3uL (1.8-7.7) Lymphocytes # (Auto) 2.5 x10^3/uL (1.0-4.8) Monocytes # (Auto) 0.6 x10^3/uL (0.0-1.1) Eosinophils # (Auto) 0.3 x10^3/uL (0.0-0.7) Basophils # (Auto) 0.1 x10^3/uL (0.0-0.2) Prothrombin Time 13.8 SEC (11.7-14.0) Prothrombin Time INR 1.1 (0.8-1.1) Sodium Level 131 mmol/L (136-145) L Potassium Level 4.7 mmol/L (3.5-5.1) Chloride Level 94 mmol/L (98-107) L Carbon Dioxide Level 26 mmol/L (21-32) Anion Gap 11 (6-14) Blood Urea Nitrogen 21 mg/dL (7-20) H Creatinine 3.4 mg/dL (0.6-1.0) H Estimated GFR (Cockcroft-Gault) 15.7 BUN/Creatinine Ratio 6 (6-20) Glucose Level 108 mg/dL (70-99) H Calcium Level 8.5 mg/dL (8.5-10.1) Magnesium Level 1.5 mg/dL (1.8-2.4) L Total Bilirubin 0.3 mg/dL (0.2-1.0) Aspartate Amino Transferase (AST) 31 U/L (15-37) Alanine Aminotransferase (ALT) 22 U/L (14-59) Alkaline Phosphatase 87 U/L (46-116) Troponin I Quantitative 0.045 ng/mL (0.000-0.055) GW-Eog-U-Type Natriuretic Peptide 1611 pg/mL (0-449) H Total Protein 7.2 g/dL (6.4-8.2) Albumin 3.1 g/dL (3.4-5.0) L Albumin/Globulin Ratio 0.8 (1.0-1.7) L Stool Occult Blood Positive (NEG) Urine Collection Type U cath Urine Color Irena Urine Clarity Cloudy Urine pH 5.0 Urine Specific [place] 1.025 Urine Protein 30 mg/dL (NEG-TRACE) Urine Glucose (UA) Negative mg/dL (NEG) Urine Ketones (Stick) 15 mg/dL (NEG) Urine Blood Moderate (NEG) Urine Nitrite Negative (NEG) Urine Bilirubin Moderate (NEG) Urine Urobilinogen Dipstick 1.0 mg/dL (0.2 mg/dL) Urine Leukocyte Esterase Large (NEG) Urine RBC 6-10 /HPF (0-2) Urine WBC Tntc /HPF (0-4) Urine Squamous Epithelial Cells None /LPF Urine Bacteria Many /HPF (0-FEW) Urine Hyaline Casts Many /HPF Urine Mucus Marked /LPF Urine Yeast Present /HPF Laboratory Tests 09/20/18 19:10 Laboratory Tests 09/20/18 19:10 EKG EKG EKG shows sinus rhythm at 73 bpm, no ST elevation, normal axis, QTC of 487 ms. Interpreted by me at 1857[] Radiology/Procedures Radiology/Procedures AP chest. HISTORY: Weakness AP view was taken of the chest. There is a right dialysis catheter in the superior vena cava. Heart is mildly enlarged. There are no confluent infiltrates. IMPRESSION: 1. No acute infiltrates. [] Course & Med Decision Making Course & Med Decision Making Pertinent Labs and Imaging studies reviewed. (See chart for details) ED course: Patient arrived, was placed in bed, and tolerated exam well. Her initial blood pressure was in the 150s. Her initial IV from EMS was ceased functioning and multiple attempts were made to obtain additional access some of which transiently succeeded. However her pressure decreased again and unable to administer fluid boluses. She was noted to have a right chest dialysis catheter , reluctant to put a central line in that may interfere with this catheter. Consultation was made with hospitalist service for admission. Additional consultation was made with nephrology given that she is an end-stage renal disease patient, and the need for a potential PICC line. She was given antibiotics for the urinary tract infection that was noted. Also given proton pump inhibitors for the Hemoccult positive brown "stool" from the ostomy.[] Dragon Disclaimer Dragon Disclaimer This electronic medical record was generated, in whole or in part, using a voice recognition dictation system. Departure Departure Impression: Primary Impression: ESRD (end stage renal disease) Additional Impressions: GI bleed Anemia Hypotension Disposition: 09 ADMITTED INPATIENT Admitting Physician: Aidee Landers Condition: IMPROVED Referrals: VINCE BLAIR DO (PCP) Problem Qualifiers Additional Impressions: GI bleed GI bleed type/associated pathology: unspecified gastrointestinal hemorrhage type Qualified Codes: K92.2 - Gastrointestinal hemorrhage, unspecified Anemia Anemia type: unspecified type Qualified Codes: D64.9 - Anemia, unspecified Hypotension Hypotension type: unspecified hypotension type Qualified Codes: I95.9 - Hypotension, unspecified TALITA MEDEL DO Sep 20, 2018 18:41
[2018-09-20] MEDS ORDERED: IV NORMAL SALINE 500ML BAG 500 ML IV ONE (18:45)
--- NOTE | 2018-09-20 19:28 | RAD ---
AP chest. HISTORY: Weakness AP view was taken of the chest. There is a right dialysis catheter in the superior vena cava. Heart is mildly enlarged. There are no confluent infiltrates. IMPRESSION: 1. No acute infiltrates. Electronically signed by: Douglas Fang MD (09/20/2018 7:25 PM) [id number]
[2018-09-20 19:34] LABS: BASO # 0.1 x10^3/uL (0.0-0.2); BASO % 1 % (0-3); EOS # 0.3 x10^3/uL (0.0-0.7); EOS % 3 % (0-3); HEMATOCRIT 26.3 % (36.0-47.0); HEMOGLOBIN 8.5 g/dL (12.0-15.5); LYMPH # 2.5 x10^3/uL (1.0-4.8); LYMPH % 24 % (24-48); MEAN CORPUSCULAR HEMOGLOBIN 30 pg (25-35); MEAN CORPUSCULAR HGB CONC 32 g/dL (31-37); MEAN CORPUSCULAR VOLUME 93 fL (79-100); MONO # 0.6 x10^3/uL (0.0-1.1); MONO % 5 % (0-9); NEUT # 7.2 x10^3uL (1.8-7.7); NEUT % 68 % (31-73); PLATELET COUNT 203 x10^3/uL (140-400); RED BLOOD COUNT 2.83 x10^6/uL (3.50-5.40); RED CELL DISTRIBUTION WIDTH 15.1 % (11.5-14.5); WHITE BLOOD COUNT 10.7 x10^3/uL (4.0-11.0)
[2018-09-20 19:36] LABS: CALCIUM 8.5 mg/dL (8.5-10.1); CREATININE 3.4 mg/dL (0.6-1.0); GFR 15.7; POTASSIUM 4.7 mmol/L (3.5-5.1)
[2018-09-20 19:42] LABS: ALBUMIN 3.1 g/dL (3.4-5.0); ALBUMIN/GLOBULIN RATIO 0.8 (1.0-1.7); MAGNESIUM 1.5 mg/dL (1.8-2.4); TOTAL BILIRUBIN 0.3 mg/dL (0.2-1.0); TOTAL PROTEIN 7.2 g/dL (6.4-8.2)
[2018-09-20 19:43] LABS: PROTHROMBIN TIME PATIENT 13.8 SEC (11.7-14.0)
[2018-09-20 20:48] LABS: BILIRUBIN,URINE MODERATE (NEG); CLARITY,URINE CLOUDY; COLOR,URINE AMBER; NITRITE,URINE NEGATIVE (NEG); PROTEIN,URINE 30 mg/dL (NEG-TRACE)
[2018-09-20 20:57] LABS: BACTERIA,URINE MANY /HPF (0-FEW); HYALINE CASTS, URINE MANY /HPF; WBC,URINE TNTC /HPF (0-4); YEAST,URINE PRESENT /HPF
[2018-09-20] MEDS ORDERED: ACETAMINOPHEN 500 MG TABLET PO ONE (21:15)
[2018-09-20 21:28] LABS: FECAL OB PT POSITIVE (NEG)
[2018-09-20] MEDS ORDERED: ONDANSETRON PF 4 MG/2 ML VIAL. IV PRN (22:00)
[2018-09-20] MEDS ORDERED: ACETAMINOPHEN 325 MG TABLET. PO PRN (22:00)
[2018-09-20] MEDS ORDERED: PANTOPRAZOLE IV PUSH 40 MG VIAL. IVP ONE (22:15)
--- NOTE | 2018-09-20 22:46 | PDOC1 ---
History and Physical Date of Admission Date of Admission DATE: 09/20/18 TIME: 22:44 History of Present Illness History of Present Illness Ms. Ng is a 78 year old female who presents with generalized weakness. It started this morning. Patient denies any fever. Denies any cough. She is a Saturday, Saturday, Saturday dialysis patient and had dialysis performed yesterday. EMS found that her blood pressure was low, in the 50s to 60s systolic , so they started an IV and gave IV fluids. They also note that their temperature reading is a tympanic thermometer was 101. Patient denies any specific pains and no focality to the weakness.[] Past Medical History Cardiovascular: HTN, Hyperlipidemia Pulmonary: COPD CENTRAL NERVOUS SYSTEM: Other GI: Other Heme/Onc: No pertinent hx Hepatobiliary: Hep A/B/C Psych: Anxiety Musculoskeletal: Osteoarthritis Infectious disease: No pertinent hx Renal/: Chronic renal insuff Endocrine: Hypothyroidism Past Surgical History Past Surgical History: Hysterectomy, Colectomy Family History Family History: Hypertension Social History Smoke: No ALCOHOL: none Drugs: Marijuana Current Medications Current Medications Current Medications Sodium Chloride 500 ml @ 500 mls/hr 1X ONCE IV Last administered on at 19:18; Start 09/20/18 at 18:45; Stop 09/20/18 at 19:44; Status DC Acetaminophen (Tylenol) 500 mg 1X ONCE PO Last administered on 09/20/18at 21:48 ; Start 09/20/18 at 21:15; Stop 09/20/18 at 21:22; Status DC Levofloxacin (Levaquin) 500 mg 1X ONCE PO Last administered on 09/20/18at 21:48 ; Start 09/20/18 at 21:15; Stop 09/20/18 at 21:22; Status DC Pantoprazole Sodium (PROTONIX VIAL for IV PUSH) 80 mg 1X ONCE IVP Last administered on 09/20/18at 21:59; Start 09/20/18 at 22:15; Stop 09/20/18 at 22:16 ; Status DC Ondansetron HCl (Zofran) 4 mg PRN Q8HRS PRN IV NAUSEA/VOMITING 1ST CHOICE; Start 09/20/18 at 22:00; Stop 09/21/18 at 21:59 Sodium Chloride 1,000 ml @ 100 mls/hr Q10H IV ; Start 09/20/18 at 22:30; Stop 09/21/18 at 22:29 Acetaminophen (Tylenol) 650 mg PRN Q4HRS PRN PO FEVER; Start 09/20/18 at 22:00 ; Stop 09/21/18 at 21:59 Active Scripts Active Nephro-Cheli Rx Tablet (Vit B Cmplx 3/Fa/Vit C/Biotin) 1 Each Tablet 1 Each PO DAILY 30 Days Carafate (Sucralfate) 1 Gm Tablet 1 Gm PO TIDAC MDD 1 Buspirone Hcl 5 Mg Tablet 5 Mg PO PRN TID PRN MDD 1 Mirtazapine 7.5 Mg Tablet 7.5 Mg PO QHS MDD 1 Atorvastatin Calcium 40 Mg Tablet 40 Mg PO QHS MDD 1 Aspirin Ec (Aspirin) 81 Mg Tablet.dr 81 Mg PO DAILYWBKFT 30 Days [place] 5-325 Tablet (Acetaminophen/Hydrocodone Bitart) 1 Each Tablet 1 Tab PO PRN Q6HRS 3 Days Lidocaine 1 Each Adh..patch 1 Patch TD DAILY MDD 1 Synthroid (Levothyroxine Sodium) 88 Mcg Tablet 88 Mcg PO DAILY06 MDD 1 Metoprolol Succinate ( Xl ) (Metoprolol Succinate) 25 Mg Tab.er.24h 25 Mg PO DAILY MDD 1 Reported Protonix (Pantoprazole Sodium) 20 Mg Tablet. 40 Mg PO DAILY Allergies Allergies: Coded Allergies: ceftriaxone (Verified Allergy, Intermediate, SKIN RASH, HAS TOLERATED ZOSYN, 06/07/18) morphine (Verified Allergy, Intermediate, 08/25/18) TOLERATES LORTAB AND DILAUDID tizanidine (Verified Adverse Reaction, Severe, dizzy, 09/12/18) ROS General: YES: Chills, Fatigue, Malaise PSYCHOLOGICAL ROS: No: Anxiety, Behavioral Disorder, Concentration difficultie , Decreased libido, Depression, Disorientation, Hallucinations, Hostility, Irritablity, Memory difficulties, Mood Swings, Obsessive thoughts, Physical abuse, Sexual abuse, Sleep disturbances, Suicidal ideation, Other Eyes: No Blurry vision, No Decreased vision, No Double vision, No Dry eyes, No Excessive tearing, No Eye Pain, No Itchy Eyes, No Loss of vision, No Photophobia , No Scotomata, No Uses contacts, No Uses glasses, No Other HEENT: No: Heacaches, Visual Changes, Hearing change, Nasal congestion, Nasal discharge, Oral lesions, Sinus pain, Sore Throat, Epistaxis, Sneezing, Snoring, Tinnitus, Vertigo, Vocal changes, Other Respiratory: No: Cough, Hemoptysis, Orthopnea, Pleuritic Pain, Shortness of breath, SOB with excertion, Sputum Changes, Stridor, Tachypnea, Wheezing, Other Cardiovascular: No Chest Pain, No Palpitations, No Orthopnea, No Paroxysmal Noc. Dyspnea, No Edema, No Lt Headedness, No Other Gastrointestinal: Yes Nausea, Yes Abdominal Pain; No Vomiting, No Diarrhea, No Constipation, No Melena, No Hematochezia, No Other Genitourinary: No Dysuria, No Frequency, No Incontinence, No Hematuria, No Retention, No Discharge, No Urgency, No Pain, No Flank Pain, No Other, No , No , No , No , No , No , No Musculoskeletal: Yes Joint Pain, Yes Joint Stiffness; No Gait Disturbance, No Joint Swelling, No Muscle Pain, No Muscular Weakness , No Pain In:, No Swelling In:, No Other Neurological: No Behavorial Changes, No Bowel/Bladder ControlChng, No Confusion , No Dizziness, No Gait Disturbance, No Headaches, No Impaired Coord/balance, No Memory Loss, No Numbness/Tingling, No Seizures, No Speech Problems, No Tremors, No Visual Changes, No Weakness, No Other Skin: No Dry Skin, No Eczema, No Hair Changes, No Lumps, No Mole Changes, No Mottling, No Nail Changes, No Pruritus, No Rash, No Skin Lesion Changes, No Other, No Acne Physical Exam General: Alert, Cooperative, No acute distress HEENT: EOMI Lungs: Normal air movement Heart: no gallops, no murmurs Abdomen: Normal bowel sounds, Soft Extremities: No cyanosis, Normal pulses Skin: No rashes, No significant lesion Neuro: Normal gait, Sensation intact Psych/Mental Status: Mood NL Vitals Vitals Vital Signs Date Time Temp Pulse Resp B/P (MAP) Pulse Ox O2 Delivery O2 Flow Rate FiO2 09/20/18 18:30 98.5 81 18 152/96 (114) 100 Room Air 98.5 Labs Labs Laboratory Tests Test 09/20/18 19:10 09/20/18 20:25 09/20/18 20:29 White Blood Count 10.7 x10^3/uL (4.0-11.0) Red Blood Count 2.83 x10^6/uL (3.50-5.40) Hemoglobin 8.5 g/dL (12.0-15.5) Hematocrit 26.3 % (36.0-47.0) Mean Corpuscular Volume 93 fL (79-100) Mean Corpuscular Hemoglobin 30 pg (25-35) Mean Corpuscular Hemoglobin Concent 32 g/dL (31-37) Red Cell Distribution Width 15.1 % (11.5-14.5) Platelet Count 203 x10^3/uL (140-400) Neutrophils (%) (Auto) 68 % (31-73) Lymphocytes (%) (Auto) 24 % (24-48) Monocytes (%) (Auto) 5 % (0-9) Eosinophils (%) (Auto) 3 % (0-3) Basophils (%) (Auto) 1 % (0-3) Neutrophils # (Auto) 7.2 x10^3uL (1.8-7.7) Lymphocytes # (Auto) 2.5 x10^3/uL (1.0-4.8) Monocytes # (Auto) 0.6 x10^3/uL (0.0-1.1) Eosinophils # (Auto) 0.3 x10^3/uL (0.0-0.7) Basophils # (Auto) 0.1 x10^3/uL (0.0-0.2) Prothrombin Time 13.8 SEC (11.7-14.0) Prothromb Time International Ratio 1.1 (0.8-1.1) Sodium Level 131 mmol/L (136-145) Potassium Level 4.7 mmol/L (3.5-5.1) Chloride Level 94 mmol/L (98-107) Carbon Dioxide Level 26 mmol/L (21-32) Anion Gap 11 (6-14) Blood Urea Nitrogen 21 mg/dL (7-20) Creatinine 3.4 mg/dL (0.6-1.0) Estimated GFR (Cockcroft-Gault) 15.7 BUN/Creatinine Ratio 6 (6-20) Glucose Level 108 mg/dL (70-99) Calcium Level 8.5 mg/dL (8.5-10.1) Magnesium Level 1.5 mg/dL (1.8-2.4) Total Bilirubin 0.3 mg/dL (0.2-1.0) Aspartate Amino Transf (AST/SGOT) 31 U/L (15-37) Alanine Aminotransferase (ALT/SGPT) 22 U/L (14-59) Alkaline Phosphatase 87 U/L (46-116) Troponin I Quantitative 0.045 ng/mL (0.000-0.055) VC-Cew-U-Type Natriuretic Peptide 1611 pg/mL (0-449) Total Protein 7.2 g/dL (6.4-8.2) Albumin 3.1 g/dL (3.4-5.0) Albumin/Globulin Ratio 0.8 (1.0-1.7) Stool Occult Blood Positive (NEG) Urine Collection Type U cath Urine Color Irena Urine Clarity Cloudy Urine pH 5.0 Urine Specific [place] 1.025 Urine Protein 30 mg/dL (NEG-TRACE) Urine Glucose (UA) Negative mg/dL (NEG) Urine Ketones (Stick) 15 mg/dL (NEG) Urine Blood Moderate (NEG) Urine Nitrite Negative (NEG) Urine Bilirubin Moderate (NEG) Urine Urobilinogen Dipstick 1.0 mg/dL (0.2 mg/dL) Urine Leukocyte Esterase Large (NEG) Urine RBC 6-10 /HPF (0-2) Urine WBC Tntc /HPF (0-4) Urine Squamous Epithelial Cells None /LPF Urine Bacteria Many /HPF (0-FEW) Urine Hyaline Casts Many /HPF Urine Mucus Marked /LPF Urine Yeast Present /HPF Laboratory Tests Test 09/20/18 19:10 09/20/18 20:25 09/20/18 20:29 White Blood Count 10.7 x10^3/uL (4.0-11.0) Red Blood Count 2.83 x10^6/uL (3.50-5.40) Hemoglobin 8.5 g/dL (12.0-15.5) Hematocrit 26.3 % (36.0-47.0) Mean Corpuscular Volume 93 fL (79-100) Mean Corpuscular Hemoglobin 30 pg (25-35) Mean Corpuscular Hemoglobin Concent 32 g/dL (31-37) Red Cell Distribution Width 15.1 % (11.5-14.5) Platelet Count 203 x10^3/uL (140-400) Neutrophils (%) (Auto) 68 % (31-73) Lymphocytes (%) (Auto) 24 % (24-48) Monocytes (%) (Auto) 5 % (0-9) Eosinophils (%) (Auto) 3 % (0-3) Basophils (%) (Auto) 1 % (0-3) Neutrophils # (Auto) 7.2 x10^3uL (1.8-7.7) Lymphocytes # (Auto) 2.5 x10^3/uL (1.0-4.8) Monocytes # (Auto) 0.6 x10^3/uL (0.0-1.1) Eosinophils # (Auto) 0.3 x10^3/uL (0.0-0.7) Basophils # (Auto) 0.1 x10^3/uL (0.0-0.2) Prothrombin Time 13.8 SEC (11.7-14.0) Prothromb Time International Ratio 1.1 (0.8-1.1) Sodium Level 131 mmol/L (136-145) Potassium Level 4.7 mmol/L (3.5-5.1) Chloride Level 94 mmol/L (98-107) Carbon Dioxide Level 26 mmol/L (21-32) Anion Gap 11 (6-14) Blood Urea Nitrogen 21 mg/dL (7-20) Creatinine 3.4 mg/dL (0.6-1.0) Estimated GFR (Cockcroft-Gault) 15.7 BUN/Creatinine Ratio 6 (6-20) Glucose Level 108 mg/dL (70-99) Calcium Level 8.5 mg/dL (8.5-10.1) Magnesium Level 1.5 mg/dL (1.8-2.4) Total Bilirubin 0.3 mg/dL (0.2-1.0) Aspartate Amino Transf (AST/SGOT) 31 U/L (15-37) Alanine Aminotransferase (ALT/SGPT) 22 U/L (14-59) Alkaline Phosphatase 87 U/L (46-116) Troponin I Quantitative 0.045 ng/mL (0.000-0.055) OU-Lxo-P-Type Natriuretic Peptide 1611 pg/mL (0-449) Total Protein 7.2 g/dL (6.4-8.2) Albumin 3.1 g/dL (3.4-5.0) Albumin/Globulin Ratio 0.8 (1.0-1.7) Stool Occult Blood Positive (NEG) Urine Collection Type U cath Urine Color Irena Urine Clarity Cloudy Urine pH 5.0 Urine Specific [place] 1.025 Urine Protein 30 mg/dL (NEG-TRACE) Urine Glucose (UA) Negative mg/dL (NEG) Urine Ketones (Stick) 15 mg/dL (NEG) Urine Blood Moderate (NEG) Urine Nitrite Negative (NEG) Urine Bilirubin Moderate (NEG) Urine Urobilinogen Dipstick 1.0 mg/dL (0.2 mg/dL) Urine Leukocyte Esterase Large (NEG) Urine RBC 6-10 /HPF (0-2) Urine WBC Tntc /HPF (0-4) Urine Squamous Epithelial Cells None /LPF Urine Bacteria Many /HPF (0-FEW) Urine Hyaline Casts Many /HPF Urine Mucus Marked /LPF Urine Yeast Present /HPF VTE Prophylaxis Ordered VTE Prophylaxis Devices: Yes VTE Pharmacological Prophylaxi: Contraindicated Assessment/Plan Assessment/Plan severe sepsis, ICU admit UTI vasculopathy, has lost IV access, 20 g in foot, ESRD< weakness and debility GIANLUCA LONG MD Sep 20, 2018 22:46
[2018-09-20 23:00] VITALS: BP 98/48
[2018-09-21] VITALS (24 sets, daily range): BP systolic 97–165; BP diastolic 44–63
[2018-09-21] MEDS: fentaNYL PF VIAL 100 MCG/2 ML VIAL IV PRN ×6 (01:18→12:59)
[2018-09-21 06:51] LABS: BASO % 1 % (0-3); EOS # 0.3 x10^3/uL (0.0-0.7); EOS % 4 % (0-3); HEMATOCRIT 29.4 % (36.0-47.0); HEMOGLOBIN 9.5 g/dL (12.0-15.5); LYMPH # 2.1 x10^3/uL (1.0-4.8); LYMPH % 28 % (24-48); MEAN CORPUSCULAR HEMOGLOBIN 30 pg (25-35); MEAN CORPUSCULAR HGB CONC 32 g/dL (31-37); MEAN CORPUSCULAR VOLUME 93 fL (79-100); MONO # 0.5 x10^3/uL (0.0-1.1); MONO % 7 % (0-9); NEUT # 4.4 x10^3uL (1.8-7.7); NEUT % 60 % (31-73); PLATELET COUNT 179 x10^3/uL (140-400); RED BLOOD COUNT 3.18 x10^6/uL (3.50-5.40); RED CELL DISTRIBUTION WIDTH 14.7 % (11.5-14.5); WHITE BLOOD COUNT 7.3 x10^3/uL (4.0-11.0)
[2018-09-21 06:53] LABS: ALBUMIN 2.5 g/dL (3.4-5.0); ALBUMIN/GLOBULIN RATIO 0.7 (1.0-1.7); CREATININE 2.7 mg/dL (0.6-1.0); GFR 20.5; POTASSIUM 4.2 mmol/L (3.5-5.1); TOTAL BILIRUBIN 0.6 mg/dL (0.2-1.0); TOTAL PROTEIN 6.2 g/dL (6.4-8.2)
--- NOTE | 2018-09-21 08:08 | RAD ---
Examination: Single frontal view chest HISTORY: History of central line placement COMPARISON: 09/20/2018. FINDINGS: The cardiomediastinal silhouette grossly appears unremarkable. Right-sided dialysis catheter is unchanged. Interval placement of left internal jugular line with the tip projecting at the SVC/RA junction. The lungs are clear. No evidence of pneumothorax IMPRESSION: 1. Left-sided intrajugular line in place. 2. No pneumothorax. Electronically signed by: Soy Montgomery MD (09/21/2018 8:05 AM) [facility]
[2018-09-21] MEDS: IV NORMAL SALINE 1000ML BAG 1,000 ML IV SCH ×2 (08:30→08:48)
--- NOTE | 2018-09-21 10:56 | PDOC2 ---
CONSULT Date of Consult Date of Consult DATE: 09/21/18 TIME: 10:49 Identification/Chief Complaint Chief Complaint WEAKNESS History of Present Illness Reason for Visit: THIS IS AN 78 YR OLD WITH WEAKNESS, SHE HAS TIGRE AND HAS BEEN AT OP THIS PAST WEEK. SHE HAS OP HD ON MWF AND HER LAST HD WAS ON SATURDAY. SHE NOTED SEVERE WEAKNESS AND WAS BROUGHT TO THE ER. PER FAMILY SHE MAY HAVE TAKEN TOO MANY PAIN MEDS. HER TIGRE WAS FIRST NOTED EARLIER THIS MONTH WHEN SHE CAME IN WITH ABD PAIN , N/V AND INCREASED OSTOMY OUTPUT. SHE HAS A HX OF VOLVULUS AND UNDERWENT RESECTION AND AN OSTOMY PLACEMENT. SHE DID NOT HAVE ENOUGH RECOVERY OF HER TIGRE AND WAS DISCHARGED TO OP HD WITH PLANS FOR MONITORING HER RENAL FUNCTION. SHE VARGAS HAVE CKD STAGE 3 WITH A BASELINE CR OF ABOUT 1.6 Past Medical History Cardiovascular: HTN, Hyperlipidemia Pulmonary: COPD CENTRAL NERVOUS SYSTEM: Other GI: Other Heme/Onc: No pertinent hx Hepatobiliary: Hep A/B/C Psych: Anxiety Musculoskeletal: Osteoarthritis Infectious disease: No pertinent hx Renal/: Chronic renal insuff, Acute renal failure Endocrine: Hypothyroidism Past Surgical History Past Surgical History TUNNELED HD CATHETER PLACEMENT Past Surgical History: Hysterectomy, Colectomy Family History Family History: Hypertension Social History No ALCOHOL: none Drugs: Marijuana Lives: Alone Current Medications Current Medications Current Medications Sodium Chloride 500 ml @ 500 mls/hr 1X ONCE IV Last administered on at 19:18; Start 09/20/18 at 18:45; Stop 09/20/18 at 19:44; Status DC Acetaminophen (Tylenol) 500 mg 1X ONCE PO Last administered on 09/20/18at 21:48 ; Start 09/20/18 at 21:15; Stop 09/20/18 at 21:22; Status DC Levofloxacin (Levaquin) 500 mg 1X ONCE PO Last administered on 09/20/18at 21:48 ; Start 09/20/18 at 21:15; Stop 09/20/18 at 21:22; Status DC Pantoprazole Sodium (PROTONIX VIAL for IV PUSH) 80 mg 1X ONCE IVP Last administered on 09/20/18at 21:59; Start 09/20/18 at 22:15; Stop 09/20/18 at 22:16 ; Status DC Ondansetron HCl (Zofran) 4 mg PRN Q8HRS PRN IV NAUSEA/VOMITING 1ST CHOICE; Start 09/20/18 at 22:00; Stop 09/21/18 at 21:59 Sodium Chloride 1,000 ml @ 100 mls/hr Q10H IV Last administered on 09/21/18at 08:48; Start 09/20/18 at 22:30; Stop 09/21/18 at 22:29 Acetaminophen (Tylenol) 650 mg PRN Q4HRS PRN PO FEVER; Start 09/20/18 at 22:00 ; Stop 09/21/18 at 21:59 Fentanyl Citrate (Fentanyl 2ml Vial) 25 mcg PRN Q2HR PRN IV SEVERE PAIN Last administered on 09/21/18at 10:36; Start 09/21/18 at 01:00 Active Scripts Active Nephro-Cheli Rx Tablet (Vit B Cmplx 3/Fa/Vit C/Biotin) 1 Each Tablet 1 Each PO DAILY 30 Days Carafate (Sucralfate) 1 Gm Tablet 1 Gm PO TIDAC MDD 1 Buspirone Hcl 5 Mg Tablet 5 Mg PO PRN TID PRN MDD 1 Mirtazapine 7.5 Mg Tablet 7.5 Mg PO QHS MDD 1 Atorvastatin Calcium 40 Mg Tablet 40 Mg PO QHS MDD 1 Aspirin Ec (Aspirin) 81 Mg Tablet. 81 Mg PO DAILYWBKFT 30 Days [place] 5-325 Tablet (Acetaminophen/Hydrocodone Bitart) 1 Each Tablet 1 Tab PO PRN Q6HRS 3 Days Lidocaine 1 Each Adh..patch 1 Patch TD DAILY MDD 1 Synthroid (Levothyroxine Sodium) 88 Mcg Tablet 88 Mcg PO DAILY06 MDD 1 Metoprolol Succinate ( Xl ) (Metoprolol Succinate) 25 Mg Tab.er.24h 25 Mg PO DAILY MDD 1 Reported Protonix (Pantoprazole Sodium) 20 Mg Tablet. 40 Mg PO DAILY Allergies Allergies: Coded Allergies: ceftriaxone (Verified Allergy, Intermediate, SKIN RASH, HAS TOLERATED ZOSYN, 06/07/18) morphine (Verified Allergy, Intermediate, 08/25/18) TOLERATES LORTAB AND DILAUDID tizanidine (Verified Adverse Reaction, Severe, dizzy, 09/12/18) ROS General: YES: Fatigue, Appetite PSYCHOLOGICAL ROS: YES: Anxiety, Depression Eyes: Yes Decreased vision HEENT: YES: Heacaches Respiratory: YES: Cough Gastrointestinal: Yes Nausea, Yes Diarrhea, Yes Other (INCREASED OSTOMY OUTPUT) Genitourinary: YES Other (OL[place]URIA) Musculoskeletal: Yes Muscular Weakness Neurological: Yes Weakness Skin: Yes Dry Skin Physical Exam General: Alert, Oriented X3, Cooperative, No acute distress HEENT: Atraumatic, PERRLA Lungs: Clear to auscultation Heart: Regular rate, Normal S1, Normal S2 Abdomen: Normal bowel sounds, Other (OSTOMY NOTED) Skin: No breakdown Neuro: Normal speech, Cranial nerves 3-12 NL Psych/Mental Status: Mental status NL, Mood NL MUSCULOSKELETAL: No joint tenderness, No deformity, No swelling Vitals VITALS Vital Signs Date Time Temp Pulse Resp B/P (MAP) Pulse Ox O2 Delivery O2 Flow Rate FiO2 09/21/18 10:36 18 100 Room Air 09/21/18 09:00 62 136/49 (78) 09/21/18 08:00 98.5 98.5 Labs Labs Laboratory Tests Test 09/20/18 19:10 09/20/18 20:25 09/20/18 20:29 09/21/18 06:00 White Blood Count 10.7 x10^3/uL (4.0-11.0) 7.3 x10^3/uL (4.0-11.0) Red Blood Count 2.83 x10^6/uL (3.50-5.40) 3.18 x10^6/uL (3.50-5.40) Hemoglobin 8.5 g/dL (12.0-15.5) 9.5 g/dL (12.0-15.5) Hematocrit 26.3 % (36.0-47.0) 29.4 % (36.0-47.0) Mean Corpuscular Volume 93 fL (79-100) 93 fL (79-100) Mean Corpuscular Hemoglobin 30 pg (25-35) 30 pg (25-35) Mean Corpuscular Hemoglobin Concent 32 g/dL (31-37) 32 g/dL (31-37) Red Cell Distribution Width 15.1 % (11.5-14.5) 14.7 % (11.5-14.5) Platelet Count 203 x10^3/uL (140-400) 179 x10^3/uL (140-400) Neutrophils (%) (Auto) 68 % (31-73) 60 % (31-73) Lymphocytes (%) (Auto) 24 % (24-48) 28 % (24-48) Monocytes (%) (Auto) 5 % (0-9) 7 % (0-9) Eosinophils (%) (Auto) 3 % (0-3) 4 % (0-3) Basophils (%) (Auto) 1 % (0-3) 1 % (0-3) Neutrophils # (Auto) 7.2 x10^3uL (1.8-7.7) 4.4 x10^3uL (1.8-7.7) Lymphocytes # (Auto) 2.5 x10^3/uL (1.0-4.8) 2.1 x10^3/uL (1.0-4.8) Monocytes # (Auto) 0.6 x10^3/uL (0.0-1.1) 0.5 x10^3/uL (0.0-1.1) Eosinophils # (Auto) 0.3 x10^3/uL (0.0-0.7) 0.3 x10^3/uL (0.0-0.7) Basophils # (Auto) 0.1 x10^3/uL (0.0-0.2) 0.0 x10^3/uL (0.0-0.2) Prothrombin Time 13.8 SEC (11.7-14.0) Prothromb Time International Ratio 1.1 (0.8-1.1) Sodium Level 131 mmol/L (136-145) 132 mmol/L (136-145) Potassium Level 4.7 mmol/L (3.5-5.1) 4.2 mmol/L (3.5-5.1) Chloride Level 94 mmol/L (98-107) 99 mmol/L (98-107) Carbon Dioxide Level 26 mmol/L (21-32) 24 mmol/L (21-32) Anion Gap 11 (6-14) 9 (6-14) Blood Urea Nitrogen 21 mg/dL (7-20) 21 mg/dL (7-20) Creatinine 3.4 mg/dL (0.6-1.0) 2.7 mg/dL (0.6-1.0) Estimated GFR (Cockcroft-Gault) 15.7 20.5 BUN/Creatinine Ratio 6 (6-20) 8 (6-20) Glucose Level 108 mg/dL (70-99) 87 mg/dL (70-99) Calcium Level 8.5 mg/dL (8.5-10.1) 8.0 mg/dL (8.5-10.1) Magnesium Level 1.5 mg/dL (1.8-2.4) Total Bilirubin 0.3 mg/dL (0.2-1.0) 0.6 mg/dL (0.2-1.0) Aspartate Amino Transf (AST/SGOT) 31 U/L (15-37) 26 U/L (15-37) Alanine Aminotransferase (ALT/SGPT) 22 U/L (14-59) 17 U/L (14-59) Alkaline Phosphatase 87 U/L (46-116) 69 U/L (46-116) Troponin I Quantitative 0.045 ng/mL (0.000-0.055) 0.056 ng/mL (0.000-0.055) YG-Chy-O-Type Natriuretic Peptide 1611 pg/mL (0-449) Total Protein 7.2 g/dL (6.4-8.2) 6.2 g/dL (6.4-8.2) Albumin 3.1 g/dL (3.4-5.0) 2.5 g/dL (3.4-5.0) Albumin/Globulin Ratio 0.8 (1.0-1.7) 0.7 (1.0-1.7) Stool Occult Blood Positive (NEG) Urine Collection Type U cath Urine Color Irena Urine Clarity Cloudy Urine pH 5.0 Urine Specific [place] 1.025 Urine Protein 30 mg/dL (NEG-TRACE) Urine Glucose (UA) Negative mg/dL (NEG) Urine Ketones (Stick) 15 mg/dL (NEG) Urine Blood Moderate (NEG) Urine Nitrite Negative (NEG) Urine Bilirubin Moderate (NEG) Urine Urobilinogen Dipstick 1.0 mg/dL (0.2 mg/dL) Urine Leukocyte Esterase Large (NEG) Urine RBC 6-10 /HPF (0-2) Urine WBC Tntc /HPF (0-4) Urine Squamous Epithelial Cells None /LPF Urine Bacteria Many /HPF (0-FEW) Urine Hyaline Casts Many /HPF Urine Mucus Marked /LPF Urine Yeast Present /HPF Laboratory Tests Test 09/20/18 19:10 09/20/18 20:25 09/20/18 20:29 09/21/18 06:00 White Blood Count 10.7 x10^3/uL (4.0-11.0) 7.3 x10^3/uL (4.0-11.0) Red Blood Count 2.83 x10^6/uL (3.50-5.40) 3.18 x10^6/uL (3.50-5.40) Hemoglobin 8.5 g/dL (12.0-15.5) 9.5 g/dL (12.0-15.5) Hematocrit 26.3 % (36.0-47.0) 29.4 % (36.0-47.0) Mean Corpuscular Volume 93 fL (79-100) 93 fL (79-100) Mean Corpuscular Hemoglobin 30 pg (25-35) 30 pg (25-35) Mean Corpuscular Hemoglobin Concent 32 g/dL (31-37) 32 g/dL (31-37) Red Cell Distribution Width 15.1 % (11.5-14.5) 14.7 % (11.5-14.5) Platelet Count 203 x10^3/uL (140-400) 179 x10^3/uL (140-400) Neutrophils (%) (Auto) 68 % (31-73) 60 % (31-73) Lymphocytes (%) (Auto) 24 % (24-48) 28 % (24-48) Monocytes (%) (Auto) 5 % (0-9) 7 % (0-9) Eosinophils (%) (Auto) 3 % (0-3) 4 % (0-3) Basophils (%) (Auto) 1 % (0-3) 1 % (0-3) Neutrophils # (Auto) 7.2 x10^3uL (1.8-7.7) 4.4 x10^3uL (1.8-7.7) Lymphocytes # (Auto) 2.5 x10^3/uL (1.0-4.8) 2.1 x10^3/uL (1.0-4.8) Monocytes # (Auto) 0.6 x10^3/uL (0.0-1.1) 0.5 x10^3/uL (0.0-1.1) Eosinophils # (Auto) 0.3 x10^3/uL (0.0-0.7) 0.3 x10^3/uL (0.0-0.7) Basophils # (Auto) 0.1 x10^3/uL (0.0-0.2) 0.0 x10^3/uL (0.0-0.2) Prothrombin Time 13.8 SEC (11.7-14.0) Prothromb Time International Ratio 1.1 (0.8-1.1) Sodium Level 131 mmol/L (136-145) 132 mmol/L (136-145) Potassium Level 4.7 mmol/L (3.5-5.1) 4.2 mmol/L (3.5-5.1) Chloride Level 94 mmol/L (98-107) 99 mmol/L (98-107) Carbon Dioxide Level 26 mmol/L (21-32) 24 mmol/L (21-32) Anion Gap 11 (6-14) 9 (6-14) Blood Urea Nitrogen 21 mg/dL (7-20) 21 mg/dL (7-20) Creatinine 3.4 mg/dL (0.6-1.0) 2.7 mg/dL (0.6-1.0) Estimated GFR (Cockcroft-Gault) 15.7 20.5 BUN/Creatinine Ratio 6 (6-20) 8 (6-20) Glucose Level 108 mg/dL (70-99) 87 mg/dL (70-99) Calcium Level 8.5 mg/dL (8.5-10.1) 8.0 mg/dL (8.5-10.1) Magnesium Level 1.5 mg/dL (1.8-2.4) Total Bilirubin 0.3 mg/dL (0.2-1.0) 0.6 mg/dL (0.2-1.0) Aspartate Amino Transf (AST/SGOT) 31 U/L (15-37) 26 U/L (15-37) Alanine Aminotransferase (ALT/SGPT) 22 U/L (14-59) 17 U/L (14-59) Alkaline Phosphatase 87 U/L (46-116) 69 U/L (46-116) Troponin I Quantitative 0.045 ng/mL (0.000-0.055) 0.056 ng/mL (0.000-0.055) TY-Dxh-N-Type Natriuretic Peptide 1611 pg/mL (0-449) Total Protein 7.2 g/dL (6.4-8.2) 6.2 g/dL (6.4-8.2) Albumin 3.1 g/dL (3.4-5.0) 2.5 g/dL (3.4-5.0) Albumin/Globulin Ratio 0.8 (1.0-1.7) 0.7 (1.0-1.7) Stool Occult Blood Positive (NEG) Urine Collection Type U cath Urine Color Irena Urine Clarity Cloudy Urine pH 5.0 Urine Specific Webster 1.025 Urine Protein 30 mg/dL (NEG-TRACE) Urine Glucose (UA) Negative mg/dL (NEG) Urine Ketones (Stick) 15 mg/dL (NEG) Urine Blood Moderate (NEG) Urine Nitrite Negative (NEG) Urine Bilirubin Moderate (NEG) Urine Urobilinogen Dipstick 1.0 mg/dL (0.2 mg/dL) Urine Leukocyte Esterase Large (NEG) Urine RBC 6-10 /HPF (0-2) Urine WBC Tntc /HPF (0-4) Urine Squamous Epithelial Cells None /LPF Urine Bacteria Many /HPF (0-FEW) Urine Hyaline Casts Many /HPF Urine Mucus Marked /LPF Urine Yeast Present /HPF Assessment/Plan Assessment/Plan IMP HYPOTENSION-MOST LIKELY PAIN MED RELATED-RESOLVED CKD STAGE 3 WITH CR OF 1.6 TIGRE DUE TO ATN - ON HD OP MWF-LAST HD ON SATURDAY HTN HX ANEMIA OF CKD PLAN HD MWF RESUME HOME MEDS ARANESP WILL FOLLOW MICHEAL PALACIOS MD Sep 21, 2018 10:56
[2018-09-21] MEDS ORDERED: PIP/TAZO PER PHARMACY MC PRN (11:00)
--- NOTE | 2018-09-21 11:18 | PDOC ---
PROGRESS NOTES History of Present Illness History of Present Illness Assessment/ severe sepsis, ICU admit UTI HYPOTENSION-MOST LIKELY NARCOTIC ASSOCIATED CKD on HD TIGRE DUE TO ATN - HD OP MWF HTN HX ANEMIA OF CKD weakness and debility Ostomy output positive for FOBT. UTI IV ZOSYN, LEVAQUIN Nephrology consult ID consult blood cult follow cbc GI CONSULTED One time dose Levaquin, 09/20 MRSA screen f/u cultures AVOID EXCESS NARCOTICS 34 MIN CC TIME Vitals Vitals Vital Signs Date Time Temp Pulse Resp B/P (MAP) Pulse Ox O2 Delivery O2 Flow Rate FiO2 09/21/18 10:36 18 100 Room Air 09/21/18 09:00 62 136/49 (78) 09/21/18 08:00 98.5 98.5 Physical Exam General: Alert, Oriented X3, Cooperative, No acute distress, mild distress Heart: Regular rate, Normal S1, Normal S2, No murmurs Lungs: Clear Abdomen: Normal bowel sounds, Other (OSTOMY NOTED) Extremities: No cyanosis, Normal pulses Skin: No breakdown Labs LABS Examination: Single frontal view chest HISTORY: History of central line placement COMPARISON: 09/20/2018. FINDINGS: The cardiomediastinal silhouette grossly appears unremarkable. Right-sided dialysis catheter is unchanged. Interval placement of left internal jugular line with the tip projecting at the SVC/RA junction. The lungs are clear. No evidence of pneumothorax IMPRESSION: 1. Left-sided intrajugular line in place. 2. No pneumothorax. Electronically signed by: Soy Montgomery MD (09/21/2018 8:05 AM) [facility] Laboratory Tests Test 09/20/18 19:10 09/20/18 20:25 09/20/18 20:29 09/21/18 06:00 White Blood Count 10.7 x10^3/uL (4.0-11.0) 7.3 x10^3/uL (4.0-11.0) Red Blood Count 2.83 x10^6/uL (3.50-5.40) 3.18 x10^6/uL (3.50-5.40) Hemoglobin 8.5 g/dL (12.0-15.5) 9.5 g/dL (12.0-15.5) Hematocrit 26.3 % (36.0-47.0) 29.4 % (36.0-47.0) Mean Corpuscular Volume 93 fL (79-100) 93 fL (79-100) Mean Corpuscular Hemoglobin 30 pg (25-35) 30 pg (25-35) Mean Corpuscular Hemoglobin Concent 32 g/dL (31-37) 32 g/dL (31-37) Red Cell Distribution Width 15.1 % (11.5-14.5) 14.7 % (11.5-14.5) Platelet Count 203 x10^3/uL (140-400) 179 x10^3/uL (140-400) Neutrophils (%) (Auto) 68 % (31-73) 60 % (31-73) Lymphocytes (%) (Auto) 24 % (24-48) 28 % (24-48) Monocytes (%) (Auto) 5 % (0-9) 7 % (0-9) Eosinophils (%) (Auto) 3 % (0-3) 4 % (0-3) Basophils (%) (Auto) 1 % (0-3) 1 % (0-3) Neutrophils # (Auto) 7.2 x10^3uL (1.8-7.7) 4.4 x10^3uL (1.8-7.7) Lymphocytes # (Auto) 2.5 x10^3/uL (1.0-4.8) 2.1 x10^3/uL (1.0-4.8) Monocytes # (Auto) 0.6 x10^3/uL (0.0-1.1) 0.5 x10^3/uL (0.0-1.1) Eosinophils # (Auto) 0.3 x10^3/uL (0.0-0.7) 0.3 x10^3/uL (0.0-0.7) Basophils # (Auto) 0.1 x10^3/uL (0.0-0.2) 0.0 x10^3/uL (0.0-0.2) Prothrombin Time 13.8 SEC (11.7-14.0) Prothromb Time International Ratio 1.1 (0.8-1.1) Sodium Level 131 mmol/L (136-145) 132 mmol/L (136-145) Potassium Level 4.7 mmol/L (3.5-5.1) 4.2 mmol/L (3.5-5.1) Chloride Level 94 mmol/L (98-107) 99 mmol/L (98-107) Carbon Dioxide Level 26 mmol/L (21-32) 24 mmol/L (21-32) Anion Gap 11 (6-14) 9 (6-14) Blood Urea Nitrogen 21 mg/dL (7-20) 21 mg/dL (7-20) Creatinine 3.4 mg/dL (0.6-1.0) 2.7 mg/dL (0.6-1.0) Estimated GFR (Cockcroft-Gault) 15.7 20.5 BUN/Creatinine Ratio 6 (6-20) 8 (6-20) Glucose Level 108 mg/dL (70-99) 87 mg/dL (70-99) Calcium Level 8.5 mg/dL (8.5-10.1) 8.0 mg/dL (8.5-10.1) Magnesium Level 1.5 mg/dL (1.8-2.4) Total Bilirubin 0.3 mg/dL (0.2-1.0) 0.6 mg/dL (0.2-1.0) Aspartate Amino Transf (AST/SGOT) 31 U/L (15-37) 26 U/L (15-37) Alanine Aminotransferase (ALT/SGPT) 22 U/L (14-59) 17 U/L (14-59) Alkaline Phosphatase 87 U/L (46-116) 69 U/L (46-116) Troponin I Quantitative 0.045 ng/mL (0.000-0.055) 0.056 ng/mL (0.000-0.055) OZ-Kjp-Q-Type Natriuretic Peptide 1611 pg/mL (0-449) Total Protein 7.2 g/dL (6.4-8.2) 6.2 g/dL (6.4-8.2) Albumin 3.1 g/dL (3.4-5.0) 2.5 g/dL (3.4-5.0) Albumin/Globulin Ratio 0.8 (1.0-1.7) 0.7 (1.0-1.7) Stool Occult Blood Positive (NEG) Urine Collection Type U cath Urine Color Irena Urine Clarity Cloudy Urine pH 5.0 Urine Specific [place] 1.025 Urine Protein 30 mg/dL (NEG-TRACE) Urine Glucose (UA) Negative mg/dL (NEG) Urine Ketones (Stick) 15 mg/dL (NEG) Urine Blood Moderate (NEG) Urine Nitrite Negative (NEG) Urine Bilirubin Moderate (NEG) Urine Urobilinogen Dipstick 1.0 mg/dL (0.2 mg/dL) Urine Leukocyte Esterase Large (NEG) Urine RBC 6-10 /HPF (0-2) Urine WBC Tntc /HPF (0-4) Urine Squamous Epithelial Cells None /LPF Urine Bacteria Many /HPF (0-FEW) Urine Hyaline Casts Many /HPF Urine Mucus Marked /LPF Urine Yeast Present /HPF Review of Systems Review of Systems Diagnosis: Distal ileum, cecum, and ascending, transverse, descending, and sigmoid colon with attached mesocolon and omentum, subtotal colectomy: - Focal perforation and acute inflammation of sigmoid colon. - Diverticulosis and chronic diverticulitis with stricture of sigmoid colon. - Marked dilatation of cecum with marked attenuation of fibromuscular wall of cecum secondary to volvulus. - Small hyperplastic polyp/prominent mucosal fold of distal colon. 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 - Absence of appendix. - Omentum showing no significant pathologic abnormalities. (JPM:jorge luis; 05/23/2018) MBR/05/26/2018 . 02 Comment: There is no evidence of malignancy. . 02 Electronically signed: . Gerson Kim MD, Pathologist NPI- [id number] . 01 Gross description: . The specimen is received in formalin, labeled "Berenice, Jennifer, colon" and consists of a previously opened subtotal colectomy specimen consisting of terminal ileum (15.5 cm in length and 1.8 cm in diameter), large intestine (approximately 170 cm in length and ranging from 1.5 cm to 10.0 cm in diameter), omentum (25.0 x 6.5 cm), and pericolic fat up to 10.0 cm. The appendix is absent post status appendectomy. The serosa is pro-knapp with multifocal areas of hemorrhage and area of possible tattoo ink that extends 35.0 cm from the distal resection margin. The terminal ileum mucosa is pink-pro without masses or lesions. The large intestine mucosa displays markedly flattened/reduced folds which becomes markedly strictured approximately 50 cm from the distal margin. There is a possible mucosal defect (0.6 x 0.5 cm) that correlates to the tattoo ink. Just distal to the tattoo ink, the serosa is brown-knapp with exudate. Sectioning through the mucosal defect area reveals hemorrhage with adjacent diverticula measuring up to 0.6 cm. A single nodule/polyp is present approximately 100 cm from the proximal resection margin which measures 0.5 x 0.4 cm. No additional masses or lesions are identified. [employer] Helper sections are submitted as follows: . Comment Review of Relevant I have reviewed the following items consuelo (where applicable) has been applied. Labs Laboratory Tests Test 09/20/18 19:10 09/20/18 20:25 09/20/18 20:29 09/21/18 06:00 White Blood Count 10.7 x10^3/uL (4.0-11.0) 7.3 x10^3/uL (4.0-11.0) Red Blood Count 2.83 x10^6/uL (3.50-5.40) 3.18 x10^6/uL (3.50-5.40) Hemoglobin 8.5 g/dL (12.0-15.5) 9.5 g/dL (12.0-15.5) Hematocrit 26.3 % (36.0-47.0) 29.4 % (36.0-47.0) Mean Corpuscular Volume 93 fL (79-100) 93 fL (79-100) Mean Corpuscular Hemoglobin 30 pg (25-35) 30 pg (25-35) Mean Corpuscular Hemoglobin Concent 32 g/dL (31-37) 32 g/dL (31-37) Red Cell Distribution Width 15.1 % (11.5-14.5) 14.7 % (11.5-14.5) Platelet Count 203 x10^3/uL (140-400) 179 x10^3/uL (140-400) Neutrophils (%) (Auto) 68 % (31-73) 60 % (31-73) Lymphocytes (%) (Auto) 24 % (24-48) 28 % (24-48) Monocytes (%) (Auto) 5 % (0-9) 7 % (0-9) Eosinophils (%) (Auto) 3 % (0-3) 4 % (0-3) Basophils (%) (Auto) 1 % (0-3) 1 % (0-3) Neutrophils # (Auto) 7.2 x10^3uL (1.8-7.7) 4.4 x10^3uL (1.8-7.7) Lymphocytes # (Auto) 2.5 x10^3/uL (1.0-4.8) 2.1 x10^3/uL (1.0-4.8) Monocytes # (Auto) 0.6 x10^3/uL (0.0-1.1) 0.5 x10^3/uL (0.0-1.1) Eosinophils # (Auto) 0.3 x10^3/uL (0.0-0.7) 0.3 x10^3/uL (0.0-0.7) Basophils # (Auto) 0.1 x10^3/uL (0.0-0.2) 0.0 x10^3/uL (0.0-0.2) Prothrombin Time 13.8 SEC (11.7-14.0) Prothromb Time International Ratio 1.1 (0.8-1.1) Sodium Level 131 mmol/L (136-145) 132 mmol/L (136-145) Potassium Level 4.7 mmol/L (3.5-5.1) 4.2 mmol/L (3.5-5.1) Chloride Level 94 mmol/L (98-107) 99 mmol/L (98-107) Carbon Dioxide Level 26 mmol/L (21-32) 24 mmol/L (21-32) Anion Gap 11 (6-14) 9 (6-14) Blood Urea Nitrogen 21 mg/dL (7-20) 21 mg/dL (7-20) Creatinine 3.4 mg/dL (0.6-1.0) 2.7 mg/dL (0.6-1.0) Estimated GFR (Cockcroft-Gault) 15.7 20.5 BUN/Creatinine Ratio 6 (6-20) 8 (6-20) Glucose Level 108 mg/dL (70-99) 87 mg/dL (70-99) Calcium Level 8.5 mg/dL (8.5-10.1) 8.0 mg/dL (8.5-10.1) Magnesium Level 1.5 mg/dL (1.8-2.4) Total Bilirubin 0.3 mg/dL (0.2-1.0) 0.6 mg/dL (0.2-1.0) Aspartate Amino Transf (AST/SGOT) 31 U/L (15-37) 26 U/L (15-37) Alanine Aminotransferase (ALT/SGPT) 22 U/L (14-59) 17 U/L (14-59) Alkaline Phosphatase 87 U/L (46-116) 69 U/L (46-116) Troponin I Quantitative 0.045 ng/mL (0.000-0.055) 0.056 ng/mL (0.000-0.055) GP-Ufz-I-Type Natriuretic Peptide 1611 pg/mL (0-449) Total Protein 7.2 g/dL (6.4-8.2) 6.2 g/dL (6.4-8.2) Albumin 3.1 g/dL (3.4-5.0) 2.5 g/dL (3.4-5.0) Albumin/Globulin Ratio 0.8 (1.0-1.7) 0.7 (1.0-1.7) Stool Occult Blood Positive (NEG) Urine Collection Type U cath Urine Color Irena Urine Clarity Cloudy Urine pH 5.0 Urine Specific [place] 1.025 Urine Protein 30 mg/dL (NEG-TRACE) Urine Glucose (UA) Negative mg/dL (NEG) Urine Ketones (Stick) 15 mg/dL (NEG) Urine Blood Moderate (NEG) Urine Nitrite Negative (NEG) Urine Bilirubin Moderate (NEG) Urine Urobilinogen Dipstick 1.0 mg/dL (0.2 mg/dL) Urine Leukocyte Esterase Large (NEG) Urine RBC 6-10 /HPF (0-2) Urine WBC Tntc /HPF (0-4) Urine Squamous Epithelial Cells None /LPF Urine Bacteria Many /HPF (0-FEW) Urine Hyaline Casts Many /HPF Urine Mucus Marked /LPF Urine Yeast Present /HPF Laboratory Tests Test 09/20/18 19:10 09/20/18 20:25 09/20/18 20:29 09/21/18 06:00 White Blood Count 10.7 x10^3/uL (4.0-11.0) 7.3 x10^3/uL (4.0-11.0) Red Blood Count 2.83 x10^6/uL (3.50-5.40) 3.18 x10^6/uL (3.50-5.40) Hemoglobin 8.5 g/dL (12.0-15.5) 9.5 g/dL (12.0-15.5) Hematocrit 26.3 % (36.0-47.0) 29.4 % (36.0-47.0) Mean Corpuscular Volume 93 fL (79-100) 93 fL (79-100) Mean Corpuscular Hemoglobin 30 pg (25-35) 30 pg (25-35) Mean Corpuscular Hemoglobin Concent 32 g/dL (31-37) 32 g/dL (31-37) Red Cell Distribution Width 15.1 % (11.5-14.5) 14.7 % (11.5-14.5) Platelet Count 203 x10^3/uL (140-400) 179 x10^3/uL (140-400) Neutrophils (%) (Auto) 68 % (31-73) 60 % (31-73) Lymphocytes (%) (Auto) 24 % (24-48) 28 % (24-48) Monocytes (%) (Auto) 5 % (0-9) 7 % (0-9) Eosinophils (%) (Auto) 3 % (0-3) 4 % (0-3) Basophils (%) (Auto) 1 % (0-3) 1 % (0-3) Neutrophils # (Auto) 7.2 x10^3uL (1.8-7.7) 4.4 x10^3uL (1.8-7.7) Lymphocytes # (Auto) 2.5 x10^3/uL (1.0-4.8) 2.1 x10^3/uL (1.0-4.8) Monocytes # (Auto) 0.6 x10^3/uL (0.0-1.1) 0.5 x10^3/uL (0.0-1.1) Eosinophils # (Auto) 0.3 x10^3/uL (0.0-0.7) 0.3 x10^3/uL (0.0-0.7) Basophils # (Auto) 0.1 x10^3/uL (0.0-0.2) 0.0 x10^3/uL (0.0-0.2) Prothrombin Time 13.8 SEC (11.7-14.0) Prothromb Time International Ratio 1.1 (0.8-1.1) Sodium Level 131 mmol/L (136-145) 132 mmol/L (136-145) Potassium Level 4.7 mmol/L (3.5-5.1) 4.2 mmol/L (3.5-5.1) Chloride Level 94 mmol/L (98-107) 99 mmol/L (98-107) Carbon Dioxide Level 26 mmol/L (21-32) 24 mmol/L (21-32) Anion Gap 11 (6-14) 9 (6-14) Blood Urea Nitrogen 21 mg/dL (7-20) 21 mg/dL (7-20) Creatinine 3.4 mg/dL (0.6-1.0) 2.7 mg/dL (0.6-1.0) Estimated GFR (Cockcroft-Gault) 15.7 20.5 BUN/Creatinine Ratio 6 (6-20) 8 (6-20) Glucose Level 108 mg/dL (70-99) 87 mg/dL (70-99) Calcium Level 8.5 mg/dL (8.5-10.1) 8.0 mg/dL (8.5-10.1) Magnesium Level 1.5 mg/dL (1.8-2.4) Total Bilirubin 0.3 mg/dL (0.2-1.0) 0.6 mg/dL (0.2-1.0) Aspartate Amino Transf (AST/SGOT) 31 U/L (15-37) 26 U/L (15-37) Alanine Aminotransferase (ALT/SGPT) 22 U/L (14-59) 17 U/L (14-59) Alkaline Phosphatase 87 U/L (46-116) 69 U/L (46-116) Troponin I Quantitative 0.045 ng/mL (0.000-0.055) 0.056 ng/mL (0.000-0.055) TH-Aht-C-Type Natriuretic Peptide 1611 pg/mL (0-449) Total Protein 7.2 g/dL (6.4-8.2) 6.2 g/dL (6.4-8.2) Albumin 3.1 g/dL (3.4-5.0) 2.5 g/dL (3.4-5.0) Albumin/Globulin Ratio 0.8 (1.0-1.7) 0.7 (1.0-1.7) Stool Occult Blood Positive (NEG) Urine Collection Type U cath Urine Color Irena Urine Clarity Cloudy Urine pH 5.0 Urine Specific [place] 1.025 Urine Protein 30 mg/dL (NEG-TRACE) Urine Glucose (UA) Negative mg/dL (NEG) Urine Ketones (Stick) 15 mg/dL (NEG) Urine Blood Moderate (NEG) Urine Nitrite Negative (NEG) Urine Bilirubin Moderate (NEG) Urine Urobilinogen Dipstick 1.0 mg/dL (0.2 mg/dL) Urine Leukocyte Esterase Large (NEG) Urine RBC 6-10 /HPF (0-2) Urine WBC Tntc /HPF (0-4) Urine Squamous Epithelial Cells None /LPF Urine Bacteria Many /HPF (0-FEW) Urine Hyaline Casts Many /HPF Urine Mucus Marked /LPF Urine Yeast Present /HPF Medications Current Medications Sodium Chloride 500 ml @ 500 mls/hr 1X ONCE IV Last administered on at 19:18; Start 09/20/18 at 18:45; Stop 09/20/18 at 19:44; Status DC Acetaminophen (Tylenol) 500 mg 1X ONCE PO Last administered on 09/20/18at 21:48 ; Start 09/20/18 at 21:15; Stop 09/20/18 at 21:22; Status DC Levofloxacin (Levaquin) 500 mg 1X ONCE PO Last administered on 09/20/18at 21:48 ; Start 09/20/18 at 21:15; Stop 09/20/18 at 21:22; Status DC Pantoprazole Sodium (PROTONIX VIAL for IV PUSH) 80 mg 1X ONCE IVP Last administered on 09/20/18at 21:59; Start 09/20/18 at 22:15; Stop 09/20/18 at 22:16 ; Status DC Ondansetron HCl (Zofran) 4 mg PRN Q8HRS PRN IV NAUSEA/VOMITING 1ST CHOICE; Start 09/20/18 at 22:00; Stop 09/21/18 at 21:59 Sodium Chloride 1,000 ml @ 100 mls/hr Q10H IV Last administered on 09/21/18at 08:48; Start 09/20/18 at 22:30; Stop 09/21/18 at 22:29 Acetaminophen (Tylenol) 650 mg PRN Q4HRS PRN PO FEVER; Start 09/20/18 at 22:00 ; Stop 09/21/18 at 21:59 Fentanyl Citrate (Fentanyl 2ml Vial) 25 mcg PRN Q2HR PRN IV SEVERE PAIN Last administered on 09/21/18at 10:36; Start 09/21/18 at 01:00 Darbepoetin Dario (Aranesp) 60 mcg WEEKLYHS SQ ; Start 09/21/18 at 21:00 Active Scripts Active Nephro-Cheli Rx Tablet (Vit B Cmplx 3/Fa/Vit C/Biotin) 1 Each Tablet 1 Each PO DAILY 30 Days Carafate (Sucralfate) 1 Gm Tablet 1 Gm PO TIDAC MDD 1 Buspirone Hcl 5 Mg Tablet 5 Mg PO PRN TID PRN MDD 1 Mirtazapine 7.5 Mg Tablet 7.5 Mg PO QHS MDD 1 Atorvastatin Calcium 40 Mg Tablet 40 Mg PO QHS MDD 1 Aspirin Ec (Aspirin) 81 Mg Tablet.dr 81 Mg PO DAILYWBKFT 30 Days Watson 5-325 Tablet (Acetaminophen/Hydrocodone Bitart) 1 Each Tablet 1 Tab PO PRN Q6HRS 3 Days Lidocaine 1 Each Adh..patch 1 Patch TD DAILY MDD 1 Synthroid (Levothyroxine Sodium) 88 Mcg Tablet 88 Mcg PO DAILY06 MDD 1 Metoprolol Succinate ( Xl ) (Metoprolol Succinate) 25 Mg Tab.er.24h 25 Mg PO DAILY MDD 1 Reported Protonix (Pantoprazole Sodium) 20 Mg Tablet.dr 40 Mg PO DAILY Vitals/I & O Vital Sign - Last 24 Hours 09/20/18 09/20/18 09/20/18 09/20/18 18:30 19:14 19:21 19:31 Temp 98.5 98.5 Pulse 81 76 72 68 Resp 18 B/P (MAP) 152/96 (114) Pulse Ox 100 100 100 100 O2 Delivery Room Air 09/20/18 09/20/18 09/20/18 09/20/18 19:46 19:56 20:06 20:16 Pulse 70 70 72 72 Pulse Ox 100 100 100 100 09/20/18 09/20/18 09/20/18 09/20/18 20:26 20:36 20:46 20:56 Pulse 70 72 72 70 Pulse Ox 100 100 100 100 09/20/18 09/20/18 09/20/18 09/20/18 21:06 21:16 21:26 21:36 Pulse 70 70 72 74 Pulse Ox 100 100 100 100 09/20/18 09/20/18 09/20/18 09/20/18 21:46 21:56 22:06 22:16 Pulse 68 66 72 70 Pulse Ox 100 100 100 100 09/20/18 09/20/18 09/20/18 09/21/18 22:26 22:36 23:00 00:00 Temp 98.2 98.2 Pulse 74 76 64 64 Resp 20 20 B/P (MAP) 98/48 (65) 100/55 (70) Pulse Ox 100 100 99 99 O2 Delivery Room Air Room Air 09/21/18 09/21/18 09/21/18 09/21/18 01:00 01:18 02:00 03:00 Pulse 64 64 72 Resp 21 20 20 B/P (MAP) 97/45 (62) 108/44 (65) 117/59 (78) Pulse Ox 100 97 99 100 O2 Delivery Room Air Room Air Room Air Room Air 09/21/18 09/21/18 09/21/18 09/21/18 03:11 04:00 04:25 04:40 Temp 98.7 98.7 Pulse 64 64 Resp 14 18 20 B/P (MAP) 133/45 (74) 133/45 (74) Pulse Ox 100 99 O2 Delivery Room Air Room Air Room Air 09/21/18 09/21/18 09/21/18 09/21/18 05:18 06:00 07:00 07:37 Pulse 68 68 65 Resp 20 20 20 18 B/P (MAP) 157/58 (91) 141/52 (81) 135/55 (81) Pulse Ox 99 99 99 99 O2 Delivery Room Air Room Air Room Air Room Air 09/21/18 09/21/18 09/21/18 09/21/18 08:00 08:00 08:07 09:00 Temp 98.5 98.5 Pulse 60 62 Resp 18 16 18 B/P (MAP) 130/52 (78) 136/49 (78) Pulse Ox 99 100 100 O2 Delivery Room Air Room Air Room Air Room Air 09/21/18 10:36 Resp 18 Pulse Ox 100 O2 Delivery Room Air Intake and Output 09/20/18 09/20/18 09/21/18 14:59 22:59 06:59 Intake Total 500 ml 0 ml Output Total 0 ml Balance 500 ml 0 ml FAHAD REYES MD Sep 21, 2018 11:18
--- NOTE | 2018-09-21 11:52 | PDOC ---
Infectious Disease Note Vital Sign Vital Signs Vital Signs Date Time Temp Pulse Resp B/P (MAP) Pulse Ox O2 Delivery O2 Flow Rate FiO2 09/21/18 10:36 18 100 Room Air 09/21/18 09:00 62 136/49 (78) 09/21/18 08:00 98.5 98.5 Labs Lab Laboratory Tests Test 09/20/18 19:10 09/20/18 20:25 09/20/18 20:29 09/21/18 06:00 White Blood Count 10.7 x10^3/uL (4.0-11.0) 7.3 x10^3/uL (4.0-11.0) Red Blood Count 2.83 x10^6/uL (3.50-5.40) 3.18 x10^6/uL (3.50-5.40) Hemoglobin 8.5 g/dL (12.0-15.5) 9.5 g/dL (12.0-15.5) Hematocrit 26.3 % (36.0-47.0) 29.4 % (36.0-47.0) Mean Corpuscular Volume 93 fL (79-100) 93 fL (79-100) Mean Corpuscular Hemoglobin 30 pg (25-35) 30 pg (25-35) Mean Corpuscular Hemoglobin Concent 32 g/dL (31-37) 32 g/dL (31-37) Red Cell Distribution Width 15.1 % (11.5-14.5) 14.7 % (11.5-14.5) Platelet Count 203 x10^3/uL (140-400) 179 x10^3/uL (140-400) Neutrophils (%) (Auto) 68 % (31-73) 60 % (31-73) Lymphocytes (%) (Auto) 24 % (24-48) 28 % (24-48) Monocytes (%) (Auto) 5 % (0-9) 7 % (0-9) Eosinophils (%) (Auto) 3 % (0-3) 4 % (0-3) Basophils (%) (Auto) 1 % (0-3) 1 % (0-3) Neutrophils # (Auto) 7.2 x10^3uL (1.8-7.7) 4.4 x10^3uL (1.8-7.7) Lymphocytes # (Auto) 2.5 x10^3/uL (1.0-4.8) 2.1 x10^3/uL (1.0-4.8) Monocytes # (Auto) 0.6 x10^3/uL (0.0-1.1) 0.5 x10^3/uL (0.0-1.1) Eosinophils # (Auto) 0.3 x10^3/uL (0.0-0.7) 0.3 x10^3/uL (0.0-0.7) Basophils # (Auto) 0.1 x10^3/uL (0.0-0.2) 0.0 x10^3/uL (0.0-0.2) Prothrombin Time 13.8 SEC (11.7-14.0) Prothromb Time International Ratio 1.1 (0.8-1.1) Sodium Level 131 mmol/L (136-145) 132 mmol/L (136-145) Potassium Level 4.7 mmol/L (3.5-5.1) 4.2 mmol/L (3.5-5.1) Chloride Level 94 mmol/L (98-107) 99 mmol/L (98-107) Carbon Dioxide Level 26 mmol/L (21-32) 24 mmol/L (21-32) Anion Gap 11 (6-14) 9 (6-14) Blood Urea Nitrogen 21 mg/dL (7-20) 21 mg/dL (7-20) Creatinine 3.4 mg/dL (0.6-1.0) 2.7 mg/dL (0.6-1.0) Estimated GFR (Cockcroft-Gault) 15.7 20.5 BUN/Creatinine Ratio 6 (6-20) 8 (6-20) Glucose Level 108 mg/dL (70-99) 87 mg/dL (70-99) Calcium Level 8.5 mg/dL (8.5-10.1) 8.0 mg/dL (8.5-10.1) Magnesium Level 1.5 mg/dL (1.8-2.4) Total Bilirubin 0.3 mg/dL (0.2-1.0) 0.6 mg/dL (0.2-1.0) Aspartate Amino Transf (AST/SGOT) 31 U/L (15-37) 26 U/L (15-37) Alanine Aminotransferase (ALT/SGPT) 22 U/L (14-59) 17 U/L (14-59) Alkaline Phosphatase 87 U/L (46-116) 69 U/L (46-116) Troponin I Quantitative 0.045 ng/mL (0.000-0.055) 0.056 ng/mL (0.000-0.055) YL-Hfw-U-Type Natriuretic Peptide 1611 pg/mL (0-449) Total Protein 7.2 g/dL (6.4-8.2) 6.2 g/dL (6.4-8.2) Albumin 3.1 g/dL (3.4-5.0) 2.5 g/dL (3.4-5.0) Albumin/Globulin Ratio 0.8 (1.0-1.7) 0.7 (1.0-1.7) Stool Occult Blood Positive (NEG) Urine Collection Type U cath Urine Color Irena Urine Clarity Cloudy Urine pH 5.0 Urine Specific [place] 1.025 Urine Protein 30 mg/dL (NEG-TRACE) Urine Glucose (UA) Negative mg/dL (NEG) Urine Ketones (Stick) 15 mg/dL (NEG) Urine Blood Moderate (NEG) Urine Nitrite Negative (NEG) Urine Bilirubin Moderate (NEG) Urine Urobilinogen Dipstick 1.0 mg/dL (0.2 mg/dL) Urine Leukocyte Esterase Large (NEG) Urine RBC 6-10 /HPF (0-2) Urine WBC Tntc /HPF (0-4) Urine Squamous Epithelial Cells None /LPF Urine Bacteria Many /HPF (0-FEW) Urine Hyaline Casts Many /HPF Urine Mucus Marked /LPF Urine Yeast Present /HPF Objective Assessment UTI (POA) Fever (prior to admit) 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 De La Rosa Thank you [id number] Patient seen and examined. Chart reviewed in detail. Case discussed with [employer]. Agree with above plan. GLENNY,BETHANY Sandoval APRN Sep 21, 2018 11:52 JOSE EDUARDO DE LA ROSA MD Sep 21, 2018 20:56
--- NOTE | 2018-09-21 12:06 | PDOC2 ---
GI CONSULT Reason For Consult: 78 year old female who presents with generalized weakness. It started this morning. Patient denies any fever. Denies any cough. She is a Saturday, Saturday , Saturday dialysis patient and had dialysis performed yesterday. EMS found that her blood pressure was low, in the 50s to 60s systolic, so they started an IV and gave IV fluids. They also note that their temperature reading is a tympanic thermometer was 101 with UTI on labs Admit Hgb 8.5 and now 9.5 after PRBCs Received IV PPI. HPI: HPI: We have seen her in the past. EGD and colonoscopy for periumbilical ache, heartburn, recent NSAID use, and constipation in 05/2018 showed normal esophagus , small hiatal hernia, erosive gastritis and deformed pyloric channel (?healed ulcer), erosive duodenitis, diverticulosis w/ narrowing and stricture in sigmoid colon. Gastric and duodenal biopsies w/ mild chronic gastritis and nonspecific duodenitis - negative for H. pylori. Pneumoperitoneum on imaging following this, underwent total colectomy w/ end ileostomy. Started on pantoprazole last admission, says still taking w/o significant reflux symptoms. No dysphagia or vomiting. No hematochezia or melena. Assumes weight loss. No GB history. Had mildly elevated lipase (596) last admission w/o pancreas abnormalities on imaging. H/o Hep C (PCR [id number] in 05/2018) w/ note of cirrhotic-appearing liver during colectomy. No recent NSAID use but has taken Percocet a few times (for back pain). PMH: PMH: PMH: PMH: HTN, COPD, HLD, hypothyroidism, GERD, Hep C/cirrhosis, hysterectomy, ovarian cyst removal, total colectomy w/ end ileostomy FH: Family History: No pertinent hx (denies GI cancers) Social History: Smoke: Quit ALCOHOL: other (2 pints of bourbon and a couple "tall cans" of beer every week) Drugs: Marijuana ctive Scripts Active Nephro-Cheli Rx Tablet (Vit B Cmplx 3/Fa/Vit C/Biotin) 1 Each Tablet 1 Each PO DAILY 30 Days Carafate (Sucralfate) 1 Gm Tablet 1 Gm PO TIDAC MDD 1 Buspirone Hcl 5 Mg Tablet 5 Mg PO PRN TID PRN MDD 1 Mirtazapine 7.5 Mg Tablet 7.5 Mg PO QHS MDD 1 Atorvastatin Calcium 40 Mg Tablet 40 Mg PO QHS MDD 1 Aspirin Ec (Aspirin) 81 Mg Tablet. 81 Mg PO DAILYWBKFT 30 Days [place] 5-325 Tablet (Acetaminophen/Hydrocodone Bitart) 1 Each Tablet 1 Tab PO PRN Q6HRS 3 Days Lidocaine 1 Each Adh..patch 1 Patch TD DAILY MDD 1 Synthroid (Levothyroxine Sodium) 88 Mcg Tablet 88 Mcg PO DAILY06 MDD 1 Metoprolol Succinate ( Xl ) (Metoprolol Succinate) 25 Mg Tab.er.24h 25 Mg PO DAILY MDD 1 Reported Protonix (Pantoprazole Sodium) 20 Mg Tablet. 40 Mg PO DAILY Allergies Allergies: Coded Allergies: ceftriaxone (Verified Allergy, Intermediate, SKIN RASH, HAS TOLERATED ZOSYN, 06/07/18) morphine (Verified Allergy, Intermediate, 08/25/18) TOLERATES LORTAB AND DILAUDID tizanidine (Verified Adverse Reaction, Severe, dizzy, 09/12/18) FH: Family History: No pertinent hx Social History: Smoke: No ALCOHOL: none Drugs: Marijuana ROS: ROS General: YES: Fatigue, Appetite PSYCHOLOGICAL ROS: YES: Anxiety, Depression Eyes: Yes Decreased vision HEENT: YES: Heacaches Respiratory: YES: Cough Gastrointestinal: Yes Nausea, Yes Diarrhea, Yes Other (INCREASED OSTOMY OUTPUT) Genitourinary: YES Other (OLIGURIA) Musculoskeletal: Yes Muscular Weakness Neurological: Yes Weakness Skin: Yes Dry Skin VItals: Vitals: Vital Signs Date Time Temp Pulse Resp B/P (MAP) Pulse Ox O2 Delivery O2 Flow Rate FiO2 09/21/18 11:00 62 20 160/55 (90) 98 Room Air 09/21/18 08:00 98.5 98.5 Labs: Labs: Laboratory Tests Test 09/20/18 19:10 09/20/18 20:25 09/20/18 20:29 09/21/18 06:00 White Blood Count 10.7 x10^3/uL (4.0-11.0) 7.3 x10^3/uL (4.0-11.0) Red Blood Count 2.83 x10^6/uL (3.50-5.40) 3.18 x10^6/uL (3.50-5.40) Hemoglobin 8.5 g/dL (12.0-15.5) 9.5 g/dL (12.0-15.5) Hematocrit 26.3 % (36.0-47.0) 29.4 % (36.0-47.0) Mean Corpuscular Volume 93 fL (79-100) 93 fL (79-100) Mean Corpuscular Hemoglobin 30 pg (25-35) 30 pg (25-35) Mean Corpuscular Hemoglobin Concent 32 g/dL (31-37) 32 g/dL (31-37) Red Cell Distribution Width 15.1 % (11.5-14.5) 14.7 % (11.5-14.5) Platelet Count 203 x10^3/uL (140-400) 179 x10^3/uL (140-400) Neutrophils (%) (Auto) 68 % (31-73) 60 % (31-73) Lymphocytes (%) (Auto) 24 % (24-48) 28 % (24-48) Monocytes (%) (Auto) 5 % (0-9) 7 % (0-9) Eosinophils (%) (Auto) 3 % (0-3) 4 % (0-3) Basophils (%) (Auto) 1 % (0-3) 1 % (0-3) Neutrophils # (Auto) 7.2 x10^3uL (1.8-7.7) 4.4 x10^3uL (1.8-7.7) Lymphocytes # (Auto) 2.5 x10^3/uL (1.0-4.8) 2.1 x10^3/uL (1.0-4.8) Monocytes # (Auto) 0.6 x10^3/uL (0.0-1.1) 0.5 x10^3/uL (0.0-1.1) Eosinophils # (Auto) 0.3 x10^3/uL (0.0-0.7) 0.3 x10^3/uL (0.0-0.7) Basophils # (Auto) 0.1 x10^3/uL (0.0-0.2) 0.0 x10^3/uL (0.0-0.2) Prothrombin Time 13.8 SEC (11.7-14.0) Prothromb Time International Ratio 1.1 (0.8-1.1) Sodium Level 131 mmol/L (136-145) 132 mmol/L (136-145) Potassium Level 4.7 mmol/L (3.5-5.1) 4.2 mmol/L (3.5-5.1) Chloride Level 94 mmol/L (98-107) 99 mmol/L (98-107) Carbon Dioxide Level 26 mmol/L (21-32) 24 mmol/L (21-32) Anion Gap 11 (6-14) 9 (6-14) Blood Urea Nitrogen 21 mg/dL (7-20) 21 mg/dL (7-20) Creatinine 3.4 mg/dL (0.6-1.0) 2.7 mg/dL (0.6-1.0) Estimated GFR (Cockcroft-Gault) 15.7 20.5 BUN/Creatinine Ratio 6 (6-20) 8 (6-20) Glucose Level 108 mg/dL (70-99) 87 mg/dL (70-99) Calcium Level 8.5 mg/dL (8.5-10.1) 8.0 mg/dL (8.5-10.1) Magnesium Level 1.5 mg/dL (1.8-2.4) Total Bilirubin 0.3 mg/dL (0.2-1.0) 0.6 mg/dL (0.2-1.0) Aspartate Amino Transf (AST/SGOT) 31 U/L (15-37) 26 U/L (15-37) Alanine Aminotransferase (ALT/SGPT) 22 U/L (14-59) 17 U/L (14-59) Alkaline Phosphatase 87 U/L (46-116) 69 U/L (46-116) Troponin I Quantitative 0.045 ng/mL (0.000-0.055) 0.056 ng/mL (0.000-0.055) EQ-Jpb-I-Type Natriuretic Peptide 1611 pg/mL (0-449) Total Protein 7.2 g/dL (6.4-8.2) 6.2 g/dL (6.4-8.2) Albumin 3.1 g/dL (3.4-5.0) 2.5 g/dL (3.4-5.0) Albumin/Globulin Ratio 0.8 (1.0-1.7) 0.7 (1.0-1.7) Stool Occult Blood Positive (NEG) Urine Collection Type U cath Urine Color Irena Urine Clarity Cloudy Urine pH 5.0 Urine Specific [place] 1.025 Urine Protein 30 mg/dL (NEG-TRACE) Urine Glucose (UA) Negative mg/dL (NEG) Urine Ketones (Stick) 15 mg/dL (NEG) Urine Blood Moderate (NEG) Urine Nitrite Negative (NEG) Urine Bilirubin Moderate (NEG) Urine Urobilinogen Dipstick 1.0 mg/dL (0.2 mg/dL) Urine Leukocyte Esterase Large (NEG) Urine RBC 6-10 /HPF (0-2) Urine WBC Tntc /HPF (0-4) Urine Squamous Epithelial Cells None /LPF Urine Bacteria Many /HPF (0-FEW) Urine Hyaline Casts Many /HPF Urine Mucus Marked /LPF Urine Yeast Present /HPF PE: Physical Exam General: Alert, Oriented X3, Cooperative, No acute distress HEENT: Atraumatic, PERRLA Lungs: Clear to auscultation Heart: Regular rate, Normal S1, Normal S2 Abdomen: Normal bowel sounds, ostomy with brown stool Skin: abdominal ecchymosis Neuro: Normal speech, Cranial nerves 3-12 NL Psych/Mental Status: Mental status NL, Mood NL MUSCULOSKELETAL: No joint tenderness, No deformity, No swelling A/P: A/P: A&P) 1) Anemia: s/p PRBCs monitor. Okay to start clears 2)Ostomy output positive for FOBT. Favor start PPI. Okay to start diet. Monitor Hgb 3) Weakness: anemia vs meds LYUDMILA LYLE MD Sep 21, 2018 12:06
[2018-09-21] MEDS: PIPERACILLIN/TAZOBACTAM 2.25 GM in IV NORMAL SALINE 50ML 50 ML IV SCH (12:40)
[2018-09-21] MEDS: PANTOPRAZOLE 40 MG TABLET.DR. PO SCH (12:57)
--- NOTE | 2018-09-21 13:05 | EKG ---
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
--- NOTE | 2018-09-21 13:05 | EKG ---
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
[2018-09-21] MEDS: HYDROcodone/APAP 5/325MG 1 TAB TABLET PO PRN ×2 (15:58→20:01)
[2018-09-21] MEDS: TEMAZEPAM 7.5 MG CAPSULE PO PRN (20:00)
[2018-09-21] MEDS: LACTOBACILLUS RHAMNOSUS GG 1 CAPSULE. PO SCH (20:01)
[2018-09-21] MEDS ORDERED: DARBEPOETIN ALFA 60 MCG/0.3 ML DISP.SYRIN. SQ SCH (21:00)
[2018-09-22] VITALS (18 sets, daily range): BP systolic 102–199; BP diastolic 40–84
[2018-09-22] MEDS: PIPERACILLIN/TAZOBACTAM 2.25 GM in IV NORMAL SALINE 50ML 50 ML IV SCH ×2 (00:06→06:18)
[2018-09-22] MEDS: HYDROcodone/APAP 5/325MG 1 TAB TABLET PO PRN ×5 (00:06→20:56)
[2018-09-22] MEDS ORDERED: hydrALAZINE 20 MG/ML VIAL. IVP PRN (05:00)
--- NOTE | 2018-09-22 05:10 | CONS ---
DATE OF CONSULTATION: 09/21/2018 DICTATED BY: Paul Duncan, nurse practitioner, dictating for Dr. Jose Eduardo Joya, Infectious Disease. REFERRING PHYSICIAN: Dr. Landers. REASON FOR CONSULTATION: Sepsis and UTI. HISTORY OF PRESENT ILLNESS: This patient is an 78-year-old female who was admitted earlier this month for acute renal failure requiring initiation of hemodialysis via HDC line. She was discharged to a [facility] facility on 09/17/2018. The patient says yesterday as she was walking to the bathroom, she became weak and felt like she was going to pass out. Reportedly, she had a fever of 101 and her blood pressure was low. She was sent to the ER for further evaluation. She was found to be anemic with hemoglobin of 8.5 down from 10.3 a few days ago. She received 1 unit of packed RBCs. Her white count was normal. A urinalysis showed WBC too numerous to count, large leukocyte esterase with many bacteria and yeast present. Cultures are pending. She was given a one-time dose of Levaquin. The patient is currently in the intensive care unit. She says that she is feeling better, but complaining of bilateral breast pain that started yesterday. She has not had any further fevers. Due to lack of IV access, a right IJ was placed recently. She complains of a headache off and on. Denies nasal/sinus congestion or sore throat. Denies cough, shortness of air or chest discomfort. Denies nausea, vomiting or increased ileostomy output. Denies rash. PAST MEDICAL HISTORY: Hepatitis C, cirrhosis, hyperlipidemia, hypertension, COPD, gastroesophageal reflux disease, diabetes, diet controlled, hypothyroidism, chronic kidney disease. 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 Tunneled hemodialysis catheter placement on 09/17/2018. SOCIAL HISTORY: The patient was residing at a [facility] facility prior to this admission. This is her fourth hospitalization within this year. She has a history of heavy alcohol use and marijuana. Former smoker. FAMILY HISTORY: Positive for lung cancer, prostate cancer and hypertension. ALLERGIES: LISTED CEFTRIAXONE CAUSING RASH. SHE SAYS SHE HAS TOLERATED ZOSYN/PENICILLIN WITHOUT PROBLEM. ALSO LISTED MORPHINE AND TIZANIDINE. MEDICATIONS: One time dose of levofloxacin on 09/20/2018, Tylenol, Aranesp, fentanyl, Zofran, pantoprazole. REVIEW OF SYSTEMS: Per HPI, otherwise all other review of systems are negative. PHYSICAL EXAMINATION: VITAL SIGNS: Temperature is 98.5, blood pressure 136/49, heart rate 62, respiratory rate 18, pulse oximetry 100% on room air. BMI 25. HEENT: Pupils equally round. Normal conjunctivae. Oral cavity: Pharynx pink and moist. Dentures in place. NECK: Supple. LUNGS: Clear to auscultation. HEART: S1, S2. ABDOMEN: Obese, soft and nontender with bowel sounds present. Ileostomy without signs of complications. SKIN: Warm without rash. She has a mild localized irritation around the ____, bilateral breasts. NEUROLOGIC: Alert, responds appropriately. RIJ (3-16) and tunneled HDC (3-13) without signs of any complications. LABORATORY DATA: Today's WBC 7.3, hemoglobin 9.5, platelets 179,000. Creatinine 2.7, BUN 21, sodium 132, potassium 4.2. Total bilirubin 0.6, AST 26, ALT 17. Troponin 0.056, albumin 2.5. Urinalysis per HPI. Urine and blood cultures pending. IMAGING STUDIES: Chest x-ray showed no acute infiltrates. MRSA PCR pending. IMPRESSION: 1. Urinary tract infection present on admission. 2. Fever prior to admission. 3. Acute kidney injury, on hemodialysis via tunneled HD catheter, which was placed on 09/17/2018. 4. Anemia, status post packed red blood cells. 5. Status post total colectomy with end ileostomy in 05/2018. 6. History of hepatitis C/cirrhosis. 7. Hypertension. PLAN: We will initiate Zosyn. Awaiting MRSA screen and culture results. Continue to monitor laboratory values and temperature. Supportive care. Thank you, Dr. Landers, for asking us to participate in this patient's care. Should you have further questions or concerns, please call. JOSE EDUARDO JOYA MD DR: RAUL/bebe JOB#: [id number] / [id number]
[2018-09-22] MEDS: IV NORMAL SALINE 1000ML BAG 1,000 ML IV SCH (06:18)
[2018-09-22 06:55] LABS: CALCIUM 7.9 mg/dL (8.5-10.1); CREATININE 1.7 mg/dL (0.6-1.0); POTASSIUM 4.3 mmol/L (3.5-5.1)
[2018-09-22 07:00] LABS: HEMATOCRIT 30.1 % (36.0-47.0); HEMOGLOBIN 9.7 g/dL (12.0-15.5); RED BLOOD COUNT 3.25 x10^6/uL (3.50-5.40); RED CELL DISTRIBUTION WIDTH 14.7 % (11.5-14.5); WHITE BLOOD COUNT 6.6 x10^3/uL (4.0-11.0)
--- NOTE | 2018-09-22 07:42 | PDOC ---
Infectious Disease Note Subjective Subjective awake, says feeling better ROS ROS no n/v/d/sob/fever Vital Sign Vital Signs Vital Signs Date Time Temp Pulse Resp B/P (MAP) Pulse Ox O2 Delivery O2 Flow Rate FiO2 09/22/18 06:00 62 18 168/70 (102) 97 Room Air 09/22/18 04:00 98.7 98.7 Physical Exam PHYSICAL EXAM HEENT: Pupils equally round. Normal conjunctivae. Oral cavity: Pharynx pink and moist. Dentures in place. NECK: Supple. LUNGS: Clear to auscultation. HEART: S1, S2. ABDOMEN: Obese, soft and nontender with bowel sounds present. Ileostomy without signs of complications. SKIN: Warm without rash. She has a mild localized irritation around the ____, bilateral breasts. NEUROLOGIC: Alert, responds appropriately. Labs Lab Laboratory Tests Test 09/21/18 07:44 09/22/18 06:25 Nasal Screen MRSA (PCR) Negative (Negative) White Blood Count 6.6 x10^3/uL (4.0-11.0) Red Blood Count 3.25 x10^6/uL (3.50-5.40) Hemoglobin 9.7 g/dL (12.0-15.5) Hematocrit 30.1 % (36.0-47.0) Mean Corpuscular Volume 92 fL (79-100) Mean Corpuscular Hemoglobin 30 pg (25-35) Mean Corpuscular Hemoglobin Concent 32 g/dL (31-37) Red Cell Distribution Width 14.7 % (11.5-14.5) Platelet Count 200 x10^3/uL (140-400) Sodium Level 140 mmol/L (136-145) Potassium Level 4.3 mmol/L (3.5-5.1) Chloride Level 108 mmol/L (98-107) Carbon Dioxide Level 21 mmol/L (21-32) Anion Gap 11 (6-14) Blood Urea Nitrogen 12 mg/dL (7-20) Creatinine 1.7 mg/dL (0.6-1.0) Estimated GFR (Cockcroft-Gault) 35.0 Glucose Level 77 mg/dL (70-99) Calcium Level 7.9 mg/dL (8.5-10.1) Micro Microbiology 09/20/18 Blood Culture - Preliminary, Resulted NO GROWTH AFTER 1 DAY Objective Assessment 1. Urinary tract infection present on admission. 2. Fever prior to admission. 3. on hemodialysis via tunneled HD catheter, which was placed on 09/17/2018. 4. Anemia, status post packed red blood cells. 5. Status post total colectomy with end ileostomy in 05/2018. 6. History of hepatitis C/cirrhosis. 7. Hypertension. Plan Plan of Care Dose Zosyn One time dose Levaquin, 09/20 MRSA screen f/u cultures Monitor temp/labs Supportive care D/w nursing PEPPER MAIER MD Sep 22, 2018 07:41
[2018-09-22] MEDS: PANTOPRAZOLE 40 MG TABLET.DR. PO SCH (08:20)
[2018-09-22] MEDS: LACTOBACILLUS RHAMNOSUS GG 1 CAPSULE. PO SCH ×2 (08:20→20:56)
--- NOTE | 2018-09-22 09:05 | PDOC ---
SUBJECTIVE ROS No complaints, states feeling good, good UOP- OBJECTIVE Vital Signs Vital Signs Date Time Temp Pulse Resp B/P (MAP) Pulse Ox O2 Delivery O2 Flow Rate FiO2 09/22/18 08:20 12 97 Room Air 09/22/18 06:00 62 168/70 (102) 09/22/18 04:00 98.7 98.7 I & 0 Intake and Output 09/22/18 07:00 Intake Total 2600 ml Output Total 1375 ml Balance 1225 ml Intake Oral 2600 ml Output Urine Total 250 ml Stool Total 1125 ml # Voids 2 PHYSICAL EXAM Physical Exam GEN: NAD HEENT: Oral cavity: Pharynx pink and moist. NECK: Supple. LUNGS: Clear to auscultation. HEART: S1, S2. ABDOMEN: Obese, soft and nontender with bowel sounds present. Ileostomy without signs of complications. SKIN: Warm without rash. NEUROLOGIC: Alert x O x 3 DIAGNOSIS/ASSESSMENT Assessment & Plan TIGRE due to ATN Was started on HD few weeks back, was dced on MWF HD last HD was on Saturday, Noted Improvement in renal function today E-Lytes stable, Good UOP, Clinically euvolemic Will Hold off HD today, Re-eval in am CKD STAGE 3 WITH CR OF 1.6 HTN HX ANEMIA OF CKD Anemia- ARANESP WILL FOLLOW, Dw Pt and RN COMMENT/RELEVANT DATA Meds Current Medications Medications (Trade) Dose Ordered Sig/Saroj Start Time Stop Time Status Last Admin Dose Admin Acetaminophen (Tylenol) 650 mg PRN Q4HRS PRN 09/20/18 22:00 09/21/18 21:59 DC 09/21/18 21:43 650 MG Acetaminophen/ Hydrocodone Bitart (Lortab 5/325) 1 tab PRN Q4HRS PRN 09/21/18 16:00 09/22/18 08:20 1 TAB Darbepoetin Dario (Aranesp) 60 mcg WEEKLYHS 09/21/18 21:00 09/21/18 20:01 60 MCG Fentanyl Citrate (Fentanyl 2ml Vial) 25 mcg PRN Q2HR PRN 09/21/18 01:00 09/21/18 15:51 DC 09/21/18 12:59 25 MCG Hydralazine HCl (Apresoline Inj) 10 mg PRN Q4HRS PRN 09/22/18 05:00 Lactobacillus Rhamnosus (Culturelle) 1 cap BID 09/21/18 21:00 09/22/18 08:20 1 CAP Levofloxacin (Levaquin) 500 mg 1X ONCE 09/20/18 21:15 09/20/18 21:22 DC 09/20/18 21:48 500 MG Ondansetron HCl (Zofran) 4 mg PRN Q8HRS PRN 09/20/18 22:00 09/21/18 21:59 DC Pantoprazole Sodium (PROTONIX VIAL for IV PUSH) 80 mg 1X ONCE 09/20/18 22:15 09/20/18 22:16 DC 09/20/18 21:59 80 MG Pantoprazole Sodium (Protonix) 40 mg DAILYAC 09/21/18 13:00 09/22/18 08:20 40 MG Piperacillin Sod/ Tazobactam Sod (Zosyn Per Pharmacy) 1 each PRN DAILY PRN 09/21/18 11:00 Piperacillin Sod/ Tazobactam Sod 2.25 gm/Sodium Chloride 50 ml @ 100 mls/hr Q8HRS 09/21/18 12:00 09/22/18 06:18 100 MLS/HR Sodium Chloride 1,000 ml @ 100 mls/hr Q10H 09/20/18 22:30 09/21/18 22:29 DC 09/22/18 06:18 100 MLS/HR Temazepam (Restoril) 7.5 mg PRN QHS PRN 09/21/18 18:30 09/21/18 20:00 7.5 MG Lab Laboratory Tests Test 09/22/18 06:25 White Blood Count 6.6 x10^3/uL (4.0-11.0) Red Blood Count 3.25 x10^6/uL (3.50-5.40) Hemoglobin 9.7 g/dL (12.0-15.5) Hematocrit 30.1 % (36.0-47.0) Mean Corpuscular Volume 92 fL (79-100) Mean Corpuscular Hemoglobin 30 pg (25-35) Mean Corpuscular Hemoglobin Concent 32 g/dL (31-37) Red Cell Distribution Width 14.7 % (11.5-14.5) Platelet Count 200 x10^3/uL (140-400) Sodium Level 140 mmol/L (136-145) Potassium Level 4.3 mmol/L (3.5-5.1) Chloride Level 108 mmol/L (98-107) Carbon Dioxide Level 21 mmol/L (21-32) Anion Gap 11 (6-14) Blood Urea Nitrogen 12 mg/dL (7-20) Creatinine 1.7 mg/dL (0.6-1.0) Estimated GFR (Cockcroft-Gault) 35.0 Glucose Level 77 mg/dL (70-99) Calcium Level 7.9 mg/dL (8.5-10.1) Results All relevant outside records, renal labs, imaging studies, telemetry/EKG's were reviewed. SHERRY ALAN MD Sep 22, 2018 09:05
--- NOTE | 2018-09-22 09:08 | PDOC ---
PROGRESS NOTES Chief Complaint Chief Complaint Sepsis ruled out, hypotension may have been related to narcotics UTI, which in my opinion is asymptomatic bacteriuria, patient may be having an element of retention HYPOTENSION-MOST LIKELY NARCOTIC ASSOCIATED CKD on HD TIGRE DUE TO ATN - HD OP MWF HTN HX ANEMIA OF CKD weakness and debility Ostomy output positive for FOBT. UTI We'll de-escalate antibiotics Follow blood cultures Nephrology consult ID consult blood cult follow cbc GI CONSULTED MRSA screen f/u cultures AVOID EXCESS NARCOTICS May be moved out of the intensive care unit History of Present Illness History of Present Illness Patient laying in bed in no apparent distress. She is rating her chronic pain at a 7 out of 10 even though she looks very comfortable, her transient episode of hypotension and been prompted by medication patient is hemodynamically stable and able to be moved to the telemetry floor today all of her concerns were addressed to the best of my abilities discussed with nursing staff Vitals Vitals Vital Signs Date Time Temp Pulse Resp B/P (MAP) Pulse Ox O2 Delivery O2 Flow Rate FiO2 09/22/18 08:20 12 97 Room Air 09/22/18 06:00 62 168/70 (102) 09/22/18 04:00 98.7 98.7 Physical Exam Physical Exam Gen.: Thin and chronically ill-appearing in no apparent distress Head: Normal shape atraumatic Eyes: Pupils equal reactive to light and accommodation, normal conjunctivae and lids Ears: Normal shape Nose: Normal shape no trauma Mouth: No exudates of the back of throat no thrush no lesions Neck: Supple no JVD no carotid bruit or lymphadenopathy no thyromegaly Chest: Lungs clear to auscultation with good inspiratory effort no crackles rales or rhonchi Cardiovascular: S1-S2 regular rhythm feint systolic murmur with no gallops or rubs Abdomen: Bowel sounds present soft nontender no hepatosplenomegaly appreciated sign Extremities: No clubbing no cyanosis no edema peripheral pulses palpated bilaterally Neurological: Alert awake oriented in person time place and situation, cranial nerves II through XII intact, no motor or sensory deficits appreciated Psych: Appropriate mood, cooperative General: Alert, Oriented X3, Cooperative, No acute distress, mild distress Lungs: Clear Abdomen: Normal bowel sounds, Other (OSTOMY NOTED) Extremities: No cyanosis, Normal pulses Skin: No breakdown Labs LABS Laboratory Tests Test 09/22/18 06:25 White Blood Count 6.6 x10^3/uL (4.0-11.0) Red Blood Count 3.25 x10^6/uL (3.50-5.40) Hemoglobin 9.7 g/dL (12.0-15.5) Hematocrit 30.1 % (36.0-47.0) Mean Corpuscular Volume 92 fL (79-100) Mean Corpuscular Hemoglobin 30 pg (25-35) Mean Corpuscular Hemoglobin Concent 32 g/dL (31-37) Red Cell Distribution Width 14.7 % (11.5-14.5) Platelet Count 200 x10^3/uL (140-400) Sodium Level 140 mmol/L (136-145) Potassium Level 4.3 mmol/L (3.5-5.1) Chloride Level 108 mmol/L (98-107) Carbon Dioxide Level 21 mmol/L (21-32) Anion Gap 11 (6-14) Blood Urea Nitrogen 12 mg/dL (7-20) Creatinine 1.7 mg/dL (0.6-1.0) Estimated GFR (Cockcroft-Gault) 35.0 Glucose Level 77 mg/dL (70-99) Calcium Level 7.9 mg/dL (8.5-10.1) Comment Review of Relevant I have reviewed the following items consuelo (where applicable) has been applied. Labs Laboratory Tests Test 09/20/18 19:10 09/20/18 20:25 09/20/18 20:29 09/21/18 06:00 White Blood Count 10.7 x10^3/uL (4.0-11.0) 7.3 x10^3/uL (4.0-11.0) Red Blood Count 2.83 x10^6/uL (3.50-5.40) 3.18 x10^6/uL (3.50-5.40) Hemoglobin 8.5 g/dL (12.0-15.5) 9.5 g/dL (12.0-15.5) Hematocrit 26.3 % (36.0-47.0) 29.4 % (36.0-47.0) Mean Corpuscular Volume 93 fL (79-100) 93 fL (79-100) Mean Corpuscular Hemoglobin 30 pg (25-35) 30 pg (25-35) Mean Corpuscular Hemoglobin Concent 32 g/dL (31-37) 32 g/dL (31-37) Red Cell Distribution Width 15.1 % (11.5-14.5) 14.7 % (11.5-14.5) Platelet Count 203 x10^3/uL (140-400) 179 x10^3/uL (140-400) Neutrophils (%) (Auto) 68 % (31-73) 60 % (31-73) Lymphocytes (%) (Auto) 24 % (24-48) 28 % (24-48) Monocytes (%) (Auto) 5 % (0-9) 7 % (0-9) Eosinophils (%) (Auto) 3 % (0-3) 4 % (0-3) Basophils (%) (Auto) 1 % (0-3) 1 % (0-3) Neutrophils # (Auto) 7.2 x10^3uL (1.8-7.7) 4.4 x10^3uL (1.8-7.7) Lymphocytes # (Auto) 2.5 x10^3/uL (1.0-4.8) 2.1 x10^3/uL (1.0-4.8) Monocytes # (Auto) 0.6 x10^3/uL (0.0-1.1) 0.5 x10^3/uL (0.0-1.1) Eosinophils # (Auto) 0.3 x10^3/uL (0.0-0.7) 0.3 x10^3/uL (0.0-0.7) Basophils # (Auto) 0.1 x10^3/uL (0.0-0.2) 0.0 x10^3/uL (0.0-0.2) Prothrombin Time 13.8 SEC (11.7-14.0) Prothromb Time International Ratio 1.1 (0.8-1.1) Sodium Level 131 mmol/L (136-145) 132 mmol/L (136-145) Potassium Level 4.7 mmol/L (3.5-5.1) 4.2 mmol/L (3.5-5.1) Chloride Level 94 mmol/L (98-107) 99 mmol/L (98-107) Carbon Dioxide Level 26 mmol/L (21-32) 24 mmol/L (21-32) Anion Gap 11 (6-14) 9 (6-14) Blood Urea Nitrogen 21 mg/dL (7-20) 21 mg/dL (7-20) Creatinine 3.4 mg/dL (0.6-1.0) 2.7 mg/dL (0.6-1.0) Estimated GFR (Cockcroft-Gault) 15.7 20.5 BUN/Creatinine Ratio 6 (6-20) 8 (6-20) Glucose Level 108 mg/dL (70-99) 87 mg/dL (70-99) Calcium Level 8.5 mg/dL (8.5-10.1) 8.0 mg/dL (8.5-10.1) Magnesium Level 1.5 mg/dL (1.8-2.4) Total Bilirubin 0.3 mg/dL (0.2-1.0) 0.6 mg/dL (0.2-1.0) Aspartate Amino Transf (AST/SGOT) 31 U/L (15-37) 26 U/L (15-37) Alanine Aminotransferase (ALT/SGPT) 22 U/L (14-59) 17 U/L (14-59) Alkaline Phosphatase 87 U/L (46-116) 69 U/L (46-116) Troponin I Quantitative 0.045 ng/mL (0.000-0.055) 0.056 ng/mL (0.000-0.055) DF-Txf-H-Type Natriuretic Peptide 1611 pg/mL (0-449) Total Protein 7.2 g/dL (6.4-8.2) 6.2 g/dL (6.4-8.2) Albumin 3.1 g/dL (3.4-5.0) 2.5 g/dL (3.4-5.0) Albumin/Globulin Ratio 0.8 (1.0-1.7) 0.7 (1.0-1.7) Stool Occult Blood Positive (NEG) Urine Collection Type U cath Urine Color Irena Urine Clarity Cloudy Urine pH 5.0 Urine Specific [place] 1.025 Urine Protein 30 mg/dL (NEG-TRACE) Urine Glucose (UA) Negative mg/dL (NEG) Urine Ketones (Stick) 15 mg/dL (NEG) Urine Blood Moderate (NEG) Urine Nitrite Negative (NEG) Urine Bilirubin Moderate (NEG) Urine Urobilinogen Dipstick 1.0 mg/dL (0.2 mg/dL) Urine Leukocyte Esterase Large (NEG) Urine RBC 6-10 /HPF (0-2) Urine WBC Tntc /HPF (0-4) Urine Squamous Epithelial Cells None /LPF Urine Bacteria Many /HPF (0-FEW) Urine Hyaline Casts Many /HPF Urine Mucus Marked /LPF Urine Yeast Present /HPF Test 09/21/18 07:44 09/22/18 06:25 Nasal Screen MRSA (PCR) Negative (Negative) White Blood Count 6.6 x10^3/uL (4.0-11.0) Red Blood Count 3.25 x10^6/uL (3.50-5.40) Hemoglobin 9.7 g/dL (12.0-15.5) Hematocrit 30.1 % (36.0-47.0) Mean Corpuscular Volume 92 fL (79-100) Mean Corpuscular Hemoglobin 30 pg (25-35) Mean Corpuscular Hemoglobin Concent 32 g/dL (31-37) Red Cell Distribution Width 14.7 % (11.5-14.5) Platelet Count 200 x10^3/uL (140-400) Sodium Level 140 mmol/L (136-145) Potassium Level 4.3 mmol/L (3.5-5.1) Chloride Level 108 mmol/L (98-107) Carbon Dioxide Level 21 mmol/L (21-32) Anion Gap 11 (6-14) Blood Urea Nitrogen 12 mg/dL (7-20) Creatinine 1.7 mg/dL (0.6-1.0) Estimated GFR (Cockcroft-Gault) 35.0 Glucose Level 77 mg/dL (70-99) Calcium Level 7.9 mg/dL (8.5-10.1) Laboratory Tests Test 09/22/18 06:25 White Blood Count 6.6 x10^3/uL (4.0-11.0) Red Blood Count 3.25 x10^6/uL (3.50-5.40) Hemoglobin 9.7 g/dL (12.0-15.5) Hematocrit 30.1 % (36.0-47.0) Mean Corpuscular Volume 92 fL (79-100) Mean Corpuscular Hemoglobin 30 pg (25-35) Mean Corpuscular Hemoglobin Concent 32 g/dL (31-37) Red Cell Distribution Width 14.7 % (11.5-14.5) Platelet Count 200 x10^3/uL (140-400) Sodium Level 140 mmol/L (136-145) Potassium Level 4.3 mmol/L (3.5-5.1) Chloride Level 108 mmol/L (98-107) Carbon Dioxide Level 21 mmol/L (21-32) Anion Gap 11 (6-14) Blood Urea Nitrogen 12 mg/dL (7-20) Creatinine 1.7 mg/dL (0.6-1.0) Estimated GFR (Cockcroft-Gault) 35.0 Glucose Level 77 mg/dL (70-99) Calcium Level 7.9 mg/dL (8.5-10.1) Microbiology 09/20/18 Blood Culture - Preliminary, Resulted NO GROWTH AFTER 1 DAY Medications Current Medications Sodium Chloride 500 ml @ 500 mls/hr 1X ONCE IV Last administered on at 19:18; Start 09/20/18 at 18:45; Stop 09/20/18 at 19:44; Status DC Acetaminophen (Tylenol) 500 mg 1X ONCE PO Last administered on 09/20/18at 21:48 ; Start 09/20/18 at 21:15; Stop 09/20/18 at 21:22; Status DC Levofloxacin (Levaquin) 500 mg 1X ONCE PO Last administered on 09/20/18at 21:48 ; Start 09/20/18 at 21:15; Stop 09/20/18 at 21:22; Status DC Pantoprazole Sodium (PROTONIX VIAL for IV PUSH) 80 mg 1X ONCE IVP Last administered on 09/20/18at 21:59; Start 09/20/18 at 22:15; Stop 09/20/18 at 22:16 ; Status DC Ondansetron HCl (Zofran) 4 mg PRN Q8HRS PRN IV NAUSEA/VOMITING 1ST CHOICE; Start 09/20/18 at 22:00; Stop 09/21/18 at 21:59; Status DC Sodium Chloride 1,000 ml @ 100 mls/hr Q10H IV Last administered on 09/22/18at 06:18; Start 09/20/18 at 22:30; Stop 09/21/18 at 22:29; Status DC Acetaminophen (Tylenol) 650 mg PRN Q4HRS PRN PO FEVER Last administered on 09/21at 21:43; Start 09/20/18 at 22:00; Stop 09/21/18 at 21:59; Status DC Fentanyl Citrate (Fentanyl 2ml Vial) 25 mcg PRN Q2HR PRN IV SEVERE PAIN Last administered on 09/21/18at 12:59; Start 09/21/18 at 01:00; Stop 09/21/18 at 15:51 ; Status DC Darbepoetin Dario (Aranesp) 60 mcg WEEKLYHS SQ Last administered on 09/21/18at 20 :01; Start 09/21/18 at 21:00 Piperacillin Sod/ Tazobactam Sod (Zosyn Per Pharmacy) 1 each PRN DAILY PRN MC SEE COMMENTS; Start 09/21/18 at 11:00 Piperacillin Sod/ Tazobactam Sod 2.25 gm/Sodium Chloride 50 ml @ 100 mls/hr Q8HRS IV Last administered on 09/22/18at 06:18; Start 09/21/18 at 12:00 Pantoprazole Sodium (Protonix) 40 mg DAILYAC PO Last administered on 09/22/18at 08:20; Start 09/21/18 at 13:00 Lactobacillus Rhamnosus (Culturelle) 1 cap BID PO Last administered on at 08:20; Start 09/21/18 at 21:00 Acetaminophen/ Hydrocodone Bitart (Lortab 5/325) 1 tab PRN Q4HRS PRN PO PAIN Last administered on 09/22/18at 08:20; Start 09/21/18 at 16:00 Temazepam (Restoril) 7.5 mg PRN QHS PRN PO INSOMNIA Last administered on at 20:00; Start 09/21/18 at 18:30 Hydralazine HCl (Apresoline Inj) 10 mg PRN Q4HRS PRN IVP ELEVATED BP, SEE COMMENTS; Start 09/22/18 at 05:00 Active Scripts Active Nephro-Cheli Rx Tablet (Vit B Cmplx 3/Fa/Vit C/Biotin) 1 Each Tablet 1 Each PO DAILY 30 Days Carafate (Sucralfate) 1 Gm Tablet 1 Gm PO TIDAC MDD 1 Buspirone Hcl 5 Mg Tablet 5 Mg PO PRN TID PRN MDD 1 Mirtazapine 7.5 Mg Tablet 7.5 Mg PO QHS MDD 1 Atorvastatin Calcium 40 Mg Tablet 40 Mg PO QHS MDD 1 Aspirin Ec (Aspirin) 81 Mg Tablet. 81 Mg PO DAILYWBKFT 30 Days [place] 5-325 Tablet (Acetaminophen/Hydrocodone Bitart) 1 Each Tablet 1 Tab PO PRN Q6HRS 3 Days Lidocaine 1 Each Adh..patch 1 Patch TD DAILY MDD 1 Synthroid (Levothyroxine Sodium) 88 Mcg Tablet 88 Mcg PO DAILY06 MDD 1 Metoprolol Succinate ( Xl ) (Metoprolol Succinate) 25 Mg Tab.er.24h 25 Mg PO DAILY MDD 1 Reported Protonix (Pantoprazole Sodium) 20 Mg Tablet.dr 40 Mg PO DAILY Vitals/I & O Vital Sign - Last 24 Hours 09/21/18 09/21/18 09/21/18 09/21/18 10:36 11:00 11:06 12:00 Pulse 62 Resp 18 20 20 B/P (MAP) 160/55 (90) Pulse Ox 100 98 99 O2 Delivery Room Air Room Air Room Air Room Air 09/21/18 09/21/18 09/21/18 09/21/18 12:00 12:59 13:00 14:00 Temp 98.2 98.2 Pulse 63 70 64 Resp 18 18 20 B/P (MAP) 147/54 (85) 135/49 (77) 129/52 (77) Pulse Ox 99 99 99 98 O2 Delivery Room Air Room Air Room Air Room Air 09/21/18 09/21/18 09/21/18 09/21/18 15:00 15:58 16:00 16:00 Temp 98.4 98.4 Pulse 62 66 Resp 20 18 20 B/P (MAP) 136/55 (82) 141/52 (81) Pulse Ox 98 100 99 O2 Delivery Room Air Room Air Room Air Room Air 09/21/18 09/21/18 09/21/18 09/21/18 16:58 17:00 18:00 19:00 Temp 98.6 98.6 Pulse 70 67 68 Resp 19 19 20 22 B/P (MAP) 160/62 (94) 148/55 (86) 152/61 (91) Pulse Ox 99 99 99 99 O2 Delivery Room Air Room Air Room Air Room Air 09/21/18 09/21/18 09/21/18 09/21/18 20:00 20:00 20:01 21:00 Temp 98.4 98.4 Pulse 66 67 Resp 20 20 B/P (MAP) 165/63 (97) 148/55 (86) Pulse Ox 99 99 O2 Delivery Room Air Room Air Room Air Room Air 09/21/18 09/21/18 09/22/18 09/22/18 22:00 23:00 00:00 00:00 Temp 98.6 98.6 Pulse 72 67 58 Resp 16 18 22 B/P (MAP) 128/58 (81) 140/53 (82) 140/40 (73) Pulse Ox 99 99 98 O2 Delivery Room Air Room Air Room Air Room Air 09/22/18 09/22/18 09/22/18 09/22/18 01:00 02:00 03:00 04:00 Pulse 67 63 67 Resp 18 18 18 B/P (MAP) 134/52 (79) 162/53 (89) 134/52 (79) Pulse Ox 99 96 99 O2 Delivery Room Air Room Air Room Air Room Air 09/22/18 09/22/18 09/22/18 09/22/18 04:00 05:00 06:00 08:20 Temp 98.7 98.7 Pulse 56 54 62 Resp 18 18 12 B/P (MAP) 140/40 (73) 136/64 (88) 168/70 (102) Pulse Ox 98 99 97 97 O2 Delivery Room Air Room Air Room Air Room Air Intake and Output 09/21/18 09/21/18 09/22/18 14:59 22:59 06:59 Intake Total 800 ml 960 ml 840 ml Output Total 400 ml 975 ml Balance 800 ml 560 ml -135 ml ORION MULLIGAN MD Sep 22, 2018 09:08
[2018-09-22] MEDS: CIPROFLOXACIN HCL 250 MG TABLET. PO SCH ×2 (10:01→20:57)
--- NOTE | 2018-09-22 10:54 | NUR ---
SS following for discharge planning. SS received notification that pt was from [facility]. SS contacted [facility], ; fax [phone], to verify pt's previous placement. [facility] verified that pt was a skilled rehabilitation resident from there facility and was able to return when medically stable for discharge. PT/OT ordered. SS will continue to follow for discharge planning.
--- NOTE | 2018-09-22 14:36 | PDOC ---
Subjective: Subjective: Feels better, wants to advance diet. Was taking Lomotil at rehab, not here. Objective: Objective: RN called wondering about advancing beyond clears. Vital Signs: Vital Signs Date Time Temp Pulse Resp B/P (MAP) Pulse Ox O2 Delivery O2 Flow Rate FiO2 09/22/18 14:16 71 222/91 09/22/18 14:10 98 Room Air 09/22/18 13:57 16 09/22/18 11:00 97.7 97.7 Labs: Laboratory Tests Test 09/22/18 06:25 White Blood Count 6.6 x10^3/uL Red Blood Count 3.25 x10^6/uL Hemoglobin 9.7 g/dL Hematocrit 30.1 % Mean Corpuscular Volume 92 fL Mean Corpuscular Hemoglobin 30 pg Mean Corpuscular Hemoglobin Concent 32 g/dL Red Cell Distribution Width 14.7 % Platelet Count 200 x10^3/uL Sodium Level 140 mmol/L Potassium Level 4.3 mmol/L Chloride Level 108 mmol/L Carbon Dioxide Level 21 mmol/L Anion Gap 11 Blood Urea Nitrogen 12 mg/dL Creatinine 1.7 mg/dL Estimated GFR (Cockcroft-Gault) 35.0 Glucose Level 77 mg/dL Calcium Level 7.9 mg/dL PE: GEN: NAD - working w/ therapy NEURO/PSYCH: A & O 3 A/P: Anemia - stable UTI, CKD GERD, likely h/o PUD - 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 SHREE CAMERON Sep 22, 2018 14:36
[2018-09-22] MEDS ORDERED: DIPHENOXYLATE/ATROPINE TABLET. PO PRN (14:45)
[2018-09-22] MEDS ORDERED: HYDROcodone/APAP 5/325MG 1 TAB TABLET PO SCH (15:00)
[2018-09-22] MEDS: DIPHENOXYLATE/ATROPINE TABLET. PO SCH (15:05)
[2018-09-22] MEDS: LIDOCAINE (700MG/PATCH) PATCH. TD SCH (15:07)
[2018-09-22] MEDS: LEVOTHYROXINE 88 MCG TABLET PO SCH (15:10)
[2018-09-22] MEDS: ASPIRIN ENTERIC COATED 81 MG TABLET.DR. PO SCH (15:10)
[2018-09-22] MEDS: FOLIC/VIT B COMP W-C (RENAL) TABLET. PO SCH (15:10)
[2018-09-22] MEDS: SUCRALFATE 1 GM TABLET. PO SCH (15:11)
[2018-09-22] MEDS: METOPROLOL SUCC 24HR ER 25 MG TAB.ER.24H. PO SCH (15:13)
[2018-09-22] MEDS: ATORVASTATIN CALCIUM 40 MG TABLET. PO SCH (20:56)
[2018-09-22] MEDS: TEMAZEPAM 7.5 MG CAPSULE PO PRN (20:56)
[2018-09-22] MEDS: busPIRone 5 MG TABLET. PO PRN (20:56)
[2018-09-22] MEDS: MIRTAZAPINE 7.5 MG TABLET. PO SCH (20:57)
[2018-09-23] VITALS (8 sets, daily range): BP systolic 119–155; BP diastolic 51–83
[2018-09-23] MEDS: HYDROcodone/APAP 5/325MG 1 TAB TABLET PO PRN ×5 (01:40→21:04)
[2018-09-23] MEDS: PANTOPRAZOLE 40 MG TABLET.DR. PO SCH (06:14)
[2018-09-23] MEDS: LEVOTHYROXINE 88 MCG TABLET PO SCH (06:14)
[2018-09-23] MEDS: SUCRALFATE 1 GM TABLET. PO SCH ×3 (06:14→16:50)
--- NOTE | 2018-09-23 08:09 | PDOC ---
PROGRESS NOTES Chief Complaint Chief Complaint Sepsis ruled out, hypotension may have been related to narcotics UTI, which in my opinion is asymptomatic bacteriuria, patient may be having an element of retention HYPOTENSION-MOST LIKELY NARCOTIC ASSOCIATED CKD on HD TIGRE DUE TO ATN - HD OP MWF HTN HX ANEMIA OF CKD weakness and debility Ostomy output positive for FOBT. UTI History of Present Illness History of Present Illness Patient laying in bed in no apparent distress. She is rating her chronic pain at a 7 out of 10 even though she looks very comfortable, her transient episode of hypotension and been prompted by medication patient is hemodynamically stable and feels overall better. Right after I leave the room she does c/o 02/14 bad ache in left breast - has happened before, began again after pills. Tolerating PO w/o issue, ostomy output controlled. Plan: Cipro deescalation per ID May need skilled svcs on d/c as she continues to be readmitted likely due to home medication errors, poor ostomy care. Vitals Vitals Vital Signs Date Time Temp Pulse Resp B/P (MAP) Pulse Ox O2 Delivery O2 Flow Rate FiO2 09/23/18 07:15 18 97 Room Air 09/23/18 03:00 99.3 106 143/68 (93) 99.3 Physical Exam Physical Exam Gen.: Thin and chronically ill-appearing in no apparent distress Head: Normal shape atraumatic Eyes: Pupils equal reactive to light and accommodation, normal conjunctivae and lids Ears: Normal shape Nose: Normal shape no trauma Mouth: No exudates of the back of throat no thrush no lesions Neck: Supple no JVD no carotid bruit or lymphadenopathy no thyromegaly Chest: Lungs clear to auscultation with good inspiratory effort no crackles rales or rhonchi Cardiovascular: S1-S2 regular rhythm feint systolic murmur with no gallops or rubs Abdomen: Bowel sounds present soft nontender no hepatosplenomegaly appreciated sign Extremities: No clubbing no cyanosis no edema peripheral pulses palpated bilaterally Neurological: Alert awake oriented in person time place and situation, cranial nerves II through XII intact, no motor or sensory deficits appreciated Psych: Appropriate mood, cooperative General: Alert, Oriented X3, Cooperative, No acute distress, mild distress Lungs: Clear Abdomen: Normal bowel sounds, Other (OSTOMY NOTED) Extremities: No cyanosis, Normal pulses Skin: No breakdown Comment Review of Relevant I have reviewed the following items consuelo (where applicable) has been applied. Labs Laboratory Tests Test 09/22/18 06:25 White Blood Count 6.6 x10^3/uL (4.0-11.0) Red Blood Count 3.25 x10^6/uL (3.50-5.40) Hemoglobin 9.7 g/dL (12.0-15.5) Hematocrit 30.1 % (36.0-47.0) Mean Corpuscular Volume 92 fL (79-100) Mean Corpuscular Hemoglobin 30 pg (25-35) Mean Corpuscular Hemoglobin Concent 32 g/dL (31-37) Red Cell Distribution Width 14.7 % (11.5-14.5) Platelet Count 200 x10^3/uL (140-400) Sodium Level 140 mmol/L (136-145) Potassium Level 4.3 mmol/L (3.5-5.1) Chloride Level 108 mmol/L (98-107) Carbon Dioxide Level 21 mmol/L (21-32) Anion Gap 11 (6-14) Blood Urea Nitrogen 12 mg/dL (7-20) Creatinine 1.7 mg/dL (0.6-1.0) Estimated GFR (Cockcroft-Gault) 35.0 Glucose Level 77 mg/dL (70-99) Calcium Level 7.9 mg/dL (8.5-10.1) Microbiology 09/20/18 Blood Culture - Preliminary, Resulted NO GROWTH AFTER 2 DAYS 09/20/18 Urine Culture - Final, Complete 09/20/18 Urine Culture Result 1 (MARCY) - Final, Complete 09/20/18 Urine Culture Result 2 (MARCY) - Final, Complete Medications Current Medications Sodium Chloride 500 ml @ 500 mls/hr 1X ONCE IV Last administered on at 19:18; Start 09/20/18 at 18:45; Stop 09/20/18 at 19:44; Status DC Acetaminophen (Tylenol) 500 mg 1X ONCE PO Last administered on 09/20/18at 21:48 ; Start 09/20/18 at 21:15; Stop 09/20/18 at 21:22; Status DC Levofloxacin (Levaquin) 500 mg 1X ONCE PO Last administered on 09/20/18at 21:48 ; Start 09/20/18 at 21:15; Stop 09/20/18 at 21:22; Status DC Pantoprazole Sodium (PROTONIX VIAL for IV PUSH) 80 mg 1X ONCE IVP Last administered on 09/20/18at 21:59; Start 09/20/18 at 22:15; Stop 09/20/18 at 22:16 ; Status DC Ondansetron HCl (Zofran) 4 mg PRN Q8HRS PRN IV NAUSEA/VOMITING 1ST CHOICE; Start 09/20/18 at 22:00; Stop 09/21/18 at 21:59; Status DC Sodium Chloride 1,000 ml @ 100 mls/hr Q10H IV Last administered on 09/22/18at 06:18; Start 09/20/18 at 22:30; Stop 09/21/18 at 22:29; Status DC Acetaminophen (Tylenol) 650 mg PRN Q4HRS PRN PO FEVER Last administered on 09/21at 21:43; Start 09/20/18 at 22:00; Stop 09/21/18 at 21:59; Status DC Fentanyl Citrate (Fentanyl 2ml Vial) 25 mcg PRN Q2HR PRN IV SEVERE PAIN Last administered on 09/21/18at 12:59; Start 09/21/18 at 01:00; Stop 09/21/18 at 15:51 ; Status DC Darbepoetin Dario (Aranesp) 60 mcg WEEKLYHS SQ Last administered on 09/21/18at 20 :01; Start 09/21/18 at 21:00 Piperacillin Sod/ Tazobactam Sod (Zosyn Per Pharmacy) 1 each PRN DAILY PRN MC SEE COMMENTS; Start 09/21/18 at 11:00 Piperacillin Sod/ Tazobactam Sod 2.25 gm/Sodium Chloride 50 ml @ 100 mls/hr Q8HRS IV Last administered on 09/22/18at 06:18; Start 09/21/18 at 12:00; Stop at 09:06; Status DC Pantoprazole Sodium (Protonix) 40 mg DAILYAC PO Last administered on 09/23/18at 06:14; Start 09/21/18 at 13:00 Lactobacillus Rhamnosus (Culturelle) 1 cap BID PO Last administered on at 20:56; Start 09/21/18 at 21:00 Acetaminophen/ Hydrocodone Bitart (Lortab 5/325) 1 tab PRN Q4HRS PRN PO PAIN Last administered on 09/23/18 06:15; Start 09/21/18 at 16:00 Temazepam (Restoril) 7.5 mg PRN QHS PRN PO INSOMNIA Last administered on 20:56; Start 09/21/18 at 18:30 Hydralazine HCl (Apresoline Inj) 10 mg PRN Q4HRS PRN IVP ELEVATED BP, SEE COMMENTS Last administered on 09/22/18 14:16; Start 09/22/18 at 05:00 Ciprofloxacin (Cipro) 500 mg BID PO Last administered on 09/22/18 20:57; Start 09/22/18 at 10:00 Diphenoxylate HCl/ Atropine (Lomotil) 1 tab PRN BID PRN PO DIARRHEA; Start at 14:45 Diphenoxylate HCl/ Atropine (Lomotil) 1 tab DAILY PO Last administered on at 15:05; Start 09/22/18 at 15:00 Aspirin (Ecotrin) 81 mg DAILYWBKFT PO Last administered on 09/22/18 15:10; Start 09/22/18 at 16:00 Atorvastatin Calcium (Lipitor) 40 mg QHS PO Last administered on 09/22/18 20: 56; Start 09/22/18 at 21:00 Buspirone HCl (Buspar) 5 mg PRN TID PRN PO ANXIETY Last administered on 20:56; Start 09/22/18 at 15:00 Acetaminophen/ Hydrocodone Bitart (Lortab 5/325) 1 tab PRN Q6HRS PO ; Start at 15:00; Status UNV Levothyroxine Sodium (Synthroid) 88 mcg DAILY06 PO Last administered on 06:14; Start 09/22/18 at 16:00 Metoprolol Succinate (Toprol Xl) 25 mg DAILY PO Last administered on 09/22/18 15:13; Start 09/22/18 at 16:00 Mirtazapine (Remeron) 7.5 mg QHS PO Last administered on 09/22/18 20:57; Start 09/22/18 at 21:00 Lidocaine (Lidoderm) 1 patch DAILY TD ; Start 09/22/18 at 16:00 Non-Formulary Medication (Pantoprazole Sodium (Protonix)) 40 mg DAILY PO ; Start 09/23/18 at 09:00; Status UNV Sucralfate (Carafate) 1 gm TIDAC PO Last administered on 09/23/18at 06:14; Start 09/22/18 at 16:30 Vitamin B Complex/ Vitamin C (Janett-Cheli) 1 tab DAILY PO Last administered on at 15:10; Start 09/22/18 at 16:00 Active Scripts Active Nephro-Cheli Rx Tablet (Vit B Cmplx 3/Fa/Vit C/Biotin) 1 Each Tablet 1 Each PO DAILY 30 Days Carafate (Sucralfate) 1 Gm Tablet 1 Gm PO TIDAC MDD 1 Buspirone Hcl 5 Mg Tablet 5 Mg PO PRN TID PRN MDD 1 Mirtazapine 7.5 Mg Tablet 7.5 Mg PO QHS MDD 1 Atorvastatin Calcium 40 Mg Tablet 40 Mg PO QHS MDD 1 Aspirin Ec (Aspirin) 81 Mg Tablet.dr 81 Mg PO DAILYWBKFT 30 Days [place] 5-325 Tablet (Acetaminophen/Hydrocodone Bitart) 1 Each Tablet 1 Tab PO PRN Q6HRS 3 Days Lidocaine 1 Each Adh..patch 1 Patch TD DAILY MDD 1 Synthroid (Levothyroxine Sodium) 88 Mcg Tablet 88 Mcg PO DAILY06 MDD 1 Metoprolol Succinate ( Xl ) (Metoprolol Succinate) 25 Mg Tab.er.24h 25 Mg PO DAILY MDD 1 Reported Protonix (Pantoprazole Sodium) 20 Mg Tablet.dr 40 Mg PO DAILY Vitals/I & O Vital Sign - Last 24 Hours 09/22/18 09/22/18 09/22/18 09/22/18 08:20 09:00 10:00 11:00 Temp 97.7 97.7 Pulse 78 65 69 Resp 12 18 16 16 B/P (MAP) 102/74 (83) 163/81 (108) 161/82 (108) Pulse Ox 97 100 100 98 O2 Delivery Room Air Room Air Room Air Room Air 09/22/18 09/22/18 09/22/18 09/22/18 12:00 12:00 13:00 13:10 Pulse 62 62 Resp 16 16 B/P (MAP) 158/80 (106) 199/73 (115) Pulse Ox 100 98 100 O2 Delivery Room Air Room Air Room Air Room Air 09/22/18 09/22/18 09/22/18 09/22/18 13:57 14:16 14:53 15:13 Temp 97.7 97.7 Pulse 60 71 85 110 Resp 16 16 B/P (MAP) 173/84 (113) 222/91 166/78 (107) 175/78 Pulse Ox 98 100 O2 Delivery Room Air Room Air 09/22/18 09/22/18 09/22/18 09/22/18 19:00 20:00 20:56 23:00 Temp 98.8 98.7 98.8 98.7 Pulse 71 79 Resp 18 18 18 B/P (MAP) 161/63 (95) 169/64 (99) Pulse Ox 98 100 96 O2 Delivery Room Air Room Air Room Air Room Air 09/23/18 09/23/18 09/23/18 09/23/18 01:40 03:00 06:15 07:15 Temp 99.3 99.3 Pulse 106 Resp 18 18 B/P (MAP) 143/68 (93) Pulse Ox 96 97 97 97 O2 Delivery Room Air Room Air Room Air Room Air Intake and Output 09/22/18 09/22/18 09/23/18 15:00 23:00 07:00 Intake Total 1770 ml 270 ml 120 ml Output Total 1450 ml Balance 320 ml 270 ml 120 ml SHENA HERNANDEZ MD Sep 23, 2018 08:09
[2018-09-23] MEDS ORDERED: NON FORMULARY ITEM (Pantoprazole Sodium (Protonix) 40 MG) PO SCH (09:00)
[2018-09-23] MEDS: METOPROLOL SUCC 24HR ER 25 MG TAB.ER.24H. PO SCH (09:00)
[2018-09-23] MEDS: LIDOCAINE (700MG/PATCH) PATCH. TD SCH (09:29)
[2018-09-23] MEDS: DIPHENOXYLATE/ATROPINE TABLET. PO SCH (09:30)
--- NOTE | 2018-09-23 09:39 | PDOC ---
Infectious Disease Note Subjective Subjective awake, says feeling better ROS ROS no n/v/d/ Vital Sign Vital Signs Vital Signs Date Time Temp Pulse Resp B/P (MAP) Pulse Ox O2 Delivery O2 Flow Rate FiO2 09/23/18 07:15 18 97 Room Air 09/23/18 03:00 99.3 106 143/68 (93) 99.3 Physical Exam PHYSICAL EXAM Gen.: Thin and chronically ill-appearing in no apparent distress Head: Normal shape atraumatic Eyes: Pupils equal reactive to light and accommodation, normal conjunctivae and lids Ears: Normal shape Nose: Normal shape no trauma Mouth: No exudates of the back of throat no thrush no lesions Neck: Supple no JVD no carotid bruit or lymphadenopathy no thyromegaly Chest: Lungs clear to auscultation with good inspiratory effort no crackles rales or rhonchi Cardiovascular: S1-S2 regular rhythm feint systolic murmur with no gallops or rubs Abdomen: Bowel sounds present soft nontender no hepatosplenomegaly appreciated sign Extremities: No clubbing no cyanosis no edema peripheral pulses palpated bilaterally Neurological: Alert awake oriented in person time place and situation, cranial nerves II through XII intact, no motor or sensory deficits appreciated Psych: Appropriate mood, cooperative Labs Micro Microbiology 09/20/18 Blood Culture - Preliminary, Resulted NO GROWTH AFTER 1 DAY Objective Assessment 1. Urinary tract infection present on admission. 2. Fever prior to admission. 3. on hemodialysis via tunneled HD catheter, which was placed on 09/17/2018. 4. Anemia, status post packed red blood cells. 5. Status post total colectomy with end ileostomy in 05/2018. 6. History of hepatitis C/cirrhosis. 7. Hypertension. Plan Plan of Care po cipro f/u cultures Monitor temp/labs Supportive care D/w nursing PEPPER MAIER MD Sep 23, 2018 09:39
--- NOTE | 2018-09-23 10:25 | PDOC ---
SUBJECTIVE ROS No complaints, states feeling good, good UOP- OBJECTIVE Vital Signs Vital Signs Date Time Temp Pulse Resp B/P (MAP) Pulse Ox O2 Delivery O2 Flow Rate FiO2 09/23/18 07:15 18 97 Room Air 09/23/18 07:00 98.9 91 136/58 (84) 98.9 I & 0 Intake and Output 09/23/18 07:00 Intake Total 2160 ml Output Total 1450 ml Balance 710 ml Intake Oral 2160 ml Output Urine Total 450 ml Stool Total 1000 ml # Voids 3 PHYSICAL EXAM Physical Exam GEN: NAD HEENT: Oral cavity: Pharynx pink and moist. NECK: Supple. LUNGS: Clear to auscultation. HEART: S1, S2. ABDOMEN: Obese, soft and nontender with bowel sounds present. Ileostomy without signs of complications. SKIN: Warm without rash. NEUROLOGIC: Alert x O x 3 DIAGNOSIS/ASSESSMENT Assessment & Plan TIGRE due to ATN Was started on HD few weeks back, was dced on MWF HD last HD was on Saturday, Noted Improvement in renal function No labs were ordered this am Ordered stat labs - Reviewed- No Indication for HD, Improving renal function E-Lytes stable, Good UOP, Clinically euvolemic Has TDC - If Stable Renal function in am, can remove TDC by IR CKD stage 3 Cr 1.6 Follow up with our office as OP after Discharge HTN Anemia- ARANESP Discussed with Pt and RN COMMENT/RELEVANT DATA Meds Current Medications Medications (Trade) Dose Ordered Sig/Saroj Start Time Stop Time Status Last Admin Dose Admin Acetaminophen (Tylenol) 650 mg PRN Q4HRS PRN 09/20/18 22:00 09/21/18 21:59 DC 09/21/18 21:43 650 MG Acetaminophen/ Hydrocodone Bitart (Lortab 5/325) 1 tab PRN Q6HRS 09/22/18 15:00 UNV Aspirin (Ecotrin) 81 mg DAILYWBKFT 09/22/18 16:00 09/22/18 15:10 81 MG Atorvastatin Calcium (Lipitor) 40 mg QHS 09/22/18 21:00 09/22/18 20:56 40 MG Buspirone HCl (Buspar) 5 mg PRN TID PRN 09/22/18 15:00 09/22/18 20:56 5 MG Ciprofloxacin (Cipro) 500 mg BID 09/22/18 10:00 09/22/18 20:57 500 MG Darbepoetin Dario (Aranesp) 60 mcg WEEKLYHS 09/21/18 21:00 09/21/18 20:01 60 MCG Diphenoxylate HCl/ Atropine (Lomotil) 1 tab DAILY 09/22/18 15:00 09/23/18 09:30 1 TAB Fentanyl Citrate (Fentanyl 2ml Vial) 25 mcg PRN Q2HR PRN 09/21/18 01:00 09/21/18 15:51 DC 09/21/18 12:59 25 MCG Hydralazine HCl (Apresoline Inj) 10 mg PRN Q4HRS PRN 09/22/18 05:00 09/22/18 14:16 10 MG Lactobacillus Rhamnosus (Culturelle) 1 cap BID 09/21/18 21:00 09/22/18 20:56 1 CAP Levofloxacin (Levaquin) 500 mg 1X ONCE 09/20/18 21:15 09/20/18 21:22 DC 09/20/18 21:48 500 MG Levothyroxine Sodium (Synthroid) 88 mcg DAILY06 09/22/18 16:00 09/23/18 06:14 88 MCG Lidocaine (Lidoderm) 1 patch DAILY 09/22/18 16:00 09/23/18 09:29 1 PATCH Metoprolol Succinate (Toprol Xl) 25 mg DAILY 09/22/18 16:00 09/22/18 15:13 25 MG Mirtazapine (Remeron) 7.5 mg QHS 09/22/18 21:00 09/22/18 20:57 7.5 MG Non-Formulary Medication (Pantoprazole Sodium (Protonix)) 40 mg DAILY 09/23/18 09:00 UNV Ondansetron HCl (Zofran) 4 mg PRN Q8HRS PRN 09/20/18 22:00 09/21/18 21:59 DC Pantoprazole Sodium (PROTONIX VIAL for IV PUSH) 80 mg 1X ONCE 09/20/18 22:15 09/20/18 22:16 DC 09/20/18 21:59 80 MG Pantoprazole Sodium (Protonix) 40 mg DAILYAC 09/21/18 13:00 09/23/18 06:14 40 MG Piperacillin Sod/ Tazobactam Sod (Zosyn Per Pharmacy) 1 each PRN DAILY PRN 09/21/18 11:00 Piperacillin Sod/ Tazobactam Sod 2.25 gm/Sodium Chloride 50 ml @ 100 mls/hr Q8HRS 09/21/18 12:00 09/22/18 09:06 DC 09/22/18 06:18 100 MLS/HR Sodium Chloride 1,000 ml @ 100 mls/hr Q10H 09/20/18 22:30 09/21/18 22:29 DC 09/22/18 06:18 100 MLS/HR Sucralfate (Carafate) 1 gm TIDAC 09/22/18 16:30 09/23/18 06:14 1 GM Temazepam (Restoril) 7.5 mg PRN QHS PRN 09/21/18 18:30 09/22/18 20:56 7.5 MG Vitamin B Complex/ Vitamin C (Janett-Cheli) 1 tab DAILY 09/22/18 16:00 09/22/18 15:10 1 TAB Results All relevant outside records, renal labs, imaging studies, telemetry/EKG's were reviewed. SHERRY ALAN MD Sep 23, 2018 10:25
[2018-09-23 10:50] LABS: CALCIUM 7.7 mg/dL (8.5-10.1); CREATININE 1.4 mg/dL (0.6-1.0); GFR 43.8; POTASSIUM 3.9 mmol/L (3.5-5.1)
[2018-09-23] MEDS: FOLIC/VIT B COMP W-C (RENAL) TABLET. PO SCH (12:50)
[2018-09-23] MEDS: ASPIRIN ENTERIC COATED 81 MG TABLET.DR. PO SCH (12:50)
[2018-09-23] MEDS: CIPROFLOXACIN HCL 250 MG TABLET. PO SCH ×2 (12:50→21:04)
[2018-09-23] MEDS: LACTOBACILLUS RHAMNOSUS GG 1 CAPSULE. PO SCH ×2 (12:50→21:03)
--- NOTE | 2018-09-23 14:32 | PDOC ---
Subjective: Subjective: 02/14 bad ache in left breast - has happened before, began again after pills. Tolerating PO w/o issue, ostomy output controlled. Objective: Vital Signs: Vital Signs Date Time Temp Pulse Resp B/P (MAP) Pulse Ox O2 Delivery O2 Flow Rate FiO2 09/23/18 12:49 98 Room Air 09/23/18 11:00 98.9 93 18 155/58 (90) 98.9 Labs: Laboratory Tests Test 09/23/18 09:30 Sodium Level 143 mmol/L Potassium Level 3.9 mmol/L Chloride Level 109 mmol/L Carbon Dioxide Level 19 mmol/L Anion Gap 15 Blood Urea Nitrogen 12 mg/dL Creatinine 1.4 mg/dL Estimated GFR (Cockcroft-Gault) 43.8 Glucose Level 84 mg/dL Calcium Level 7.7 mg/dL PE: GEN: uncomfortable LUNGS: CTAB HEART: RRR ABD: RLQ ostomy NEURO/PSYCH: A & O 3 A/P: Breast pain Anemia - stable (checked 09/22) UTI, CKD S/p colectomy w/ ileostomy - watery ostomy output improved w/ Lomotil -- Recurrent "breast pain." GI issues stable. SHREE SAAVEDRA Sep 23, 2018 14:32
--- NOTE | 2018-09-23 15:11 | NUR ---
[facility]TA following pt. [facility] faxed updated clinicals to [facility]. Will continue to follow.
[2018-09-23] MEDS: ATORVASTATIN CALCIUM 40 MG TABLET. PO SCH (21:03)
[2018-09-23] MEDS: MIRTAZAPINE 7.5 MG TABLET. PO SCH (21:03)
[2018-09-24] MEDS: HYDROcodone/APAP 5/325MG 1 TAB TABLET PO PRN ×4 (01:05→15:12)
[2018-09-24] MEDS: busPIRone 5 MG TABLET. PO PRN ×3 (01:07→15:13)
[2018-09-24 03:00] VITALS: BP 171/63
[2018-09-24] MEDS: LEVOTHYROXINE 88 MCG TABLET PO SCH (05:45)
[2018-09-24 07:00] VITALS: BP 167/68
[2018-09-24] MEDS: SUCRALFATE 1 GM TABLET. PO SCH ×3 (07:58→15:11)
[2018-09-24] MEDS: PANTOPRAZOLE 40 MG TABLET.DR. PO SCH (07:58)
[2018-09-24] MEDS: DIPHENOXYLATE/ATROPINE TABLET. PO SCH (07:59)
[2018-09-24] MEDS: FOLIC/VIT B COMP W-C (RENAL) TABLET. PO SCH (07:59)
[2018-09-24] MEDS: CIPROFLOXACIN HCL 250 MG TABLET. PO SCH (07:59)
[2018-09-24] MEDS: LACTOBACILLUS RHAMNOSUS GG 1 CAPSULE. PO SCH (07:59)
[2018-09-24] MEDS: ASPIRIN ENTERIC COATED 81 MG TABLET.DR. PO SCH (08:03)
[2018-09-24] MEDS: LIDOCAINE (700MG/PATCH) PATCH. TD SCH (08:06)
[2018-09-24] MEDS: METOPROLOL SUCC 24HR ER 25 MG TAB.ER.24H. PO SCH (08:11)
--- NOTE | 2018-09-24 08:14 | PDOC ---
PROGRESS NOTES Chief Complaint Chief Complaint Sepsis ruled out, hypotension may have been related to narcotics UTI, which in my opinion is asymptomatic bacteriuria, patient may be having an element of retention HYPOTENSION-MOST LIKELY NARCOTIC ASSOCIATED CKD on HD TIGRE DUE TO ATN - HD OP MWF HTN HX ANEMIA OF CKD weakness and debility Ostomy output positive for FOBT. UTI History of Present Illness History of Present Illness Patient laying in bed in no apparent distress. She is rating her chronic pain at a 7 out of 10 even though she looks very comfortable, her transient episode of hypotension and been prompted by medication patient is hemodynamically stable and feels overall better. Right after I leave the room she does c/o 02/14 bad ache in left breast - has happened before, began again after pills. Tolerating PO w/o issue, ostomy output controlled. Plan: LIJ removal and tunneled HD cath removal today Cipro deescalation per ID. Lactobacillus on urine May need skilled svcs on d/c as she continues to be readmitted likely due to home medication errors, poor ostomy care. Vitals Vitals Vital Signs Date Time Temp Pulse Resp B/P (MAP) Pulse Ox O2 Delivery O2 Flow Rate FiO2 09/24/18 08:11 64 136/62 09/24/18 06:46 18 97 Room Air 09/24/18 03:00 98.1 98.1 Physical Exam Physical Exam Gen.: Thin and chronically ill-appearing in no apparent distress Head: Normal shape atraumatic Eyes: Pupils equal reactive to light and accommodation, normal conjunctivae and lids Ears: Normal shape Nose: Normal shape no trauma Mouth: No exudates of the back of throat no thrush no lesions Neck: Supple no JVD no carotid bruit or lymphadenopathy no thyromegaly Chest: Lungs clear to auscultation with good inspiratory effort no crackles rales or rhonchi Cardiovascular: S1-S2 regular rhythm feint systolic murmur with no gallops or rubs Abdomen: Bowel sounds present soft nontender no hepatosplenomegaly appreciated sign Extremities: No clubbing no cyanosis no edema peripheral pulses palpated bilaterally Neurological: Alert awake oriented in person time place and situation, cranial nerves II through XII intact, no motor or sensory deficits appreciated Psych: Appropriate mood, cooperative General: Alert, Oriented X3, Cooperative, No acute distress, mild distress Lungs: Clear Abdomen: Normal bowel sounds, Other (OSTOMY NOTED) Extremities: No cyanosis, Normal pulses Skin: No breakdown Labs LABS Laboratory Tests Test 09/23/18 09:30 Sodium Level 143 mmol/L (136-145) Potassium Level 3.9 mmol/L (3.5-5.1) Chloride Level 109 mmol/L (98-107) Carbon Dioxide Level 19 mmol/L (21-32) Anion Gap 15 (6-14) Blood Urea Nitrogen 12 mg/dL (7-20) Creatinine 1.4 mg/dL (0.6-1.0) Estimated GFR (Cockcroft-Gault) 43.8 Glucose Level 84 mg/dL (70-99) Calcium Level 7.7 mg/dL (8.5-10.1) Comment Review of Relevant I have reviewed the following items consuelo (where applicable) has been applied. Labs Laboratory Tests Test 09/23/18 09:30 Sodium Level 143 mmol/L (136-145) Potassium Level 3.9 mmol/L (3.5-5.1) Chloride Level 109 mmol/L (98-107) Carbon Dioxide Level 19 mmol/L (21-32) Anion Gap 15 (6-14) Blood Urea Nitrogen 12 mg/dL (7-20) Creatinine 1.4 mg/dL (0.6-1.0) Estimated GFR (Cockcroft-Gault) 43.8 Glucose Level 84 mg/dL (70-99) Calcium Level 7.7 mg/dL (8.5-10.1) Laboratory Tests Test 09/23/18 09:30 Sodium Level 143 mmol/L (136-145) Potassium Level 3.9 mmol/L (3.5-5.1) Chloride Level 109 mmol/L (98-107) Carbon Dioxide Level 19 mmol/L (21-32) Anion Gap 15 (6-14) Blood Urea Nitrogen 12 mg/dL (7-20) Creatinine 1.4 mg/dL (0.6-1.0) Estimated GFR (Cockcroft-Gault) 43.8 Glucose Level 84 mg/dL (70-99) Calcium Level 7.7 mg/dL (8.5-10.1) Microbiology 09/20/18 Blood Culture - Preliminary, Resulted NO GROWTH AFTER 3 DAYS 09/20/18 Urine Culture - Final, Complete 09/20/18 Urine Culture Result 1 (MARCY) - Final, Complete 09/20/18 Urine Culture Result 2 (MARCY) - Final, Complete Medications Current Medications Sodium Chloride 500 ml @ 500 mls/hr 1X ONCE IV Last administered on 19:18; Start 09/20/18 at 18:45; Stop 09/20/18 at 19:44; Status DC Acetaminophen (Tylenol) 500 mg 1X ONCE PO Last administered on 09/20/18 21:48 ; Start 09/20/18 at 21:15; Stop 09/20/18 at 21:22; Status DC Levofloxacin (Levaquin) 500 mg 1X ONCE PO Last administered on 09/20/18 21:48 ; Start 09/20/18 at 21:15; Stop 09/20/18 at 21:22; Status DC Pantoprazole Sodium (PROTONIX VIAL for IV PUSH) 80 mg 1X ONCE IVP Last administered on 09/20/18 21:59; Start 09/20/18 at 22:15; Stop 09/20/18 at 22:16 ; Status DC Ondansetron HCl (Zofran) 4 mg PRN Q8HRS PRN IV NAUSEA/VOMITING 1ST CHOICE; Start 09/20/18 at 22:00; Stop 09/21/18 at 21:59; Status DC Sodium Chloride 1,000 ml @ 100 mls/hr Q10H IV Last administered on 09/22/18 06:18; Start 09/20/18 at 22:30; Stop 09/21/18 at 22:29; Status DC Acetaminophen (Tylenol) 650 mg PRN Q4HRS PRN PO FEVER Last administered on 09/21at 21:43; Start 09/20/18 at 22:00; Stop 09/21/18 at 21:59; Status DC Fentanyl Citrate (Fentanyl 2ml Vial) 25 mcg PRN Q2HR PRN IV SEVERE PAIN Last administered on 09/21/18 12:59; Start 09/21/18 at 01:00; Stop 09/21/18 at 15:51 ; Status DC Darbepoetin Dario (Aranesp) 60 mcg WEEKLYHS SQ Last administered on 09/21/18at 20 :01; Start 09/21/18 at 21:00 Piperacillin Sod/ Tazobactam Sod (Zosyn Per Pharmacy) 1 each PRN DAILY PRN MC SEE COMMENTS; Start 09/21/18 at 11:00; Stop 09/23/18 at 15:19; Status DC Piperacillin Sod/ Tazobactam Sod 2.25 gm/Sodium Chloride 50 ml @ 100 mls/hr Q8HRS IV Last administered on 09/22/18 06:18; Start 09/21/18 at 12:00; Stop at 09:06; Status DC Pantoprazole Sodium (Protonix) 40 mg DAILYAC PO Last administered on 09/24/18 07:58; Start 09/21/18 at 13:00 Lactobacillus Rhamnosus (Culturelle) 1 cap BID PO Last administered on 07:59; Start 09/21/18 at 21:00 Acetaminophen/ Hydrocodone Bitart (Lortab 5/325) 1 tab PRN Q4HRS PRN PO PAIN Last administered on 09/24/18 05:45; Start 09/21/18 at 16:00 Temazepam (Restoril) 7.5 mg PRN QHS PRN PO INSOMNIA Last administered on 20:56; Start 09/21/18 at 18:30 Hydralazine HCl (Apresoline Inj) 10 mg PRN Q4HRS PRN IVP ELEVATED BP, SEE COMMENTS Last administered on 09/22/18 14:16; Start 09/22/18 at 05:00 Ciprofloxacin (Cipro) 500 mg BID PO Last administered on 09/24/18 07:59; Start 09/22/18 at 10:00 Diphenoxylate HCl/ Atropine (Lomotil) 1 tab PRN BID PRN PO DIARRHEA Last administered on 09/23/18 12:49; Start 09/22/18 at 14:45 Diphenoxylate HCl/ Atropine (Lomotil) 1 tab DAILY PO Last administered on 07:59; Start 09/22/18 at 15:00 Aspirin (Ecotrin) 81 mg DAILYWBKFT PO Last administered on 09/24/18 08:03; Start 09/22/18 at 16:00 Atorvastatin Calcium (Lipitor) 40 mg QHS PO Last administered on 09/23/18 21: 03; Start 09/22/18 at 21:00 Buspirone HCl (Buspar) 5 mg PRN TID PRN PO ANXIETY Last administered on 01:07; Start 09/22/18 at 15:00 Acetaminophen/ Hydrocodone Bitart (Lortab 5/325) 1 tab PRN Q6HRS PO ; Start at 15:00; Status UNV Levothyroxine Sodium (Synthroid) 88 mcg DAILY06 PO Last administered on 05:45; Start 09/22/18 at 16:00 Metoprolol Succinate (Toprol Xl) 25 mg DAILY PO Last administered on 09/24/18 08:11; Start 09/22/18 at 16:00 Mirtazapine (Remeron) 7.5 mg QHS PO Last administered on 09/23/18 21:03; Start 09/22/18 at 21:00 Lidocaine (Lidoderm) 1 patch DAILY TD Last administered on 09/24/18 08:06; Start 09/22/18 at 16:00 Non-Formulary Medication (Pantoprazole Sodium (Protonix)) 40 mg DAILY PO ; Start 09/23/18 at 09:00; Status UNV Sucralfate (Carafate) 1 gm TIDAC PO Last administered on 09/24/18 07:58; Start 09/22/18 at 16:30 Vitamin B Complex/ Vitamin C (Janett-Cheli) 1 tab DAILY PO Last administered on 07:59; Start 09/22/18 at 16:00 Active Scripts Active Nephro-Cheli Rx Tablet (Vit B Cmplx 3/Fa/Vit C/Biotin) 1 Each Tablet 1 Each PO DAILY 30 Days Carafate (Sucralfate) 1 Gm Tablet 1 Gm PO TIDAC MDD 1 Buspirone Hcl 5 Mg Tablet 5 Mg PO PRN TID PRN MDD 1 Mirtazapine 7.5 Mg Tablet 7.5 Mg PO QHS MDD 1 Atorvastatin Calcium 40 Mg Tablet 40 Mg PO QHS MDD 1 Aspirin Ec (Aspirin) 81 Mg Tablet.dr 81 Mg PO DAILYWBKFT 30 Days Otis 5-325 Tablet (Acetaminophen/Hydrocodone Bitart) 1 Each Tablet 1 Tab PO PRN Q6HRS 3 Days Lidocaine 1 Each Adh..patch 1 Patch TD DAILY MDD 1 Synthroid (Levothyroxine Sodium) 88 Mcg Tablet 88 Mcg PO DAILY06 MDD 1 Metoprolol Succinate ( Xl ) (Metoprolol Succinate) 25 Mg Tab.er.24h 25 Mg PO DAILY MDD 1 Reported Protonix (Pantoprazole Sodium) 20 Mg Tablet.dr 40 Mg PO DAILY Vitals/I & O Vital Sign - Last 24 Hours 09/23/18 09/23/18 09/23/18 09/23/18 09:00 11:00 12:49 15:00 Temp 98.9 98.9 98.9 98.9 Pulse 93 93 87 Resp 18 18 B/P (MAP) 155/58 155/58 (90) 119/83 (95) Pulse Ox 98 98 97 O2 Delivery Room Air Room Air Room Air 09/23/18 09/23/18 09/23/18 09/23/18 15:55 15:56 16:51 19:00 Temp 98.9 98.9 97.9 98.9 98.9 97.9 Pulse 87 87 69 Resp 20 18 B/P (MAP) 119/83 (95) 119/83 (95) 137/51 (79) Pulse Ox 97 97 97 99 O2 Delivery Room Air Room Air Room Air Room Air 09/23/18 09/23/18 09/23/18 09/24/18 20:25 21:04 22:55 01:05 Temp 98.6 98.6 Pulse 68 Resp 18 18 18 B/P (MAP) 140/53 (82) Pulse Ox 99 99 99 O2 Delivery Room Air Room Air Room Air Room Air 09/24/18 09/24/18 09/24/18 09/24/18 03:00 05:45 06:46 08:11 Temp 98.1 98.1 Pulse 66 64 Resp 18 18 18 B/P (MAP) 171/63 (99) 136/62 Pulse Ox 97 97 97 O2 Delivery Room Air Room Air Room Air Intake and Output 09/23/18 09/23/18 09/24/18 15:00 23:00 07:00 Intake Total 720 ml 200 ml 120 ml Balance 720 ml 200 ml 120 ml SHENA HERNANDEZ MD Sep 24, 2018 08:14
[2018-09-24 08:20] LABS: CALCIUM 7.8 mg/dL (8.5-10.1); CREATININE 1.7 mg/dL (0.6-1.0); POTASSIUM 4.4 mmol/L (3.5-5.1)
[2018-09-24] MEDS ORDERED: DIPH1TAB5 PO (10:52)
[2018-09-24] MEDS ORDERED: HYDR-3164 PO (10:52)
[2018-09-24] MEDS ORDERED: DARBEPOETIN ALFA IN POLYSORBAT SQ (10:52)
[2018-09-24] MEDS ORDERED: TEMA7.5C2 PO (10:52)
--- NOTE | 2018-09-24 10:56 | SNU/HH DC ---
DISCHARGE ORDERS DISCHARGE INFORMATION: DISCHARGE DATE: Sep 24, 2018 CONDITION ON DISCHARGE: Stable CODE STATUS: Code Status: Full FPC: SNF STAY <30 DAYS: Yes POST DISCHARGE ORDERS: ACTIVITY ORDERS: Resume previous activity, Activity as tolerated WEIGHT BEARING STATUS: As tolerated DIET AFTER DISCHARGE: Renal CHECKS AFTER DISCHARGE: CHECKS AFTER DISCHARGE: Check blood press - daily TREATMENT/EQUIPMENT ORDERS: ADAPTIVE EQUIPMENT NEEDED: None, Walker Physical Therapy For: Evalulation/Treatment Occupational Therapy For: Evaluation/Treatment Speech Language Pathology For: Evaluation/Treatment DISCHARGE MEDICATIONS: Home Meds Active Scripts Diphenoxylate Hcl/Atropine (DIPHENOXYLATE-ATROPINE TABLET) 1 Each Tablet, 1 TAB PO PRN BID PRN for DIARRHEA for 30 Days, #60 TAB Prov:SHENA HERNANDEZ MD 09/24/18 Temazepam (RESTORIL) 7.5 Mg Capsule, 7.5 MG PO PRN QHS PRN for INSOMNIA for 30 Days, #30 CAP Prov:SHENA HERNANDEZ MD 09/24/18 [Darbepoetin Dario] 60 MCG/0.3 ML DISP.SYRIN No Conflict Check, 60 MCG SQ WEEKLYHS for anemia 2/2 CKD for 30 Days, #4 DIS.SYR Prov:SHENA HERNANDEZ MD 09/24/18 Hydrocodone/Apap 5-325 (NORCO 5-325 TABLET) 1 Each Tablet, 1 TAB PO PRN Q6HRS for pain for 6 Days, #20 TAB 0 Refills Prov:SHENA HERNANDEZ MD 09/24/18 Vit B Cmplx 3/Fa/Vit C/Biotin (NEPHRO-MICHELLE RX TABLET) 1 Each Tablet, 1 EACH PO DAILY for esrd for 30 Days, #30 TAB Prov:GERDA DE LEÓN MD 09/16/18 Sucralfate (CARAFATE) 1 Gm Tablet, 1 GM PO TIDAC for gi MDD 1, #60 TAB Prov:GERDA DE LEÓN MD 09/16/18 Buspirone Hcl (BUSPIRONE HCL) 5 Mg Tablet, 5 MG PO PRN TID PRN for ANXIETY MDD 1 , #30 TAB Prov:GERDA DE LEÓN MD 09/16/18 Mirtazapine (MIRTAZAPINE) 7.5 Mg Tablet, 7.5 MG PO QHS for anciety MDD 1, #30 TAB Prov:GERDA DE LEÓN MD 09/16/18 Atorvastatin Calcium (ATORVASTATIN CALCIUM) 40 Mg Tablet, 40 MG PO QHS for dylipids MDD 1, #60 TAB Prov:GERDA DE LEÓN MD 09/16/18 Aspirin (ASPIRIN EC) 81 Mg Tablet., 81 MG PO DAILYWBKFT for antiplatelet for 30 Days, #30 TAB.SR Prov:ORION MULLIGAN MD 08/27/18 Lidocaine (Lidocaine) 1 Each Adh..patch, 1 PATCH TD DAILY for back pain MDD 1, # 14 PATCH Prov:GIANLUCA LONG MD 08/23/18 Levothyroxine Sodium (SYNTHROID) 88 Mcg Tablet, 88 MCG PO DAILY06 for hypothy MDD 1, #60 TAB Prov:GERDA DE LEÓN MD 06/04/18 Metoprolol Succinate (METOPROLOL SUCCINATE ( XL )) 25 Mg Tab.er.24h, 25 MG PO DAILY for htn MDD 1, #30 TAB.SR Prov:GERDA DE LEÓN MD 06/04/18 Reported Medications Pantoprazole Sodium (PROTONIX) 20 Mg Tablet., 40 MG PO DAILY for PPI, TAB 05/20/18 SHENA HERNANDEZ MD Sep 24, 2018 10:56
--- NOTE | 2018-09-24 10:57 | PDOC3 ---
Discharge Summary Visit Information Date of Admission: Sep 20, 2018 Date of Discharge: Sep 24, 2018 Admitting Diagnosis: Hypotension, confusion Final Diagnosis Acute renal failure, UTI Brief Hospital Course Allergies Allergies Coded Allergies Type Severity Reaction Last Updated Verified ceftriaxone Allergy Intermediate SKIN RASH, HAS TOLERATED ZOSYN 06/07/18 Yes morphine Allergy Intermediate 08/25/18 Yes tizanidine Adverse Reaction Severe dizzy 09/12/18 Yes Vital Signs Vital Signs Date Time Temp Pulse Resp B/P (MAP) Pulse Ox O2 Delivery O2 Flow Rate FiO2 09/24/18 09:49 20 09/24/18 08:11 64 136/62 09/24/18 07:00 98.6 99 Room Air 98.6 Lab Results Laboratory Tests Test 09/23/18 09:30 09/24/18 07:21 Sodium Level 143 mmol/L (136-145) 143 mmol/L (136-145) Potassium Level 3.9 mmol/L (3.5-5.1) 4.4 mmol/L (3.5-5.1) Chloride Level 109 mmol/L (98-107) 110 mmol/L (98-107) Carbon Dioxide Level 19 mmol/L (21-32) 20 mmol/L (21-32) Anion Gap 15 (6-14) 13 (6-14) Blood Urea Nitrogen 12 mg/dL (7-20) 12 mg/dL (7-20) Creatinine 1.4 mg/dL (0.6-1.0) 1.7 mg/dL (0.6-1.0) Estimated GFR (Cockcroft-Gault) 43.8 35.0 Glucose Level 84 mg/dL (70-99) 90 mg/dL (70-99) Calcium Level 7.7 mg/dL (8.5-10.1) 7.8 mg/dL (8.5-10.1) Laboratory Tests Test 09/24/18 07:21 Sodium Level 143 mmol/L (136-145) Potassium Level 4.4 mmol/L (3.5-5.1) Chloride Level 110 mmol/L (98-107) Carbon Dioxide Level 20 mmol/L (21-32) Anion Gap 13 (6-14) Blood Urea Nitrogen 12 mg/dL (7-20) Creatinine 1.7 mg/dL (0.6-1.0) Estimated GFR (Cockcroft-Gault) 35.0 Glucose Level 90 mg/dL (70-99) Calcium Level 7.8 mg/dL (8.5-10.1) Brief Hospital Course Ms. Ng is a 78yo F w/ PMHx ?cirrhosis/Hep C, cecal volvulus s/p colostomy, hypothyroidism who p/w confusion and hypotension. Pain began getting unbearable per family and she had possibly taken too many opioids. She has also noted to be slightly tachycardic. She has intermittent pleuritic discomfort. She has not had any definite exertional chest pain. She does have chronic back pain, and now has associated abdominal pain, weakness, nausea, or vomiting. Denies numbness,. There are no alleviating or exacerbating factors to her symptoms. Has been having loose stool per ostomy since last night as well as decreased urine output and decreased appetite for the past 2 weeks and had been temporarily on HD outpatient awaiting renal recovery, and in fact had renal recovery while inpatient and is having tunneled HD cath removed. Seen by nephrology for this and ID for a UTI that turned out to be lactobacillus 05/20 s/p diverting ileostomy and has been having medical problems since then. Sepsis ruled out, hypotension may have been related to narcotics UTI, which in my opinion is asymptomatic bacteriuria, patient may be having an element of retention - ok to d/c off antibiotics per ID HYPOTENSION-MOST LIKELY NARCOTIC ASSOCIATED CKD now off HD, back to cr 1.7 baseline TIGRE DUE TO ATN - recovered now HTN HX ANEMIA OF CKD weakness and debility Ostomy output positive for FOBT. UTI Plan: LIJ removal and tunneled HD cath removal today Cipro deescalation per ID. Lactobacillus on urine Will need skilled svcs on d/c as she continues to be readmitted likely due to home medication errors, poor ostomy care. Greater than 30 minutes spent on discharge Discharge Information Condition at Discharge: Improved Follow Up: Weeks (2) Disposition/Orders: D/C to Another Facility ([facility]) Scheduled Aspirin (Aspirin Ec) 81 Mg Tablet., 81 MG PO DAILYWBKFT for antiplatelet for 30 Days, #30 Prescribed by: ORION MULLIGAN MD on 08/27/18 1217 Last Action: Continued on 09/22/18 2072 by ORION MULLIGAN MD Atorvastatin Calcium (Atorvastatin Calcium) 40 Mg Tablet, 40 MG PO QHS for dylipids MDD 1, #60 Prescribed by: GERDA DE LEÓN on 09/16/18 0845 Last Action: Continued on 09/22/181458 by ORION MULLIGAN MD Hydrocodone/Apap 5-325 ([place] 5-325 Tablet) 1 Each Tablet, 1 TAB PO PRN Q6HRS for pain for 6 Days, #20 Ref 0 Prescribed by: SHENA HERNANDEZ MD on 09/24/18 1052 Levothyroxine Sodium (Synthroid) 88 Mcg Tablet, 88 MCG PO DAILY06 for hypothy MDD 1, #60 Prescribed by: GERDA DE LEÓN on 06/04/18 1042 Last Action: Continued on 09/22/181458 by ORION MULLIGAN MD Lidocaine (Lidocaine) 1 Each Adh..patch, 1 PATCH TD DAILY for back pain MDD 1, # 14 Prescribed by: GIANLUCA LONG on 08/23/18 1106 Last Action: Converted on 09/22/181458 by ORION MULLIGAN MD Metoprolol Succinate (Metoprolol Succinate ( Xl )) 25 Mg Tab.er.24h, 25 MG PO DAILY for htn MDD 1, #30 Prescribed by: GERDA DE LEÓN on 06/04/18 1042 Last Action: Continued on 09/22/181458 by ORION MULLIGAN MD Mirtazapine (Mirtazapine) 7.5 Mg Tablet, 7.5 MG PO QHS for anciety MDD 1, #30 Prescribed by: GERDA DE LEÓN on 09/16/18 0845 Last Action: Continued on 09/22/181458 by ORION MULLIGAN MD Pantoprazole Sodium (Protonix) 20 Mg Tablet.dr, 40 MG PO DAILY for PPI, ( Reported) Entered as Reported by: ANCELMO FRASER on 05/20/18 1525 Last Action: Converted on 09/22/181458 by ORION MULLIGAN MD Sucralfate (Carafate) 1 Gm Tablet, 1 GM PO TIDAC for gi MDD 1, #60 Prescribed by: GERDA DE LEÓN on 09/16/18 0845 Last Action: Converted on 09/22/181458 by ORION MULLIGAN MD Vit B Cmplx 3/Fa/Vit C/Biotin (Nephro-Cheli Rx Tablet) 1 Each Tablet, 1 EACH PO DAILY for esrd for 30 Days, #30 Prescribed by: GERDA DE LEÓN on 09/16/18844 Last Action: Converted on 09/22/181458 by ORION MULLIGAN MD [Darbepoetin Dario In Polysorbat] 60 MCG/0.3 ML DISP.SYRIN, 60 MCG SQ WEEKLYHS for anemia 2/2 CKD for 30 Days, #4 Prescribed by: SHENA HERNANDEZ MD on 09/24/18 1052 Scheduled PRN Buspirone Hcl (Buspirone Hcl) 5 Mg Tablet, 5 MG PO PRN TID PRN for ANXIETY MDD 1 , #30 Prescribed by: GERDA DE LEÓN on 09/16/18844 Last Action: Continued on 09/22/181458 by ORION MULLIGAN MD Diphenoxylate Hcl/Atropine (Diphenoxylate-Atropine Tablet) 1 Each Tablet, 1 TAB PO PRN BID PRN for DIARRHEA for 30 Days, #60 Prescribed by: SHENA HERNANDEZ MD on 09/24/18 105 Temazepam (Restoril) 7.5 Mg Capsule, 7.5 MG PO PRN QHS PRN for INSOMNIA for 30 Days, #30 Prescribed by: SHENA HERNANDEZ MD on 09/24/18 1052 SHENA HERNANDEZ MD Sep 24, 2018 10:57
[2018-09-24 11:00] VITALS: BP 124/35
--- NOTE | 2018-09-24 11:19 | PDOC ---
SUBJECTIVE ROS No complaints, states feeling good, good UOP as per pt OBJECTIVE Vital Signs Vital Signs Date Time Temp Pulse Resp B/P (MAP) Pulse Ox O2 Delivery O2 Flow Rate FiO2 09/24/18 09:49 20 09/24/18 08:11 64 136/62 09/24/18 07:00 98.6 99 Room Air 98.6 I & 0 Intake and Output 09/24/18 07:00 Intake Total 1040 ml Balance 1040 ml Intake Oral 1040 ml # Voids 7 PHYSICAL EXAM Physical Exam GEN: NAD HEENT: Oral cavity: Pharynx pink and moist. NECK: Supple. LUNGS: Clear to auscultation. HEART: S1, S2. ABDOMEN: Obese, soft and nontender with bowel sounds present. Ileostomy without signs of complications. SKIN: Warm without rash. NEUROLOGIC: Alert x O x 3 DIAGNOSIS/ASSESSMENT Assessment & Plan TIGRE due to ATN Was started on HD few weeks back, was dced on MWF HD last HD was on 09/19, Improved renal function E-Lytes stable, Good UOP, Clinically euvolemic Has TDC - remove before dc CKD stage 3 Cr 1.6 Follow up with our office as OP after Discharge HTN Anemia- ARANESP Follow BMP in 1 week with PCP and with Renal next available Discussed with Pt and RN COMMENT/RELEVANT DATA Meds Current Medications Medications (Trade) Dose Ordered Sig/Saroj Start Time Stop Time Status Last Admin Dose Admin Acetaminophen (Tylenol) 650 mg PRN Q4HRS PRN 09/20/18 22:00 09/21/18 21:59 DC 09/21/18 21:43 650 MG Acetaminophen/ Hydrocodone Bitart (Lortab 5/325) 1 tab PRN Q6HRS 09/22/18 15:00 UNV Aspirin (Ecotrin) 81 mg DAILYWBKFT 09/22/18 16:00 09/24/18 08:03 81 MG Atorvastatin Calcium (Lipitor) 40 mg QHS 09/22/18 21:00 09/23/18 21:03 40 MG Buspirone HCl (Buspar) 5 mg PRN TID PRN 09/22/18 15:00 09/24/18 09:49 5 MG Ciprofloxacin (Cipro) 500 mg BID 09/22/18 10:00 09/24/18 07:59 500 MG Darbepoetin Dario (Aranesp) 60 mcg WEEKLYHS 09/21/18 21:00 09/21/18 20:01 60 MCG Diphenoxylate HCl/ Atropine (Lomotil) 1 tab DAILY 09/22/18 15:00 09/24/18 07:59 1 TAB Fentanyl Citrate (Fentanyl 2ml Vial) 25 mcg PRN Q2HR PRN 09/21/18 01:00 09/21/18 15:51 DC 09/21/18 12:59 25 MCG Hydralazine HCl (Apresoline Inj) 10 mg PRN Q4HRS PRN 09/22/18 05:00 09/22/18 14:16 10 MG Lactobacillus Rhamnosus (Culturelle) 1 cap BID 09/21/18 21:00 09/24/18 07:59 1 CAP Levofloxacin (Levaquin) 500 mg 1X ONCE 09/20/18 21:15 09/20/18 21:22 DC 09/20/18 21:48 500 MG Levothyroxine Sodium (Synthroid) 88 mcg DAILY06 09/22/18 16:00 09/24/18 05:45 88 MCG Lidocaine (Lidoderm) 1 patch DAILY 09/22/18 16:00 09/24/18 08:06 1 PATCH Metoprolol Succinate (Toprol Xl) 25 mg DAILY 09/22/18 16:00 09/24/18 08:11 25 MG Mirtazapine (Remeron) 7.5 mg QHS 09/22/18 21:00 09/23/18 21:03 7.5 MG Non-Formulary Medication (Pantoprazole Sodium (Protonix)) 40 mg DAILY 09/23/18 09:00 UNV Ondansetron HCl (Zofran) 4 mg PRN Q8HRS PRN 09/20/18 22:00 09/21/18 21:59 DC Pantoprazole Sodium (PROTONIX VIAL for IV PUSH) 80 mg 1X ONCE 09/20/18 22:15 09/20/18 22:16 DC 09/20/18 21:59 80 MG Pantoprazole Sodium (Protonix) 40 mg DAILYAC 09/21/18 13:00 09/24/18 07:58 40 MG Piperacillin Sod/ Tazobactam Sod (Zosyn Per Pharmacy) 1 each PRN DAILY PRN 09/21/18 11:00 09/23/18 15:19 DC Piperacillin Sod/ Tazobactam Sod 2.25 gm/Sodium Chloride 50 ml @ 100 mls/hr Q8HRS 09/21/18 12:00 09/22/18 09:06 DC 09/22/18 06:18 100 MLS/HR Sodium Chloride 1,000 ml @ 100 mls/hr Q10H 09/20/18 22:30 09/21/18 22:29 DC 09/22/18 06:18 100 MLS/HR Sucralfate (Carafate) 1 gm TIDAC 09/22/18 16:30 09/24/18 07:58 1 GM Temazepam (Restoril) 7.5 mg PRN QHS PRN 09/21/18 18:30 09/22/18 20:56 7.5 MG Vitamin B Complex/ Vitamin C (Janett-Cheli) 1 tab DAILY 09/22/18 16:00 09/24/18 07:59 1 TAB Lab Laboratory Tests Test 09/24/18 07:21 Sodium Level 143 mmol/L (136-145) Potassium Level 4.4 mmol/L (3.5-5.1) Chloride Level 110 mmol/L (98-107) Carbon Dioxide Level 20 mmol/L (21-32) Anion Gap 13 (6-14) Blood Urea Nitrogen 12 mg/dL (7-20) Creatinine 1.7 mg/dL (0.6-1.0) Estimated GFR (Cockcroft-Gault) 35.0 Glucose Level 90 mg/dL (70-99) Calcium Level 7.8 mg/dL (8.5-10.1) Results All relevant outside records, renal labs, imaging studies, telemetry/EKG's were reviewed. SHERRY ALAN MD Sep 24, 2018 11:19
--- NOTE | 2018-09-24 11:39 | PDOC ---
Subjective: Subjective: Feeling better. Says going home after HD cath removed. Ostomy output controlled. Tolerating PO. Objective: Vital Signs: Vital Signs Date Time Temp Pulse Resp B/P (MAP) Pulse Ox O2 Delivery O2 Flow Rate FiO2 09/24/18 09:49 20 09/24/18 08:11 64 136/62 09/24/18 08:00 Room Air 09/24/18 07:00 98.6 99 98.6 Labs: Laboratory Tests Test 09/24/18 07:21 Sodium Level 143 mmol/L Potassium Level 4.4 mmol/L Chloride Level 110 mmol/L Carbon Dioxide Level 20 mmol/L Anion Gap 13 Blood Urea Nitrogen 12 mg/dL Creatinine 1.7 mg/dL Estimated GFR (Cockcroft-Gault) 35.0 Glucose Level 90 mg/dL Calcium Level 7.8 mg/dL URINE CULTURE Final Final report URINE CULTURE RES 1 Final Lactobacillus species 10,000-25,000 colony forming units per mL Susceptibility not normally performed on this organism. URINE CULTURE RES 2 Final Yeast PE: GEN: NAD LUNGS: CTAB HEART: RRR ABD: soft, RLQ ostomy NEURO/PSYCH: A & O 3 A/P: Increased ostomy output - controlled -- DC per primary, continue Lomotil (adjust dose as needed), continue PPI. SHREE SAAVEDRA Sep 24, 2018 11:39
--- NOTE | 2018-09-24 13:56 | NUR ---
BINTA following pt. BINTA phoned and faxed orders to [facility]. Pt's choice and rights forms verbally consented by and copies on chart. Pt will transport via facility arrange w/c van between [phone]. BINTA left a voice mail to pt's daughter. RN notified. Packet on chart.
--- NOTE | 2018-09-24 14:00 | NUR ---
left triple IJ removed; pressure held for 5-10 minutes.; tolerated well. reviewed with Jennifer her discharge instructions regarding getting a bmp in 1 week and to follow up with her renal doctor as ordered. she verbalized understanding. Radiology came up and removed her dialysis catheter. dressing are clean and dry
--- NOTE | 2018-09-24 14:55 | NUR ---
report called to Mir[facility] Rosadobend. update on medications and last pain medication and Carafate .
--- NOTE | 2018-09-24 16:36 | NUR ---
dismissed to [facility]. scripts given to transporter
== END 2018-09-24 16:37 | disposition home or self-care (01) | DRG 689 ==
LOC: ER 18:30 → 1 WEST ICU 22:12 → 5 NORTH 09-22 17:49
PROVIDERS: ADMIT Internal Medicine; ATTEND Internal Medicine
PROC: 30233N1 Transfusion of Nonautologous Red Blood Cells into Peripheral Vein, Percutaneous Approach (ICD-10-PCS; principal; 2018-09-21)
PROC: 0JPV3XZ Removal of Tunneled Vascular Access Device from Upper Extremity Subcutaneous Tissue and Fascia, Percutaneous Approach (ICD-10-PCS; 2018-09-24)
PROC: 02PYX3Z Removal of Infusion Device from Great Vessel, External Approach (ICD-10-PCS; 2018-09-24)
DX: N39.0 Urinary tract infection, site not specified (principal); N17.0 Acute kidney failure with tubular necrosis; N18.6 End stage renal disease; K92.2 Gastrointestinal hemorrhage, unspecified; I12.0 Hypertensive chronic kidney disease with stage 5 chronic kidney disease or end stage renal disease; N64.4 Mastodynia; D63.1 Anemia in chronic kidney disease; Z99.2 Dependence on renal dialysis; B19.20 Unspecified viral hepatitis C without hepatic coma; E03.9 Hypothyroidism, unspecified; E11.22 Type 2 diabetes mellitus with diabetic chronic kidney disease; E78.00 Pure hypercholesterolemia, unspecified; E78.5 Hyperlipidemia, unspecified; G89.29 Other chronic pain; J44.9 Chronic obstructive pulmonary disease, unspecified; K21.9 Gastro-esophageal reflux disease without esophagitis; F41.9 Anxiety disorder, unspecified; M19.90 Unspecified osteoarthritis, unspecified site; M54.9 Dorsalgia, unspecified; I95.2 Hypotension due to drugs; T40.605A Adverse effect of unspecified narcotics, initial encounter; K74.60 Unspecified cirrhosis of liver; Z80.1 Family history of malignant neoplasm of trachea, bronchus and lung; Z82.49 Family history of ischemic heart disease and other diseases of the circulatory system; Z87.11 Personal history of peptic ulcer disease; Z87.891 Personal history of nicotine dependence; Z90.49 Acquired absence of other specified parts of digestive tract; Z90.710 Acquired absence of both cervix and uterus; Z93.2 Ileostomy status; Z93.3 Colostomy status; Z88.5 Allergy status to narcotic agent; Z88.8 Allergy status to other drugs, medicaments and biological substances; Z79.899 Other long term (current) drug therapy; Y92.89 Other specified places as the place of occurrence of the external cause; Z79.84 Long term (current) use of oral hypoglycemic drugs
CPT/HCPCS: 36415; 36590; 71045; 80048; 80053; 81001; 82274; 83735; 83880; 84484; 85025; 85027; 85610; 86850; 86900; 86901; 86920; 87040; 87086; 87641; 93005; 96361; 96374; C9113; J0360; J0881; J2543; J3010; J7030; J7040; P9016; 97110; 97116; 97530; 97535; 99285-25